=== PATIENT | female | born 1940 | race Caucasian/White ===

== ENCOUNTER 2022-11-12 11:08 | Outpatient (OUT) | payer MEDICARE, SELFPAY ==
[2022-11-12 12:06] LABS: Basophils Percent Auto 0.4 % (0.2-2.0); Eosinophils Absolute Auto 0.1 10^3/uL (0.0-0.7); Eosinophils Percent Auto 2.4 % (0.9-7.0); Hematocrit 40.2 % (36.0-48.0); Hemoglobin 13.3 g/dL (12.0-16.0); Immature Granulocytes Abs Auto 0.02 10^3/uL (0.00-0.03); Immature Granulocytes Pct Auto 0.4 % (0.0-0.5); Lymphocytes Absolute Auto 1.2 10^3/uL (1.2-3.8); Lymphocytes Percent Auto 21.8 % (20.5-60.0); Mean Corpuscular HGB Conc 33.1 g/dL (29.9-35.2); Mean Corpuscular Hemoglobin 31.7 pg (26.7-34.0); Mean Corpuscular Volume 95.7 fL (81.0-99.0); Mean Platelet Volume 10.6 fL (9.5-13.5); Monocytes Absolute Auto 0.4 10^3/uL (0.3-0.8); Monocytes Percent Auto 6.8 % (1.7-12.0); Neutrophils Absolute Auto 3.7 10^3/uL (1.4-6.5); Neutrophils Percent Auto 68.2 % (43.0-75.0); Platelet Count 126 10^3/uL (150-450); Red Cell Distribution Width 14.7 % (11.0-15.0); White Blood Count 5.4 10^3/uL (4.0-11.0)
[2022-11-12 12:27] LABS: INR 1.02; Prothrombin Time 10.8 sec (9.0-11.6)
[2022-11-12 12:29] LABS: Scan Results NEGATIVE
[2022-11-12 12:54] LABS: Alanine Aminotransferase 19 U/L (14-59); Albumin Globulin Ratio 1.2; Albumin Level 3.6 g/dL (3.4-5.0); Alkaline Phosphatase 78 U/L (46-116); Anion Gap 11.3; Aspartate Amino Transferase 15 U/L (15-37); BUN Creatinine Ratio 13.9; Calcium 9.8 mg/dL (8.5-10.1); Carbon Dioxide 29.5 mmol/L (21.0-32.0); Chloride 107 mmol/L (98-107); Estimated GFR (African America >60 (>=60); Estimated GFR (Non-African Ame 53 (>=60); Globulin 3.1 g/dL; Glucose 99 mg/dL (74-106); Potassium 3.8 mmol/L (3.5-5.1); Sodium 144 mmol/L (136-145); Total Protein 6.7 g/dL (6.4-8.2)
== END 2022-11-12 11:09 | disposition home or self-care (01) ==
LOC: LAB 11:16
PROVIDERS: PCP Family Medicine; Visit Provider Nurse Practitioner Family
DX: R41.82 Altered mental status, unspecified (principal); T14.8XXA Other injury of unspecified body region, initial encounter; N18.31 Chronic kidney disease, stage 3a
CPT/HCPCS: 36415; 80053; 85025; 85610

== ENCOUNTER 2022-12-13 12:20 | Outpatient (OUT) | payer MEDICARE, SELFPAY ==
[2022-12-13 12:28] LABS: Estimated GFR (African America 52 (>=60); Estimated GFR (Non-African Ame 43 (>=60)
--- NOTE | 2022-12-13 12:50 | MR_ITS ---
The [address] [address] Patient Name: DESTINY BLAS MRN: [facility]:[id number] date: 1940 Sex: F Assigned Patient Location: LAB Current Patient Location: LAB Accession/Order Number: [id number] Exam Date: 12/13/2022 12:50 Report Date: 12/14/2022 15:58 At the request of: DAX ALONSO Procedure: MR head/brain wo/w con EXAM: MR head/brain wo/w con HISTORY: Sensorineural hearing loss of R ear H90.41 COMPARISON: Brain MRI 10/08/2019. TECHNIQUE: Multiplanar, multisequence MR imaging of the head was performed prior to and following administration of 11 mL of Dotarem contrast intravenously. FINDINGS: No restricted diffusion. No acute hemorrhage, mass effect, midline shift or extra-axial fluid collection. There is a large area of encephalomalacia and gliosis within the right parietal lobe. There is moderate cerebral atrophy with concordant prominence of the ventricles. Moderate patchy FLAIR hyperintensities are seen within the periventricular and subcortical white matter Expected flow voids are noted within the intracranial internal carotid, vertebral and basilar arteries. The cerebellopontine angles and internal auditory canals are unremarkable. The pituitary gland and midline structures are unremarkable. Bone marrow signal is within normal limits. The orbits and globes are unremarkable. There has been prior right-sided cataract eye surgery. Expected signal voids are seen within the paranasal sinuses. There is increased T2 signal within the right mastoid air cells. 7th and 8th nerve complexes are unremarkable in course, caliber, contour and signal. Cochlea, vestibule and semicircular canals are unremarkable in signal. No abnormal enhancement. MR/MR head/brain wo/w con IMPRESSION: 1. Chronic right parietal lobe infarct. 2. Moderate atrophy and chronic small vessel ischemic changes of the supratentorial white matter. 3. Right mastoid effusion, similar to the prior MRI. Electronically authenticated by: CORNELL GERBER Date: 12/14/2022 15:58
== END 2022-12-13 12:21 | disposition home or self-care (01) ==
LOC: LAB 12:20
PROVIDERS: PCP Family Medicine; Visit Provider Otolaryngology
DX: H90.41 Sensorineural hearing loss, unilateral, right ear, with unrestricted hearing on the contralateral side (principal)
CPT/HCPCS: 36415; 70553; 82565; A9575

== ENCOUNTER 2023-03-12 09:47 | Outpatient (OUT) | payer MEDICARE, SELFPAY ==
[2023-03-12 10:18] LABS: Chol HDL Ratio 2.5; Cholesterol 163 mg/dL (<=200); HDL Cholesterol 66 mg/dL (40-60); Triglycerides 61 mg/dL (<=150); VLDL CHOLESTEROL 12.2 mg/dL
--- NOTE | 2023-03-12 10:19 | XR_ITS ---
[place] [id number] Patient Name: DESTINY BLAS MRN: [id number] date: 1940 Sex: F Assigned Patient Location: [facility] Current Patient Location: [facility] Accession/Order Number: [id number] Exam Date: 03/12/2023 10:10 Report Date: 03/12/2023 11:11 At the request of: ALICE QUIROZ Procedure: XR DEXA axial skeleton EXAMINATION: XR DEXA axial skeleton HISTORY: Estrogen Deficiency E28.39 COMPARISON: No relevant comparison available. TECHNIQUE: Dual-energy X-ray absorptiometry (DXA) was performed. FINDINGS: SPINE ANALYSIS: Average bone mineral density is 0.792 g/cm2. T-score (standard deviation relative to young adult mean): -3.2 . HIP ANALYSIS: Lowest bone mineral density is within the left femoral trochanter, 0.384 g/cm2. T-score (standard deviation relative to young adult mean): -4.1 . XR/XR DEXA axial skeleton IMPRESSION: World Chace Organization Classification: Osteoporosis - High Fracture Risk Electronically authenticated by: EZEQUIEL MART Date: 03/12/2023 11:11
== END 2023-03-12 09:48 | disposition home or self-care (01) ==
LOC: RAD 09:48
PROVIDERS: PCP Family Medicine; Visit Provider Family Medicine
DX: I10 Essential (primary) hypertension (principal); Z13.220 Encounter for screening for lipoid disorders; E28.39 Other primary ovarian failure; M81.0 Age-related osteoporosis without current pathological fracture
CPT/HCPCS: 36415; 77080; 80061

== ENCOUNTER 2024-12-09 21:11 | Inpatient (IN) | payer MEDICARE, SELFPAY ==
[2024-12-09] VITALS (12 sets, daily range): BP systolic 142–161; BP diastolic 70–101; PULSE 94–106; TEMP 37.4–38.5; O2SAT 83–98; BMI 18.9
--- OUTSIDE RECORDS SUMMARY | 2024-12-09 21:19 | XMS_ITS | Encounter Summary ---
Author Organization [facility] Address [address] [facility] [place] [address] Care Team Providers Care Tape Recorder Repairer Name Role Phone Alfredo Gaming MD Primary Care Provider [phone] Alfredo Gaming MD Unavailable Ramila Canada SECOND FACING BASTER Unavailable [phone] Encounter Details Date Type Department Care Team (Late st Contact Info) Description 06/16/2023 Abstract [facility] [address] [place] [address] [place] [address] Alfredo Gaming MD [address] [facility] 110 [place] [address] Social History Tobacco Use Types Packs/Day Years Used Date Smoking Tobacco: Never Smokeless Tobacco: Never Alcohol Use Standard Drinks/Week Comments Never 0 (1 standard drink = 0.6 oz pure alcohol) Caffeine intake: 1-2 cups per day PHQ-2 Answer Date Recorded Patient Health Questionnaire-2 Score 0 03/03/2023 Comments Unknown Sex and Gender Information Value Date Recorded Sex Assigned at Not on file Legal Sex Female 7:25 PM EDT Gender Identity Not on file Sexual Orientation Not on file documented as of this encounter Plan of Treatment Not on file documented as of this encounter Visit Diagnoses Not on filedocumented in this encounter Care Teams Tape Recorder Repairer Relationship Specialty Start Date End Date Alfredo Gaming MD [address] [place] [address] [place] [address] PCP - General Family Medicine 10/03/22 Alfredo Gaming MD 112 [facility] 110 [place] [address] PCP - ACO Reach 06/11/24 Ramila Canada, SECOND FACING BASTER [address] [place] [address] Instructor Warper Family Medicine 12/09/24 documented as of this encounter
--- OUTSIDE RECORDS SUMMARY | 2024-12-09 21:19 | XMS_ITS | Encounter Summary ---
Author Organization [facility] Address [address] [facility] [place] [address] Care Team Providers Care Loom Inspector Name Role Phone Alfredo Gaming MD Primary Care Provider [phone] Alfredo Gaming MD Unavailable Ramila Canada FLOOR MANAGER Unavailable [phone] Encounter Details Date Type Department Care Team (Late st Contact Info) Description 12/09/2024 Abstract [facility] [address] [place] [address] [place] [address] Alfredo Gaming MD [address] [facility] 110 [place] [address] Social History Tobacco Use Types Packs/Day Years Used Date Smoking Tobacco: Never Smokeless Tobacco: Never Alcohol Use Standard Drinks/Week Comments Never 0 (1 standard drink = 0.6 oz pure alcohol) Caffeine intake: 1-2 cups per day PHQ-2 Answer Date Recorded Patient Health Questionnaire-2 Score 0 09/14/2024 Comments Unknown Sex and Gender Information Value Date Recorded Sex Assigned at Not on file Legal Sex Female 7:25 PM EDT Gender Identity Not on file Sexual Orientation Not on file documented as of this encounter Plan of Treatment Not on file documented as of this encounter Visit Diagnoses Not on filedocumented in this encounter Care Teams Loom Inspector Relationship Specialty Start Date End Date Alfredo Gaming MD [address] [place] [address] [place] [address] PCP - General Family Medicine 10/03/22 Alfredo Gaming MD 112 [facility] 110 [place] [address] PCP - ACO Reach 06/11/24 Ramila Canada, FLOOR MANAGER [address] [place] [address] Dope House Operator Helper Family Medicine 12/09/24 documented as of this encounter
--- OUTSIDE RECORDS SUMMARY | 2024-12-09 21:19 | XMS_ITS | Encounter Summary ---
Author Organization [facility] Address [address] [place] [address] Phone Care Team Providers Care Medical Imaging Director Name Role Phone Alfredo Gaming MD Primary Care Provider [phone] Encounter Details Date Type Department Care Team (Late Contact Info) Description 10/07/2019 Orders Only [facility] [address] [place] [address] Conversion, Onbase Social History Tobacco Use Types Packs/Day Years Used Date Smoking Tobacco: Never Assessed Comments Unknown Sex and Gender Information Value Date Recorded Sex Assigned at Not on file Legal Sex Female 6:59 PM EST Gender Identity Not on file Sexual Orientation Not on file documented as of this encounter Plan of Treatment Upcoming Encounters Date Type Department Care Team (Late Contact Info) Description 06/06/2025 1:00 PM EST Office Visit [facility] [address] [facility] [address] [place] [address] Karlene Mayo, LICENSING REPRESENTATIVE-METAL MODEL BUILDER [address] [facility] [address] [place] [address] [place] [address] Scheduled Orders Name Type Priority Associated Diagnoses Orde r Schedule OUTSIDE LAB SCAN Lab Ordered: 10/07/2019 documented as of this encounter Visit Diagnoses Not on filedocumented in this encounter Care Teams Medical Imaging Director Relationship Specialty Start Date End Date Alfredo Gaming MD [address] [place] [address] [place] [address] PCP - General 03/08/20 documented as of this encounter
--- OUTSIDE RECORDS SUMMARY | 2024-12-09 21:19 | XMS_ITS ---
Author Organization [facility] Address [address] [facility] [place] [address] Care Team Providers Care Automobile Insurance Claim Examiner Name Role Phone Alfredo Gaming MD Primary Care Provider [phone] Alfredo Gaming MD Unavailable Ramila Canada Unavailable [phone] Chronic Care Management (CCM) Status:Identified (Enrolling) Start date:12/09/2024 Enrollment reason:Identified by Health Plan Overview Please assess for Care Management needs. Case Team Name Relationship Phone Ramila DOBSONW(Responsible Staff) Social Wor ker [phone] Continued Care and Services Coordination
--- OUTSIDE RECORDS SUMMARY | 2024-12-09 21:19 | XMS_ITS | Encounter Summary ---
Author Organization [facility] Address [address] [facility] [place] [address] Care Team Providers Care Retail Analytics Manager Name Role Phone Alfredo Gaming MD Primary Care Provider [phone] Alfredo Gaming MD Unavailable Ramila Canada SPEECH LANGUAGE PATHOLOGIST TRAVEL Unavailable [phone] Encounter Details Date Type Department Care Team (Late st Contact Info) Description 10/29/2024 Abstract [facility] [address] [place] [address] [place] [address] Alfredo Gaming MD [address] [facility] 110 [place] [address] Social History Tobacco Use Types Packs/Day Years [...] on filedocumented in this encounter Care Teams Retail Analytics Manager Relationship Specialty Start Date End Date Alfredo Gaming MD [address] [place] [address] [place] [address] PCP - General Family Medicine 10/03/22 Alfredo Gaming MD [address] [facility] 110 [place] [address] PCP - ACO Reach 06/11/24 Ramila Canada, SPEECH LANGUAGE PATHOLOGIST TRAVEL [address] [place] [address] Lead Java Developer Architect Family Medicine 12/09/24 documented as of this encounter
--- OUTSIDE RECORDS SUMMARY | 2024-12-09 21:19 | XMS_ITS | Encounter Summary ---
Author Organization [facility] Address [address] [place] [address] Care Team Providers Care Medical Data Analyst Name Role Phone Alfredo Gaming MD Primary Care Provider [phone] Alfredo Gaming MD Unavailable Ramila Canada BUSINESS OPERATIONS SPECIALIST Unavailable [phone] Encounter Details Date Type Department Care Team (Late st Contact Info) Description 2022 Orders Only [facility] [address] [place] [address] [place] [id number] A, Unknown Practice [address] [place], [place] [address] Social History Tobacco Use Types Packs/Day Years Used Date Smoking Tobacco: Never Smokeless Tobacco: Never Alcohol Use Standard Drinks/Week Comments Never 0 (1 standard drink = 0.6 oz pure alcohol) Caffeine intake: 1-2 cups per day Comments Unknown Sex and Gender Information Value Date Recorded Sex Assigned at Not on file Legal Sex Female 7:25 PM EDT Gender Identity Not on file Sexual Orientation Not on file documented as of this encounter Plan of Treatment Not on file documented as of this encounter Procedures Procedure Name Priority Date/Time Associated Diagnosis Comments SCANNED LABS Routine 11/12/2022 9:34 AM EDT documented in this encounter Results * SCANNED LABS (11/12/2022 9:34 AM EDT) us Unknown Practice A LAB CHG PERFORMABLES Final Re sult documented in this encounter Visit Diagnoses Not on filedocumented in this encounter Care Teams Medical Data Analyst Relationship Specialty Start Date End Date Alfredo Gaming MD [address] [facility] 110 [place] [address] PCP - General Family Medicine 10/03/22 Alfredo Gaming MD [address] [facility] 110 [place] [address] PCP - ACO Reach 06/11/24 Ramila Canada, BUSINESS OPERATIONS SPECIALIST [address] [place] [address] Janitor Caretaker Family Medicine 12/09/24 documented as of this encounter
--- OUTSIDE RECORDS SUMMARY | 2024-12-09 21:19 | XMS_ITS | Encounter Summary ---
Author Organization [facility] Address [address] [facility] [place] [address] Care Team Providers Care Resource Conservation Manager Name Role Phone Alfredo Gaming MD Primary Care Provider [phone] Alfredo Gaming MD Unavailable Ramila Canada BILINGUAL COUNTER SALES RETAIL Unavailable [phone] Encounter Details Date Type Department Care Team (Late st Contact Info) Description 12/09/2024 Telephone [facility] [address] [place] [address] [place] [address] Alfredo Gaming MD [address] [facility] 110 [place] [address] Social History Tobacco Use Types Packs/Day Years [...] on file documented as of this encounter Miscellaneous Notes * Telephone Encounter - ULI PADILLA - 12/09/2024 10:53 AM EDT Hi, my name is Car Luis, I am calling from [facility] regarding mutual patient Elza Grimes date of is [id number]. Just reaching out because we did receive that referral for her for some homecare. However, we are going to need an addendum to the visit note from september 14. We Just need a discussion added on what chronic condition is causing her to need the home care that can be fixed to [phone]. And if you have any questions, please give me a call back at [phone], extension [phone]. Thank you. documented in this encounter Plan of Treatment Not on file documented as of this encounter Visit Diagnoses Not on filedocumented in this encounter Care Teams Resource Conservation Manager Relationship Specialty Start Date End Date Alfredo Gaming MD [address] [facility] 110 [place] [address] PCP - General Family Medicine 10/03/22 Alfredo Gaming MD [address] [facility] 110 [place] [address] PCP - ACO Reach 06/11/24 Ramila Canada, SHAQ [address] [place] [address] Physician Ophthalmologist Family Medicine 12/09/24 documented as of this encounter
--- OUTSIDE RECORDS SUMMARY | 2024-12-09 21:19 | XMS_ITS | Encounter Summary ---
Author Organization [facility] Address [address] [facility] [place] [address] Care Team Providers Care Glass Presser Name Role Phone Alfredo Gaming MD Primary Care Provider [phone] Alfredo Gaming MD Unavailable Ramila Canada CONTRACT NEGOTIATION SPECIALIST Unavailable [phone] Encounter Details Date Type Department Care Team (Late st Contact Info) Description 03/12/2023 Abstract [facility] [place] [address] [place] [address] [place] [address] Alfredo Gaming MD [address] [facility] 110 [place] [address] Social History Tobacco Use Types Packs/Day Years [...] on filedocumented in this encounter Care Teams Glass Presser Relationship Specialty Start Date End Date Alfredo Gaming MD [address] [place] [address] [place] [address] PCP - General Family Medicine 10/03/22 Alfredo Gaming MD 112 [facility] 110 [place] [address] PCP - ACO Reach 06/11/24 Ramila Canada, CONTRACT NEGOTIATION SPECIALIST [address] [place] [address] Wrinkle Chaser Family Medicine 12/09/24 documented as of this encounter
--- OUTSIDE RECORDS SUMMARY | 2024-12-09 21:19 | XMS_ITS | Clinical Summary ---
Author Organization [facility] Address [address] [facility] [address] [place] [address] Care Team Providers Care Fire Operations Forester Name Role Phone Alfredo Gaming MD Primary Care Provider [phone] Allergies Active Allergy Reactions Criticality Noted Date Comments Food Diarrhea Low 07/10/2021 Green peppers Onion Diarrhea Low 07/10/2021 Green onions Medications losartan (COZAAR) 50 MG tablet Take 50 mg by mouth 2 times daily Active carvedilol (COREG) 25 MG tablet Take 12.5 mg by mouth 2 times daily (with meals) Active methotrexate (RHEUMATREX) 2.5 MG chemo tablet Take 10 mg by mouth once a week 4 tablets (10mg) weekly per Helga, patient advocate for Dr Alfredo Gaming 07/09/21 [facility] Active omeprazole (PRILOSEC) 20 MG delayed release capsule Take 20 mg by mouth daily Active spironolactone (ALDACTONE) 25 MG tablet Take 12.5 mg by mouth daily Active enoxaparin (LOVENOX) 40 MG/0.4ML injection Inject 0.4 mLs into the skin daily 30 each 07/12/2021 Active Active Problems Problem Noted Date Diagnosed Date Thrombocytopenia 07/10/2021 Femoral neck stress fracture, initial encounter - Right 07/09/2021 Hypertension 07/09/2021 Cerebral artery occlusion with cerebral infarcti on 07/09/2021 Arthritis 07/09/2021 Right hip pain 07/09/2021 Social History Tobacco Use Types Packs/Day Years Used Date Smoking Tobacco: Never Smokeless Tobacco: Never Alcohol Use Standard Drinks/Week Comments Never 0 (1 standard drink = 0.6 oz pur e alcohol) Comments No Sex and Gender Information Value Date Recorded Sex Assigned at Not on file Legal Sex Female 2:03 PM EST Gender Identity Not on file Sexual Orientation Not on file Last Filed Vital Signs Vital Sign Reading Time Taken Comments Blood Pressure 137/67 07/13/2021 7:12 AM EST Pulse 77 07/13/2021 7:12 AM EST Temperature 36.2 C (97.1 F) 07/13/2021 7:12 AM EST Respiratory Rate 18 07/13/2021 7:12 AM EST Oxygen Saturation 95% 07/13/2021 7:12 AM EST Inhaled Oxygen Concentration - - Weight 58.5 kg (129 lb) 07/13/2021 5:15 AM EST Height 162.6 cm (5' 4 ) 07/10/2021 8:33 AM EST Body Mass Index 22.14 07/10/2021 8:33 AM EST Plan of Treatment Not on file Medical Devices Implanted Type Area Biostatistics Manager Device Identifier Shelf Expiration Date Model / Serial / Lot Nail Im L170mm [id number] 130deg Sht Prox Fem Grn Ti Vijaya Rhea - [id number] Implanted:Qty: 1 on 07/11/2021 by Manny Amaya MD at [facility] Right: Hip DEPUY SYNTH[employer] [facility] 01/02/2031 [id number] / / [id number] Blade Im L95mm Dia10.35mm Prox Fem G Ti Vijaya Fen Kristina For - [id number] Implanted:Qty: 1 on 07/11/2021 by Manny Amaya MD at [facility] Right: Hip [employer] [facility] 07/02/2030 [id number] / / [id number] Screw Bne L34mm Dia5mm Tib Lt Grn Ti St Vijaya Andrew Full Thrd - [id number] Implanted:Qty: 1 on 07/11/2021 by Manny Amaya MD at [facility] Right: Hip [employer] [facility] 12/02/2030 [id number] / / [id number] Insurance MEDICARE A[employer] SENIOR MEDICARE SUPP Advance Directives * Full Code (Latest Code Status on File) Date Activated Date Inactivated Comments 07/11/2021 5:35 PM 07/13/2021 2:51 PM * Full Code Date Activated Date Inactivated Comments 07/09/2021 1:55 PM 07/11/2021 5:35 PM Healthcare Agents on File Name Relationship Healthcare Agent Relationshi p Communication Jorge Alberto Gutierrez Spouse Primary Decision Maker Care Teams Fire Operations Forester Relationship Specialty Start Date End Date Alfredo Gaming MD PCP - General Family Medicine 07/09/21
--- OUTSIDE RECORDS SUMMARY | 2024-12-09 21:19 | XMS_ITS | Encounter Summary ---
Author Organization [facility] Address [address] [facility] [place] [address] Care Team Providers Care Lead Recreation Assistant Name Role Phone Alfredo Gaming MD Primary Care Provider [phone] Alfredo Gaming MD Unavailable Ramila Canada FRUIT BUYING GRADER Unavailable [phone] Encounter Details Date Type Department Care Team (Late st Contact Info) Description 10/13/2023 Abstract [facility] [address] [place] [address] [place] [address] Alfredo Gaming MD [address] [facility] 110 [place] [address] Social History Tobacco Use Types Packs/Day Years [...] on filedocumented in this encounter Care Teams Lead Recreation Assistant Relationship Specialty Start Date End Date Alfredo Gaming MD [address] [place] [address] [place] [address] PCP - General Family Medicine 10/03/22 Alfredo Gaming MD 112 [facility] 110 [place] [address] PCP - ACO Reach 06/11/24 Ramila Canada, FRUIT BUYING GRADER [address] [place] [address] Culture Room Worker Family Medicine 12/09/24 documented as of this encounter
--- OUTSIDE RECORDS SUMMARY | 2024-12-09 21:19 | XMS_ITS | Encounter Summary ---
Author Organization [facility] Address [address] [place] [address] Phone Care Team Providers Care Digital Color Press Operator Name Role Phone Alfredo Gaming MD Primary Care Provider [phone] Encounter Details Date Type Department Care Team (Late Contact Info) Description 05/13/2020 Orders Only [facility] [address] [place] [address] Conversion, Onbase Social History Tobacco Use Types [...] 1:00 PM EST Office Visit [facility] [address] [facility] 250 [place] [address] Karlene Mayo, SPECIAL PROJECTS MANAGER-LATEX CASTER [address] [facility] [address], [place] [address] [place] [address] Scheduled Orders Name Type Priority Associated Diagnoses Orde r Schedule OUTSIDE LAB SCAN Lab Ordered: 05/13/2020 OUTSIDE LAB SCAN Lab Ordered: 05/13/2020 documented as of this encounter Visit Diagnoses Not on filedocumented in this encounter Care Teams Digital Color Press Operator Relationship Specialty Start Date End Date Alfredo Gaming MD [address] [facility] 110 [place] [address] PCP - General 11/4/20 documented as of this encounter
--- OUTSIDE RECORDS SUMMARY | 2024-12-09 21:19 | XMS_ITS | Encounter Summary ---
Author Organization [facility] Address [address] [facility] [place] [address] Care Team Providers Care Axminster Weaver Name Role Phone Alfredo Gaming MD Primary Care Provider [phone] Alfredo Gamign MD Unavailable Ramila Canada MANAGER CIVIL Unavailable [phone] Encounter Details Date Type Department Care Team (Late st Contact Info) Description 03/19/2023 Abstract [facility] [address] [place] [address] [place] [address] Alfredo Gaming MD [address] [facility] 110 [place] [address] Social History Tobacco Use Types Packs/Day Years [...] on filedocumented in this encounter Care Teams Axminster Weaver Relationship Specialty Start Date End Date Alfredo Gaming MD [address] [place] [address] [place] [address] PCP - General Family Medicine 10/03/22 Alfredo Gaming MD 112 [facility] 110 [place] [address] PCP - ACO Reach 06/11/24 Ramila Canada, MANAGER CIVIL [address] [place] [address] Production Finisher Family Medicine 12/09/24 documented as of this encounter
--- OUTSIDE RECORDS SUMMARY | 2024-12-09 21:19 | XMS_ITS | Encounter Summary ---
Author Organization [facility] Address [address] [place] [address] Care Team Providers Care Supermarket Manager Name Role Phone Alfredo Gaming MD Primary Care Provider [phone] Alfredo Gaming MD Unavailable Ramila Canada SPEECH LANGUAGE PATHOLOGY ASSISTANT Unavailable [phone] Encounter Details Date Type Department Care Team (Late st Contact Info) Description 03/12/2023 Abstract [facility] [address] [place] [id number] Alfredo Gaming MD [address] [facility] [address] [place] [address] Social History Tobacco Use Types Packs/Day Years [...] on filedocumented in this encounter Care Teams Supermarket Manager Relationship Specialty Start Date End Date Alfredo Gaming MD [address] [place] [place] [address] PCP - General Family Medicine 10/03/22 Alfredo Gaming MD [address] [facility] 110 [place] [address] PCP - ACO Reach 06/11/24 Ramila Canada, SPEECH LANGUAGE PATHOLOGY ASSISTANT [address] [place] [address] Funds Transfer Clerk Family Medicine 12/09/24 documented as of this encounter
--- OUTSIDE RECORDS SUMMARY | 2024-12-09 21:19 | XMS_ITS | Encounter Summary ---
Author Organization [facility] Address [address] [facility] [place] [address] Care Team Providers Care Android Ui Developer Name Role Phone Alfredo Gaming MD Primary Care Provider [phone] Alfredo Gaming MD Unavailable Ramila Canada PARENTING SKILLS INSTRUCTOR Unavailable [phone] Encounter Details Date Type Department Care Team (Late st Contact Info) Description 09/29/2024 Abstract [facility] [address] [place] [address] [place] [address] Alfredo Gaming MD [address] [facility] [address] [place] [address] Social History Tobacco Use Types Packs/Day Years [...] on filedocumented in this encounter Care Teams Android Ui Developer Relationship Specialty Start Date End Date Alfredo Gaming MD [address] [place] [place] [address] PCP - General Family Medicine 10/03/22 Alfredo Gaming MD 112 [facility] 110 [place] [address] PCP - ACO Reach 06/11/24 Ramila Canada, PARENTING SKILLS INSTRUCTOR [address] [place] [address] Financial Accountant Family Medicine 12/09/24 documented as of this encounter
--- OUTSIDE RECORDS SUMMARY | 2024-12-09 21:19 | XMS_ITS | Encounter Summary ---
Author Organization [facility] Address [address] [place] [address] Care Team Providers Care Grain Sacker Name Role Phone Alfredo Quiroz MD Primary Care Provider [phone] Alfredo Quiroz MD Unavailable Ramila Canada SAWMILLING OPERATOR Unavailable [phone] Encounter Details Date Type Department Care Team (Late st Contact Info) Description 03/12/2023 Clinisync Result Encounter [facility] External Department Unsolicited Alfredo Quiroz MD [address] [place] [place] [address] Social History Tobacco Use Types Packs/Day Years [...] Procedure Name Priority Date/Time Associated Diagnosis Comments XR DEXA AXIAL SKELETON 03/12/2023 11:11 AM EST documented in this encounter Results * XR DEXA AXIAL SKELETON (03/12/2023 11:11 AM EST) Anatomical Region Laterality Modality Other 03/12/2023 11:1 1 AM EST Narrative 03/12/2023 11:11 [place] [address] XRay Report Signed Patient: ELZA GUTIERREZ MR#: [id number] : 1940 Acct:[id number] Age/Sex: 82 / F ADM Date: 03/12/23 Loc: [facility] Attending Dr: ALFREDO QUIROZ Ordering Physician: ALFREDO QUIROZ Date of Service: 03/12/23 Procedure(s): XR DEXA axial skeleton Accession Number(s): [id number] cc: ALFREDO QUIROZ [place] [address] Patient Name: ELZA GUTIERREZ MRN: [id number] date: 1940 Sex: F Assigned Patient Location: [facility] Current Patient Location: [facility] Accession/Order Number: [id number] Exam Date: 03/12/2023 10:10 Report Date: 03/12/2023 11:11 At the request of: ALFREDO QUIROZ Procedure: XR DEXA axial skeleton EXAMINATION: XR DEXA axial skeleton HISTORY: Estrogen Deficiency E28.39 COMPARISON: No relevant comparison available. TECHNIQUE: Dual-energy X-ray absorptiometry (DXA) was performed. FINDINGS: SPINE ANALYSIS: Average bone mineral density is 0.792 g/cm2. T-score (standard deviation relative to young adult mean): -3.2 . HIP ANALYSIS: Lowest bone mineral density is within the left femoral trochanter, 0.384 g/cm2. T-score (standard deviation relative to young adult mean): -4.1 . XR/XR DEXA axial skeleton IMPRESSION: World [employer] Classification: Osteoporosis - High Fracture Risk Electronically authenticated by: CATRACHITO ELLIS Date: 03/12/2023 11:11 Dictated By: Catrachito Ellis M.D. Signed By: 03/12/23 1113 DD/ 1111 TD/TT: [employer]: Procedure Note Radiology, Radiologist, - 03/12/2023 [facility] [place] [id number] XRay Report Signed Patient: ELZA GUTIERREZ AMR#: [id number] : 1940cct:[id number] Age/Sex: 82 / FADM Date: 03/12/23 Loc: [facility] Attending Dr: ALFREDO QUIROZ Ordering Physician: ALFREDO QUIROZ Date of Service: 03/12/23 Procedure(s): XR DEXA axial skeleton Accession Number(s): [id number] cc: ALFREDO QUIROZ [place] [id number] Patient Name: ELZA GUTIERREZ MRN: [id number] date: 1940 Sex: F Assigned Patient Location: [facility] Current Patient Location: [facility] Accession/Order Number: [id number] Exam Date: 03/12/2023 10:10 Report Date: 03/12/2023 11:11 At the request of: ALFREDO QUIROZ Procedure: XR DEXA axial skeleton EXAMINATION: XR DEXA axial skeleton HISTORY: Estrogen Deficiency E28.39 COMPARISON: No relevant comparison available. TECHNIQUE: Dual-energy X-ray absorptiometry (DXA) was performed. FINDINGS: SPINE ANALYSIS: Average bone mineral density is 0.792 g/cm2. T-score (standard deviation relative to young adult mean): -3.2 . HIP ANALYSIS: Lowest bone mineral density is within the left femoral trochanter, 0.384 g/cm2. T-score (standard deviation relative to young adult mean): -4.1 . XR/XR DEXA axial skeleton IMPRESSION: World [employer] Organization Classification: Osteoporosis - High Fracture Risk Electronically authenticated by: CATRACHITO ELLIS Date: 03/12/2023 11:11 Dictated By: Catrachito Ellis M.D. Signed By:03/12/23 1113 DD/ 1111 TD/TT: [employer]: us Alfredo Quiroz MD [facility] Final Result documented in this encounter Visit Diagnoses Not on filedocumented in this encounter Care Teams Grain Sacker Relationship Specialty Start Date End Date Alfredo Quiroz MD [address] [place] [address] PCP - General Family Medicine 10/03/22 Alfredo Quiroz MD 112 [facility] 110 [place] [address] PCP - ACO Reach 06/11/24 Ramila Canada, SAWMILLING OPERATOR [address] [place] [address] Anode Machine Operator Family Medicine 12/09/24 documented as of this encounter
--- OUTSIDE RECORDS SUMMARY | 2024-12-09 21:19 | XMS_ITS | Clinical Summary ---
Author Organization [facility] Healthcare Address [address] [place] [address] Care Team Providers Care Lead Php Developer Name Role Phone Alfredo Gaming MD Primary Care Provider [phone] Alfredo Gaming MD Unavailable Ramila Canada ACCOUNT EXECUTIVE [employer] Unavailable [phone] Allergies Active Allergy Reactions Criticality Noted Date Comments Food Diarrhea Low 07/10/2021 Green peppers Onion Diarrhea Low 07/10/2021 Green onions Medications folic acid (Folvite) 1 MG tablet 1 mg in the morning. Active Cholecalciferol 125 MCG (5000 UT) chewable tablet Chew 1 tablet 1 (one) time each day. Active losartan (Cozaar) 50 MG tablet Take 50 mg by mouth in the morning and 50 mg before bedtime. 12/16/2022 Active methotrexate 2.5 MG tabletIndication s:Rheumatoid arthritis with positive rheumatoid factor, involving unspecified site (HCC) Pt is to take 4 tablets once a week 36 tablet 2 04/07/2024 Active omeprazole (PriLOSEC) [address] Freeman ns:Gastritis without bleeding, unspecified chronicity, unspecified gastritis type TAKE 1 CAPSULE BY MOUTH EVERY MORNING BEFORE Meals 310 capsule 07/20/2024 Active carvedilol (Coreg) 12.5 MG tablet Take 12.5 mg by mouth in the morning and 12.5 mg before bedtime. 08/09/2024 Active Active Problems Problem Noted Date Diagnosed Date Weight loss, abnormal 09/14/2024 Assessment & Plan (09/14/2024 3:38 PM EDT): Add Prednisone I discussed with patient that while on prednisone, do not take any NSAIDs like Ibuprofen, Naprosyn, Alleve or motrin. Watch for any side effects like abdominal pain and nausea. Take the prednisone with food or milk. Prednisone may increase appetite. While on prednisone, watch for any sugar elevations. Diarrhea 09/14/2024 Assessment & Plan (09/14/2024 3:36 PM EDT): Cannot rule out Inflammatory bowel disease or cancer. 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 04/21/2023 Myopathy 03/06/2023 Medicare annual wellness visit, subsequent 03/03 Assessment & Plan (03/03/2023 2:32 PM EDT): Colonoscopy every 10 years or Cologuard every 3 years ages 50-75 Flu Vaccine yearly Pneumovax and Prevnar Mammo yearly for women and PSA yearly for men Labs/Screening yearly to rule out Diabetes, Chronic Kidney disease and liver disease Hepatitis Screen forat risk populations Shingles vaccine after 65 if indicated Tetanus Vaccine every 10 years Lipids yearly under the age of 75 If Smoking history: one time CT scan of chest and Ultrasound of Aorta to screen for Anuerysm Myalgia 02/12/2023 Chronic mastoiditis of right side 01/08/2023 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 We made recommendations on how to control your blood pressure, and minimize your risk of these copmplications. We also discussed your current barriers to a healthy living and importance of healthy diet and exercise. Prior to your visit today we have reviewed your chart and formed a plan to assist with providing you the best possible care. We reviewed the possible complications of hypertension including, stroke, heart failure and kidney impairment. In addition, we discussed your medications, the importance of taking them as prescribed. DASH diet handouts Abnormal MRI of head 10/08/2022 Aphasia 10/08/2022 Cardiomyopathy 10/08/2022 Cerebrovascular accident (CV A) due to occlusion of right middle cerebral artery 10/08/2022 Disorder of parathyroid gland 10/08/2022 Elevated erythrocyte sedimentation rate 10/09/19 23 Essential hypertension 10/08/2022 Gastritis 10/08/2022 H/O hysterectomy for benign disease 10/08/2022 Macrocytosis 10/08/2022 Rheumatoid arthritis 10/08/2022 Assessment & Plan (03/03/2023 2:40 PM EDT): This is a chronic medical condition that is stable since last assessment. No changes in treatment are suggested at this time. Stage 3 chronic kidney disease 10/08/2022 Thrombocytopenia 10/08/2022 Vitamin D deficiency 10/08/2022 Cerebral artery occlusion with cerebral infarcti on 07/09/2021 Femoral neck stress fracture, initial encounter 07/09/2021 Right hip pain 07/09/2021 History of cataract extraction 02/17/2020 Encounters Date Type Department Care Team Description 12/09/2024 Telephone [facility] [address] [facility] [address] [place] [phone] Alfredo Gaming MD 12/09/2024 Abstract [facility] [address] [facility] [address] [place] [phone] Alfredo Gaming MD 12/08/2024 Telephone [facility] [address] [facility] [address] [place] [phone] Connie Collazo LPN 10/29/2024 Abstract [facility] [address] [facility] [address] [place] [phone] Alfredo Gaming MD 09/29/2024 [facility] [address] [facility] [address] [place] [address] Alfredo Gaming MD 09/28/2024 Telephone [facility] [place] [address] Alfredo Gaming MD 09/16/2024 11:15 AM EDT Ancillary Procedure [facility] [address] [place] [place] [id number] Weight loss, abnormal; Diarrhea, unspecified type; Epigastric pain 09/16/2024 Results Follow-Up [facility] [address] [place] [address] Alfredo Gaming MD Thrombocytopenia; Anemia, unspecified type 09/16/2024 Travel 09/14/2024 3:15 PM EDT Office Visit [facility] [place] [address] Alfredo Gaming MD Weight loss, abnormal (Primary Dx); Diarrhea, unspecified type; Epigastric pain 09/14/2024 Travel from Last 3 Months Immunizations Immunization Administration Dates Next Due Influenza, High Dose Seasona l, Preservative Free 02/13/2024 Influenza, High-dose Seasona l, Quadrivalent, Preservative Free 03/03/2023,02/18/2022,02/22/2021 Influenza, injectable, quadr ivalent, preservative free 01/24/2020 Influenza, seasonal, injectable 01/04/2020,03/05 Influenza, trivalent, adjuvanted 02/01/2019 Pneumococcal Conjugate PCV 13 08/11/2020, 019 Pneumococcal Polysaccharide PPSV23 02/07/2016 Zoster, Recombinant 11/07/2022,09/02/2022,2018 Family History Medical History Relation Name Comments Stomach cancer Father Relation Name Status Comments Father Mother Social History Tobacco Use Types Packs/Day Years Used Date Smoking Tobacco: Never Smokeless Tobacco: Never Tobacco Cessation:Counseling Given: Not Answered Alcohol Use Standard Drinks/Week Comments Never 0 [...] Sign Reading Time Taken Comments Blood Pressure 122/78 09/14/2024 3:25 PM EDT Pulse 87 09/14/2024 3:25 PM EDT Temperature - - Respiratory Rate 16 04/07/2024 10:17 AM EST Oxygen Saturation 96% 09/14/2024 3:25 PM EDT Inhaled Oxygen Concentration - - Weight 49.9 kg (110 lb) 09/14/2024 3:25 PM EDT Height 165.1 cm (5' 5 ) 09/14/2024 3:25 PM EDT Body Mass Index 18.3 09/14/2024 3:25 PM EDT Plan of Treatment Health Maintenance Due Date Last Done Comments Influenza Vaccine (#1) 2025 , 03/03/2023, 02/18/2022, Additional history exists Pneumococcal Vaccine: 65+ Years Completed 08/11/2020, 10/13/2018, 02/07/2016 Procedures Procedure Name Priority Date/Time Associated Diagnosis Comments CT ABDOMEN PELVIS W AND WO IV CONTRAST Routine 09/16/2024 11:45 AM EDT Weight loss, abnormal Diarrhea, unspecified type Epigastric pain COMPREHENSIVE METABOLIC PANEL Routine 09/14/2024 3:56 PM EDT Weight loss, abnormal Diarrhea, unspecified type Epigastric pain CBC Routine 09/14/2024 3:56 PM EDT Weight loss, abnormal Diarrhea, unspecified type Epigastric pain from Last 3 Months Results * CT abdomen pelvis w and wo IV contrast (09/16/2024 11:45 AM EDT) Anatomical Region Laterality Modality Body, Pelvis, Abdomen Computed T omography Abdominal wall procedure / Unknown 09/17/2024 5:58 PM EDT Narrative 09/17/2024 5:58 PM EDT EXAM: CT ABDOMEN PELVIS W AND WO IV CONTRAST Clinical History: Diarrhea, epigastric pain, weight loss Reference Exam: No comparison Imaging technique: Helically acquired axial source imaging of the abdomen, then the pelvis provided from above the hemidiaphragms, through the symphysis pubis. The scan is then repeated during the IV bolus of nonionic contrast material. Very little IV contrast could be delivered due to IV infiltration. IV contrast: Type/dose not provided Findings: Noncontrast CT abdomen: Negative for urolithiasis. Noncontrast CT pelvis: Negative for urolithiasis. Postcontrast CT abdomen: Lung bases: The lung bases are clear. No pleural effusion. No basilar pneumothorax. What is seen of the heart and pericardium unremarkable. Visceral analysis: Scattered hypodensities throughout the liver. The largest is in the left lobe of the liver measuring up to 7.9 cm, with some septation anteriorly. Hepatic parenchymal attenuation is normal, without evidence of space-occupying mass or intrahepatic biliary ductal dilatation. No enhancement of the main portal vein due to limited IV contrast delivery. The gallbladder is present. It contains no abnormal density. Negative for extrahepatic biliary ductal dilatation. The adrenal glands, pancreas, and spleen are unremarkable. Both kidneys are present. Bilateral renal cysts. The largest is on the left measuring 5.4 cm. Retroperitoneum: The abdominal aorta is nonaneurysmal. Aortoiliac atherosclerosis. Infrarenal abdominal aortic ectasia with the anterior/posterior dimension 2.8 cm. The IVC is unremarkable. No para-aortic or retrocrural lymphadenopathy. The central mesentery is unremarkable. Bowel: The caliber of loops of small bowel and colon unremarkable. A few diverticula are scattered throughout the sigmoid colon. No regional infiltration of abnormal density to suggest diverticulitis. No pericecal inflammatory phlegmon The appendix is visualized and is unremarkable. Abdominal and pelvic wall: No regional hernia of the anterior abdominal wall identified. Postcontrast CT pelvis: The uterus is not identified. No definite adnexal cyst or mass. The urinary bladder is unremarkable. The pelvic sidewalls are symmetrical. No pelvic or inguinal lymphadenopathy, mass, hernia, or ascites. Osseous analysis: Right hip surgery has been performed. Gentle dextrorotoscoliosis of the thoracolumbar junction. Wedging of the anterior column of L3. Multilevel degenerative disc changes. Anterolisthesis of L5 on the axis of S1 thought to be facet disease related. Background osteopenia. No suspicious osseous findings are identified. Impression: 1. Infiltration of the patient's IV precludes adequate contrast enhancement on postcontrast imaging. 2. Negative for urolithiasis. 3. Probable cyst accumulation throughout the liver. 4. Bilateral renal cysts larger on the left. 5. Vascular atherosclerotic disease. 6. Diverticulosis coli. No CT evidence of diverticulitis. 7. Negative for inflammatory phlegmon in the abdomen or pelvis. Dictated on: 09/17/2024 10:12 AM This report has been electronically signed and approved by the interpreting Radiologist. All CT scans at this institution are performed using dose optimization techniques as appropriate for the performed exam including the following: Automated exposure control Adjustment of the mA and/or kV according to patient size Use of iterative reconstruction technique Procedure Note eGorge Crews MD - 09/17/2024 EXAM: CT ABDOMEN PELVIS W AND WO IV CONTRAST Clinical History: Diarrhea, epigastric pain, weight loss Reference Exam: No comparison Imaging technique: Helically acquired axial source imaging of the abdomen,then the pelvis provided from above the hemidiaphragms, through thesymphysis pubis. The scan is then repeated during the IV bolus ofnonionic contrast material. Very little IV contrast could be delivered dueto IV infiltration. IV contrast: Type/dose not provided Findings: Noncontrast CT abdomen: Negative for urolithiasis. Noncontrast CT pelvis: Negative for urolithiasis. Postcontrast CT abdomen: Lung bases: The lung bases are clear. No pleural effusion. No basilarpneumothorax. What is seen of the heart and pericardium unremarkable. Visceral analysis: Scattered hypodensities throughout the liver. Thelargest is in the left lobe of the liver measuring up to 7.9 cm, with someseptation anteriorly. Hepatic parenchymal attenuation is normal, withoutevidence of space-occupying mass or intrahepatic biliary ductaldilatation. No enhancement of the main portal vein due to limited IVcontrast delivery. The gallbladder is present. It contains no abnormal density. Negative for extrahepatic biliary ductal dilatation. The adrenal glands, pancreas, and spleen are unremarkable. Both kidneys are present. Bilateral renal cysts. The largest is on theleft measuring 5.4 cm. Retroperitoneum: The abdominal aorta is nonaneurysmal. Aortoiliacatherosclerosis. Infrarenal abdominal aortic ectasia with theanterior/posterior dimension 2.8 cm. The IVC is unremarkable. Nopara-aortic or retrocrural lymphadenopathy. The central mesentery isunremarkable. Bowel: The caliber of loops of small bowel and colon unremarkable. A fewdiverticula are scattered throughout the sigmoid colon. No regionalinfiltration of abnormal density to suggest diverticulitis. No pericecal inflammatory phlegmon The appendix is visualized and is unremarkable. Abdominal and pelvic wall: No regional hernia of the anterior abdominalwall identified. Postcontrast CT pelvis: The uterus is not identified. No definite adnexalcyst or mass. The urinary bladder is unremarkable. The pelvic sidewalls are symmetrical.No pelvic or inguinal lymphadenopathy, mass, hernia, or ascites. Osseous analysis: Right hip surgery has been performed. Gentledextrorotoscoliosis of the thoracolumbar junction. Wedging of the anteriorcolumn of L3. Multilevel degenerative disc changes. Anterolisthesis of L5on the axis of S1 thought to be facet disease related. Backgroundosteopenia. No suspicious osseous findings are identified. Impression: 1. Infiltration of the patient's IV precludes adequate contrastenhancement on postcontrast imaging. 2. Negative for urolithiasis. 3. Probable cyst accumulation throughout the liver. 4. Bilateral renal cysts larger on the left. 5. Vascular atherosclerotic disease. 6. Diverticulosis coli. No CT evidence of diverticulitis. 7. Negative for inflammatory phlegmon in the abdomen or pelvis. Dictated on: 09/17/2024 10:12 AM This report has been electronically signed and approved by theinterpreting Radiologist. All CT scans at this institution are performed using dose optimizationtechniques as appropriate for the performed exam including thefollowing: Automated exposure control Adjustment of the mA and/or kV according to patient size Use of iterative reconstruction technique us Alfredo Gaming MD IM CT PROCEDURES Final Result * (ABNORMAL) CBC (09/14/2024 3:56 PM EDT) WHITE BLOOD CELL COUNT 5.9 3.8 - 10.8 Thousand/u L [facility] RED BLOOD CELL COUNT 3.23(L) 3.80 - 5.10 Million/uL [facility] HEMOGLOBIN 10.9(L) 11.7 - 15.5 g/dL [facility] HEMATOCRIT 33.4(L) 35.0 - 45.0 % [facility] MCV 103.4(H) 80.0 - 100.0 fL [facility] MCH 33.7(H) 27.0 - 33.0 pg [facility] MCHC 32.6 32.0 - 36.0 g/dL [facility] Comment: For adults, a slight decrease in the calculated MCHC value (in the range of 30 to 32 g/dL) is most likely not clinically significant; however, it should be interpreted with caution in correlation with other red cell parameters and the patient's clinical condition. RDW 15.7(H) 11.0 - 15.0 % [facility] PLATELET COUNT 61(L) 140 - 400 Thousand/u L [facility] MPV 10.9 7.5 - 12.5 fL [facility] Blood Venous blood specimen / Unknown 09/14/2024 3:56 PM EDT 09/14/2024 3:57 PM EDT Narrative Resulting Agency Comment Performing Organization Information Site ID: QPT Name: [facility] Address: [address] [place] [address], [address] [place] [id number] Director: Mateo López MD us Alfredo Gaming MD LAB BLOOD ORDERABLES Final Resul t [facility] * (ABNORMAL) Comprehensive metabolic panel (09/14/2024 3:56 PM EDT) [facility] Glucose 98 65 - 99 mg/dL [facility] Comment: Fasting reference interval BUN 22 7 - 25 mg/dL [facility] Creatinine 1.11(H) 0.60 - 0.95 mg/dL [facility] EGFR 50(L) > OR = 60 mL/min/1.7 3m2 [facility] BUN/CREATININE RATIO 20 6 - 22 (calc) [facility] Sodium 141 135 - 146 mmol/L [facility] Potassium, Bld 4.3 3.5 - 5.3 mmol/L [facility] Chloride 105 98 - 110 mmol/L [facility] Carbon Dioxide 27 20 - 32 mmol/L [facility] Calcium 9.6 8.6 - 10.4 mg/dL [facility] PROTEIN, TOTAL 6.0(L) 6.1 - 8.1 g/dL [facility] ALBUMIN 3.9 3.6 - 5.1 g/dL [facility] GLOBULIN 2.1 1.9 - 3.7 g/dL (calc) [facility] ALBUMIN/GLOBULIN RATIO 1.9 1.0 - 2.5 (calc) [facility] BILIRUBIN, TOTAL 1.7(H) 0.2 - 1.2 mg/dL [facility] ALKALINE PHOSPHATASE 70 37 - 153 U/L [facility] AST 17 10 - 35 U/L [facility] ALT 14 6 - 29 U/L [facility] Blood Venous blood specimen / Unknown 09/14/2024 3:56 PM EDT 09/14/2024 3:57 PM EDT Narrative Resulting Agency Comment Performing Organization Information Site ID: QPT Name: [facility] Address: [address] [place] [address], [address] [place] [phone] Director: Mateo López MD us Alfredo Gaming MD LAB BLOOD ORDERABLES Final Resul t Performing Organization Address City/State/[facility] Co de Phone Number [facility] from Last 3 Months Insurance MEDICARE [employer] Care Teams Lead Php Developer Relationship Specialty Start Date End Date Alfredo Gaming MD [address] [facility] [address] [place] [address] PCP - General Family Medicine 10/03/22 Alfredo Gaming MD [address] [facility] [address] [place] [address] PCP - ACO Reach 06/11/24 Ramila Canada, ACCOUNT EXECUTIVE [employer] [address] [place] [address] Clinical Research Coordinator Family Medicine 12/09/24
--- OUTSIDE RECORDS SUMMARY | 2024-12-09 21:19 | XMS_ITS | Encounter Summary ---
Author Organization [facility] Address [address] [place] [address] Phone Care Team Providers Care Stucco Mason Name Role Phone Alfredo Gaming MD Primary Care Provider [phone] Encounter Details Date Type Department Care Team (Late Contact Info) Description 12/24/2019 Orders Only [facility] [address] [place] [address] Conversion, Onbase Social History Tobacco Use Types [...] Description 06/06/2025 1:00 PM EST Office Visit [facility] [address] [facility] [address] [place] [address] Karlene Mayo, CASTING ROOM HELPER-CHEMICAL ENGINEERING TECHNICIAN [address] [facility] [address] [place] [address] [place], [place] [id number] Scheduled Orders Name Type Priority Associated Diagnoses Orde r Schedule OUTSIDE LAB SCAN Lab Ordered: 12/24/2019 OUTSIDE LAB SCAN Lab Ordered: 12/24/2019 OUTSIDE LAB SCAN Lab Ordered: 12/24/2019 documented as of this encounter Visit Diagnoses Not on filedocumented in this encounter Care Teams Stucco Mason Relationship Specialty Start Date End Date Alfredo Gaming MD [address] [facility] [address] [place] [address] PCP - General 03/08/20 documented as of this encounter
--- OUTSIDE RECORDS SUMMARY | 2024-12-09 21:19 | XMS_ITS | Encounter Summary ---
Author Organization [facility] Address [address] [facility] [place] [address] Care Team Providers Care Paper Maker Name Role Phone Alfredo Gaming MD Primary Care Provider [phone] Alfredo Gaming MD Unavailable Ramila Canada INDIGO VAT TENDER CLOTH Unavailable [phone] Encounter Details Date Type Department Care Team (Late st Contact Info) Description 04/07/2024 Abstract [facility] [address] [place] [address] [place] [phone] Alfredo Gaming MD [address] [facility] [address] [place] [address] Social History Tobacco Use Types Packs/Day Years Used Date Smoking Tobacco: Never Smokeless Tobacco: Never Alcohol Use Standard Drinks/Week Comments Never 0 (1 standard drink = 0.6 oz pure alcohol) Caffeine intake: 1-2 cups per day PHQ-2 Answer Date Recorded Patient Health Questionnaire-2 Score 0 04/07/2024 Comments Unknown Sex and Gender Information Value Date Recorded Sex Assigned at Not on file Legal Sex Female 7:25 PM EDT Gender Identity Not on file Sexual Orientation Not on file documented as of this encounter Functional Status * Over the past 2 weeks, how often have you been bothered by any of the following problems? Question Answer Date of Assessment Author Little interest or pleasure in doing things Not at all 04/07/2024 10:00 AM [facility] Feeling down, depressed, or hopeless Not at all 08/2023 10:00 AM [facility] Patient Health Questionnaire-2 Score 0 08/2023 10:00 AM [facility] documented as of this encounter Plan of Treatment Not on file documented as of this encounter Visit Diagnoses Not on filedocumented in this encounter Care Teams Paper Maker Relationship Specialty Start Date End Date Alfredo Gaming MD [address] [facility] [address] [place] [address] PCP - General Family Medicine 10/03/22 Alfredo Gaming MD [address] [facility] [address] [place] [address] PCP - ACO Reach 06/11/24 Ramila Canada, SHAQ [address] [place] [address] Fixed Wing Aircraft Crew Chief Family Medicine 12/09/24 documented as of this encounter
--- OUTSIDE RECORDS SUMMARY | 2024-12-09 21:19 | XMS_ITS | Encounter Summary ---
Author Organization [facility] Address [address] [facility] [place] [address] Care Team Providers Care Dental Hygiene Administrative Assistant Name Role Phone Alfredo Gaming MD Primary Care Provider [phone] Alfredo Gaming MD Unavailable Ramila Canada STRAP MAKER Unavailable [phone] Encounter Details Date Type Department Care Team (Late st Contact Info) Description 11/12/2022 Orders Only [facility] [address] [place] [address] [place] [id number] Provider, MD Courtney [address] [place], [place] [id number] Social History Tobacco Use Types Packs/Day Years [...] Associated Diagnosis Comments SCANNED LABS Routine 11/12/2022 1:43 PM EDT documented in this encounter Results * SCANNED LABS (11/12/2022 1:43 PM EDT) Historical Provider LAB CHG PERFORMABLES Zeinab l Result documented in this encounter Visit Diagnoses Not on filedocumented in this encounter Care Teams Dental Hygiene Administrative Assistant Relationship Specialty Start Date End Date Alfredo Gaming MD [address] [facility] [address] [place] [address] PCP - General Family Medicine 10/03/22 Alfredo Gaming MD [address] [facility] [address] [place] [address] PCP - ACO Reach 06/11/24 Ramila Canada, STRAP MAKER [address] [place] [address] Nutrition Internship Family Medicine 12/09/24 documented as of this encounter
--- OUTSIDE RECORDS SUMMARY | 2024-12-09 21:19 | XMS_ITS | Clinical Summary ---
Author Organization [facility] Address [address] [place] [address] Phone Care Team Providers Care Ornamental Machine Operator Name Role Phone Alfredo Gaming MD Primary Care Provider [phone] Allergies No known active allergies Medications methotrexate (Trexall) 2.5 mg tablet Take 4 tablets (10 mg total) by mouth 1 (one) time per week. 1 Active omeprazole (PriLOSEC) [address] capsule Take 1 capsule (20 mg) by mouth once daily in the morning. Take before meals. 1 Active cholecalciferol (Vitamin D3) 25 mcg (1000 units) tablet Take 1 tablet (1,000 Units) by mouth once daily. Active calcium carbonate (CALCIUM 600 ORAL) Take 1 tablet by mouth once daily. Active carvedilol (Coreg) 12.5 mg tabletIndications:N onischemic cardiomyopathy (Multi),Benign essential hypertension Take 1 tablet (12.5 mg) by mouth 2 times a day. 180 tablet 3 5 06/23/19 26 Active losartan (Cozaar) 50 mg tabletIndications:N onischemic cardiomyopathy (Multi),Benign essential hypertension Take 1 tablet (50 mg) by mouth 2 times a day. 180 tablet 3 5 Active Active Problems Problem Noted Date Diagnosed Date BMI 20.0-20.9, adult 06/23/2024 Former smoker 06/13/2023 Benign essential hypertension 04/21/2023 Assessment & Plan (06/24/2024 10:01 AM EST): optimal in office Nonischemic cardiomyopathy (Multi) 04/21/2023 Assessment & Plan (06/24/2024 10:04 AM EST): October 2019 TTE Dilated EF 30-35% Mar 2020 TTE EF 35-40% November 2020 TTE EF 35-40% Presumed to be NICM (had open AAA repair 2020 while in [place] with 2 month hospitalization - reported pre-op ischemic evaluation) GDMT: Wilder & cozaar added [address] 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 Resolved Problems Problem Noted Date Diagnosed Date Resolved Date Chronic systolic CHF (conges tive heart failure), NYHA class 2 06/13/2023 06/23/2024 Immunizations Immunization Administration Dates Next Due Flu vaccine, trivalent, pres ervative free, HIGH-DOSE, age 65y+ (Fluzone) 02/18/2022,02/22/2021 Pneumococcal conjugate vaccine, 13-valent (PREVN AR 13) 08/11/2020,10/13/2018 Family History Medical History Relation Name Comments No Known Problems Brother No Known Problems Father No Known Problems Mother No Known Problems Sister Relation Name Status Comments Brother Father Mother Sister Social History Tobacco Use Types Packs/Day Years Used Date Smoking Tobacco: Former Cigarettes Q uit: 2017 Smokeless Tobacco: Never Alcohol Use Standard Drinks/Week Comments Never 0 (1 standard drink = 0.6 oz pur e alcohol) Comments Unknown Sex and Gender Information Value Date Recorded Sex Assigned at Not on file Legal Sex Female 6:59 PM EST Gender Identity Not on file Sexual Orientation Not on file Last Filed Vital Signs Vital Sign Reading Time Taken Comments Blood Pressure 116/74 06/23/2024 12:50 PM EST Pulse 68 06/23/2024 12:50 PM EST Temperature - - Respiratory Rate - - Oxygen Saturation - - Inhaled Oxygen Concentration - - Weight 54.8 kg (120 lb 12.8 oz) 02/19/2 025 12:50 PM EST Height 165.1 cm (5' 5 ) 06/23/2024 12:5 0 PM EST Body Mass Index 20.1 06/23/2024 12:50 PM EST Plan of Treatment Upcoming Encounters Date Type Department Care Team (Late st Contact Info) Description 06/06/2025 1:00 PM EST Office Visit [facility] [address] [facility] [address] [place] [id number] Karlene Mayo, REROLLING MACHINE OPERATOR-CIRCULAR SAW OPERATOR [address] [facility] [address] [place] [address] Health Maintenance Due Date Last Done Comments COVID-19 Vaccine (#1) 1945 Diabetes Screening 11/15/1959 DTaP/Tdap/Td Vaccines (1 - Tdap) 11/15/1963 RSV High Risk: (Elderly (60+) or Population) (1 - 1-dose 75+ series) 2016 Influenza Vaccine (#1) 2025 , 03/03/2023, 02/18/2022, Additional history exists Bone Density Scan 03/12/2025 03/12/2023 Medicare Annual Wellness Visit (AWV) 04/08/2025 04/07/2024, 03/03/2023, 10/29/2021, Additional history exists Lipid Panel 04/07/2029 04/07/2024 Pneumococcal Vaccine Completed 08/11/2020, 10/13/2018, 02/07/2016 Zoster Vaccines Completed 11/07/2022, 050 05/2022, 10/13/2018 HIB Vaccines Aged Out No longer eligi ble based on patient's age to complete this topic HPV Vaccines Aged Out No longer eligi ble based on patient's age to complete this topic Hepatitis A Vaccines Aged Out No long er eligible based on patient's age to complete this topic Hepatitis B Vaccines Aged Out No long er eligible based on patient's age to complete this topic IPV Vaccines Aged Out No longer eligi ble based on patient's age to complete this topic Meningococcal Vaccine Aged Out No lazarus jane eligible based on patient's age to complete this topic Rotavirus Vaccines Aged Out No longer eligible based on patient's age to complete this topic [place] [address] MEDICARE PART A AND B [facility] MEDICARE PART A AND B [facility] Care Teams Ornamental Machine Operator Relationship Specialty Start Date End Date Alfredo Gaming MD [address] [address] PCP - General 03/08/20
--- OUTSIDE RECORDS SUMMARY | 2024-12-09 21:19 | XMS_ITS | Encounter Summary ---
Author Organization [facility] Address [facility] [place] [address] Care Team Providers Care Pack Worker Supervisor Name Role Phone Unavailable Primary Care Provider Unavailabl e Source Comments In the event this information is protected by the Federal Confidentiality of Alcohol and Drug AbusePatient Records regulations: The Federal rules restrict any use of the information to criminally investigate or prosecute any alcohol or drug abuse patient.[facility] Encounter Details Date Type Department Care Team (Latest Contact Info) Description 09/17/2024 H&P External-NonCCF Provider, External, LEYDA Do not enter address information under generic External Provider. Social History Tobacco Use Types Packs/Day Years Used Date Smoking Tobacco: Never Assessed Comments Unknown Sex and Gender Information Value Date Recorded Sex Assigned at Female 09/23/2024 3:46 PM EDT Legal Sex Female 8:11 AM EDT Gender Identity Female 09/23/2024 3:46 PM EDT Sexual Orientation Straight 09/23/2024 3: 46 PM EDT documented as of this encounter Plan of Treatment Upcoming Encounters Date Type Department Care Team ( Contact Info) Description 04/21/2025 1:15 PM EST Office Visit [facility] [address] [place] [address] [place] [address] 6 month follow up 04/21/2025 1:20 PM EST Visit (SP) Office Hematology/Oncology [address] [place] [address] [place] [address] Sid Lau MD [address] [place] [address] [place] [address] 6 month follow up documented as of this encounter Visit Diagnoses Not on filedocumented in this encounter
--- OUTSIDE RECORDS SUMMARY | 2024-12-09 21:19 | XMS_ITS | Clinical Summary ---
Author Organization [facility] Address [address] [place] [address] Care Team Providers Care Framing Machine Tender Name Role Phone Unavailable Primary Care Provider Unavailabl e Social History Tobacco Use Types Packs/Day Years Used Date Smoking Tobacco: Never Assessed Comments Unknown Sex and Gender Information Value Date Recorded Sex Assigned at Not on file Legal Sex Female 10:13 PM EDT Gender Identity Not on file Sexual Orientation Not on file Plan of Treatment Not on file
--- OUTSIDE RECORDS SUMMARY | 2024-12-09 21:19 | XMS_ITS | Encounter Summary ---
Author Organization [facility] Address [address] [facility] [place] [address] Care Team Providers Care Home Security Alarm Installer Name Role Phone Alfredo Gaming MD Primary Care Provider [phone] Alfredo Gaming MD Unavailable Encounter Details Date Type Department Care Team (Late st Contact Info) Description 12/08/2024 Telephone [facility] [address] [place] [address] Connie Collazo LPN [address] [place] [address] Social History Tobacco Use Types Packs/Day Years [...] encounter Miscellaneous Notes * Telephone Encounter - Connie Collazo LPN - 12/08/2024 4:30 PM EDT Daughter, Irasema Bear, called requesting home health PT for mother due to a pulled muscle in her back. I called pt and spoke to her and her to make sure they did want PT d/t daughter is not on pt's HIPAA and advised I would send referral but they may need an appt for the back issue before home health will see her. They did verbalize understanding. Homehealth PT referral faxed to [facility]. documented in this encounter Plan of Treatment Not on file documented as of this encounter Visit Diagnoses Not on filedocumented in this encounter Care Teams Home Security Alarm Installer Relationship Specialty Start Date End Date Alfredo Gaming MD [address] [facility] [address] [place] [address] PCP - General Family Medicine 10/03/22 Alfredo Gaming MD [address] [facility] [address] [place] [address] PCP - ACO Reach 06/11/24 documented as of this encounter
--- OUTSIDE RECORDS SUMMARY | 2024-12-09 21:19 | XMS_ITS | Encounter Summary ---
Author Organization [facility] Address [address] [facility] [place] [address] Care Team Providers Care Top Lift Cutter Name Role Phone Alfredo Gaming MD Primary Care Provider [phone] Alfredo Gaming MD Unavailable Ramila Canada GUIDE DOG MOBILITY INSTRUCTOR Unavailable [phone] Encounter Details Date Type Department Care Team (Late st Contact Info) Description 03/04/2023 Abstract [facility] [address] [place] [address] Alfredo Gaming MD [address] [facility] [address] [place] [address] Social History Tobacco Use Types Packs/Day Years [...] on filedocumented in this encounter Care Teams Top Lift Cutter Relationship Specialty Start Date End Date Alfredo Gaming MD [address] [place] [address] PCP - General Family Medicine 10/03/22 Alfredo Gaming MD [address] [facility] [address] [place] [address] PCP - ACO Reach 06/11/24 Ramila Canada, GUIDE DOG MOBILITY INSTRUCTOR [address] [place] [address] Solutions Architect Consultant Family Medicine 12/09/24 documented as of this encounter
--- OUTSIDE RECORDS SUMMARY | 2024-12-09 21:19 | XMS_ITS | Encounter Summary ---
Author Organization [facility] Address [address] [facility] [place] [address] Care Team Providers Care Rubber Goods Cutter Finisher Name Role Phone Alfredo Gaming MD Primary Care Provider [phone] Alfredo Gaming MD Unavailable Ramila Canada BROADCASTER Unavailable [phone] Encounter Details Date Type Department Care Team (Late st Contact Info) Description 06/24/2024 Abstract [facility] [address] [place] [address] Alfredo Gaming MD [address] [facility] [address] [place] [address] Social History Tobacco Use Types Packs/Day Years [...] on filedocumented in this encounter Care Teams Rubber Goods Cutter Finisher Relationship Specialty Start Date End Date Alfredo Gaming MD [address] [place] [address] PCP - General Family Medicine 10/03/22 Alfrdeo Gaming MD 112 [facility] 110 [place] [address] PCP - ACO Reach 06/11/24 Ramila Canada, BROADCASTER [address] [place] [address] Pharmacy Innovation Assistant Family Medicine 12/09/24 documented as of this encounter
--- OUTSIDE RECORDS SUMMARY | 2024-12-09 21:19 | XMS_ITS | Encounter Summary ---
Author Organization [facility] Address [address] [facility] [place] [address] Care Team Providers Care Auto Rental Supervisor Name Role Phone Alfredo Gaming MD Primary Care Provider [phone] Alfredo Gaming MD Unavailable Ramila Canada FRENCH WEAVER Unavailable [phone] Encounter Details Date Type Department Care Team (Late st Contact Info) Description 03/04/2023 Abstract [facility] [address] [place] [address] Alfredo Gaming MD [address] [facility] [address] [place] [address] Social History Tobacco Use Types Packs/Day Years [...] on filedocumented in this encounter Care Teams Auto Rental Supervisor Relationship Specialty Start Date End Date Alfredo Gaming MD [address] [place] [address] PCP - General Family Medicine 10/03/22 Alfredo Gaming MD 112 [facility] 110 [place] [address] PCP - ACO Reach 06/11/24 Ramila Canada, FRENCH WEAVER [address] [place] [address] Parachute Manufacturing Supervisor Family Medicine 12/09/24 documented as of this encounter
--- OUTSIDE RECORDS SUMMARY | 2024-12-09 21:19 | XMS_ITS | Clinical Summary ---
Author Organization [facility] Address [address] [place] [id number] Care Team Providers Care Christian Education Director Name Role Phone Unavailable Primary Care Provider Unavailabl e Allergies No known active allergies Medications carvedilol (COREG) 12.5 mg tablet Take 12.5 mg by mouth two times a day with meals. 08/09/2024 Active folic acid 1 mg tablet Take 1 mg by mouth once daily. Active losartan (COZAAR) 50 mg tablet Take 50 mg by mouth once daily. 05/05/2014 Active methotrexate 2.5 mg tablet Take 2.5 mg by mouth as directed. 04/07/2024 Active omeprazole (PRILOSEC) 20 mg capsule Take 20 mg by mouth once daily. 07/28/2024 Active cholecalciferol (VITAMIN D3) 5,000 unit tab Take 5,000 Units by mouth once daily. Active multivit-min/iro n/FA/vit K/lut (MULTIVITAMIN WOMEN 50 PLUS PO) Take by mouth. Active ZINC ORAL Take by mouth. Active Encounters Date Type Department Care Team Description 10/28/2024 1:00 PM EDT Visit (SP) Office Hematology/Oncolog y [facility] [address] [place] [address] Sid Lau MD Thrombocytopenia (Primary Dx) 10/28/2024 Travel 10/01/2024 Telephone Hematology/Oncolog y [facility] [place] [address] Sid Lau MD OTC Zinc supplement recommendation 09/29/2024 11:00 AM EDT Visit (SP) Office Hematology/Oncolog y [facility] [place] [address] Sid Lau MD Thrombocytopenia (Primary Dx) 09/29/2024 Travel 09/28/2024 Abstract Hematology/Oncolog y [address] [place] [address] Sid Lau MD 09/23/2024 Travel 09/17/2024 H&P External-NonCCF Provider, External, PA-Kian from Last 3 Months Family History Medical History Relation Comments Stomach Cancer Father No Known Problems Mother Heart disease Sister Relation Status Comments Father Mother Sister Social History Tobacco Use Types Packs/Day Years Used Date Smoking Tobacco: Never Smokeless Tobacco: Never Tobacco Cessation:Counseling Given: Not Answered Alcohol Use Standard Drinks/Week Comments Never 0 (1 standard drink = 0.6 oz pur e alcohol) Area Deprivation Index Answer Date Jairo rded National Score (1-100), lower number is lower ri sk 80 09/29/2024 State Score (1-10), lower number is lower risk 7 09/29/2024 Data from: https://www.neighborhoodatlas.medicine.[facility].edu/. Last address used for calculation [address] 09/29/2024 Comments No Sex and Gender Information Value Date Recorded Sex Assigned at Female 09/23/2024 3:46 PM EDT Legal Sex Female 8:11 AM EDT Gender Identity Female 09/23/2024 3:46 PM EDT Sexual Orientation Straight 09/23/2024 3: 46 PM EDT Last Filed Vital Signs Vital Sign Reading Time Taken Comments Blood Pressure 163/78 10/28/2024 12:46 PM EDT Pulse 69 10/28/2024 12:46 PM EDT Temperature 36.1 C (97 F) 10/28/2024 12:46 PM EDT Respiratory Rate 18 10/28/2024 12:46 PM EDT Oxygen Saturation 94% 10/28/2024 12:46 PM EDT Inhaled Oxygen Concentration - - Weight 52.8 kg (116 lb 6.5 oz) 10/28/2024 12:46 PM EDT Height - - Body Mass Index - - Plan of Treatment Upcoming Encounters Date Type Department Care Team (Late st Contact Info) Description 04/21/2025 1:15 PM EST Office Visit [facility] [address] [place] [address] 6 month follow up 04/21/2025 1:20 PM EST Visit (SP) Office Hematology/Oncology [address] [place] [address] Sid Lau MD [address] [place] [address] 6 month follow up Health Maintenance Due Date Last Done Comments Cervical Cancer Screening 1951 Anxiety Screening 11/15/1959 Depression Screening 11/15/1959 DTaP,Tdap,Td Vaccine (1 - Tdap) 1959 Medicare Annual Wellness Visit 11/02/2006 Bone Density Screening 2006 RSV Vaccine (1 - 1-dose 75+ series) 2016 Advance Directive Discussion 05/05/2024 Influenza Vaccine (#1) 2025 , 03/03/2023, 02/18/2022, Additional history exists Diabetes Screening 10/29/2027 10/28/2024, 0 09/29/2024, 09/23/2022 Pneumococcal Vaccine: 50+ Completed 2020, 10/13/2018, 02/07/2016 Shingrix Vaccine Completed 11/07/2022, 05/2022, 10/13/2018 Procedures Procedure Name Priority Date/Time Associated Diagnosis Comments COMPREHENSIVE METABOLIC PANEL Routine 10/28/2024 1:23 PM EDT Thrombocytopenia CBC + DIFF Routine 10/28/2024 1:23 PM EDT Thrombocytopenia PROTEIN TOTAL BLD Routine 09/29/2024 11: 29 AM EDT Thrombocytopenia PROTEIN ELECTROPHORESIS SERUM (P) Routine 09/29/2024 11:29 AM EDT Thrombocytopenia KAPPA/CUTLER,FREE,SER Routine 09/29/2024 1 1:29 AM EDT Thrombocytopenia PROTEIN ELECTROPHORESIS SERUM W/INTERP Routine 09/29/2024 11:29 AM EDT Thrombocytopenia ZINC BLD Routine 09/29/2024 11:29 AM EDT Thrombocytopenia COPPER BLOOD Routine 09/29/2024 11:29 AM EDT Thrombocytopenia FOLATE SERUM Routine 09/29/2024 11:29 AM EDT Thrombocytopenia VITAMIN B12 BLOOD Routine 09/29/2024 11: 29 AM EDT Thrombocytopenia IRON + TIBC Routine 09/29/2024 11:29 AM EDT Thrombocytopenia FERRITIN BLD Routine 09/29/2024 11:29 AM EDT Thrombocytopenia COMPREHENSIVE METABOLIC PANEL Routine 09/29/2024 11:29 AM EDT Thrombocytopenia CBC + DIFF Routine 09/29/2024 11:29 AM EDT Thrombocytopenia EXTERNAL LAB 09/17/2024 1:05 PM EDT EXTERNAL LAB 09/17/2024 1:05 PM EDT from Last 3 Months Results * (ABNORMAL) COMPREHENSIVE METABOLIC PANEL (10/28/2024 1:23 PM EDT) Only the most recent of2 resultswithin the time period is included. Pathologist [facility] [place] Protein, Total 6.3 6.3 - 8.0 g/dL 10/28/2024 2:06 PM EDT [facility] Albumin 3.7(L) 3.9 - 4.9 g/dL 10/28/2024 2:06 PM EDT [facility] Calcium, Total 10.3(H) 8.5 - 10.2 mg/dL 10/28/2024 2:06 PM EDT [facility] Bilirubin, Total 1.1 0.2 - 1.3 mg/dL 10/28/2024 2:06 PM EDT [facility] Alkaline Phosphatase 100 34 - 123 U/L 10/28/2024 2:06 PM EDT [facility] AST 22 13 - 35 U/L 10/28/2024 2:06 PM EDT [facility] ALT 16 7 - 38 U/L 10/28/2024 2:06 PM EDT [facility] Glucose 102(H) 74 - 99 mg/dL 10/28/2024 2:06 PM T [facility] Comment: The [place] Diabetes Association (ADA) provides guidance for cutoff values for fasting glucose and random glucose. The ADA defines fasting as no caloric intake for at least 8 hours. Fasting plasma glucose results between 100 to 125 mg/dL indicate increased risk for diabetes (prediabetes). Fasting plasma glucose results greater than or equal to 126 mg/dL meet the criteria for diagnosis of diabetes. In the absence of unequivocal hyperglycemia, results should be confirmed by repeat testing. In a patient with classic symptoms of hyperglycemia or hyperglycemic crisis, random plasma glucose results greater than or equal to 200 mg/dL meet the criteria for diagnosis of diabetes. Reference: Standards of Medical Care in Diabetes 2016, [place] Diabetes Association. Diabetes Care. 2016.39(Suppl 1). BUN 22(H) 7 - 21 mg/dL 10/28/2024 2:06 PM [facility] Creatinine 1.04(H) 0.58 - 0.96 mg/dL 10/28/2024 2:06 PM [facility] Sodium 141 136 - 144 mmol/L 10/28/2024 2:06 PM T [facility] Potassium 4.6 3.7 - 5.1 mmol/L 10/28/2024 2:06 PM T [facility] Chloride 107 98 - 107 mmol/L 10/28/2024 2:06 PM [facility] CO2 27 22 - 30 mmol/L 10/28/2024 2:06 PM T [facility] Anion Gap 7(L) 8 - 15 mmol/L 10/28/2024 2:06 PM T [facility] Estimated Glomerular Filtration Rate 54(L) >=60 mL/min/1. 73m 10/28/2024 2:06 PM EDT [facility] Comment:Estimated Glomerular Filtration Rate (eGFR) is calculated using the 2020 CKD-EPI creatinine equation. This equation utilizes serum creatinine, sex, and age as parameters. The creatinine assay has traceable calibration to isotope dilution- mass spectrometry. Refer to KDIGO guidelines for clinical interpretation. In patients with unstable renal function, e.g. those with acute kidney injury, the eGFR may not accurately reflect actual GFR. Blood BLOOD SPECIMEN / Unknown Venipuncture / Unknown 10/28/2024 1:23 PM EDT 10/28/2024 1:23 PM EDT us Sid Lau MD LABORATORY Final Res ult [facility] [address] [place] [address] * (ABNORMAL) COMPLETE BLOOD COUNT AND DIFFERENTIAL (10/28/2024 1:23 PM EDT) Only the most recent of2 resultswithin the time period is included. WBC 6.34 3.70 - 11.00 k/uL 10/28/2024 1:28 PM EDT [facility] RBC 3.44(L) 3.90 - 5.20 m/uL 10/28/2024 1:28 PM EDT [facility] Hemoglobin 11.7 11.5 - 15.5 g/dL 10/28/2024 1:28 PM EDT [facility] Hematocrit 35.4(L) 36.0 - 46.0 % 10/28/2024 1:28 PM EDT [facility] MCV 102.9(H) 80.0 - 100.0 fL 10/28/2024 1:28 PM EDT [facility] MCH 34.0 26.0 - 34.0 pg 10/28/2024 1:28 PM EDT [facility] MCHC 33.1 30.5 - 36.0 g/dL 10/28/2024 1:28 PM EDT [facility] RDW-CV 17.3(H) 11.5 - 15.0 % 10/28/2024 1:28 PM EDT [facility] Platelet Count 119(L) 150 - 400 k/uL 10/28/2024 1:28 PM EDT [facility] MPV 10.4 9.0 - 12.7 fL 10/28/2024 1:28 PM EDT [facility] Neutrophils % 70.1 % 10/28/2024 1:28 PM EDT [facility] Abs Neut 4.44 1.45 - 7.50 k/uL 10/28/2024 1:28 PM EDT [facility] Lymphocytes % 23.0 % 10/28/2024 1:28 PM EDT [facility] Abs Lymph 1.46 1.00 - 4.00 k/uL 10/28/2024 1:28 PM EDT [facility] Monocytes % 4.7 % 10/28/2024 1:28 PM EDT [facility] Abs Mcintosh 0.30 <0.87 k/uL 10/28/2024 1:28 PM EDT [facility] Eosinophils % 1.4 % 10/28/2024 1:28 PM EDT [facility] Abs Eosin 0.09 <0.46 k/uL 10/28/2024 1:28 PM EDT [facility] Basophils % 0.3 % 10/28/2024 1:28 PM EDT [facility] Abs Baso <0.03 <0.11 k/uL 10/28/2024 1:28 PM EDT [facility] Immature Granulocytes % 0.5 % 10/28/2024 1:28 PM EDT [facility] Abs Immature Gran 0.03 <0.10 k/uL 10/28/2024 1:28 PM EDT [facility] NRBC 0.0 /100 WBC 10/28/2024 1:28 PM EDT [facility] Absolute nRBC <0.01 <0.01 k/uL 10/28/2024 1:28 PM EDT [facility] Diff Type Auto 10/28/2024 1:28 PM EDT [facility] Blood BLOOD SPECIMEN / Unknown Venipuncture / Unknown 10/28/2024 1:23 PM EDT 10/28/2024 1:23 PM EDT us Sid Lau MD LABORATORY Final Res ult [facility] [address] [place] [id number] * (ABNORMAL) PROTEIN ELECTROPHORESIS SERUM (P) (09/29/2024 11:29 AM EDT) Albumin for SPE 3.43 3.43 - 5.41 g/dL 10/04/2024 9:41 AM EDT [facility] Alpha 1 Globulin 0.37 0.18 - 0.43 g/dL 10/04/2024 9:41 AM EDT [facility] Alpha 2 Globulin 0.62 0.42 - 0.98 g/dL 10/04/2024 9:41 AM EDT [facility] Beta Globulin 0.51(L) 0.61 - 1.17 g/dL 10/04/2024 9:41 AM EDT [facility] Gamma Globulin 0.56 0.53 - 1.51 g/dL 10/04/2024 9:41 AM EDT [facility] Interpretation (Prot Electro) No definitive M protein is identified on protein electrophores is. No definitive M protein is identified on protein electrophores is. 10/04/2024 9:41 AM EDT [facility] M-Protein Location 10/04/2024 9:41 AM EDT [facility] Comment:Not Applicable. M-Protein Concentration 0.00 <=0.00 g/dL 10/04/2024 9:41 AM EDT [facility] SPE Staff Review Reviewed by Maciej Piedra MD, Ph.D ([id number]) 10/04/2024 9:41 AM EDT [facility] Blood BLOOD SPECIMEN / Unknown Venipuncture / Unknown 09/29/2024 11:29 AM EDT 09/29/2024 11:29 AM EDT Narrative [facility] - 10/04/2024 9:41 AM EDT Serum electrophoresis test was performed using the VeliQ V8 NEXUS capillary electrophoresis method. Results obtained with different assay methods or kits cannot be used interchangeably. us Sid Lau MD LABORATORY Final Res ult [facility] [address] [facility] [address] [address], [place] * KAPPA/CUTLER,FREE,SER (09/29/2024 11:29 AM EDT) Weaver Free, Serum 19.4 3.3 - 19.4 mg/L 09/30/2024 1:49 PM EDT [facility] Comment: Rarely, increased serum free light chains levels may not be detected or accurately quantified due to prozone phenomenon or in high viscosity samples using this immunoturbidimetric assay. Correlation with other laboratory results and clinical findings is recommended. The Weaver Free Light Chain was performed using the Binding Site Optilite immunoturbidimetric method. Result obtained with different assay methods or kits cannot be used interchangeably. Lambda Free, Serum 15.5 5.7 - 26.3 mg/L 09/30/2024 1:49 PM EDT [facility] Comment: Rarely, increased serum free light chains levels may not be detected or accurately quantified due to prozone phenomenon or in high viscosity samples using this immunoturbidimetric assay. Correlation with other laboratory results and clinical findings is recommended. The Lambda Free Light Chain was performed using the Binding Site Optilite immunoturbidimetric method. Result obtained with different assay methods or kits cannot be used interchangeably. K/L Ratio, Serum 1.25 0.26 - 1.65 09/30/2024 1:49 PM EDT [facility] Blood BLOOD SPECIMEN / Unknown Venipuncture / Unknown 09/29/2024 11:29 AM EDT 09/29/2024 11:29 AM EDT us Sid Lau MD LABORATORY Final Res ult Performing Organization Address [facility] de Phone Number [facility] [address] [place] [id number], [place] * (ABNORMAL) ZINC BLD (09/29/2024 11:29 AM EDT) Zinc 54(L) 60 - 120 ug/dL 09/30/2024 1:12 PM EDT [facility] Comment:This test was develo ped, and its performance characteristics determined by the [facility] Department of Pathology and Laboratory Medicine. It has not been cleared or approved by the FDA. The [facility] Department of Pathology and Laboratory Medicine is regulated under CLIA as qualified to perform high- complexity testing. This test is used for clinical purposes. It should not be regarded as investigational or for research. Blood BLOOD SPECIMEN / Unknown Venipuncture / Unknown 09/29/2024 11:29 AM EDT 09/29/2024 11:29 AM EDT us Sid Lau MD LABORATORY Final Res ult Performing Organization Address [facility] Co de Phone Number [facility] [address] [address], [place] * VITAMIN B12 (09/29/2024 11:29 AM EDT) Vitamin B12 752 232 - 1,245 pg/mL 09/29/2024 3:27 PM EDT [facility] Blood BLOOD SPECIMEN / Unknown Venipuncture / Unknown 09/29/2024 11:29 AM EDT 09/29/2024 11:29 AM EDT us Sid Lau MD LABORATORY Final Res ult Performing Organization Address City/[facility]/ZIP Co de Phone Number [facility] [address] [facility] [address] [address], [place] * (ABNORMAL) PROTEIN, TOTAL (09/29/2024 11:29 AM EDT) [facility] Protein, Total 5.5(L) 6.3 - 8.0 g/dL 09/29/2024 3:09 PM EDT [facility] Blood BLOOD SPECIMEN / Unknown Venipuncture / Unknown 09/29/2024 11:29 AM EDT 09/29/2024 11:29 AM EDT us Sid Lau MD LABORATORY Final Res ult Performing Organization Address [facility] Co de Phone Number [facility] [address] [place] [id number], [place] * IRON AND TIBC (09/29/2024 11:29 AM EDT) [facility] Iron 118 41 - 186 ug/dL 09/29/2024 3:26 PM EDT [facility] TIBC 249 232 - 386 ug/dL 09/29/2024 3:26 PM EDT [facility] Transferrin Saturation 47.4 15.0 - 57.0 % 09/29/2024 3:26 PM EDT [facility] Blood BLOOD SPECIMEN / Unknown Venipuncture / Unknown 09/29/2024 11:29 AM EDT 09/29/2024 11:29 AM EDT us Sid Lau MD LABORATORY Final Res ult Performing Organization Address City/[facility]/ZIP Co de Phone Number [facility] [address] [place] [id number], [place] * FOLATE, SERUM (09/29/2024 11:29 AM EDT) [facility] Folate >20.0 >4.7 ng/mL 09/29/2024 3:27 PM EDT [facility] Comment: A result of > 20 ng/mL is not necessarily indicative of a pathologic or treatable condition: it reflects a limitation of the test methodology. Assay reference range: 4.8 to 24.2 ng/mL. Suitable for detection of folate deficiency. Reference: Folate III (Folate III) [package insert V 1.0 Turkish]. Cassie [employer], [place], [place]: March 2015. Blood BLOOD SPECIMEN / Unknown Venipuncture / Unknown 09/29/2024 11:29 AM EDT 09/29/2024 11:29 AM EDT us Sid Lau MD LABORATORY Final Res ult Performing Organization Address [facility]/ZIP Co de Phone Number [facility] [address] [place] [address], [place] * (ABNORMAL) FERRITIN (09/29/2024 11:29 AM EDT) Ferritin 627.0(H) 14.7 - 205.1 ng/mL 09/29/2024 3:30 PM EDT [facility] Blood BLOOD SPECIMEN / Unknown Venipuncture / Unknown 09/29/2024 11:29 AM EDT 09/29/2024 11:29 AM EDT us Sid Lau MD LABORATORY Final Res ult Performing Organization Address [facility] Co de Phone Number [facility] [address] [place] [address], [place] * COPPER BLOOD (09/29/2024 11:29 AM EDT) Copper 83 80 - 155 ug/dL 09/30/2024 1:12 PM EDT [facility] Comment:This test was develo ped, and its performance characteristics determined by the [facility] Department of Pathology and Laboratory Medicine. It has not been cleared or approved by the FDA. The [facility] Department of Pathology and Laboratory Medicine is regulated under CLIA as qualified to perform high- complexity testing. This test is used for clinical purposes. It should not be regarded as investigational or for research. Blood BLOOD SPECIMEN / Unknown Venipuncture / Unknown 09/29/2024 11:29 AM EDT 09/29/2024 11:29 AM EDT us Sid Lau MD LABORATORY Final Res ult [facility] [address] [facility] [address] [place] [address], [place] * EXTERNAL LAB (09/17/2024 1:05 PM EDT) Only the most recent of2 resultswithin the time period is included. us External Provider [facility] Final Res ult from Last 3 Months Insurance MEDICARE AET[employer] SUPPLEMENT
--- OUTSIDE RECORDS SUMMARY | 2024-12-09 21:19 | XMS_ITS | Clinical Summary ---
Author Organization [employer] Address [id number] [address] [place] [address] Care Team Providers Care Supervisor Phosphorus Processing Name Role Phone Alfredo Gaming MD Primary Care Provider [phone] Allergies No known active allergies Medications carvediloL (COREG) 12.5 mg tablet Take 6.25 mg by mouth 2 (two) times a day with meals. Active losartan (COZAAR) 50 mg tablet Take 1 tablet by mouth daily. 01/23/2020 Active Active Problems No known active problems Social History Tobacco Use Types Packs/Day Years Used Date Smoking Tobacco: Never Smokeless Tobacco: Never Alcohol Use Standard Drinks/Week Comments Not Currently 0 (1 standard drink = 0.6 oz pur e alcohol) Childcare Answer Date Recorded Childcare Unknown 02/05/2020 Employment Answer Date Recorded Employment Unknown 02/05/2020 Purpose - Life Answer Date Recorded Purpose and direction in life Unknown Comments Unknown Sex and Gender Information Value Date Recorded Sex Assigned at Not on file Legal Sex Female 11:34 AM EDT Gender Identity Not on file Sexual Orientation Not on file Last Filed Vital Signs Vital Sign Reading Time Taken Comments Blood Pressure 145/82 02/17/2020 1:50 PM EDT Pulse 56 02/17/2020 1:50 PM EDT Temperature 37 C (98.6 F) 02/17/2020 12:04 PM EDT Respiratory Rate 16 02/17/2020 1:50 PM EDT Oxygen Saturation 96% 02/17/2020 1:41 PM EDT Inhaled Oxygen Concentration - - Weight 56.2 kg (124 lb) 02/17/2020 12:04 PM EDT Height 165.1 cm (5' 5 ) 02/17/2020 12:04 PM EDT Body Mass Index 20.63 02/17/2020 12:04 PM EDT Plan of Treatment Health Maintenance Due Date Last Done Comments Depression Screening 1952 Tobacco Screening 1952 DTaP,Tdap and Td Vaccines (1 - Tdap) 1960 Zoster (Shingles) Vaccine (1 of 2) 11/15/1991 Fall Risk Screening 2006 Influenza Vaccine 01/03/2025 Medical Devices Implanted Type Area Assistant Executive Housekeeper Device Identifier Shelf Expiration Date Model / Serial / Lot Lens Iol Ultrasert 20.5d - [id number] - [id number] Implanted:Qty: 1 on 02/17/2020 by Tammi Mayo MD at [facility] Lens Right: [employer] 09/30/2022 [id number] 20.5 / [id number] / NA Insurance MEDICARE T Care Teams Supervisor Phosphorus Processing Relationship Specialty Start Date End Date Alfredo Gaming MD NPI: [id number] [place] [id number] PCP - General Family Medicine 02/17/20
--- OUTSIDE RECORDS SUMMARY | 2024-12-09 21:20 | XMS_ITS | CCD ---
Author Organization [facility]ini[facility] Care Team Providers Care Dispatcher Chief Oil Name Role Phone BERNARDINO RAMOS Consulting Unavailable GABRIELLA, RUGEN Primary Care Unavailable BERNARDINO RAMOS Admitting Unavailable BERNARDINO RAMOS Attending Unavailable GABRIELLA, ALICE Consulting Unavailable GABRIELLA, RUGEN Admitting Unavailable GABRIELLA, ALICE Attending Unavailable CORNELL CHIU V Consulting Unavailable GABRIELLA, RUGEN Consulting Unavailable GABRIELLA, RUGEN Primary Care Unavailable GABRIELLA, RUGEN Admitting Unavailable GABRIELLA, RUGEN Attending Unavailable Cornell Santana Unavailable GABRIELLA, RUGEN Consulting Unavailable GABRIELLA, RUGEN Attending Unavailable GABRIELLA, RUGEN Primary Care Unavailable GABRIELLA, RUGEN Admitting Unavailable EZEQUIEL MART Consulting Unavailable BERNARDINO RAMOS Consulting Unavailable BERNARDINO RAMOS Admitting Unavailable BERNARDINO RAMOS Attending Unavailable GABRIELLA, RUGEN Primary Care Unavailable GABRIELLA, RUGEN Admitting Unavailable GABRIELLA, ZAFAREN Attending Unavailable GABRIELLA, RUGEN Primary Care Unavailable GABRIELLA, RUGEN Admitting Unavailable GABRIELLA, RUGEN Attending Unavailable GABRIELLA, RUGEN Primary Care Unavailable GABREILLA, RUGEN Admitting Unavailable GABRIELLA, ZAFAREN Attending Unavailable [place], Rugen M Unavailable Unavailable Unavailable Alice Quiroz MD Primary Care Provider [phone] PATIENCE NEIL Attending Unavailable PATIENCE NEIL Admitting Unavailable GABRIELLA, RUGEN M Primary Care Unavailable ANDI BETHEA Consulting Unavailable ESPERANZA Cardona Attending Provider Idalmis Cardona Attending Unavailable Idalmis Cardona Admitting Unavailable Alice Quiroz MD Primary Care Provider DAYTON MAYO Attending Unavailable BERNARDINO RAMOS Referring Unavailable GABRIELLA, RUGEN LUIS ANGEL Primary Care Unavailable Gabriella Alice PATEL Primary Care Provider Alice Quiroz MD Unavailable ALICE QUIROZ Attending Unavailable ALICE QUIROZ Referring Unavailable MILLICENT MAYER Attending Unavailable Unavailable Primary Care Provider Unavailabl e RE [facility] Attending Unavailable ALICE QUIROZ Referring Unavailable SID LAU Attending Unavailable ALICE QUIROZ Referring Unavailable Allergies Allergy Classification Reported Allergen(s) Allergy Type Date of Onset Reaction(s) Facility (1 source) Onion extract Drug Allergy 2 Diarrhea [employer] Phone: (6 sources) Food Propensity to adverse reactions to drug 2 Diarrhea [employer] Phone: (5 sources) Onion extract Drug Allergy 2 Diarrhea [facility] Medications Current Medications Medication Drug Class(es) Dates Sig (Normalized) Sig (Original) acetaminophen 650 mg rectal suppository (3 sources) Start: 07-10-2021 acetaminophen (TYLENOL) suppository 650 mg Start: 07-10-2021 acetaminophen (TYLENOL) tablet 650 mg Start: 07-09-2021 acetaminophen (TYLENOL) tablet 650 mg acetaminophen 325 mg / HYDROcodone bitartrate 5 mg oral tablet (3 sources) Opioid Agonist Start: 07-12-2021 End: 07-19-2021 take 1 tablet by mouth every four hours as needed for pain HYDROcodone-acetaminophen (NORCO) 5-325 MG per tablet Indications: Postoperative pain Take 1 tablet by mouth every 4 hours as needed for Pain for up to 7 days. 40 tablet 0 07/12/2021 07/19/2021 Active Start: 07-11-2021 take 2 tablets by mo [facility] every six hours as needed for pain 2 tablet, Oral, EVERY 6 HOURS PRN, Pain Severe (7-10), Starting on Fri07/11/21 at 1735 Maximum dose of acetaminophen is 4000 mg from all sources in 24 hours. Start: 07-11-2021 take 1 tablet by gary every six hours as needed for pain 1 tablet, Oral, EVERY 6 HOURS PRN, Pain Moderate (4-6), Starting on Fri07/11/21 at 1735 Maximum dose of acetaminophen is 4000 mg from all sources in 24 hours. Calcium Carbonate (1 source) take 1 tablet by mouth once daily calcium carbonate (CALCIUM 600 ORAL) Take 1 tablet by mouth once daily. Active carvedilol 12.5 mg oral tablet (20 sources) alpha-Adrenergic Rima, beta-Adrenergic Rima Start: 04-22-2023 End: 06-23-2025 take 1 tablet by mouth twice daily at mealtime carvedilol (COREG) 12.5 mg tablet Take 12.5 mg by mouth two times a day with meals. 08/09/2024 Active Start: 05-28-2021 End: 07-10-2021 take 1 tablet by mouth twice daily Carvedilol 12.5 MG Oral Tablet Take 1 tablet twice daily Quantity: 180 Refills: 2 Ordered: 16-Apr-2022 Bernardino Ramos MD Start : 28-May-2021 Active End: 09-14-2024 take 0.5 tablet by mouth every twelve hours carvedilol (Coreg) 6.25 MG tablet Take 0.5 tablets by mouth every 12 (twelve) hours. 09/14/2024 Discontinued (Other) carvedilol (CORE G) 25 MG tablet Take 12.5 mg by mouth 2 times daily (with meals) 0 Active cephalexin 500 mg oral capsule (2 sources) Cephalosporin Antibacterial Start: 10-10-2023 take 500 mg by mouth twice daily Cephalexin Active 500 MG PO Twice daily 14 October 10, 2023 12:00am cholecalciferol 0.125 mg oral tablet (10 sources) Vitamin D take 1 tablet by mouth once daily cholecalciferol (VITAMIN D3) 5,000 unit tab Take 5,000 Units by mouth once daily. Active Cholecalciferol 125 MCG (5000 UT) chewable tablet Chew 1 tablet 1 (one) time each day. Active take 1 tablet by mouth once avi y cholecalciferol (Vitamin D3) 25 mcg (1000 units) tablet Take 1 tablet (1,000 Units) by mouth once daily. Active 0.4 ml enoxaparin sodium 100 mg/ml prefilled syringe (2 sources) Low Molecular Weight Heparin Start: 07-12-2021 enoxaparin (LOVENOX) 40 MG/0.4ML injection Inject 0.4 mLs into the skin daily 30 each 0 07/12/2021 Active folic acid 1 mg oral tablet (9 sources) take 1 tablet by mouth once daily folic acid 1 mg tablet Take 1 mg by mouth once daily. Active losartan potassium 50 mg oral tablet (19 sources) Angiotensin 2 Receptor Rima Start: 10-10-2023 take 25 mg by mouth once daily Losartan Active 25 MG PO Daily October 10, 2023 12:00am Start: 12-16-2022 End: 06-23-2024 take 1 tablet by mouth in the morning losartan (Cozaar) 50 MG tablet Take 50 mg by mouth in the morning and 50 mg before bedtime. 12/16/2022 Active Start: 01-23-2021 take 1 tablet by gary th twice daily Losartan Potassium 50 MG Oral Tablet TAKE 1 TABLET Twice daily Quantity: 180 Refills: 1 Ordered: 28-Feb-2022 Bernardino Ramos MD Start : 23-Jan-2021 Active Start: 05-05-2014 take 1 tablet by gary th once daily losartan (COZAAR) 50 mg tablet Take 50 mg by mouth once daily. 05/05/2014 Active methotrexate 2.5 mg oral tablet (20 sources) Folate Analog Metabolic Inhibitor Start: 04-07-2024 methotrexate 2.5 mg tablet Take 2.5 mg by mouth as directed. 04/07/2024 Active Start: 10-10-2023 take 2.5 mg by mouth every week Methotrexate Sodium Active 2.5 MG PO every week October 10, 2023 12:00am Start: 07-10-2021 take 10 mg by mouth every week 10 mg, Oral, WEEKLY, First dose on Fri07/10/21 at 0900 Hazardous Medication -- Refer to facility policy for handling and disposal. Start: 02-01-2021 End: 04-07-2024 methotrexate 2.5 MG tablet Indications: Rheumatoid arthritis with positive rheumatoid factor, involving unspecified site ([facility]) Pt is to take 4 tablets once a week 36 tablet 2 04/07/2024 Active multivit-min/iron/FA/vit K/lut (MULTIVITAMIN WOMEN 50 PLUS PO) (1 source) multivit-min/iro n/FA/vit K/lut (MULTIVITAMIN WOMEN 50 PLUS PO) Take by mouth. Active omeprazole 20 mg delayed release oral capsule (17 sources) Proton Pump Inhibitor Star t: 07-03 take 1 capsule by mouth once daily omeprazole (PRILOSEC) 20 mg capsule Take 20 mg by mouth once daily. 07/28/2024 Active Start: 10-10-2023 take 10 mg by mouth once daily Omeprazole Active 10 MG PO Daily October 10, 2023 12:00am Start: 02-22-2021 take 1 capsule by mo uth before mealtime omeprazole (PriLOSEC) [address] capsule Indications: Gastritis without bleeding, unspecified chronicity, unspecified gastritis type Take 1 capsule (20 mg) by mouth in the morning. Take before meals. 100 capsule 3 03/21/2023 Active ondansetron 4 mg disintegrating oral tablet (2 sources) Serotonin-3 Receptor Antagonist Start: 07-10-2021 ondansetron (ZOFRAN-ODT) disintegrating tablet 4 mg Start: 07-09-2021 End: 07-09-2021 ondansetron (ZOFRAN) injecti on 4 mg ondansetron (ZOFRAN-ODT) disintegrating tablet 4 mg (1 source) Start: 07-11-2021 ondansetron (ZOFRAN-ODT) disintegrating tablet 4 mg pantoprazole 40 mg delayed release oral tablet (1 source) Proton Pump Inhibitor Start: 07-11-2021 pantoprazole (PROTONIX) tablet 40 mg polyethylene glycol [id number] [id number] mg powder for oral solution (2 sources) Osmotic Laxative Start: 07-14-2021 End: 08-13-2021 take 17 g by mouth once daily polyethylene glycol (GLYCOLAX) 17 g packet Take 17 g by mouth daily 527 g 1 07/14/2021 08/13/2021 Active Start: 07-12-2021 polyethylene g lycol (GLYCOLAX) packet 17 g predniSONE 10 mg oral tablet (3 sources) Start: 09-14-2024 End: 09-30-2024 predniSONE (DELTASONE) 10 mg tablet Take by mouth. 09/14/2024 09/30/2024 Active Start: 09-14-2024 End: 09-30-2024 take 4 tablets by mouth once daily, then take 3 tablets by mouth once daily, then take 2 tablets by mouth once daily, then take 1 tablet by mouth once daily predniSONE (Deltasone) 10 MG tablet Indications: Weight loss, abnormal , Diarrhea, unspecified type , Epigastric pain Take 4 tablets (40 mg) by mouth Daily for 4 days, THEN 3 tablets (30 mg) Daily for 4 days, THEN 2 tablets (20 mg) Daily for 4 days, THEN 1 tablet (10 mg) Daily for 4 days. 40 tablet 09/14/2024 09/30/2024 Active 5 ml sodium chloride 9 mg/ml injection (6 sources) Start: 07-11-2021 take 1 dose intravenously twice daily 5-40 mL, IntraVENous, EVERY 12 HOURS SCHEDULED (2 times per day), First dose on Fri07/11/21 at 2100 For Line Patency: Peripheral IV = 5 mL; Midline or Central Line = 10 mL/lumen. If following IV push medication, administer flush at same rate as the IV push. Flush volume is determined by type of infusion therapy being given. For non-viscous solutions use: Peripheral IV = 5 mL Midline or Central Line = 10 mL/lumen For viscous solutions (i.e. blood components, parenteral nutrition, contrast media, or after obtaining blood sample) use: Peripheral IV = 10 mL Midline or Central Line = 20 mL/lumen Post-op Start: 07-10-2021 sodium chlorid e flush 0.9 % injection 5-40 mL Start: 07-09-2021 take 5-40 mL intravenously onc e 5-40 mL, IntraVENous, PRN, Line Care, Starting on Fri07/11/21 at 1735 After every IV line use Post-op Start: 07-09-2021 take 25 mL intraveno usly every hour as needed 25 mL, IntraVENous, at 100 mL/hr, PRN, If patient receiving piggyback infusions without ordered maintenance IV fluids or with frequent/long duration piggyback infusions, Starting on Fri07/11/21 at 1735 Administer at the same rate as the piggyback being infused. Post-op spironolactone 25 mg oral tablet (3 sources) Aldosterone Antagonist Start: 07-10-2021 spironolactone (ALDACTONE) tablet 25 mg spironolactone ( ALDACTONE) 25 MG tablet Take 12.5 mg by mouth daily 0 Active take 0.5 tablet by mouth once da fernando Spironolactone 25 MG Oral Tablet TAKE 0.5 TABLET Daily Quantity: 45 Refills: 3 Ordered: 07-Mar-2021 DO Active Zinc (1 source) ZINC ORAL Take b y mouth. Active Completed/Discontinued Medications Medication Drug Class(es) Dates Sig (Normalized) Sig (Original) B Complex Oral Capsule (3 sources) take 1 capsule by mouth once daily B Complex Oral Capsule TAKE 1 CAPSULE Daily Quantity: 0 Refills: 0 Ordered: 26-Nov-2021 DO Active b complex vitamins capsule (1 source) End: 06-23-2024 take 1 capsule by mouth once daily b complex vitamins capsule Take 1 capsule by mouth once daily. 06/23/2024 Discontinued (Therapy completed) bisacodyl 5 mg delayed release oral tablet (1 source) Stimulant Laxative Start: 07-12-2021 End: 07-12-2021 bisacodyl (DULCOLAX) EC tablet 10 mg calcium chloride 0.0014 meq/ml / potassium chloride 0.004 meq/ml / sodium chloride 0.103 meq/ml / sodium lactate 0.028 meq/ml injectable solution (2 sources) Start: 07-10-2021 End: 07-12-2021 lactated ringers infusion Start: 07-09-2021 End: 07-12-2021 IntraVENous, at 75 mL/hr, CO NTINUOUS, Starting on Fri07/09/21 at 1415 ceFAZolin (ANCEF) 2000 mg in dextrose 5 % 100 mL IVPB (1 source) Start: 07-11-2021 End: 07-12-2021 2,000 mg, IntraVENous, EVERY 8 HOURS, 2 doses, First dose on Fri07/11/21 at 2330, Last dose on Fri07/12/21 at 0730, Post-op 2 ml fentaNYL 0.05 mg/ml injection (2 sources) Opioid Agonist Start: 07-09-2021 End: 07-09-2021 fentaNYL (SUBLIMAZE) injection 25 mcg Start: 07-09-2021 End: 07-09-2021 fentaNYL (SUBLIMAZE) injecti on 25 mcg magnesium hydroxide 80 mg/ml oral suspension (1 source) Start: 07-12-2021 End: 07-12-2021 magnesium hydroxide (MILK OF MAGNESIA) 400 MG/5ML suspension 30 mL 1 ml morphine sulfate 2 mg/ml cartridge (1 source) Opioid Agonist Start: 07-09-2021 End: 07-09-2021 morphine (PF) injection 2 mg Start: 07-09-2021 End: 07-09-2021 morphine (PF) injection 2 mg 2 ml orphenadrine citrate 30 mg/ml injection (1 source) Muscle Relaxant Start: 07-10-2021 End: 07-10-2021 orphenadrine (NORFLEX) injection 60 mg Start: 07-10-2021 End: 07-10-2021 orphenadrine (NORFLEX) injec tion 60 mg Problems Active Problems Problem Classification Problem Date Documented Da te Episodic/Chronic Abdominal pain (6 sources) Epigastric pain; Translations: [Epigastric pain] Onset: 09-14-2024 09-14-2024 Episodic Acute cerebrovascular disease (19 sources) 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; Translations: [Occlusion of cerebral artery with stroke] Onset: 10-22-2019 07-09-2021 Chronic Chronic kidney disease (5 sources) Chronic kidney disease stage 3; Translations: [Stage 3 chronic kidney disease (HCC)] Onset: 10-08-2022 10-08-2022 Chronic Coagulation and hemorrhagic disorders (12 sources) Platelet count below reference range; Translations: [Thrombocytopenia, unspecified] Onset: 07-10-2021 Chronic Congestive heart failure; nonhypertensive (1 source) Chronic systolic heart failure; Translations: [Chronic systolic (congestive) heart failure] Onset: 06-13-2023 Resolved: 06-23-2024 06-23-2024 Chronic Coronary atherosclerosis and other heart disease (2 sources) Ischemic myocardial dysfunction; Translations: [Ischemic cardiomyopathy] 04-07-2024 Chronic Essential hypertension (20 sources) Essential (primary) hypertension; Translations: [Benign essential hypertension] Onset: 05-12-2020 Chronic Gastritis and duodenitis (2 sources) Chronic gastritis; Translations: [Unspecified chronic gastritis without bleeding] 04-07-2024 Chronic Genitourinary symptoms and ill-defined conditions (1 source) Dysuria; Translations: [Dysuria] Onset: 10-10-2023 Episodic Hypertension with complications and secondary hypertension (7 sources) Chronic kidney disease due to hypertension; Translations: [Hypertensive chronic kidney disease with stage 1 through stage 4 chronic kidney disease, or unspecified chronic kidney disease] Onset: 10-23-2022 10-23-2022 Chronic Nutritional deficiencies (7 sources) Vitamin D deficiency; Translations: [Vitamin D deficiency, unspecified] Onset: 10-08-2022 10-08-2022 Chronic Osteoarthritis (2 sources) Arthritis; Translations: [Unspecified osteoarthritis, unspecified site] Onset: 07-09-2021 Chronic Other circulatory disease (1 source) H/O: major vascular surgery; Translations: [Other postprocedural status] Chronic Other circulatory disease (6 sources) History of repair of aneurysm of abdominal aorta; Translations: [Other postprocedural status] Onset: 04-21-2023 06-23-2024 Chronic Other circulatory disease (2 sources) Presence of other vascular implants and grafts; Translations: [Presence of other vascular implants and grafts] Onset: 04-21-2023 Chronic Other circulatory disease (2 sources) Personal history of other diseases of the circulatory system; Translations: [Personal history of other diseases of the circulatory system] Onset: 04-21-2023 Episodic Other ear and sense organ disorders (5 sources) Sensorineural hearing loss, unilateral, right ear, with unrestricted hearing on the contralateral side; Translations: [Sensorineural hearing loss, unilateral] Onset: 12-11-2022 12-11-2022 Chronic Other endocrine disorders (7 sources) Disorder of parathyroid gland; Translations: [Disorder of parathyroid gland, unspecified] Onset: 10-08-2022 10-08-2022 Chronic Other gastrointestinal disorders (6 sources) Diarrhea; Translations: [Diarrhea, unspecified] Onset: 09-14-2024 09-14-2024 Episodic Other hematologic conditions (5 sources) Macrocytosis; Translations: [Other specified diseases of blood and blood-forming organs] Onset: 10-08-2022 10-08-2022 Chronic Other nervous system disorders (1 source) Aphasia; Translations: [APHASIA] Onset: 11-03-2019 Chronic Other nervous system disorders (7 sources) Aphasia; Translations: [Aphasia] Onset: 10-08-2022 10-08-2022 Chronic Other nervous system disorders (7 sources) Disorder of muscle; Translations: [Myopathy, unspecified] Onset: 03-06-2023 03-06-2023 Chronic Other nervous system disorders (1 source) Postoperative pain ; Translations: [Other acute postprocedural pain] Episodic Other non-traumatic joint disorders (2 sources) Pain in right hip joint; Translations: [Pain in right hip] Onset: 07-09-2021 Episodic Other nutritional; endocrine; and metabolic disorders (3 sources) Body mass index less than 20; Translations: [Body mass index (BMI) 19.9 or less, adult] Episodic Other nutritional; endocrine; and metabolic disorders (2 sources) Weight loss; Translations: [Abnormal weight loss] 04-07-2024 Episodic Other nutritional; endocrine; and metabolic disorders (6 sources) Abnormal weight loss; Translations: [Abnormal weight loss] Onset: 09-14-2024 09-14-2024 Episodic Otitis media and related conditions (5 sources) Chronic right mastoiditis; Translations: [Chronic mastoiditis, right ear] Onset: 01-08-2023 01-08-2023 Chronic Delmi-; endo-; and myocarditis; cardiomyopathy (except that caused by tuberculosis or sexually transmitted disease) (15 sources) Other cardiomyopathies; Translations: [Cardiomyopathy] Onset: 12-31-2019 10-08-2022 Chronic Residual codes; unclassified (3 sources) Body mass index 20-24 - normal; Translations: [Body Mass Index between 19-24, adult] Onset: 06-23-2024 06-23-2024 Episodic Residual codes; unclassified (1 source) History of repair of aneurysm of abdominal aorta; Translations: [Other postprocedural status] Episodic Residual codes; unclassified (2 sources) Body mass index (BMI) 20.0-20.9, adult; Translations: [Body mass index (BMI) 20.0-20.9, adult] Onset: 06-23-2024 Episodic Rheumatoid arthritis and related disease (7 sources) Rheumatoid arthritis; Translations: [Rheumatoid arthritis, unspecified] Onset: 10-08-2022 10-08-2022 Chronic Urinary tract infections (4 sources) Urinary tract infectious disease; Translations: [Urinary tract infection, site not specified] 10-10-2023 Episodic Past or Other Problems Problem Classification Problem Date Documented Date Episodic/Chronic Conditions associated with dizziness or vertigo (1 source) Dizziness and giddiness; Translations: [DIZZINESS AND GIDDINESS] Onset: 10-10-2019 Episodic Fracture of neck of femur (hip) (10 sources) Closed fracture of neck of right femur; Translations: [Fracture of unspecified part of neck of right femur, initial encounter for closed fracture] Onset: 07-09-2021 Episodic Gastritis and duodenitis (5 sources) Gastritis; Translations: [Gastritis, unspecified, without bleeding] Onset: 10-08-2022 10-08-2022 Episodic Headache; including migraine (1 source) Vascular headache, not elsewhere classified; Translations: [VASCULAR HEADACHE NOT ELSW CLASS] Onset: 10-10-2019 Episodic Other connective tissue disease (7 sources) Muscle pain; Translations: [Myalgia, unspecified site] Onset: 02-12-2023 02-12-2023 Episodic Other hematologic conditions (5 sources) ESR raised; Translations: [Elevated erythrocyte sedimentation rate] Onset: 10-08-2022 10-08-2022 Episodic Other nervous system disorders (1 source) Other lack of coordination; Translations: [OTHER LACK OF COORDINATION] Onset: 11-03-2019 Episodic Other non-traumatic joint disorders (5 sources) Hip pain; Translations: [Pain in right hip] Onset: 07-09-2021 03-02-2023 Episodic Other screening for suspected conditions (not mental disorders or infectious disease) (13 sources) Other abnormal findings on diagnostic imaging of central nervous system; Translations: [Abnormal findings on diagnostic imaging of skull and head, not elsewhere classified] Onset: 10-08-2019 10-08-2022 Episodic Residual codes; unclassified (7 sources) History of hysterectomy for benign disease; Translations: [Acquired absence of both cervix and uterus] Onset: 10-08-2022 10-08-2022 Episodic Screening and history of mental health and substance abuse codes (6 sources) Ex-smoker; Translations: [Personal history of tobacco use] Onset: 06-13-2023 06-13-2023 Episodic Comment on above: quit 2016; Unclassified (1 source) Onset: 06-23-2024 06-23-2024 Results Test Name Value Interpretation Reference Range Facility CBC W Auto Differential pane l (Bld)on 10-28-2024 Basophils (Bld) [#/Vol] NINF [facility] Basophils/100 WBC (Bld) 0.3 % [facility] Differential cell count method Nom (Bld) Auto [facility] Eosinophils (Bld) [#/Vol] 0.09 10*3/uL [facility] Eosinophils/100 WBC (Bld) 1.4 % [facility] Erythrocyte distribution width (RBC) [Ratio] 17.3 % High 11.5 - 15.0 % [facility] Hematocrit (Bld) [Volume fraction] 35.4 % Low 36.0 - 46.0 % [facility] Hemoglobin (Bld) [Mass/Vol] 11.7 g/dL 11.5 - 15.5 g/dL [facility] Immature granulocytes (Bld) [#/Vol] 0.03 10*3/uL [facility] Immature granulocytes/100 WBC (Bld) 0.5 % [facility] Interpretation and review of laboratory results Abnormal [facility] Lymphocytes (Bld) [#/Vol] 1.46 10*3/uL [facility] Lymphocytes/100 WBC (Bld) 23 % [facility] MCH (RBC) [Entitic mass] 34 pg 26.0 - 34.0 pg [facility] MCHC (RBC) [Mass/Vol] 33.1 g/dL 30.5 - 36.0 g/dL [facility] MCV (RBC) [Entitic vol] 102.9 fL High 80.0 - 100.0 fL [facility] Monocytes (Bld) [#/Vol] 0.3 10*3/uL [facility] Monocytes/100 WBC (Bld) 4.7 % [facility] Neutrophils (Bld) [#/Vol] 4.44 10*3/uL [facility] Neutrophils/100 WBC (Bld) 70.1 % [facility] Nucleated RBC (Bld) [#/Vol] [facility] Nucleated RBC/100 WBC (Bld) [Ratio] 0 % /100 WBC [facility] Platelet mean volume (Bld) [Entitic vol] 10.4 fL 9.0 - 12.7 fL [facility] Platelets (Bld) [#/Vol] 119 10*3/uL Low [facility] RBC (Bld) [#/Vol] 3.44 10*6/uL Low 3.90 - 5.2 0 m/uL [facility] WBC (Bld) [#/Vol] 6.34 10*3/uL [facility] Basophils (Bld) [#/Vol] 10*3/uL Normal <0.11 [facility] Comment on above: Order Comment: Speci men Type: BLOOD SPECIMEN Ordering Facility: [facility] Address: [address] [place] [address] Performed By: #### [id number] #### [facility] CLIA [id number] [address] [place] [address] [place] Basophils/100 WBC (Bld) 0.3 % Normal [facility] Comment on above: Order Comment: Speci men Type: BLOOD SPECIMEN Ordering Facility: [facility] Address: [address] [place] [address] Performed By: #### 5 [id number], [id number] #### [facility] CLIA [id number] [address] [place] [address] [place] Differential cell count method Nom (Bld) Auto Normal [facility] Comment on above: Order Comment: Speci men Type: BLOOD SPECIMEN Ordering Facility: [facility] Address: [address] [place] [address] Performed By: #### 5 [id number], [id number] #### [facility] [facility] CLIA [id number] [address] [place] [address] [place] Eosinophils (Bld) [#/Vol] 0.09 10*3/uL Normal <0.46 [facility] Comment on above: Order Comment: Speci men Type: BLOOD SPECIMEN Ordering Facility: [facility] Address: [address] [place] [address] Performed By: #### 5 0190-8, 2275- #### [facility] CLIA [id number] [address] [place] [address] [place] Eosinophils/100 WBC (Bld) 1.4 % Normal [facility] Comment on above: Order Comment: Speci men Type: BLOOD SPECIMEN Ordering Facility: [facility] Address: [address] [place] [address] Performed By: #### 5 0190-8, 2275-4 #### [facility] CLIA [id number] [address] [place] [address] [place] Erythrocyte distribution width (RBC) [Ratio] 17.3 % High 11.5-15.0 [facility] Comment on above: Order Comment: Speci men Type: BLOOD SPECIMEN Ordering Facility: [facility] Address: [address] [place] [address] Performed By: #### 5 0190-8, 2275-08 #### [facility] CLIA [id number] [address] [place] [address] [place] Hematocrit (Bld) [Volume fraction] 35.4 % Low 36.0-46.0 [facility] Comment on above: Order Comment: Speci men Type: BLOOD SPECIMEN Ordering Facility: [facility] Address: [address] [place] [address] Performed By: #### 5 0190-8, 2275-08 #### [facility] CLIA [id number] [address] [place] [address] [place] Hemoglobin (Bld) [Mass/Vol] 11.7 g/dL Normal 11.5-15.5 [facility] Comment on above: Order Comment: Speci men Type: BLOOD SPECIMEN Ordering Facility: [facility] Address: [address] [place] [address] Performed By: #### 5 0190-8, 2275-08 #### [facility] CLIA [id number] [address] [place] [address] [place] Immature granulocytes (Bld) [#/Vol] 0.03 10*3/uL Normal <0.10 [facility] Comment on above: Order Comment: Speci men Type: BLOOD SPECIMEN Ordering Facility: [facility] Address: [address] [place] [address] Performed By: #### 5 0190-8, 2275-08 #### [facility] CLIA [id number] [address] [place] [address] [place] Immature granulocytes/100 WBC (Bld) 0.5 % Normal [facility] Comment on above: Order Comment: Speci men Type: BLOOD SPECIMEN Ordering Facility: [facility] Address: [address] [place] [address] Performed By: #### 5 0190-8, 2275- #### [facility] CLIA [id number] [address] [place] [address] [place] Lymphocytes (Bld) [#/Vol] 1.46 10*3/uL Normal 1.00-4.00 [facility] Comment on above: Order Comment: Speci men Type: BLOOD SPECIMEN Ordering Facility: [facility] Address: [address] [place] [address] Performed By: #### 5 0190-8, 2275-08 #### [facility] CLIA [id number] [address] [place] [address] [place] Lymphocytes/100 WBC (Bld) 23.0 % Normal [facility] Comment on above: Order Comment: Speci men Type: BLOOD SPECIMEN Ordering Facility: [facility] Address: [address] [place] [address] Performed By: #### 5 0190-8, 2275-08 #### [facility] CLIA [id number] [address] [place] [address] [place] MCH (RBC) [Entitic mass] 34.0 pg Normal 26.0-34.0 [facility] Comment on above: Order Comment: Speci men Type: BLOOD SPECIMEN Ordering Facility: [facility] Address: [address] [place] [address] Performed By: #### 5 0190-8, 2275-08 #### [facility] CLIA [id number] [address] [place] [address] [place] MCHC (RBC) [Mass/Vol] 33.1 g/dL Normal 30.5-36.0 [facility] Comment on above: Order Comment: Speci men Type: BLOOD SPECIMEN Ordering Facility: [facility] Address: [address] [place] [address] Performed By: #### 5 0190-8, 4 #### [facility] CLIA [id number] [address] [place] [address] [place] MCV (RBC) [Entitic vol] 102.9 fL High 80.0-100.0 [facility] Comment on above: Order Comment: Speci men Type: BLOOD SPECIMEN Ordering Facility: [facility] Address: [address] [place] [address] Performed By: #### 5 0190-8, 4 #### [facility] CLIA [id number] [address] [place] [address] [place] Monocytes (Bld) [#/Vol] 0.30 10*3/uL Normal <0.87 [facility] Comment on above: Order Comment: Speci men Type: BLOOD SPECIMEN Ordering Facility: [facility] Address: [address] [place] [address] Performed By: #### 5 0190-8, 2275-08 #### [facility] CLIA [id number] [address] [place] [address] [place] Monocytes/100 WBC (Bld) 4.7 % Normal [facility] Comment on above: Order Comment: Speci men Type: BLOOD SPECIMEN Ordering Facility: [facility] Address: [address] [place] [address] Performed By: #### 5 0190-8, 2275-08 #### [facility] CLIA [id number] [address] [place] [address] [place] Neutrophils (Bld) [#/Vol] 4.44 10*3/uL Normal 1.45-7.50 [facility] Comment on above: Order Comment: Speci men Type: BLOOD SPECIMEN Ordering Facility: [facility] Address: [address] [place] [address] Performed By: #### 5 0190-8, 2275-4 #### [facility] CLIA [id number] [address] [place] [address] [place] Neutrophils/100 WBC (Bld) 70.1 % Normal [facility] Comment on above: Order Comment: Speci men Type: BLOOD SPECIMEN Ordering Facility: [facility] Address: [address] [place] [address] Performed By: #### 5 0190-8, 2275-4 #### [facility] CLIA [id number] [address] [place] [address] [place] Nucleated RBC (Bld) [#/Vol] 10*3/uL Normal <0.01 [facility] Comment on above: Order Comment: Speci men Type: BLOOD SPECIMEN Ordering Facility: [facility] Address: [address] [place] [address] Performed By: #### 5 0190-8, 2275-4 #### [facility] CLIA [id number] [address] [place] [address] [place] Nucleated RBC/100 WBC (Bld) [Ratio] 0.0 /100 WBC Normal [facility] Comment on above: Order Comment: Speci men Type: BLOOD SPECIMEN Ordering Facility: [facility] Address: [address] [place] [address] Performed By: #### 5 0190-8, 2275- #### [facility] CLIA [id number] [address] [place] [address] [place] Platelet mean volume (Bld) [Entitic vol] 10.4 fL Normal 9.0-12.7 [facility] Comment on above: Order Comment: Speci men Type: BLOOD SPECIMEN Ordering Facility: [facility] Address: [address] [place] [address] Performed By: #### 5 0190-8, 2276-4 #### [facility] CLIA [id number] [address] [place] [address] [place] Platelets (Bld) [#/Vol] 119 10*3/uL Low 150-400 [facility] Comment on above: Order Comment: Speci men Type: BLOOD SPECIMEN Ordering Facility: [facility] Address: [address] [place] [address] Performed By: #### 5 0190-8, 6-4 #### [facility] CLIA [id number] [address] [place] [address] [place] RBC (Bld) [#/Vol] 3.44 10*6/uL Low 3.90-5.20 [facility] Comment on above: Order Comment: Speci men Type: BLOOD SPECIMEN Ordering Facility: [facility] Address: [address] [place] [address] Performed By: #### 5 0190-8, 2275-4 #### [facility] CLIA [id number] [address] [place] [address] [place] WBC (Bld) [#/Vol] 6.34 10*3/uL Normal 3.70-11.00 [facility] Comment on above: Order Comment: Speci men Type: BLOOD SPECIMEN Ordering Facility: [facility] Address: [address] [place] [address] Performed By: #### 5 0190-8, 6-4 #### [facility] CLIA [id number] [address] [place] [address] [facility] CNOVSPon 10-28-2024 CNOVSP Visit (SP) Office ([facility]) ELZA BLAS ([id number]) 1940 F Date Time Provider Department 10/28/24 1:00 PM SID LAU During your visit today, we recorded the following information about you: Temperature Pulse Respiration Blood pressure 97 degrees 69/minute 18/minute 163/78 Weight 52.8 kg Sid Lau MD 10/28/2024 3:42 PM Addendum PATIENT NAME: Elza Blas CLINIC NO.: [id number] ATTENDING PHYSICIAN: Sid Lau MD DATE OF SERVICE: 10/28/[address] Alice Quiroz MD [address] [place] [address] thank you for referring Elza Blas for an opinion regarding Thrombocytopenia. Some of the elements of this note have been copied from my previous progress note dated 09/29/24 . All the information has been reviewed carefully. CHIEF COMPLAINT: Thrombocytopenia HPI: Elza Blas is a 83 year old year old female with PMH of HTN, GERD, RA referred to us for thrombocytopenia. CT A/P (09/26/24)- Infiltration of the patient's IV precludes adequate contrast enhancement on postcontrast imaging. 2. Negative for urolithiasis. 3. Probable cyst accumulation throughout the liver. 4. Bilateral renal cysts larger on the left. 5. Vascular atherosclerotic disease. 6. Diverticulosis coli. No CT evidence of diverticulitis. 7. Negative for inflammatory phlegmon in the abdomen or pelvis. C/o intermittent diarrhea, indigestion. No smoking No alcohol. Never had an endoscopy Never had a colonoscopy. Took 2 weeks of prednisone. On folic acid and B12 supplements 1 tab daily. Lives at home with . 10/28/24: - Doing well - No major complaints. Current Outpatient Medications Medication Sig multivit-min/iron/FA/v it K/lut (MULTIVITAMIN WOMEN 50 PLUS PO) Take by mouth. ZINC ORAL Take by mouth. carvedilol (COREG) 12.5 mg tablet Take 12.5 mg by mouth two times a day with meals. folic acid 1 mg tablet Take 1 mg by mouth once daily. losartan (COZAAR) 50 mg tablet Take 50 mg by mouth once daily. methotrexate 2.5 mg tablet Take 2.5 mg by mouth as directed. omeprazole (PRILOSEC) 20 mg capsule Take 20 mg by mouth once daily. cholecalciferol (VITAMIN D3) 5,000 unit tab Take 5,000 Units by mouth once daily. No current facility-administered medications for this visit. 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 No night sweats. HEENT: Negative for headaches, No changes in hearing or vision, no nose bleeds or other nasal problems. RESPIRATORY: Negative for cough, wheezing and shortness of breath CARDIOVASCULAR: Negative for chest pain, leg swelling and palpitations GI: Negative for abdominal discomfort, blood in stools or black stools and change in bowel habits : Negative for dysuria, frequency and incontinence MUSCULOSKELETAL: Negative for joint pain or swelling, back pain, and muscle pain. SKIN: Negative for lesions, rash, and itching. HEMATOLOGY/LYMPHOLOGY Negative for prolonged bleeding, bruising easily, and swollen nodes. NEURO: Negative for numbness or tingling of hands/feet. No weakness. PHYSICAL EXAMINATION: BP 163/78 Pulse 69 Temp 36.1 ?C (97 ?F) (Temporal) Resp 18 Wt 52.8 kg (116 lb 6.5 oz) LMP (LMP Unknown) SpO2 94% There were no vitals taken for this visit. No data found for this vital: Wt General appearance:ECOG PERFORMANCE STATUS: 1- Restricted in physically strenuous activity. Carries out light duty. Patient in NAD. Skin: Skin color, texture, turgor normal. No rashes or lesions. Eyes: Anicteric sclera. Pupils are equally round and reactive to light. Extraocular movements are intact. Breast: No palpable breast masses. No nipple change or discharge. Lymph Nodes: No cervical, supraclavicular, axillary or inguinal adenopathy. Oropharynx: Lips, mucosa, and tongue normal. Back: No pain to percussion. Negative SLR test Lungs clear to auscultation, No wheezing or rhonchi Heart: RRR without murmur, gallop, or rubs. Abdomen soft, non-tender. No masses, organomegaly Extremities: No deformities. No edema Neuro: Gait and speech normal. Reflexes normal and symmetric. Mu (more content not included)... Normal [facility] Comprehensive metabolic 2000 panelOrdered By: Hilario Salas on 10-28-2024 Albumin [Mass/Vol] 3.7 g/dL Low 3.9 - 4.9 g/dL [facility] ALP [Catalytic activity/Vol] 100 U/L 34 - 123 U/L [facility] ALT [Catalytic activity/Vol] 16 U/L 7 - 38 U/L [facility] Anion gap [Moles/Vol] 7 mmol/L Low 8 - 15 mmol/L [facility] AST [Catalytic activity/Vol] 22 U/L 13 - 35 U/L [facility] Bilirubin [Mass/Vol] 1.1 mg/dL 0.2 - 1.3 mg/dL [facility] Calcium [Mass/Vol] 10.3 mg/dL High 8.5 - 10. 2 mg/dL [facility] Chloride [Moles/Vol] 107 mmol/L 98 - 107 mmol/L [facility] CO2 [Moles/Vol] 27 mmol/L 22 - 30 mmol/L [facility] Creatinine [Mass/Vol] 1.04 mg/dL High 0.58 - 0.96 mg/dL [facility] GFR/1.73 sq M.predicted among non-blacks MDRD (S/P/Bld) [Vol rate/Area] 54 mL/min/{1.73_m2} Low - PINF [facility] Comment on above: Estimated Glomerular Filtration Rate (eGFR) is calculated using the 2020 CKD-EPI creatinine equation. This equation utilizes serum creatinine, sex, and age as parameters. The creatinine assay has traceable calibration to isotope dilution-mass spectrometry. Refer to KDIGO guidelines for clinical interpretation. In patients with unstable renal function, e.g. those with acute kidney injury, the eGFR may not accurately reflect actual GFR. Glucose [Mass/Vol] 102 mg/dL High 74 - 99 mg/dL [facility] Comment on above: The [place] Diabete s Association (ADA) provides guidance for cutoff values [...] Standards of Medical Care in Diabetes 2016, [place] [employer] Association. Diabetes Care. 2016.39(Suppl 1). Interpretation and review of laboratory results Abnormal [facility] Potassium [Moles/Vol] 4.6 mmol/L 3.7 - 5.1 mmol/L [facility] Protein [Mass/Vol] 6.3 g/dL 6.3 - 8.0 g/dL [facility] Sodium [Moles/Vol] 141 mmol/L 136 - 144 mmol/L [facility] Urea nitrogen [Mass/Vol] 22 mg/dL High 7 - 21 mg/dL [facility] Comprehensive metabolic 2000 panelon 10-28-2024 Albumin [Mass/Vol] 3.7 g/dL Low 3.9-4.9 [facility] Comment on above: Order Comment: Speci men Type: BLOOD SPECIMEN Ordering Facility: [facility] Address: [address] [place] [address] Performed By: #### 2 4323-8 #### [facility] CLIA [id number] [address] [place] [address] ALP [Catalytic activity/Vol] 100 U/L Normal 34-123 [facility] Comment on above: Order Comment: Speci men Type: BLOOD SPECIMEN Ordering Facility: [facility] Address: [facility] [place] [address] Performed By: #### 2 4323-8 #### [facility] CLIA [id number] [address] [place] [address] ALT [Catalytic activity/Vol] 16 U/L Normal 7-38 [facility] Comment on above: Order Comment: Speci men Type: BLOOD SPECIMEN Ordering Facility: [facility] Address: [address] [place] [address] Performed By: #### 2 4323-8 #### [facility] CLIA [id number] [address] [place] [address] Anion gap [Moles/Vol] 7 mmol/L Low 8-15 [facility] Comment on above: Order Comment: Speci men Type: BLOOD SPECIMEN Ordering Facility: [facility] Address: [address] [place] [id number] Performed By: #### 2 4323-8 #### [facility] CLIA [id number] [address] [place] [address] AST [Catalytic activity/Vol] 22 U/L Normal 13-35 [facility] Comment on above: Order Comment: Speci men Type: BLOOD SPECIMEN Ordering Facility: [facility] Address: [address] [place] [id number] Performed By: #### 2 4323-8 #### [facility] CLIA [id number] [address] [place] [address] Bilirubin [Mass/Vol] 1.1 mg/dL Normal 0.2-1.3 [facility] Comment on above: Order Comment: Speci men Type: BLOOD SPECIMEN Ordering Facility: [facility] Address: [address] [place] [address] Performed By: #### 2 4323-8 #### [facility] CLIA [id number] [address] [place] [address] Calcium [Mass/Vol] 10.3 mg/dL High 8.5-10.2 [facility] Comment on above: Order Comment: Speci men Type: BLOOD SPECIMEN Ordering Facility: [facility] Address: [address] [place] [id number] Performed By: #### 2 4323-8 #### [facility] CLIA [id number] [address] [place] [address] Chloride [Moles/Vol] 107 mmol/L Normal 98-107 [facility] Comment on above: Order Comment: Speci men Type: BLOOD SPECIMEN Ordering Facility: [facility] Address: [address] [place], [place] [address] Performed By: #### 2 4323-8 #### [facility] CLIA [id number] [address] [place] [address] CO2 [Moles/Vol] 27 mmol/L Normal 22-30 [facility] Comment on above: Order Comment: Speci men Type: BLOOD SPECIMEN Ordering Facility: [facility] Address: [address] [place] [address] Performed By: #### 2 4323-8 #### [facility] CLIA [id number] [address] [place] [address] Creatinine [Mass/Vol] 1.04 mg/dL High 0.58-0.96 [facility] Comment on above: Order Comment: Speci men Type: BLOOD SPECIMEN Ordering Facility: [facility] Address: [address] [place] [address] Performed By: #### 2 4323-8 #### [facility] CLIA [id number] [address] [place], [place] [address] Creatinine and Glomerular filtration rate.predicted panel (S/P/Bld) 54 mL/min/1.73m??? Low >=60 [facility] Comment on above: Order Comment: Speci men Type: BLOOD SPECIMEN Ordering Facility: [facility] Address: [address] [place] [address] Result Comment: Ivory mated Glomerular Filtration Rate (eGFR) is calculated using the 2020 CKD-EPI creatinine equation. This equation utilizes serum creatinine, sex, and age as parameters. The creatinine assay has traceable calibration to isotope dilution-mass spectrometry. Refer to KDIGO guidelines for clinical interpretation. In patients with unstable renal function, e.g. those with acute kidney injury, the eGFR may not accurately reflect actual GFR. Performed By: #### 2 4323-8 #### [facility] CLIA [id number] [address] [place] [address] Glucose [Mass/Vol] 102 mg/dL High 74-99 [facility] Comment on above: Order Comment: Brendan cummins Type: BLOOD SPECIMEN Ordering Facility: [facility] Address: [address] [place] [address] Result Comment: The [place] Diabetes Association (ADA) provides guidance for cutoff [...] Standards of Medical Care in Diabetes 2016, [place] Diabetes Association. Diabetes Care. 2016.39(Suppl 1). Performed By: #### 2 4323-8 #### [facility] CLIA [id number] [address] [place] [address] Potassium [Moles/Vol] 4.6 mmol/L Normal 3.7-5.1 [facility] Comment on above: Order Comment: Brendan cummins Type: BLOOD SPECIMEN Ordering Facility: [facility] Address: [address] [place], [place] [address] Performed By: #### 2 4323-8 #### [facility] CLIA [id number] [address] [place] [address] Protein [Mass/Vol] 6.3 g/dL Normal 6.3-8.0 [facility] Comment on above: Order Comment: Brendan cummins Type: BLOOD SPECIMEN Ordering Facility: [facility] Address: [address] [place] [address] Performed By: #### 2 4323-8 #### [facility] CLIA [id number] [address] [place] [address] Sodium [Moles/Vol] 141 mmol/L Normal 136-144 [facility] Comment on above: Order Comment: Speci men Type: BLOOD SPECIMEN Ordering Facility: [facility] Address: [address] [facility] [address] Performed By: #### 2 4323-8 #### [facility] CLIA [id number] [address] [place] [address] Urea nitrogen [Mass/Vol] 22 mg/dL High 7-21 [facility] Comment on above: Order Comment: Speci men Type: BLOOD SPECIMEN Ordering Facility: [facility] Address: [address] [place] [address] Performed By: #### 2 4323-8 #### [facility] CLIA [id number] [address] [place] [address] CNPNon 10-01-2024 CNPN Telephone (HEMASA) ELZA BLAS ([id number]) 1940 F Date Time Provider Department 10/01/24 SID LAU During your visit today, we recorded the following information about you: Sid Lau MD 10/01/2024 8:42 AM Signed Please tell her to take OTC zinc supplements for low zinc levels. Thank you Flash Wells RN 10/04/2024 8:33 AM Signed Pt aware and agreeable to obtain and begin OTC Zinc, as recommended. She denies any questions, needs or concerns at this time. Follow up verified. Flash Wells RN Allergies As of Date: 10/01/2024 (No Known Allergies) Date Reviewed: 09/29/2024 Reviewed by: Tracey Aragon MA - Fully Assessed Reason for Visit: OTC Zinc supplement recommendation [Other] Prescriptions as of 10/04/2024 - carvedilol (COREG) 12.5 mg tablet Take 12.5 mg by mouth two times a day with meals. - folic acid 1 mg tablet Take 1 mg by mouth once daily. - losartan (COZAAR) 50 mg tablet Take 50 mg by mouth once daily. - methotrexate 2.5 mg tablet Take 2.5 mg by mouth as directed. - omeprazole (PRILOSEC) 20 mg capsule Take 20 mg by mouth once daily. - cholecalciferol (VITAMIN D3) 5,000 unit tab Take 5,000 Units by mouth once daily. Problem List As Of Date: 10/01/2024 (None) Encounter Status:Closed by FLASH WELLS on 10/04/24 Normal [facility] CBC W Auto Differential pane l (Bld)on 09-29-2024 Basophils (Bld) [#/Vol] [facility] Basophils/100 WBC (Bld) 0.1 % [facility] Differential cell count method Nom (Bld) Auto [facility] Eosinophils (Bld) [#/Vol] [facility] Eosinophils/100 WBC (Bld) 0 % [facility] Erythrocyte distribution width (RBC) [Ratio] 20.1 % High 11.5 - 15.0 % [facility] Hematocrit (Bld) [Volume fraction] 36.2 % 36.0 - 46.0 % [facility] Hemoglobin (Bld) [Mass/Vol] 12 g/dL 11.5 - 15.5 g/dL [facility] Immature granulocytes (Bld) [#/Vol] 0.14 10*3/uL High [facility] Immature granulocytes/100 WBC (Bld) 1.7 % [facility] Interpretation and review of laboratory results Abnormal [facility] Lymphocytes (Bld) [#/Vol] 0.52 10*3/uL Low [facility] Lymphocytes/100 WBC (Bld) 6.4 % [facility] MCH (RBC) [Entitic mass] 35.3 pg High 26.0 - 34.0 pg [facility] MCHC (RBC) [Mass/Vol] 33.1 g/dL 30.5 - 36.0 g/dL [facility] MCV (RBC) [Entitic vol] 106.5 fL High 80.0 - 100.0 fL [facility] Monocytes (Bld) [#/Vol] 0.99 10*3/uL High NINF [facility] Monocytes/100 WBC (Bld) 12.3 % [facility] Neutrophils (Bld) [#/Vol] 6.41 10*3/uL [facility] Neutrophils/100 WBC (Bld) 79.5 % [facility] Nucleated RBC (Bld) [#/Vol] NINF [facility] Nucleated RBC/100 WBC (Bld) [Ratio] 0 % /100 WBC [facility] Platelet mean volume (Bld) [Entitic vol] 9.9 fL 9.0 - 12.7 fL [facility] Platelets (Bld) [#/Vol] 133 10*3/uL Low [facility] RBC (Bld) [#/Vol] 3.4 10*6/uL Low 3.90 - 5.2 0 m/uL [facility] WBC (Bld) [#/Vol] 8.07 10*3/uL [facility] Basophils (Bld) [#/Vol] 10*3/uL Normal <0.11 [facility] Comment on above: Order Comment: Speci men Type: BLOOD SPECIMEN Ordering Facility: [facility] Address: [address] [place] [address] Performed By: #### 5 0190-8, 2275- #### [facility] CLIA [id number] [address] [place] [address] [place] Basophils/100 WBC (Bld) 0.1 % Normal [facility] Comment on above: Order Comment: Speci men Type: BLOOD SPECIMEN Ordering Facility: [facility] Address: [address] [place] [address] Performed By: #### 5 0190-8, 2275- #### [facility] CLIA [id number] [address] [place] [address] [place] Differential cell count method Nom (Bld) Auto Normal [facility] Comment on above: Order Comment: Speci men Type: BLOOD SPECIMEN Ordering Facility: [facility] Address: [address] [place] [address] Performed By: #### 5 0190-8, 2275- #### [facility] CLIA [id number] [address] [place] [address] [place] Eosinophils (Bld) [#/Vol] 10*3/uL Normal <0.46 [facility] Comment on above: Order Comment: Speci men Type: BLOOD SPECIMEN Ordering Facility: [facility] Address: [address] [place] [address] Performed By: #### 5 0190-8, 2275- #### [facility] CLIA [id number] [address] [place] [address] [place] Eosinophils/100 WBC (Bld) 0.0 % Normal [facility] Comment on above: Order Comment: Speci men Type: BLOOD SPECIMEN Ordering Facility: [facility] Address: [address] [place] [address] Performed By: #### 5 0190-8, 2275-08 #### [facility] CLIA [id number] [address] [place] [address] [place] Erythrocyte distribution width (RBC) [Ratio] 20.1 % High 11.5-15.0 [facility] Comment on above: Order Comment: Speci men Type: BLOOD SPECIMEN Ordering Facility: [facility] Address: [address] [place] [address] Performed By: #### 5 0190-8, 2275-08 #### [facility] CLIA [id number] [address] [place] [address] [place] Hematocrit (Bld) [Volume fraction] 36.2 % Normal 36.0-46.0 [facility] Comment on above: Order Comment: Speci men Type: BLOOD SPECIMEN Ordering Facility: [facility] Address: [address] [place] [address] Performed By: #### 5 0190-8, 2275- #### [facility] CLIA [id number] [address] [place] [address] [place] Hemoglobin (Bld) [Mass/Vol] 12.0 g/dL Normal 11.5-15.5 [facility] Comment on above: Order Comment: Speci men Type: BLOOD SPECIMEN Ordering Facility: [facility] Address: [address] [place] [address] Performed By: #### 5 0190-8, 2275- #### [facility] CLIA [id number] [address] [place] [address] [place] Immature granulocytes (Bld) [#/Vol] 0.14 10*3/uL High <0.10 [facility] Comment on above: Order Comment: Speci men Type: BLOOD SPECIMEN Ordering Facility: [facility] Address: [address] [place] [address] Performed By: #### 5 0190-8, 2275-08 #### [facility] CLIA [id number] [address] [place] [address] [place] Immature granulocytes/100 WBC (Bld) 1.7 % Normal [facility] Comment on above: Order Comment: Speci men Type: BLOOD SPECIMEN Ordering Facility: [facility] Address: [address] [place] [address] Performed By: #### 5 0190-8, 2275-08 #### [facility] CLIA [id number] [address] [place] [address] [place] Lymphocytes (Bld) [#/Vol] 0.52 10*3/uL Low 1.00-4.00 [facility] Comment on above: Order Comment: Speci men Type: BLOOD SPECIMEN Ordering Facility: [facility] Address: [address] [place] [address] Performed By: #### 5 0190-8, 2275-08 #### [facility] CLIA [id number] [address] [place] [address] [place] Lymphocytes/100 WBC (Bld) 6.4 % Normal [facility] Comment on above: Order Comment: Speci men Type: BLOOD SPECIMEN Ordering Facility: [facility] Address: [address] [place] [address] Performed By: #### 5 0190-8, 2275-4 #### [facility] CLIA [id number] [address] [place] [address] [place] MCH (RBC) [Entitic mass] 35.3 pg High 26.0-34.0 [facility] Comment on above: Order Comment: Speci men Type: BLOOD SPECIMEN Ordering Facility: [facility] Address: [address] [place] [address] Performed By: #### 5 0190-8, 4 #### [facility] CLIA [id number] [address] [place] [address] [place] MCHC (RBC) [Mass/Vol] 33.1 g/dL Normal 30.5-36.0 [facility] Comment on above: Order Comment: Speci men Type: BLOOD SPECIMEN Ordering Facility: [facility] Address: [address] [place] [address] Performed By: #### 5 0190-8, 2275-08 #### [facility] CLIA [id number] [address] [place] [address] [place] MCV (RBC) [Entitic vol] 106.5 fL High 80.0-100.0 [facility] Comment on above: Order Comment: Speci men Type: BLOOD SPECIMEN Ordering Facility: [facility] Address: [address] [place] [address] Performed By: #### 5 0190-8, 2275- #### [facility] CLIA [id number] [address] [place] [address] [place] Monocytes (Bld) [#/Vol] 0.99 10*3/uL High <0.87 [facility] Comment on above: Order Comment: Speci men Type: BLOOD SPECIMEN Ordering Facility: [facility] Address: [address] [place] [address] Performed By: #### 5 0190-8, 2275-4 #### [facility] CLIA [id number] [address] [place] [address] [place] Monocytes/100 WBC (Bld) 12.3 % Normal [facility] Comment on above: Order Comment: Speci men Type: BLOOD SPECIMEN Ordering Facility: [facility] Address: [address] [place] [address] Performed By: #### 5 0190-8, 2275-08 #### [facility] CLIA [id number] [address] [place] [address] [place] Neutrophils (Bld) [#/Vol] 6.41 10*3/uL Normal 1.45-7.50 [facility] Comment on above: Order Comment: Speci men Type: BLOOD SPECIMEN Ordering Facility: [facility] Address: [address] [place] [address] Performed By: #### 5 0190-8, 2275-08 #### [facility] CLIA [id number] [address] [place] [address] [place] Neutrophils/100 WBC (Bld) 79.5 % Normal [facility] Comment on above: Order Comment: Speci men Type: BLOOD SPECIMEN Ordering Facility: [facility] Address: [address] [place] [address] Performed By: #### 5 0190-8, 2275-08 #### [facility] CLIA [id number] [address] [place] [address] [place] Nucleated RBC (Bld) [#/Vol] 10*3/uL Normal <0.01 [facility] Comment on above: Order Comment: Speci men Type: BLOOD SPECIMEN Ordering Facility: [facility] Address: [address] [place] [address] Performed By: #### 5 0190-8, 2275- #### [facility] CLIA [id number] [address] [place] [address] [place] Nucleated RBC/100 WBC (Bld) [Ratio] 0.0 /100 WBC Normal [facility] Comment on above: Order Comment: Speci men Type: BLOOD SPECIMEN Ordering Facility: [facility] Address: [address] [place] [address] Performed By: #### 5 0190-8, 6-4 #### [facility] CLIA [id number] [address] [place] [address] [place] Platelet mean volume (Bld) [Entitic vol] 9.9 fL Normal 9.0-12.7 [facility] Comment on above: Order Comment: Speci men Type: BLOOD SPECIMEN Ordering Facility: [facility] Address: [address] [place] [address] Performed By: #### 5 0190-8, 2275-4 #### [facility] CLIA [id number] [address] [place] [address] [place] Platelets (Bld) [#/Vol] 133 10*3/uL Low 150-400 [facility] Comment on above: Order Comment: Speci men Type: BLOOD SPECIMEN Ordering Facility: [facility] Address: [address] [place] [address] Performed By: #### 5 0190-8, 2275-4 #### [facility] CLIA [id number] [address] [place] [address] [place] RBC (Bld) [#/Vol] 3.40 10*6/uL Low 3.90-5.20 [facility] Comment on above: Order Comment: Speci men Type: BLOOD SPECIMEN Ordering Facility: [facility] Address: [address] [place] [address] Performed By: #### 5 0190-8, 2275-4 #### [facility] CLIA [id number] [address] [place] [address] [place] WBC (Bld) [#/Vol] 8.07 10*3/uL Normal 3.70-11.00 [facility] Comment on above: Order Comment: Speci men Type: BLOOD SPECIMEN Ordering Facility: [facility] Address: [address] [place] [address] Performed By: #### 5 0190-8, 2276-4 #### [facility] CLIA [id number] [address] [place] [address] [place] CNOVSPon 09-29-2024 CNOVSP Visit (SP) Office ([facility]) ELZA BLAS ([id number]) 1940 F Date Time Provider Department 09/29/24 11:00 AM SID LAU During your visit today, we recorded the following information about you: Temperature Pulse Respiration Blood pressure 97.3 degrees 67/minute 16/minute 156/81 Weight 51.4 kg Sid Lau MD 09/29/2024 12:05 PM Signed PATIENT NAME: Elza Blas CLINIC NO.: [id number] ATTENDING PHYSICIAN: Sid Lau MD DATE OF SERVICE: September 29, [address] Alice Quiroz MD [address] [place] [address] thank you for referring Elza Blas for an opinion regarding Thrombocytopenia. CHIEF COMPLAINT: Thrombocytopenia HPI: Elza Blas is a 83 year old year old female with PMH of HTN, GERD, RA referred to us for thrombocytopenia. CT A/P (09/26/24)- Infiltration of the patient's IV precludes adequate contrast enhancement on postcontrast imaging. 2. Negative for urolithiasis. 3. Probable cyst accumulation throughout the liver. 4. Bilateral renal cysts larger on the left. 5. Vascular atherosclerotic disease. 6. Diverticulosis coli. No CT evidence of diverticulitis. 7. Negative for inflammatory phlegmon in the abdomen or pelvis. C/o intermittent diarrhea, indigestion. No smoking No alcohol. Never had an endoscopy Never had a colonoscopy. Took 2 weeks of prednisone. On folic acid and B12 supplements 1 tab daily. Lives at home with . Current Outpatient Medications Medication Sig predniSONE (DELTASONE) 10 mg tablet Take by mouth. carvedilol (COREG) 12.5 mg tablet Take 12.5 mg by mouth two times a day with meals. folic acid 1 mg tablet Take 1 mg by mouth once daily. losartan (COZAAR) 50 mg tablet Take 50 mg by mouth once daily. methotrexate 2.5 mg tablet Take 2.5 mg by mouth as directed. omeprazole (PRILOSEC) 20 mg capsule Take 20 mg by mouth once daily. cholecalciferol (VITAMIN D3) 5,000 unit tab Take 5,000 Units by mouth once daily. No current facility-administered medications for this visit. 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 No night sweats. HEENT: Negative for headaches, No changes in hearing or vision, no nose bleeds or other nasal problems. RESPIRATORY: Negative for cough, wheezing and shortness of breath CARDIOVASCULAR: Negative for chest pain, leg swelling and palpitations GI: Negative for abdominal discomfort, blood in stools or black stools and change in bowel habits : Negative for dysuria, frequency and incontinence MUSCULOSKELETAL: Negative for joint pain or swelling, back pain, and muscle pain. SKIN: Negative for lesions, rash, and itching. HEMATOLOGY/LYMPHOLOGY Negative for prolonged bleeding, bruising easily, and swollen nodes. NEURO: Negative for numbness or tingling of hands/feet. No weakness. PHYSICAL EXAMINATION: BP 156/81 Pulse 67 Temp 36.3 ?C (97.3 ?F) (Temporal) Resp 16 Wt 51.4 kg (113 lb 5.1 oz) LMP (LMP Unknown) SpO2 99% There were no vitals taken for this visit. No data found for this vital: Wt General appearance:ECOG PERFORMANCE STATUS: 1- Restricted in physically strenuous activity. Carries out light duty. Patient in NAD. Skin: Skin color, texture, turgor normal. No rashes or lesions. Eyes: Anicteric sclera. Pupils are equally round and reactive to light. Extraocular movements are intact. Breast: No palpable breast masses. No nipple change or discharge. Lymph Nodes: No cervical, supraclavicular, axillary or inguinal adenopathy. Oropharynx: Lips, mucosa, and tongue normal. Back: No pain to percussion. Negative SLR test Lungs clear to auscultation, No wheezing or rhonchi Heart: RRR without murmur, gallop, or rubs. Abdomen soft, non-tender. No masses, organomegaly Extremities: No deformities. No edema Neuro: Gait and speech normal. Reflexes normal and symmetric. Muscular strength intact. Sensation grossly intact. Rectal: Deferred : Deferred LABS: No results found for: GLUC , K , NA , CHLOR , CO2 , CREAT , BUN , ANION , CA , TPROT , ALB , TBILI , ALKPHOS , AST , ALT WBC Date (more content not included)... Normal [facility] COPPER BLOODon 09-29-2024 Copper [Mass/Vol] 83 ug/dL Normal 80-155 [facility] Comment on above: Order Comment: Speci men Type: BLOOD SPECIMEN Ordering Facility: [facility] Address: [address] [place] [address] Result Comment: This test was developed, and its performance characteristics determined by the [facility] Department of Pathology and Laboratory Medicine. It has not been cleared or approved by the FDA. The [facility] Department of Pathology and Laboratory Medicine is regulated under CLIA as qualified to perform high-complexity testing. This test is used for clinical purposes. It should not be regarded as investigational or for research. Performed By: #### 5 763-8, COPPER #### [facility] CLIA [id number] [address] [place], [place] [address] [place] Comprehensive metabolic 2000 panelOrdered By: Tammi Alcantar on 09-29-2024 Albumin [Mass/Vol] 3.7 g/dL Low 3.9 - 4.9 g/dL [facility] ALP [Catalytic activity/Vol] 84 U/L 34 - 123 U/L [facility] ALT [Catalytic activity/Vol] 27 U/L 7 - 38 U/L [facility] Anion gap [Moles/Vol] 10 mmol/L 8 - 15 mmol/L [facility] AST [Catalytic activity/Vol] 16 U/L 13 - 35 U/L [facility] Bilirubin [Mass/Vol] 1.3 mg/dL 0.2 - 1.3 mg/dL [facility] Calcium [Mass/Vol] 10.1 mg/dL 8.5 - 10. 2 mg/dL [facility] Chloride [Moles/Vol] 108 mmol/L High 98 - 107 mmol/L [facility] CO2 [Moles/Vol] 27 mmol/L 22 - 30 mmol/L [facility] Creatinine [Mass/Vol] 0.91 mg/dL 0.58 - 0.96 mg/dL [facility] GFR/1.73 sq M.predicted among non-blacks MDRD (S/P/Bld) [Vol rate/Area] 63 mL/min/{1.73_m2} - PINF [facility] Comment on above: Estimated Glomerular Filtration Rate (eGFR) is calculated using the 2020 CKD-EPI creatinine equation. This equation utilizes serum creatinine, sex, and age as parameters. The creatinine assay has traceable calibration to isotope dilution-mass spectrometry. Refer to KDIGO guidelines for clinical interpretation. In patients with unstable renal function, e.g. those with acute kidney injury, the eGFR may not accurately reflect actual GFR. Glucose [Mass/Vol] 89 mg/dL 74 - 99 mg/dL [facility] Comment on above: The [place] Diabete s Association (ADA) provides guidance for cutoff values [...] Standards of Medical Care in Diabetes 2016, [place] [employer] Association. Diabetes Care. 2016.39(Suppl 1). Interpretation and review of laboratory results Abnormal [facility] Potassium [Moles/Vol] 4.5 mmol/L 3.7 - 5.1 mmol/L [facility] Protein [Mass/Vol] 5.4 g/dL Low 6.3 - 8.0 g/dL [facility] Sodium [Moles/Vol] 145 mmol/L High 136 - 144 mmol/L [facility] Urea nitrogen [Mass/Vol] 25 mg/dL High 7 - 21 mg/dL [facility] Comprehensive metabolic 2000 panelon 09-29-2024 Albumin [Mass/Vol] 3.7 g/dL Low 3.9-4.9 [facility] Comment on above: Order Comment: Uzieli placido Type: BLOOD SPECIMEN Ordering Facility: [facility] Address: [address] [place] [address] Performed By: #### 5 0190-8, 2275- #### [facility] CLIA [id number] [address] [place] [address] [place] ALP [Catalytic activity/Vol] 84 U/L Normal 34-123 [facility] Comment on above: Order Comment: Brendan cummins Type: BLOOD SPECIMEN Ordering Facility: [facility] Address: [address] [place] [address] Performed By: #### 5 0190-8, 2275- #### [facility] CLIA [id number] [address] [place] [address] [place] ALT [Catalytic activity/Vol] 27 U/L Normal 7-38 [facility] Comment on above: Order Comment: Uzieli men Type: BLOOD SPECIMEN Ordering Facility: [facility] Address: [address] [place] [address] Performed By: #### 5 0190-8, 6- #### [facility] CLIA [id number] [address] [place] [address] [place] Anion gap [Moles/Vol] 10 mmol/L Normal 8-15 [facility] Comment on above: Order Comment: Speci men Type: BLOOD SPECIMEN Ordering Facility: [facility] Address: [address] [place] [address] Performed By: #### 5 0190-8, 2275-4 #### [facility] CLIA [id number] [address] [place] [address] [place] AST [Catalytic activity/Vol] 16 U/L Normal 13-35 [facility] Comment on above: Order Comment: Speci men Type: BLOOD SPECIMEN Ordering Facility: [facility] Address: [address] [place] [address] Performed By: #### 5 0190-8, 2275-4 #### [facility] CLIA [id number] [address] [place] [address] [place] Bilirubin [Mass/Vol] 1.3 mg/dL Normal 0.2-1.3 [facility] Comment on above: Order Comment: Speci men Type: BLOOD SPECIMEN Ordering Facility: [facility] Address: [address] [place] [address] Performed By: #### 5 0190-8, 4 #### [facility] CLIA [id number] [address] [place] [address] [place] Calcium [Mass/Vol] 10.1 mg/dL Normal 8.5-10.2 [facility] Comment on above: Order Comment: Speci men Type: BLOOD SPECIMEN Ordering Facility: [facility] Address: [address] [place] [address] Performed By: #### 5 0190-8, 2275- #### [facility] CLIA [id number] [address] [place] [address] [place] Chloride [Moles/Vol] 108 mmol/L High 98-107 [facility] Comment on above: Order Comment: Speci men Type: BLOOD SPECIMEN Ordering Facility: [facility] Address: [address] [place] [address] Performed By: #### 5 0190-8, 6-4 #### [facility] CLIA [id number] [address] [place] [address] [place] CO2 [Moles/Vol] 27 mmol/L Normal 22-30 [facility] Comment on above: Order Comment: Speci men Type: BLOOD SPECIMEN Ordering Facility: [facility] Address: [address] [place] [address] Performed By: #### 5 0190-8, 2275-4 #### [facility] CLIA [id number] [address] [place] [address] [place] Creatinine [Mass/Vol] 0.91 mg/dL Normal 0.58-0.96 [facility] Comment on above: Order Comment: Speci men Type: BLOOD SPECIMEN Ordering Facility: [facility] Address: [address] [place] [address] Performed By: #### 5 0190-8, 2275-4 #### [facility] CLIA [id number] [address] [place] [address] Creatinine and Glomerular filtration rate.predicted panel (S/P/Bld) 63 mL/min/1.73m??? Normal >=60 [facility] Comment on above: Order Comment: Speci men Type: BLOOD SPECIMEN Ordering Facility: [facility] Address: [address] [place] [address] Result Comment: Ivory mated Glomerular Filtration Rate (eGFR) is calculated using the 2020 CKD-EPI creatinine equation. This equation utilizes serum creatinine, sex, and age as parameters. The creatinine assay has traceable calibration to isotope dilution-mass spectrometry. Refer to KDIGO guidelines for clinical interpretation. In patients with unstable renal function, e.g. those with acute kidney injury, the eGFR may not accurately reflect actual GFR. Performed By: #### 5 0190-8, 6-4 #### [facility] CLIA [id number] [address] [place] [address] [place] Glucose [Mass/Vol] 89 mg/dL Normal 74-99 [facility] Comment on above: Order Comment: Brendan men Type: BLOOD SPECIMEN Ordering Facility: [facility] Address: [address] [place] [address] Result Comment: The [place] Diabetes Association (ADA) provides guidance for cutoff [...] Standards of Medical Care in Diabetes 2016, [place] [employer]. Diabetes Care. 2016.39(Suppl 1). Performed By: #### 5 0190-8, 2275- #### [facility] CLIA [id number] [address] [place] [address] [place] Potassium [Moles/Vol] 4.5 mmol/L Normal 3.7-5.1 [facility] Comment on above: Order Comment: Brendan cummins Type: BLOOD SPECIMEN Ordering Facility: [facility] Address: [address] [place] [address] Performed By: #### 5 0190-8, 2275- #### [facility] CLIA [id number] [address] [place] [address] [place] Protein [Mass/Vol] 5.4 g/dL Low 6.3-8.0 [facility] Comment on above: Order Comment: Brendan cummins Type: BLOOD SPECIMEN Ordering Facility: [facility] Address: [address] [place] [address] Performed By: #### 5 0190-8, 2275-08 #### [facility] CLIA [id number] [address] [place] [address] [place] Sodium [Moles/Vol] 145 mmol/L High 136-144 [facility] Comment on above: Order Comment: Speci men Type: BLOOD SPECIMEN Ordering Facility: [facility] Address: [address] [place] [address] Performed By: #### 5 0190-8, 2276-4 #### [facility] CLIA [id number] [address] [place] [address] [place] Urea nitrogen [Mass/Vol] 25 mg/dL High 7-21 [facility] Comment on above: Order Comment: Speci men Type: BLOOD SPECIMEN Ordering Facility: [facility] Address: [address] [place] [address] Performed By: #### 5 0190-8, 6-4 #### [facility] CLIA [id number] [address] [place] [address] [place] FERRITINon 09-29-2024 Ferritin [Mass/Vol] 627 ng/mL High 14.7 - 2 05.1 ng/mL [facility] FOLATE, SERUMon 09-29-2024 Folate [Mass/Vol] ng/mL 4.7 - PINF ng/mL [facility] Comment on above: A result of > 20 ng/ mL is not necessarily indicative of a pathologic or treatable condition: it reflects a limitation of the test methodology. Assay reference range: 4.8 to 24.2 ng/mL. Suitable for detection of folate deficiency. Reference: Folate III (Folate III) [package insert V 1.0 Scottish]. [facility], [place], [place]: March 2015. Ferritin SerPl-mCncon 2024 Ferritin [Mass/Vol] 627.0 ng/mL High 14.7-205.1 [facility] Comment on above: Order Comment: Speci men Type: BLOOD SPECIMEN Ordering Facility: [facility] Address: [address] [place] [address] Performed By: #### 5 0190-8, 2275-08 #### [facility] CLIA [id number] [address] [place] [address] [place] Ferritin [Mass/Vol]on 2024 Interpretation and review of laboratory results Abnormal [facility] Folate SerPl-mCncon 09-30-19 25 Folate [Mass/Vol] ng/mL Normal >4.7 [facility] Comment on above: Order Comment: Speci men Type: BLOOD SPECIMEN Ordering Facility: [facility] Address: [address] [place] [address] Result Comment: A re sult of > 20 ng/mL is not necessarily indicative of a pathologic or treatable condition: it reflects a limitation of the test methodology. Assay reference range: 4.8 to 24.2 ng/mL. Suitable for detection of folate deficiency. Reference: Folate III (Folate III) [package insert V 1.0 Scottish]. [facility], [place], [place]: March 2015. Performed By: #### 2 284-8, 2885-2, 2132-9 #### [facility] CLIA [id number] [address] [place] [address] [place] Iron and Iron binding capaci ty panelon 09-29-2024 Interpretation and review of laboratory results Normal [facility] Iron [Mass/Vol] 118 ug/dL 41 - 186 ug/dL [facility] Iron binding capacity [Mass/Vol] 249 ug/dL 232 - 386 ug/dL [facility] Iron/TIBC [Molar ratio] 47.4 % 15.0 - 57.0 % [facility] Iron [Mass/Vol] 118 ug/dL Normal 41-186 [facility] Comment on above: Order Comment: Speci men Type: BLOOD SPECIMEN Ordering Facility: [facility] Address: [address] [place] [address] Performed By: #### 5 0190-8, 2275-08 #### [facility] CLIA [id number] [address] [place] [address] [place] Iron binding capacity [Mass/Vol] 249 ug/dL Normal 232-386 [facility] Comment on above: Order Comment: Speci men Type: BLOOD SPECIMEN Ordering Facility: [facility] Address: [address] [place] [address] Performed By: #### 5 0190-8, 2276-4 #### [facility] CLIA [id number] [address] [place] [address] [place] Iron/TIBC [Molar ratio] 47.4 % Normal 15.0-57.0 [facility] Comment on above: Order Comment: Speci men Type: BLOOD SPECIMEN Ordering Facility: [facility] Address: [address] [place] [address] Performed By: #### 5 0190-8, 6-4 #### [facility] CLIA [id number] [address] [place] [address] [place] KAPPA/CUTLER,FREE,SERon 2024 Immunoglobulin light chains.kappa.free (S) [Mass/Vol] 19.4 mg/L Normal 3.3-19.4 [facility] Comment on above: Order Comment: Speci [facility] Type: BLOOD SPECIMEN Ordering Facility: [facility] Address: [address] [place] [address] Result Comment: Rare ly, increased serum free light chains levels may not be detected or accurately quantified due to prozone phenomenon or in high viscosity samples using this immunoturbidimetric assay. Correlation with other laboratory results and clinical findings is recommended. The [place] Free Light Chain was performed using the Binding Site Optilite immunoturbidimetric method. Result obtained with different assay methods or kits cannot be used interchangeably. Performed By: #### K LFRS #### [facility] CLIA [id number] [address] [place] [address] [place] Immunoglobulin light chains.kappa/Immuno globulin light chains.lambda (S) [Mass ratio] 1.25 Normal 0.26-1.65 [facility] Comment on above: Order Comment: Speci men Type: BLOOD SPECIMEN Ordering Facility: [facility] Address: [address] [place] [address] Performed By: #### K LFRS #### [facility] CLIA [id number] [address] [place] [address] [place] Immunoglobulin light chains.lambda.free [Mass/Vol] 15.5 mg/L Normal 5.7-26.3 [facility] Comment on above: Order Comment: Speci men Type: BLOOD SPECIMEN Ordering Facility: [facility] Address: [address] [place] [address] Result Comment: Rare ly, increased serum free light chains levels may not be detected or accurately quantified due to prozone phenomenon or in high viscosity samples using this immunoturbidimetric assay. Correlation with other laboratory results and clinical findings is recommended. The [place] Free Light Chain was performed using the Binding Site Optilite immunoturbidimetric method. Result obtained with different assay methods or kits cannot be used interchangeably. Performed By: #### K LFRS #### [facility] CLIA [id number] [address] [place] [address] [place] No Panel Informationon 09-29 Interpretation and review of laboratory results Normal [facility] PROTEIN ELECTROPHORESIS SERU M (P)on 09-29-2024 Albumin [Mass/Vol] 3.43 g/dL Normal 3.43-5.41 [facility] Comment on above: Order Comment: Speci men Type: BLOOD SPECIMEN Ordering Facility: [facility] Address: [address] [place] [address] Performed By: #### L [id number] #### [facility] CLIA [id number] [address] [place] [address] [place] Alpha 1 globulin Elph [Mass/Vol] 0.37 g/dL Normal 0.18-0.43 [facility] Comment on above: Order Comment: Speci men Type: BLOOD SPECIMEN Ordering Facility: [facility] Address: [address] [place] [address] Performed By: #### L [id number] #### [facility] CLIA [id number] [address] [place] [address] [place] Alpha 2 globulin Elph [Mass/Vol] 0.62 g/dL Normal 0.42-0.98 [facility] Comment on above: Order Comment: Speci men Type: BLOOD SPECIMEN Ordering Facility: [facility] Address: [address] [place] [address] Performed By: #### L [id number] #### [facility] CLIA [id number] [address] [place] [address] [place] Beta globulin Elph [Mass/Vol] 0.51 g/dL Low 0.61-1.17 [facility] Comment on above: Order Comment: Speci men Type: BLOOD SPECIMEN Ordering Facility: [facility] Address: [address] [place] [address] Performed By: #### L [id number] #### [facility] CLIA [id number] [address] [place] [address] [place] Gamma globulin Elph [Mass/Vol] 0.56 g/dL Normal 0.53-1.51 [facility] Comment on above: Order Comment: Speci men Type: BLOOD SPECIMEN Ordering Facility: [facility] Address: [address] [place] [address] Performed By: #### L [id number] #### [facility] CLIA [id number] [address] [place] [address] [place] M-PROTEIN LOCATION Normal [facility] Comment on above: Order Comment: Speci men Type: BLOOD SPECIMEN Ordering Facility: [facility] Address: [address] [place] [address] Result Comment: Not Applicable. Performed By: #### L [id number] #### [facility] CLIA [id number] [address] [place] [address] [place] Protein Fractions [Interp] No definitive M protein is identified on protein electrophoresis. Normal No definitive M protein is identified on protein electrophores is. [facility] Comment on above: Order Comment: Speci men Type: BLOOD SPECIMEN Ordering Facility: [facility] Address: [address] [place] [address] Performed By: #### L [id number] #### [facility] CLIA [id number] [address] [place] [address] [place] Protein.monoclonal Elph [Mass/Vol] 0.00 g/dL Normal <=0.00 [facility] Comment on above: Order Comment: Speci men Type: BLOOD SPECIMEN Ordering Facility: [facility] Address: [address] [place] [address] Performed By: #### L [id number] #### [facility] CLIA [id number] [address] [place] [address] [place] SPE STAFF REVIEW Reviewed by Maciej Piedra MD, Ph.D ([id number]) Normal [facility] Comment on above: Order Comment: Speci men Type: BLOOD SPECIMEN Ordering Facility: [facility] Address: [address] [place] [address] Performed By: #### L [id number] #### [facility] CLIA [id number] [address] [place] [address] [place] Prot SerPl-mCncon 09-29-2024 Protein [Mass/Vol] 5.5 g/dL Low 6.3-8.0 [facility] Comment on above: Order Comment: Speci men Type: BLOOD SPECIMEN Ordering Facility: [facility] Address: [address] [place] [address] Performed By: #### 2 284-8, 2885-2, 2132-9 #### [facility] CLIA [id number] [address] [place] [address] [place] VITAMIN B12on 09-29-2024 Cobalamin (Vitamin B12) [Mass/Vol] 752 pg/mL 232 - 1245 pg/mL [facility] Vit B12 SerPl-mCncon 025 Cobalamin (Vitamin B12) [Mass/Vol] 752 pg/mL Normal 232-1245 [facility] Comment on above: Order Comment: Speci men Type: BLOOD SPECIMEN Ordering Facility: [facility] Address: [address] [place] [address] Performed By: #### 2 284-8, 2885-2, 2132-9 #### [facility] CLIA [id number] [address] [place] [address] [place] Zinc SerPl-mCncon 09-29-2024 Zinc [Mass/Vol] 54 ug/dL Low 60-120 [facility] Comment on above: Order Comment: Speci men Type: BLOOD SPECIMEN Ordering Facility: [facility] Address: [address] [place] [address] Result Comment: This test was developed, and its performance characteristics determined by the [facility] Department of Pathology and Laboratory Medicine. It has not been cleared or approved by the FDA. The [facility] Department of Pathology and Laboratory Medicine is regulated under CLIA as qualified to perform high-complexity testing. This test is used for clinical purposes. It should not be regarded as investigational or for research. Performed By: #### 5 763-8, COPPER #### [facility] CLIA [id number] [address] [place] [address] [place] [address] ABDOMEN PELVIS W AND WO I V CONTRASTon 09-16-2024 CT ABDOMEN PELVIS W AND WO IV CONTRAST EXAM: CT ABDOMEN PELVIS W AND WO [...] patient size Use of iterative reconstruction technique Normal Not Available CBC (H/H, RBC, INDICES, WBC, PLT)on 09-15-2024 Erythrocyte distribution width (RBC) [Ratio] 15.7 % High 11.0-15.0 [facility] Comment on above: Performed By: #### 1 230, 1759 #### [facility] [place] [address] Regeneration Operator: Mateo López MD Hematocrit (Bld) [Volume fraction] 33.4 % Low 35.0-45.0 [facility] Comment on above: Performed By: #### 1 230, 175 #### [facility] [place] [address] Regeneration Operator: Mateo López MD Hemoglobin (Bld) [Mass/Vol] 10.9 g/dL Low 11.7-15.5 [facility] Comment on above: Performed By: #### 1 230, 175 #### [facility] [place] [address] Regeneration Operator: Mateo López MD MCH (RBC) [Entitic mass] 33.7 pg High 27.0-33.0 [facility] Comment on above: Performed By: #### 1 230, 1759 #### [facility] [place] [address] Regeneration Operator: Mateo López MD MCHC (RBC) [Mass/Vol] 32.6 g/dL Normal 32.0-36.0 [facility] Comment on above: Result Comment: For adults, a slight decrease in the calculated MCHC value (in the range of 30 to 32 g/dL) is most likely not clinically significant; however, it should be interpreted with caution in correlation with other red cell parameters and the patient's clinical condition. Performed By: #### 1 230, 1759 #### [facility] [place] [address] Regeneration Operator: Mateo López MD MCV (RBC) [Entitic vol] 103.4 fL High 80.0-100.0 [facility] Comment on above: Performed By: #### 1 230, 1759 #### [facility] of [place] [address] Regeneration Operator: Mateo López MD Platelet mean volume (Bld) [Entitic vol] 10.9 fL Normal 7.5-12.5 [facility] Comment on above: Performed By: #### 1 023, 1759 #### [facility] [place] [address] Regeneration Operator: Mateo López MD Platelets (Bld) [#/Vol] 61 10*3/uL Low 140-400 [facility] Comment on above: Performed By: #### 1 0231, 1759 #### [facility] [place] [address] Regeneration Operator: Mateo López MD RBC (Bld) [#/Vol] 3.23 10*6/uL Low 3.80-5.10 [facility] Comment on above: Performed By: #### 1 230, 175 #### [facility] [place] [address] Regeneration Operator: Mateo López MD WBC (Bld) [#/Vol] 5.9 10*3/uL Normal 3.8-10.8 [facility] Comment on above: Performed By: #### 1 230, 175 #### [facility] [place] [address] Regeneration Operator: Mateo López MD [facility] 09-15-2024 Albumin [Mass/Vol] 3.9 g/dL Normal 3.6-5.1 [facility] Comment on above: Performed By: #### 1 023, 1759 #### [facility] [place] [address] Regeneration Operator: Mateo López MD Albumin/Globulin [Mass ratio] 1.9 {ratio} Normal 1.0-2.5 [facility] Comment on above: Performed By: #### 1 0231, 1759 #### [facility] [place] [address] Regeneration Operator: Mateo López MD ALP [Catalytic activity/Vol] 70 U/L Normal 37-153 [facility] Comment on above: Performed By: #### 1 0231, 1759 #### [facility] of [address], [address] [place] [address] Regeneration Operator: Mateo López MD ALT [Catalytic activity/Vol] 14 U/L Normal 6-29 [facility] Comment on above: Performed By: #### 1 0231, 1759 #### [facility] of [place] [address] Regeneration Operator: Mateo López MD AST [Catalytic activity/Vol] 17 U/L Normal 10-35 [facility] Comment on above: Performed By: #### 1 023, 175 #### [facility] [place] [address] Regeneration Operator: Mateo López MD Bilirubin [Mass/Vol] 1.7 mg/dL High 0.2-1.2 [facility] Comment on above: Performed By: #### 1 0231, 175 #### [facility] [place] [address] Regeneration Operator: Mateo López MD Calcium [Mass/Vol] 9.6 mg/dL Normal 8.6-10.4 [facility] Comment on above: Performed By: #### 1 0231, 1759 #### [facility] [place] [address] Regeneration Operator: Mateo López MD Chloride [Moles/Vol] 105 mmol/L Normal 98-110 [facility] Comment on above: Performed By: #### 1 0231, 1759 #### [facility] [place] [address] Regeneration Operator: Mateo López MD CO2 [Moles/Vol] 27 mmol/L Normal 20-32 [facility] Comment on above: Performed By: #### 1 230, 1759 #### [facility] [place] [address] Regeneration Operator: Mateo López MD Creatinine [Mass/Vol] 1.11 mg/dL High 0.60-0.95 [facility] Comment on above: Performed By: #### 1 230, 175 #### [facility] [place] [address] Regeneration Operator: Mateo López MD GFR/1.73 sq M.predicted among non-blacks MDRD (S/P/Bld) [Vol rate/Area] 50 mL/min/{1.73_m2} Low > OR = 60 [facility] Comment on above: Performed By: #### 1 230, 175 #### [facility] [place] [address] Regeneration Operator: Mateo López MD Globulin (S) [Mass/Vol] 2.1 g/dL Normal 1.9-3.7 [facility] Comment on above: Performed By: #### 1 230, 175 #### [facility] [place] [address] Regeneration Operator: Mateo López MD Glucose [Mass/Vol] 98 mg/dL Normal 65-99 [facility] Comment on above: Result Comment: Fasting reference interval Performed By: #### 1 230, 1759 #### [facility] [place] [address] Regeneration Operator: Mateo López MD Potassium [Moles/Vol] 4.3 mmol/L Normal 3.5-5.3 [facility] Comment on above: Performed By: #### 1 230, 175 #### [facility] [place] [address] Regeneration Operator: Mateo López MD Protein [Mass/Vol] 6.0 g/dL Low 6.1-8.1 [facility] Comment on above: Performed By: #### 1 0231, 1759 #### [facility] [place] [address] Regeneration Operator: Mateo López MD Sodium [Moles/Vol] 141 mmol/L Normal 135-146 [facility] Comment on above: Performed By: #### 1 0231, 1759 #### [facility] [place] [address] Regeneration Operator: Mateo López MD Urea nitrogen [Mass/Vol] 22 mg/dL Normal 7-25 [facility] Comment on above: Performed By: #### 1 0231, 1759 #### [facility] [place] [address] Regeneration Operator: Mateo López MD Urea nitrogen/Creatinine [Mass ratio] 20 mg/mg Normal 6-22 [facility] Comment on above: Performed By: #### 1 0231, 1759 #### [facility] [place] [address] Regeneration Operator: Mateo López MD CBC (H/H, RBC, INDICES, WBC, PLT)on 04-08-2024 Erythrocyte distribution width (RBC) [Ratio] 13.4 % Normal 11.0-15.0 [facility] Comment on above: Performed By: #### 1 80, 8000, 175, 97256, 899 #### [facility] of [place] [address] Regeneration Operator: Mateo López MD Hematocrit (Bld) [Volume fraction] 36.6 % Normal 35.0-45.0 [facility] Comment on above: Performed By: #### 1 73, 7600, 175, 65477, 899 #### [facility] [place] [address] Regeneration Operator: Mateo López MD Hemoglobin (Bld) [Mass/Vol] 12.8 g/dL Normal 11.7-15.5 [facility] Comment on above: Performed By: #### 1 7306, 7600, 175, 85798, 899 #### [facility] [place] [address] Regeneration Operator: Mateo López MD MCH (RBC) [Entitic mass] 33.8 pg High 27.0-33.0 [facility] Comment on above: Performed By: #### 1 7306, 7600, 175, , 899 #### [facility] [place] [address] Regeneration Operator: Mateo López MD MCHC (RBC) [Mass/Vol] 35.0 g/dL Normal 32.0-36.0 [facility] Comment on above: Result Comment: For adults, a slight decrease in the calculated MCHC value (in the range of 30 to 32 g/dL) is most likely not clinically significant; however, it should be interpreted with caution in correlation with other red cell parameters and the patient's clinical condition. Performed By: #### 1 7306, 7600, 175, 08703, 899 #### [facility] [place] [address] Regeneration Operator: Mateo López MD MCV (RBC) [Entitic vol] 96.6 fL Normal 80.0-100.0 [facility] Comment on above: Performed By: #### 1 73, 7600, 175, , 899 #### [facility] [place] [address] Regeneration Operator: Mateo López MD Platelet mean volume (Bld) [Entitic vol] 10.8 fL Normal 7.5-12.5 [facility] Comment on above: Performed By: #### 1 7306, 7600, 175, 81811, 899 #### [facility] [place] [address] Regeneration Operator: Mateo López MD Platelets (Bld) [#/Vol] 147 10*3/uL Normal 140-400 [facility] Comment on above: Performed By: #### 1 7306, 7600, 1759, 81772, 899 #### [facility] of [address], [address] [place] [address] Regeneration Operator: Mateo López MD RBC (Bld) [#/Vol] 3.79 10*6/uL Low 3.80-5.10 [facility] Comment on above: Performed By: #### 1 7306, 7600, 1759, 19400, 899 #### [facility] of [address], [address] [place] [address] Regeneration Operator: Mateo López MD WBC (Bld) [#/Vol] 6.2 10*3/uL Normal 3.8-10.8 [facility] Comment on above: Performed By: #### 1 7306, 7600, 1759, 90089, 899 #### [facility] of [place] [address] Regeneration Operator: Mateo López MD [facility] 04-08-2024 Albumin [Mass/Vol] 3.7 g/dL Normal 3.6-5.1 [facility] Comment on above: Performed By: #### 1 7306, 7600, 1759, 82491, 899 #### [facility] of [place] [address] Regeneration Operator: Mateo López MD Albumin/Globulin [Mass ratio] 1.9 {ratio} Normal 1.0-2.5 [facility] Comment on above: Performed By: #### 1 7306, 7600, 1759, 94687, 899 #### [facility] [place] [address] Regeneration Operator: Mateo López MD ALP [Catalytic activity/Vol] 60 U/L Normal 37-153 [facility] Comment on above: Performed By: #### 1 7306, 7600, 1759, 99450, 899 #### [facility] [place] [address] Regeneration Operator: Mateo López MD ALT [Catalytic activity/Vol] 12 U/L Normal 6-29 [facility] Comment on above: Performed By: #### 1 7306, 7600, 175, 20104, 899 #### [facility] [place] [address] Regeneration Operator: Mateo López MD AST [Catalytic activity/Vol] 14 U/L Normal 10-35 [facility] Comment on above: Performed By: #### 1 7306, 7600, 175, 93434, 899 #### [facility] [facility] [place] [address] Regeneration Operator: Mateo López MD Bilirubin [Mass/Vol] 1.0 mg/dL Normal 0.2-1.2 [facility] Comment on above: Performed By: #### 1 7306, 7600, 175, 70466, 899 #### [facility] [place] [address] Regeneration Operator: Mateo López MD Calcium [Mass/Vol] 9.8 mg/dL Normal 8.6-10.4 [facility] Comment on above: Performed By: #### 1 7306, 7600, 175, 18376, 899 #### [facility] [place] [address] Regeneration Operator: Mateo López MD Chloride [Moles/Vol] 109 mmol/L Normal 98-110 [facility] Comment on above: Performed By: #### 1 7306, 7600, 175, 11476, 899 #### [facility] [place] [address] Regeneration Operator: Mateo López MD CO2 [Moles/Vol] 30 mmol/L Normal 20-32 [facility] Comment on above: Performed By: #### 1 7306, 7600, 175, 76136, 899 #### [facility] [place] [address] Regeneration Operator: Mateo López MD Creatinine [Mass/Vol] 0.98 mg/dL High 0.60-0.95 [facility] Comment on above: Performed By: #### 1 7306, 7600, 1759, 83221, 899 #### [facility] [place] [address] Regeneration Operator: Mateo López MD GFR/1.73 sq M.predicted among non-blacks MDRD (S/P/Bld) [Vol rate/Area] 58 mL/min/{1.73_m2} Low > OR = 60 [facility] Comment on above: Performed By: #### 1 7306, 7600, 175, 98168, 899 #### [facility] [place] [address] Regeneration Operator: Mateo López MD Globulin (S) [Mass/Vol] 2.0 g/dL Normal 1.9-3.7 [facility] Comment on above: Performed By: #### 1 7306, 7600, 175, 91936, 899 #### [facility] [place] [address] Regeneration Operator: Mateo López MD Glucose [Mass/Vol] 92 mg/dL Normal 65-99 [facility] Comment on above: Result Comment: Fasting reference interval Performed By: #### 1 7306, 7600, 175, 10098, 899 #### [facility] [place] [address] Regeneration Operator: Mateo López MD Potassium [Moles/Vol] 4.2 mmol/L Normal 3.5-5.3 [facility] Comment on above: Performed By: #### 1 7306, 7600, 1759, 43435, 899 #### [facility] [place] [address] Regeneration Operator: Mateo López MD Protein [Mass/Vol] 5.7 g/dL Low 6.1-8.1 [facility] Comment on above: Performed By: #### 1 7306, 7600, 1759, 55530, 899 #### [facility] [place] [address] Regeneration Operator: Mateo López MD Sodium [Moles/Vol] 144 mmol/L Normal 135-146 [facility] Comment on above: Performed By: #### 1 7306, 7600, 1759, 08080, 899 #### [facility] [place] [address] Regeneration Operator: Mateo López MD Urea nitrogen [Mass/Vol] 19 mg/dL Normal 7-25 [facility] Comment on above: Performed By: #### 1 7306, 7600, 1759, 45912, 899 #### [facility] [place] [address] Regeneration Operator: Mateo López MD Urea nitrogen/Creatinine [Mass ratio] 19 mg/mg Normal 6-22 [facility] Comment on above: Performed By: #### 1 7306, 7600, 1759, 50844, 899 #### [facility] [place] [address] Regeneration Operator: Mateo López MD LIPID PANEL, [facility] 120 Cholesterol [Mass/Vol] 154 mg/dL Normal <200 [facility] Comment on above: Order Comment: FASTI NG:YES FASTING: YES Performed By: #### 1 7306, 7600, 1759, 08052, 899 #### [facility] [place] [address] Regeneration Operator: Mateo López MD Cholesterol in HDL [Mass/Vol] 45 mg/dL Low > OR = 50 [facility] Comment on above: Order Comment: FASTI NG:YES FASTING: YES Performed By: #### 1 7306, 7600, 1759, 46459, 899 #### [facility] of [address], [address] [place] [address] Regeneration Operator: Mateo López MD Cholesterol in LDL [Mass/Vol] 92 mg/dL Normal [facility] Comment on above: Order Comment: FASTI NG:YES FASTING: YES Result Comment: Refe rence range: <100 Desirable range <100 mg/dL for primary prevention; <70 mg/dL for patients with CHD or diabetic patients with > or = 2 CHD risk factors. LDL-C is now calculated using the Jose Alejandro calculation, which is a validated novel method providing better accuracy than the Friedewald equation in the estimation of LDL-C. Wilber SS et al. HUSSAIN. 2013;310(19): 2220-6230 (http://education.Loop88.Stirplate.io/faq/DGG545) Performed By: #### 1 7306, 7600, 1759, 33231, 899 #### [facility] [address], [address] [place] [address] Regeneration Operator: Mateo López MD Cholesterol.total/C holesterol in HDL [Mass ratio] 3.4 {ratio} Normal <5.0 [facility] Comment on above: Order Comment: FASTI NG:YES FASTING: YES Performed By: #### 1 7306, 7600, 1759, 52318, 899 #### [facility] [address], [address] [place] [address] Regeneration Operator: Mateo López MD NON HDL CHOLESTEROL 109 mg/dL (calc) Normal <130 [facility] Comment on above: Order Comment: FASTI NG:YES FASTING: YES Result Comment: For patients with diabetes plus 1 major ASCVD risk factor, treating to a non-HDL-C goal of <100 mg/dL (LDL-C of <70 mg/dL) is considered a therapeutic option. Performed By: #### 1 7306, 7600, 1759, 80934, 899 #### [facility] [address], [address] [place] [address] Regeneration Operator: Mateo López MD Triglyceride [Mass/Vol] 80 mg/dL Normal <150 [facility] Comment on above: Order Comment: FASTI NG:YES FASTING: YES Performed By: #### 1 7306, 7600, 1759, 45170, 899 #### [facility] [address], [address] [place] [address] Regeneration Operator: Mateo López MD TSHon 04-08-2024 TSH Qn 1.87 m[IU]/L Normal 0.40-4.50 [facility] Comment on above: Performed By: #### 1 7306, 7600, 1759, 58655, 899 #### [facility] [address], [address] [place] [address] Regeneration Operator: Mateo López MD VITAMIN D,25-OH,TOTAL,IAon 1 06-09-2023 VITAMIN D,25-OH,TOTAL,IA 35 ng/mL Normal 30-100 [facility] Comment on above: Result Comment: Iva min D Status 25-OH Vitamin D: Deficiency: <20 ng/mL Insufficiency: 20 - 29 ng/mL Optimal: > or = 30 ng/mL For 25-OH Vitamin D testing on patients on D2-supplementation and patients for whom quantitation of D2 and D3 fractions is required, the QuestAssureD(TM) 25-OH VIT D, (D2,D3), LC/MS/MS is recommended: order code 54296 (patients >2yrs). See Note 1 Note 1 For additional information, please refer to http://education.[employer]FO [employer]/faq/UJA912 (This link is being provided for informational/ educational purposes only.) Performed By: #### 1 7306, 7600, 1759, 55091, 899 #### [facility] [address], [address] [place] [address] Regeneration Operator: Mateo López MD Urine Cultureon 10-10-2023 Bacteria identified Cx Nom (U) ORGANISM: Escherichia coli (O:ESCCOL) [place] Count >100,000 Aerobic DOROTHY Charge (NMIC56) --- SUSCEPTIBILITY -- ORGANISM: O:ESCCOL ANTIBIOTIC INTERPRETATION DOROTHY Amikacin S <16 Amoxacillin/K Clavulanate S <8 Ampicillin S <8 Ampicillin/Sulbactam S <4 Aztreonam S <4 Cefazolin S <2 Cefepime S <2 Ceftazidime S <1 Ceftazidime/Avibactam S <4 Ceftolozane/Tazobactam S <2 Ceftriaxone S <1 Cefuroxime S <4 Ciprofloxacin S <0.25 Ertapenem S <0.5 Gentamicin S <2 Levofloxacin S <0.5 Meropenem S <1 Meropenem/Vaborbactam S <2 Nitrofurantoin S <32 Piperacillin/Tazobacta m S <8 Tetracycline S <4 Tigecycline S <2 Tobramycin S <2 Trimethoprim/Sulfameth oxazole S <0.5 S = SUSCEPTIBLE I = INTERMEDIATE R = RESISTANT BLANK = DATA NOT AVAILABLE, OR DRUG NOT ADVISABLE OR TESTED R* = RESISTANCE DUE TO EXTENDED SPECTRUM BETA-LACTAMASES ESBL = EXTENDED SPECTRUM BETA-LACTAMASE TFG = THYMIDINE-DEPENDENT STRAIN HENNA = BETA-LACTAMASE POSITIVE IB = INDUCIBLE BETA-LACTAMASE. APPEARS IN PLACE OF 'S' WITH SPECIES KNOWN TO POSSESS INDUCIBLE BETA-LACTAMASES. POTENTIALLY THEY MAY BECOME RESISTANT TO ALL B-LACTAM DRUGS. PERFORMED BY: [place] [address] PATHOLOGIST HORSE TRAINER UBALDO GROSSMAN M.D. Normal [facility] Comment on above: Performed By: #### C UU #### [address] Office Visit (Cardiology)on 11-26-2021 Follow-up visit Diagnoses/Problems Assessed Nonischemic cardiomyopathy (425.4) (I42.8) Benign essential hypertension (401.1) (I10) Status post repair of abdominal aortic aneurysm using bifurcation graft (V45.89) (Z95.828,Z86.79) Body mass index (BMI) of 19.9 or less in adult (Z68.1) Former smoker (V15.82) (Z87.891) quit 2017 Orders SocHx: Former smoker Tobacco Use Screening; Status:Complete; Done: [id number] Patient Instructions Please bring all medicines, vitamins, and herbal supplements with you when you come to the office. Prescriptions will not be filled unless you are compliant with your follow up appointments or have a follow up appointment scheduled as per instruction of your physician. Refills should be requested at the time of your visit. FALL PREVENTION EDUCATION GIVEN Follow up in 6-9 months Chief Complaint ELZA BLAS is being seen for a 6-9 month follow-up of. History of Present Illness Patient returns in follow-up of problems as noted. In the interim she is done well she has had no manifestations of heart failure. She developed relative hypotension on her guideline directed therapy and because of this her primary care provider suggested she stop all medicines. She did, but blood pressure went up because of this her thereafter resume carvedilol and losartan but not the spironolactone. I believe this was a reasonable strategy. She has no orthopnea PND or dyspnea exertion no syncope near syncope or palpitation. Because of this we believe her cardiomyopathy to be stable and is her blood pressure. We discussed briefly her abdominal aortic aneurysm repair which apparently was a rather horrific event but from which she has eventually recovered. Recommend no changes in therapy and follow-up as noted Surgical History Problems History of Abdominal aortic aneurysm repair History of Cataract surgery History of Hip surgery History of Hysterectomy Current Meds Medication NameInstruction B Complex Oral CapsuleTAKE 1 CAPSULE Daily Carvedilol 12.5 MG Oral TabletTAKE 1 TABLET BY MOUTH TWICE DAILY Losartan Potassium 50 MG Oral TabletTAKE 1 TABLET BY MOUTH TWICE DAILY Methotrexate Sodium 2.5 MG Oral TabletTAKE 4 TABLETS BY MOUTH EVERY week Omeprazole 20 MG Oral Capsule Delayed ReleaseTAKE 1 CAPSULE BY MOUTH 30 MINUTES BEFORE morning meal Allergies Medication No Known Drug Allergies Recorded By: Maricruz Alonzo; 03/05/2021 8:14:47 AM Social History Problems Daily caffeine consumption 1 can of pop, 1/2 cup of coffee daily Former smoker (V15.82) (Z87.891) quit 2017 No alcohol use No illicit drug use Review of Systems Constitutional: not feeling tired. Eyes: no eyesight problems. ENT: no hearing loss and no nosebleeds. Cardiovascular: no intermittent leg claudication and as noted in HPI. Respiratory: no chronic cough and no shortness of breath. Gastrointestinal: no change in bowel habits and no blood in stools. Genitourinary: no urinary frequency. Skin: no skin rashes. Neurological: no seizures and no frequent falls. Psychiatric: no depression and not suicidal. All other systems have been reviewed and are negative for complaint. Vitals Vital Signs Recorded: [id number] 01:56PM Heart Rate65, L Radial Kkuoihuq630, LUE, Sitting Kfcuhdemd29, LUE, Sitting Height5 ft 5 in Lxgnev618 lb BMI Bjbeyxxrdw26.8 kg/m2 BSA Calculated1.59 Tobacco Useb) No PHQ-2 #1. Over the last 2 weeks have you felt down, depressed or hopeless? (If yes, answer PHQ-9 below)No PHQ-2 #2. Over the last 2 weeks have you felt little interest or pleasure in doing things? (If yes, answer PHQ-9 below)No Falls Screening (Age 18+)a) No falls within the last year Physical Exam Constitutional: alert and in no acute distress. Eyes: no erythema, swelling or discharge from the eye . Neck: neck is supple, symmetric, trachea midline, no masses and no thyromegaly . Pulmonary: no increased work of breathing or signs of respiratory distress and lungs clear to auscultation. Cardiovascular: carotid pulses 2+ bilaterally with no bruit , JVP was normal, no thrills , regular rhythm, normal S1 and S2, no murmurs , pedal pulses 2+ bilaterally and no edema . Abdomen: abdomen non-tender, no masses and no hepatomegaly . Skin: skin warm and dry, normal skin turgor . Psychiatric judgment and insight is normal and oriented to person, place and time . Signatures Electronically signed by : Bernardino Ramos MD; Nov 26 2021 5:36PM EST (Author) Normal [facility] Tobacco Screening.on 022 Adult depression screening assessment No [facility] [employer] [address] DO Work Phone: Fall risk assessment a) No falls within the last year [facility] [employer] [address] DO Work Phone: Tobacco use status CPHS b) No [facility] [employer] 250 DO Work Phone: Basic Metab w/rfx MGon 07-13 (cont.) Normal [facility] Comment on above: Result Comment: Aver age GFR for 70 or more years old: 75 mL/min/1.73sq m Chronic Kidney Disease: <60 mL/min/1.73sq m Kidney failure: <15 mL/min/1.73sq m eGFR calculated using average adult body mass. Additional eGFR calculator available at: http://www.TopLog.Stirplate.io/multiple_crcl_2012.htm Performed By: #### B JAIMEE HUERTAS, IPF #### [facility] [address] [place] [address] Cancer Researcher: Cornell Brink MD Anion gap [Moles/Vol] 7 mmol/L Low 9-17 [facility] Comment on above: Performed By: #### B MPX, CDP, IPF #### [facility] [address] [place] [address] Cancer Researcher: Cornell Brink MD BUN/CRE Ratio 25 High 9-20 [facility] Comment on above: Performed By: #### B JAIMEE HUERTAS, IPF #### [facility] [address] [place] [address] Cancer Researcher: Cornell Brink MD Calcium [Mass/Vol] 9.4 mg/dL Normal 8.6-10.4 [facility] Comment on above: Performed By: #### B JAIMEE HUERTAS, IPF #### [facility] [address] [place], [place] [id number] Cancer Researcher: Cornell Brink MD Chloride [Moles/Vol] 104 mmol/L Normal 98-107 [facility] Comment on above: Performed By: #### B ALEKSANDAR CDP, IPF #### [facility] [address] [place], [place] [id number] Cancer Researcher: Cornell Brink MD CO2 [Moles/Vol] 28 mmol/L Normal 20-31 [facility] Comment on above: Performed By: #### B MPAnival, CDP, IPF #### [facility] [address] [place] [address] Cancer Researcher: Cornell Brink MD Creatinine [Mass/Vol] 1.09 mg/dL High 0.50-0.90 [facility] Comment on above: Performed By: #### B MPX, CDP, IPF #### [facility] [address] [place] [address] Cancer Researcher: Cornell Brink MD GFR, Amer 59 mL/min Low >60 [facility] Comment on above: Performed By: #### B MPX, CDP, IPF #### [facility] [address] [place], [place] [id number] Cancer Researcher: Cornell Brink MD GFR,non Amer 48 mL/min Low >60 [facility] Comment on above: Performed By: #### B MPX, CDP, IPF #### [facility] [address] [place], [place] [id number] Cancer Researcher: Cornell Brink MD Glucose [Mass/Vol] 90 mg/dL Normal 70-99 [facility] Comment on above: Performed By: #### B MPX, CDP, IPF #### [facility] [address] [place], [place] [address] Cancer Researcher: Cornell Brink MD Potassium [Moles/Vol] 4.2 mmol/L Normal 3.7-5.3 [facility] Comment on above: Performed By: #### B MPX, CDP, IPF #### [facility] [address] [place], [place] [id number] Cancer Researcher: Cornell Brink MD Sodium [Moles/Vol] 139 mmol/L Normal 135-144 [facility] Comment on above: Performed By: #### B MPX, CDP, IPF #### [facility] [address] [place], [place] [id number] Cancer Researcher: Cornell Brink MD Staging: Normal [facility] Comment on above: Result Comment: Stag e 1: Some kidney damage normal GFR Stage 2: Mild kidney damage GFR 60-89 Stage 3: Moderate kidney damage GFR 30-59 Stage 4: Severe kidney damage GFR 15-29 Stage 5: Severe kidney damage GFR <15 ESRD - chronic treatment by dialysis or transplant Performed By: #### B MPX, CDP, IPF #### [facility] [address] [place] [address] Cancer Researcher: Cornell Brink MD Urea nitrogen [Mass/Vol] 27 mg/dL High 8-23 [facility] Comment on above: Performed By: #### B MPX, CDP, IPF #### [facility] [address] [place] [address] Cancer Researcher: Cornell Brink MD Basic Metabolic Panel w/ Ref lila to MGon 07-13-2021 Anion gap [Moles/Vol] 7 mmol/L Low 9 - 17 mmol/L [facility] Calcium [Mass/Vol] 9.4 mg/dL 8.6 - 10. 4 mg/dL [facility] Chloride [Moles/Vol] 104 mmol/L 98 - 107 mmol/L [facility] CO2 [Moles/Vol] 28 mmol/L 20 - 31 mmol/L [facility] Creatinine [Mass/Vol] 1.09 mg/dL High 0.50 - 0.90 mg/dL [facility] GFR 59 mL/min Low >60 [facility] GFR Non- 48 mL/min Low >60 [facility] Glucose [Mass/Vol] 90 mg/dL 70 - 99 mg/dL [facility] Interpretation and review of laboratory results Abnormal [facility] Potassium [Moles/Vol] 4.2 mmol/L 3.7 - 5.3 mmol/L [facility] Sodium [Moles/Vol] 139 mmol/L 135 - 144 mmol/L [facility] Urea nitrogen (BldV) [Mass/Vol] 27 mg/dL High 8 - 23 mg/dL [facility] Urea nitrogen/Creatinine (Bld) [Mass ratio] 25 High [facility] CBC auto differentialon 07-03 Absolute Eos # 0.05 [facility] th Absolute Immature Granulocyte 0.04 [facility] Absolute Lymph # 1.31 [facility]th Absolute Jewell [facility].81 [facility] Basophils (Bld) [#/Vol] 10*3/uL [facility] Basophils/100 WBC (Bld) 0 % 0 - 2 % [facility] Eosinophils/100 WBC (Bld) 1 % 1 - 4 % [facility] Hematocrit (Bld) [Volume fraction] 34.1 % Low 36.3 - 47.1 % [facility] Hemoglobin.gastroin testinal spec 1 Ql (Stl) 11.2 g/dL Low 11.9 - 15.1 g/dL [facility] Immature granulocytes/100 WBC (Bld) 1 % High 0 [facility] Interpretation and review of laboratory results Abnormal [facility] Lymphocytes/100 WBC (Bld) 16 % Low 24 - 43 % [facility] MCH (RBC) [Entitic mass] 33.1 pg 25.2 - 33.5 pg [facility] MCHC (RBC) [Mass/Vol] 32.8 g/dL 28.4 - 34.8 g/dL [facility] MCV (RBC) [Entitic vol] 100.9 fL 82.6 - 102.9 fL [facility] Monocytes/100 WBC (Bld) 10 % 3 - 12 % [facility] NRBC Automated 0.0 0.0 per 100 WBC [facility] Platelet distribution width (Bld) [Ratio] 14.1 % 11.8 - 14.4 % [facility] Platelets (Bld) [#/Vol] See Reflexed IPF Result [facility] RBC (Bld) [#/Vol] 3.38 10*6/uL Low 3.95 - 5.1 1 m/uL [facility] Segmented neutrophils/100 WBC (Bld) 74 % High 36 - 65 % [facility] Segs [facility] [#/Vol] 8.4 10*3/uL [facility] CBC with Diffon 07-13-2021 Abs. Basophil <0.03 Normal 0.00-0.20 [facility] Comment on above: Performed By: #### B MPX, CDP, IPF #### [facility] [address] [place] [address] Cancer Researcher: Cornell Brink MD Abs.Imm.Granulocyte 0.04 k/uL Normal 0.00-0.30 [facility] Comment on above: Performed By: #### B MPX, CDP, IPF #### [facility] [address] [place], [place] [address] Cancer Researcher: Cornell Brink MD Abs.Neutrophil (Seg) 6.17 k/uL Normal 1.50-8.10 [facility] Comment on above: Performed By: #### B MPX, CDP, IPF #### [address] [place] [address] Cancer Researcher: Cornell Brink MD Basophils/100 WBC (Bld) 0 % Normal 0-2 [facility] Comment on above: Performed By: #### B MPX, CDP, IPF #### [address] [place] [address] Cancer Researcher: Cornell Brink MD Eosinophils (Bld) [#/Vol] 0.05 10*3/uL Normal 0.00-0.44 [facility] Comment on above: Performed By: #### B MPX, CDP, IPF #### [address] [place] [address] Cancer Researcher: Cornell Brink MD Eosinophils/100 WBC (Bld) 1 % Normal 1-4 [facility] Comment on above: Performed By: #### B MPX, CDP, IPF #### [address] [place] [address] Cancer Researcher: Cornell Brink MD Erythrocyte distribution width (RBC) [Ratio] 14.1 % Normal 11.8-14.4 [facility] Comment on above: Performed By: #### B MPX, CDP, IPF #### [address] [place] [address] Cancer Researcher: Cornell Brink MD Hematocrit (Bld) [Volume fraction] 34.1 % Low 36.3-47.1 [facility] Comment on above: Performed By: #### B MPX, CDP, IPF #### [address] [place], [facility] Cancer Researcher: Cornell Brink MD Hemoglobin (Bld) [Mass/Vol] 11.2 g/dL Low 11.9-15.1 [facility] Comment on above: Performed By: #### B MPX, CDP, IPF #### [facility] [address] [place], [place] [id number] Cancer Researcher: Cornell Brink MD Immature granulocytes/100 WBC (Bld) 1 % High 0 [facility] Comment on above: Performed By: #### B MPX, CDP, IPF #### [facility] [address] [place], [place] [id number] Cancer Researcher: Cornell Brink MD Lymphocytes (Bld) [#/Vol] 1.31 10*3/uL Normal 1.10-3.70 [facility] Comment on above: Performed By: #### B MPX, CDP, IPF #### [facility] [address] [place] [address] Dr. [place], [facility]83 Cancer Researcher: Cornell Brink MD Lymphocytes/100 WBC (Bld) 16 % Low 24-43 [facility] Comment on above: Performed By: #### B MPX, CDP, IPF #### [address] [place], [place] [id number] Cancer Researcher: Cornell Brink MD MCH (RBC) [Entitic mass] 33.1 pg Normal 25.2-33.5 [facility] Comment on above: Performed By: #### B MPX, CDP, IPF #### [facility] [address] [place], [place] [id number] Cancer Researcher: Cornell Brink MD MCHC (RBC) [Mass/Vol] 32.8 g/dL Normal 28.4-34.8 [facility] Comment on above: Performed By: #### B MPX, CDP, IPF #### [facility] [address] [place] [id number] Cancer Researcher: Cornell Brink MD MCV (RBC) [Entitic vol] 100.9 fL Normal 82.6-102.9 [facility] Comment on above: Performed By: #### B MPX, CDP, IPF #### [facility] [address] [place], [place] [id number] Cancer Researcher: Cornell Brink MD Monocytes (Bld) [#/Vol] 0.81 10*3/uL Normal 0.10-1.20 [facility] Comment on above: Performed By: #### B MPX, CDP, IPF #### [facility] [address] [place], [place] [id number] Cancer Researcher: Cornell Brink MD Monocytes/100 WBC (Bld) 10 % Normal 3-12 [facility] Comment on above: Performed By: #### B MPX, CDP, IPF #### [facility] [address] [place], [place] [id number] Cancer Researcher: Cornell Brink MD Neutrophil (Seg) 74 % High 36-65 [facility] Comment on above: Performed By: #### B MPX, CDP, IPF #### [facility] [address] [place], [place] [address] Cancer Researcher: Cornell Brink MD NRBC Automated 0.0 per 100 WBC Normal 0.0 [facility] Comment on above: Performed By: #### B MPX, CDP, IPF #### [facility] [address] [place], [place] [id number] Cancer Researcher: Cornell Brink MD Platelet Count See Reflexed IPF Result Normal 138-453 [facility] Comment on above: Performed By: #### B MPX, CDP, IPF #### [facility] [address] [place], [place] [id number] Cancer Researcher: Cornell Brink MD RBC (Bld) [#/Vol] 3.38 10*6/uL Low 3.95-5.11 [facility] Comment on above: Performed By: #### B MPXJAIMEE, IPF #### [facility] [address] [place] [address] Cancer Researcher: Cornell Brink MD WBC (Bld) [#/Vol] 8.4 10*3/uL Normal 3.5-11.3 [facility] Comment on above: Performed By: #### B MPX CDP, IPF #### [facility] [address] [place] [address] Cancer Researcher: Cornell Brink MD Immature Platelet Fractionon 07-13-2021 Interpretation and review of laboratory results Abnormal [facility] Platelet, Fluorescence 124 Low [facility] Platelet, Immature Fraction 3.5 % 1.1 - 10.3 % [facility] - Chemistry and C hemistry - challengeon 07-13-2021 GFR/1.73 sq M.predicted MDRD (S/P/Bld) [Vol rate/Area] [facility] Comment on above: Average GFR for 70 o r more years old: 75 mL/min/1.73sq m Chronic Kidney Disease: <60 mL/min/1.73sq m Kidney failure: <15 mL/min/1.73sq m eGFR calculated using average adult body mass. Additional eGFR calculator available at: http://www.TopLog.Stirplate.io/multiple_crcl_2012.htm Stage 1: Some kidney damage normal GFR Stage 2: Mild kidney damage GFR 60-89 Stage 3: Moderate kidney damage GFR 30-59 Stage 4: Severe kidney damage GFR 15-29 Stage 5: Severe kidney damage GFR <15 ESRD - chronic treatment by dialysis or transplant PLT, Immature Fract.on 07-13 Platelet, Fluoresc. 124 k/uL Low 138-453 [facility] Comment on above: Performed By: #### B MPX CDP, IPF #### [facility] [address] [place] [address] Cancer Researcher: Cornell Brink MD PLT, Immature Fract. 3.5 % Normal 1.1-10.3 [facility] Comment on above: Performed By: #### B MPX, CDP, IPF #### [facility] [address] [place] [address] Cancer Researcher: Cornell Brink MD Basic Metab w/rfx MGon 07-12 (cont.) Normal [facility] Comment on above: Result Comment: Aver age GFR for 70 or more years old: 75 mL/min/1.73sq m Chronic Kidney Disease: <60 mL/min/1.73sq m Kidney failure: <15 mL/min/1.73sq m eGFR calculated using average adult body mass. Additional eGFR calculator available at: http://www.TagArray/multiple_crcl_2011.htm Performed By: #### B MPX, CDP, IPF #### [facility] [address] [place] [address] Cancer Researcher: Cornell Brink MD Anion gap [Moles/Vol] 7 mmol/L Low 9-17 [facility] Comment on above: Performed By: #### B MPX, CDP, IPF #### [facility] [address] [place] [address] Cancer Researcher: Cornell Brink MD BUN/CRE Ratio 25 High 9-20 [facility] Comment on above: Performed By: #### B MPX, CDP, IPF #### [facility] [address] [place] [address] Cancer Researcher: Cornell Brink MD Calcium [Mass/Vol] 9.3 mg/dL Normal 8.6-10.4 [facility] Comment on above: Performed By: #### B MPX, CDP, IPF #### [facility] [address] [place] [address] Cancer Researcher: Cornell Brink MD Chloride [Moles/Vol] 102 mmol/L Normal 98-107 [facility] Comment on above: Performed By: #### B MPX, CDP, IPF #### [facility] [address] [place], [place] [id number] Cancer Researcher: Cornell Brink MD CO2 [Moles/Vol] 28 mmol/L Normal 20-31 [facility] Comment on above: Performed By: #### B MPX, CDP, IPF #### [facility] [address] [place], [place] [id number] Cancer Researcher: Cornell Brink MD Creatinine [Mass/Vol] 1.12 mg/dL High 0.50-0.90 [facility] Comment on above: Performed By: #### B MPX, CDP, IPF #### [facility] [address] [place], [place] [id number] Cancer Researcher: Cornell Brink MD GFR, Amer 57 mL/min Low >60 [facility] Comment on above: Performed By: #### B MPX, CDP, IPF #### [facility] [address] [place], [place] [id number] Cancer Researcher: Cornell Birnk MD GFR,non Amer 47 mL/min Low >60 [facility] Comment on above: Performed By: #### B MPX, CDP, IPF #### [facility] [address] [place], [place] [id number] Cancer Researcher: Cornell Brink MD Glucose [Mass/Vol] 131 mg/dL High 70-99 [facility] Comment on above: Performed By: #### B MPX, CDP, IPF #### [facility] [address] [place], [place] [id number] Cancer Researcher: Cornell Brink MD Potassium [Moles/Vol] 4.8 mmol/L Normal 3.7-5.3 [facility] Comment on above: Performed By: #### B MPX, CDP, IPF #### [facility] [address] [place] [address] Cancer Researcher: Cornell Brink MD Sodium [Moles/Vol] 137 mmol/L Normal 135-144 [facility] Comment on above: Performed By: #### B MPX, CDP, IPF #### [facility] [address] [place] [address] Cancer Researcher: Cornell Brink MD Staging: Normal [facility] Comment on above: Result Comment: Stag e 1: Some kidney damage normal GFR Stage 2: Mild kidney damage GFR 60-89 Stage 3: Moderate kidney damage GFR 30-59 Stage 4: Severe kidney damage GFR 15-29 Stage 5: Severe kidney damage GFR <15 ESRD - chronic treatment by dialysis or transplant Performed By: #### B MPX, CDP, IPF #### [facility] [address] [place] [address] Cancer Researcher: Cornell Brink MD Urea nitrogen [Mass/Vol] 28 mg/dL High 8-23 [facility] Comment on above: Performed By: #### B MPX, CDP, IPF #### [facility] [address] [place] [address] Cancer Researcher: Cornell Brink MD Basic Metabolic Panel w/ Ref lila to MGon 07-12-2021 Anion gap [Moles/Vol] 7 mmol/L Low 9 - 17 mmol/L [facility] Calcium [Mass/Vol] 9.3 mg/dL 8.6 - 10. 4 mg/dL [facility] Chloride [Moles/Vol] 102 mmol/L 98 - 107 mmol/L [facility] CO2 [Moles/Vol] 28 mmol/L 20 - 31 mmol/L [facility] Creatinine [Mass/Vol] 1.12 mg/dL High 0.50 - 0.90 mg/dL [facility] GFR 57 mL/min Low >60 [facility] GFR Non- 47 mL/min Low >60 [facility] Glucose [Mass/Vol] 131 mg/dL High 70 - 99 mg/dL [facility] Interpretation and review of laboratory results Abnormal [facility] Potassium [Moles/Vol] 4.8 mmol/L 3.7 - 5.3 mmol/L [facility] Sodium [Moles/Vol] 137 mmol/L 135 - 144 mmol/L [facility] Urea nitrogen (BldV) [Mass/Vol] 28 mg/dL High 8 - 23 mg/dL [facility] Urea nitrogen/Creatinine (Bld) [Mass ratio] 25 High [facility] CBC auto differentialon 07-03 Absolute Eos # <0.03 [facility] th Absolute Immature Granulocyte 0.09 [facility] Absolute Lymph # 0.48 Low [facility] Jewell [facility].58 [facility] Basophils (Bld) [#/Vol] 10*3/uL [facility] Basophils/100 WBC (Bld) 0 % 0 - 2 % [facility] Eosinophils/100 WBC (Bld) 0 % Low 1 - 4 % [facility] Hematocrit (Bld) [Volume fraction] 33.6 % Low 36.3 - 47.1 % [facility] Hemoglobin.gastroin testinal spec 1 Ql (Stl) 11.1 g/dL Low 11.9 - 15.1 g/dL [facility] Immature granulocytes/100 WBC (Bld) 1 % High 0 [facility] Interpretation and review of laboratory results Abnormal [facility] Lymphocytes/100 WBC (Bld) 4 % Low 24 - 43 % [facility] MCH (RBC) [Entitic mass] 32.8 pg 25.2 - 33.5 pg [facility] MCHC (RBC) [Mass/Vol] 33.0 g/dL 28.4 - 34.8 g/dL [facility] MCV (RBC) [Entitic vol] 99.4 fL 82.6 - 102.9 fL [facility] Monocytes/100 WBC (Bld) 5 % 3 - 12 % [facility] NRBC Automated 0.0 0.0 per 100 WBC [facility] Platelet distribution width (Bld) [Ratio] 14.1 % 11.8 - 14.4 % [facility] Platelets (Bld) [#/Vol] See Reflexed IPF Result [facility] RBC (Bld) [#/Vol] 3.38 10*6/uL Low 3.95 - 5.1 1 m/uL [facility] Segmented neutrophils/100 WBC (Bld) 89 % High 36 - 65 % [facility] Segs Absolute 9.69 High [facility] h WBC (Bld) [#/Vol] 10.9 10*3/uL [facility] CBC with Diffon 07-12-2021 Abs. Basophil <0.03 Normal 0.00-0.20 [facility] Comment on above: Performed By: #### B MPX, CDP, IPF #### [facility] [address] [place] [address] [place] [address] Cancer Researcher: Cornell Brink MD Abs. Eosinophil <0.03 Normal 0.00-0.44 [facility] Comment on above: Performed By: #### B MPX, CDP, IPF #### [address] [place] [address] Cancer Researcher: Cornell Brink MD Abs.Imm.Granulocyte 0.09 k/uL Normal 0.00-0.30 [facility] Comment on above: Performed By: #### B MPX, CDP, IPF #### [facility] [address] [place] [address] [place] [address] Cancer Researcher: Cornell Brink MD Abs.Neutrophil (Seg) 9.69 k/uL High 1.50-8.10 [facility] Comment on above: Performed By: #### B MPX, CDP, IPF #### [address] [place], [place] [address]83 Cancer Researcher: Cornell Brink MD Basophils/100 WBC (Bld) 0 % Normal 0-2 [facility] Comment on above: Performed By: #### B MPX, CDP, IPF #### [facility] [address] [place] [address] Dr. [place], [place] [id number] Cancer Researcher: Cornell Brink MD Eosinophils/100 WBC (Bld) 0 % Low 1-4 [facility] Comment on above: Performed By: #### B MPX, CDP, IPF #### [facility] [address] [place], [place] [phone] Cancer Researcher: Cornell Brink MD Erythrocyte distribution width (RBC) [Ratio] 14.1 % Normal 11.8-14.4 [facility] Comment on above: Performed By: #### B JAIMEE HUERTAS, IPF #### [facility] [address] [place] [address] Dr. [place], [place] [phone] Cancer Researcher: Cornell Brink MD Hematocrit (Bld) [Volume fraction] 33.6 % Low 36.3-47.1 [facility] Comment on above: Performed By: #### B MPX, CDP, IPF #### [facility] [address] [place] [address] Dr. [place], [place] [id number] Cancer Researcher: Cornell Brink MD Hemoglobin (Bld) [Mass/Vol] 11.1 g/dL Low 11.9-15.1 [facility] Comment on above: Performed By: #### B ALEKSANDAR CDP, IPF #### [address] [place], [place] [id number] Cancer Researcher: Cornell Brink MD Immature granulocytes/100 WBC (Bld) 1 % High 0 [facility] Comment on above: Performed By: #### B JAIMEE HUERTAS, IPF #### [address] [place], [place] 0504283 Cancer Researcher: Cornlel Brink MD Lymphocytes (Bld) [#/Vol] 0.48 10*3/uL Low 1.10-3.70 [facility] Comment on above: Performed By: #### B MPX CDP, IPF #### [facility] [address] [place] [address] Dr. [place], [place] [id number] Cancer Researcher: Cornell Brink MD Lymphocytes/100 WBC (Bld) 4 % Low 24-43 [facility] Comment on above: Performed By: #### B MPX, CDP, IPF #### [facility] [address] [place], [place] [id number] Cancer Researcher: Cornell Brink MD MCH (RBC) [Entitic mass] 32.8 pg Normal 25.2-33.5 [facility] Comment on above: Performed By: #### B MPX, CDP, IPF #### [facility] [address] [place] [address] Cancer Researcher: Cornell Brink MD MCHC (RBC) [Mass/Vol] 33.0 g/dL Normal 28.4-34.8 [facility] Comment on above: Performed By: #### B MPX, CDP, IPF #### [facility] [address] [place] [address] Cancer Researcher: Cornell Brink MD MCV (RBC) [Entitic vol] 99.4 fL Normal 82.6-102.9 [facility] Comment on above: Performed By: #### B MPX, CDP, IPF #### [facility] [address] [place] [address] Cancer Researcher: Cornell Brink MD Monocytes (Bld) [#/Vol] 0.58 10*3/uL Normal 0.10-1.20 [facility] Comment on above: Performed By: #### B MPX, CDP, IPF #### [address] [place], [place] [address]6483 Cancer Researcher: Cornell Brink MD Monocytes/100 WBC (Bld) 5 % Normal 3-12 [facility] Comment on above: Performed By: #### B MPX, CDP, IPF #### [facility] [address] [place] [address] Cancer Researcher: Cornell Brink MD Neutrophil (Seg) 89 % High 36-65 [facility] Comment on above: Performed By: #### B MPX, CDP, IPF #### [facility] [address] [place] [address] Cancer Researcher: Cornell Brink MD NRBC Automated 0.0 per 100 WBC Normal 0.0 [facility] Comment on above: Performed By: #### B MPX, CDP, IPF #### [facility] [address] [place], [place] [id number] Cancer Researcher: Cornell Brink MD Platelet Count See Reflexed IPF Result Normal 138-453 [facility] Comment on above: Performed By: #### B MPX, CDP, IPF #### [facility] [address] [place], [place] [id number] Cancer Researcher: Cornell Brink MD RBC (Bld) [#/Vol] 3.38 10*6/uL Low 3.95-5.11 [facility] Comment on above: Performed By: #### B MPX, CDP, IPF #### [facility] [address] [place] [address] Cancer Researcher: Cornell Brink MD WBC (Bld) [#/Vol] 10.9 10*3/uL Normal 3.5-11.3 [facility] Comment on above: Performed By: #### B MPX, CDP, IPF #### [facility] [address] [place], [place] [phone] Cancer Researcher: Cornell Brink MD Immature Platelet Fractionon 07-12-2021 Interpretation and review of laboratory results Abnormal [facility] Platelet, Fluorescence 121 Low [facility] Platelet, Immature Fraction 3.4 % 1.1 - 10.3 % [facility] - Chemistry and C hemistry - challengeon 07-12-2021 GFR/1.73 sq M.predicted MDRD (S/P/Bld) [Vol rate/Area] [facility] Comment on above: Average GFR for 70 o r more years old: 75 mL/min/1.73sq m Chronic Kidney Disease: <60 mL/min/1.73sq m Kidney failure: <15 mL/min/1.73sq m eGFR calculated using average adult body mass. Additional eGFR calculator available at: http://www.TopLog.Stirplate.io/multiple_crcl_2012.htm Stage 1: Some kidney damage normal GFR Stage 2: Mild kidney damage GFR 60-89 Stage 3: Moderate kidney damage GFR 30-59 Stage 4: Severe kidney damage GFR 15-29 Stage 5: Severe kidney damage GFR <15 ESRD - chronic treatment by dialysis or transplant PLT, Immature Fract.on 07-12 Platelet, Fluoresc. 121 k/uL Low 138-453 [facility] Comment on above: Performed By: #### B MPX, CDP, IPF #### [facility] [address] [place] [address] Cancer Researcher: Cornell Brink MD PLT, Immature Fract. 3.4 % Normal 1.1-10.3 [facility] Comment on above: Performed By: #### B MPX, CDP, IPF #### [facility] [address] [place] [address] Cancer Researcher: Cornell Brink MD Basic Metab w/rfx MGon 07-11 (cont.) Normal [facility] Comment on above: Result Comment: Aver age GFR for 70 or more years old: 75 mL/min/1.73sq m Chronic Kidney Disease: <60 mL/min/1.73sq m Kidney failure: <15 mL/min/1.73sq m eGFR calculated using average adult body mass. Additional eGFR calculator available at: http://www.TopLog.Stirplate.io/multiple_crcl_2012.htm Performed By: #### B MPX, CDP ####[address] [place] [address] [facility] Director: Cornell Brink MD Anion gap [Moles/Vol] 11 mmol/L Normal 9-17 [facility] Comment on above: Performed By: #### B MPX, CDP ####[facility] [place] [address] lab Director: Cornell Brink MD BUN/CRE Ratio 25 High 9-20 [facility] Comment on above: Performed By: #### B MPX, CDP ####[facility] , [place] [id number] Lab Director: Cornell Brink MD Calcium [Mass/Vol] 9.9 mg/dL Normal 8.6-10.4 [facility] Comment on above: Performed By: #### B MPX, CDP ####[address] , [place] 8000[address] Lab Director: Cornell Brink MD Chloride [Moles/Vol] 104 mmol/L Normal 98-107 [facility] Comment on above: Performed By: #### B MPX, CDP ####[address] , [place] [id number] Lab Director: Cornell Brink MD CO2 [Moles/Vol] 25 mmol/L Normal 20-31 [facility] Comment on above: Performed By: #### B MPX, CDP ####[address] , [place] [id number] Lab Director: Cornell Brink MD Creatinine [Mass/Vol] 1.10 mg/dL High 0.50-0.90 [facility] Comment on above: Performed By: #### B MPX, CDP ####[address] , [place] [id number] Lab Director: Cornell Brink MD GFR, Amer 58 mL/min Low >60 [facility] Comment on above: Performed By: #### B MPX, CDP ####[address] , [place] [id number] Lab Director: Cornell Brink MD GFR,non Amer 48 mL/min Low >60 [facility] Comment on above: Performed By: #### B MPX, CDP ####[address] , [place] [id number] Lab Director: Cornell Brink MD Glucose [Mass/Vol] 121 mg/dL High 70-99 [facility] Comment on above: Performed By: #### B MPX, CDP ####[address] [place] [address] lab Director: Cornell Brink MD Potassium [Moles/Vol] 4.9 mmol/L Normal 3.7-5.3 [facility] Comment on above: Performed By: #### B MPX, CDP ####[address] [place] [address] lab Director: Cornell Brink MD Sodium [Moles/Vol] 140 mmol/L Normal 135-144 [facility] Comment on above: Performed By: #### B MPX, CDP ####[address] [place] [address] lab Director: Cornell Brink MD Staging: Normal [facility] Comment on above: Result Comment: Stag e 1: Some kidney damage normal GFR Stage 2: Mild kidney damage GFR 60-89 Stage 3: Moderate kidney damage GFR 30-59 Stage 4: Severe kidney damage GFR 15-29 Stage 5: Severe kidney damage GFR <15 ESRD - chronic treatment by dialysis or transplant Performed By: #### B MPX, CDP ####[address] [place] [address] lab Director: Cornell Brink MD Urea nitrogen [Mass/Vol] 27 mg/dL High 8-23 [facility] Comment on above: Performed By: #### B MPX, CDP ####[address] [place] [address] lab Director: Cornell Brink MD Basic Metabolic Panel w/ Ref lila to MGon 07-11-2021 Anion gap [Moles/Vol] 11 mmol/L 9 - 17 mmol/L [facility] Calcium [Mass/Vol] 9.9 mg/dL 8.6 - 10. 4 mg/dL [facility] Chloride [Moles/Vol] 104 mmol/L 98 - 107 mmol/L [facility] CO2 [Moles/Vol] 25 mmol/L 20 - 31 mmol/L [facility] Creatinine [Mass/Vol] 1.1 mg/dL High 0.50 - 0.90 mg/dL [facility] GFR 58 mL/min Low >60 [facility] GFR Non- 48 mL/min Low >60 [facility] Glucose [Mass/Vol] 121 mg/dL High 70 - 99 mg/dL [facility] Interpretation and review of laboratory results Abnormal [facility] Potassium [Moles/Vol] 4.9 mmol/L 3.7 - 5.3 mmol/L [facility] Sodium [Moles/Vol] 140 mmol/L 135 - 144 mmol/L [facility] Urea nitrogen (BldV) [Mass/Vol] 27 mg/dL High 8 - 23 mg/dL [facility] Urea nitrogen/Creatinine (Bld) [Mass ratio] 25 High [facility] CBC auto differentialon 03-0 Absolute Eos # <0.03 [facility] th Absolute Immature Granulocyte 0.17 [facility] Absolute Lymph # 0.62 Low [facility] alth Absolute Jewell # 0.71 [facility] lt Basophils (Bld) [#/Vol] 10*3/uL [facility] Basophils/100 WBC (Bld) 0 % 0 - 2 % [facility] Eosinophils/100 WBC (Bld) 0 % Low 1 - 4 % [facility] Hematocrit (Bld) [Volume fraction] 38.0 % 36.3 - 47.1 % [facility] Hemoglobin.gastroin testinal spec 1 Ql (Stl) 12.7 g/dL 11.9 - 15.1 g/dL [facility] Immature granulocytes/100 WBC (Bld) 1 % High 0 [facility] Interpretation and review of laboratory results Abnormal [facility] Lymphocytes/100 WBC (Bld) 4 % Low 24 - 43 % [facility] MCH (RBC) [Entitic mass] 33.5 pg 25.2 - 33.5 pg [facility] MCHC (RBC) [Mass/Vol] 33.4 g/dL 28.4 - 34.8 g/dL [facility] MCV (RBC) [Entitic vol] 100.3 fL 82.6 - 102.9 fL [facility] Monocytes/100 WBC (Bld) 5 % 3 - 12 % [facility] NRBC Automated 0.0 0.0 per 100 WBC [facility] Platelet distribution width (Bld) [Ratio] 14.2 % 11.8 - 14.4 % [facility] Platelet mean volume (Bld) [Entitic vol] 10.5 fL 8.1 - 13.5 fL [facility] Platelets (Bld) [#/Vol] 129 10*3/uL Low [facility] RBC (Bld) [#/Vol] 3.79 10*6/uL Low 3.95 - 5.1 1 m/uL [facility] Segmented neutrophils/100 WBC (Bld) 90 % High 36 - 65 % [facility] Segs Absolute 13.35 [facility] [#/Vol] 14.9 10*3/uL [facility] CBC with Diffon 07-11-2021 Abs. Basophil <0.03 Normal 0.00-0.20 [facility] Comment on above: Performed By: #### B MPX, CDP ####[address] [place], [place] [address])[id number] Director: Cornell Brink MD Abs. Eosinophil <0.03 Normal 0.00-0.44 [facility] Comment on above: Performed By: #### B MPX, CDP ####[address] [place] [address] Lab Director: Cornell Brink MD Abs.Imm.Granulocyte 0.17 k/uL Normal 0.00-0.30 [facility] Comment on above: Performed By: #### B MPX, CDP ####[address] , [id number] Lab Director: Cornell Brink MD Abs.Neutrophil (Seg) 13.35 k/uL High 1.50-8.10 [facility] Comment on above: Performed By: #### B MPX, CDP ####[address] [place] [id number] Lab Director: Cornell Brink MD Basophils/100 WBC (Bld) 0 % Normal 0-2 [facility] Comment on above: Performed By: #### B MPX, CDP ####[address] , [place] [id number] Lab Director: Cornell Brink MD Eosinophils/100 WBC (Bld) 0 % Low 1-4 [facility] Comment on above: Performed By: #### B MPX, CDP ####[address] , [place] 1989283 Lab Director: Cornell Brink MD Erythrocyte distribution width (RBC) [Ratio] 14.2 % Normal 11.8-14.4 [facility] Comment on above: Performed By: #### B MPX, CDP ####[address] , [place] [id number] Lab Director: Cornell Brink MD Hematocrit (Bld) [Volume fraction] 38.0 % Normal 36.3-47.1 [facility] Comment on above: Performed By: #### B MPX, CDP ####[address] , [place] 1122783 Lab Director: Cornell Brink MD Hemoglobin (Bld) [Mass/Vol] 12.7 g/dL Normal 11.9-15.1 [facility] Comment on above: Performed By: #### B MPX, CDP ####[address] [place] [address] Lab Director: Cornell Brink MD Immature granulocytes/100 WBC (Bld) 1 % High 0 [facility] Comment on above: Performed By: #### B MPX, CDP ####[address] , [place] [id number] Lab Director: Cornell Brink MD Lymphocytes (Bld) [#/Vol] 0.62 10*3/uL Low 1.10-3.70 [facility] Comment on above: Performed By: #### B MPX, CDP ####[address] , [place] [id number] Lab Director: Cornell Brink MD Lymphocytes/100 WBC (Bld) 4 % Low 24-43 [facility] Comment on above: Performed By: #### B MPX, CDP ####[address] [address] , [place] [id number] Lab Director: Cornell Brink MD MCH (RBC) [Entitic mass] 33.5 pg Normal 25.2-33.5 [facility] Comment on above: Performed By: #### B MPX, CDP ####[address] [place] [address] Lab Director: Cornell Brink MD MCHC (RBC) [Mass/Vol] 33.4 g/dL Normal 28.4-34.8 [facility] Comment on above: Performed By: #### B MPX, CDP ####[address] [place] [address] Lab Director: Cornell Brink MD MCV (RBC) [Entitic vol] 100.3 fL Normal 82.6-102.9 [facility] Comment on above: Performed By: #### B MPX, CDP ####[address] , [place] [id number] Lab Director: Cornell Brink MD Monocytes (Bld) [#/Vol] 0.71 10*3/uL Normal 0.10-1.20 [facility] Comment on above: Performed By: #### B MPX, CDP ####[address] [place] [address] Lab Director: Cornell Brink MD Monocytes/100 WBC (Bld) 5 % Normal 3-12 [facility] Comment on above: Performed By: #### B MPX, CDP ####[address] , [place] 6[address] Lab Director: Cornell Brink MD Neutrophil (Seg) 90 % High 36-65 [facility] Comment on above: Performed By: #### B MPX, CDP ####[address] , [place] [id number] Lab Director: Cornell Brink MD NRBC Automated 0.0 per 100 WBC Normal 0.0 [facility] Comment on above: Performed By: #### B MPX, CDP ####[address] , [place] 3080083 Lab Director: Cornell Brink MD Platelet mean volume (Bld) [Entitic vol] 10.5 fL Normal 8.1-13.5 [facility] Comment on above: Performed By: #### B MPX, CDP ####[address] , [facility]83 Lab Director: Cornell Brink MD Platelets (Bld) [#/Vol] 129 10*3/uL Low 138-453 [facility] Comment on above: Performed By: #### B MPX, CDP ####[address] , [place] 1755983 Lab Director: Cornell Brink MD RBC (Bld) [#/Vol] 3.79 10*6/uL Low 3.95-5.11 [facility] Comment on above: Performed By: #### B MPX, CDP ####[address] , [place] [id number] Lab Director: Cornell Brink MD WBC (Bld) [#/Vol] 14.9 10*3/uL High 3.5-11.3 [facility] Comment on above: Performed By: #### B MPX, CDP ####[address] , [place] 047[address]83 Lab Director: Cornell Brink MD FLUORO FOR SURGICAL PROCEDUR ESon 07-11-2021 FLUORO FOR SURGICAL PROCEDURES Radiology exam is complete. No Radiologist dictation. Please follow up with ordering provider. Final result Normal [facility] Radiology exam is complete. No Radiologist dictation. Please follow up with ordering provider. [facility] Laboratory - Chemistry and C hemistry - challengeon 07-11-2021 GFR/1.73 sq M.predicted MDRD (S/P/Bld) [Vol rate/Area] [facility] Comment on above: Average GFR for 70 o r more years old: 75 mL/min/1.73sq m Chronic Kidney Disease: <60 mL/min/1.73sq m Kidney failure: <15 mL/min/1.73sq m eGFR calculated using average adult body mass. Additional eGFR calculator available at: http://www.TagArray/multiple_crcl_2012.htm Stage 1: Some kidney damage normal GFR Stage 2: Mild kidney damage GFR 60-89 Stage 3: Moderate kidney damage GFR 30-59 Stage 4: Severe kidney damage GFR 15-29 Stage 5: Severe kidney damage GFR <15 ESRD - chronic treatment by dialysis or transplant APTTon 07-10-2021 aPTT Coag (Bld) [Time] 32.8 s Normal 26.8-34.8 [facility] Comment on above: Result Comment: IV Heparin Therapy Range: 62.0-94.0 NOTE: NEW REFERENCE RANGE Performed By: #### B MPX, CDP, PTT, PT, IPF ####[facility] [place] [address] [facility] Director: Cornell Brink MD aPTT Coag (Bld) [Time] 32.8 s [facility] Comment on above: IV Heparin Therapy Range: 62.0-94.0 NOTE: NEW REFERENCE RANGE [facility] Basic Metab w/rfx MGon 07-10 (cont.) Normal [facility] Comment on above: Result Comment: Aver age GFR for 70 or more years old: 75 mL/min/1.73sq m Chronic Kidney Disease: <60 mL/min/1.73sq m Kidney failure: <15 mL/min/1.73sq m eGFR calculated using average adult body mass. Additional eGFR calculator available at: http://www.TopLog.Stirplate.io/multiple_crcl_2012.htm Performed By: #### B MPX, CDP, PTT, PT, IPF ####[address] , [place] [id number] lab Director: Cornell Brink MD Anion gap [Moles/Vol] 11 mmol/L Normal 9-17 [facility] Comment on above: Performed By: #### B MPX, CDP, PTT, PT, IPF ####[address] , [place] 226[address]83 lab Director: Cornell Brink MD BUN/CRE Ratio 23 High 9-20 [facility] Comment on above: Performed By: #### B MPX, CDP, PTT, PT, IPF ####[address] , [place] 9663483 lab Director: Cornell Brink MD Calcium [Mass/Vol] 9.9 mg/dL Normal 8.6-10.4 [facility] Comment on above: Performed By: #### B MPX, CDP, PTT, PT, IPF ####[address] , [place] 1008383 lab Director: Cornell Brink MD Chloride [Moles/Vol] 104 mmol/L Normal 98-107 [facility] Comment on above: Performed By: #### B MPX, CDP, PTT, PT, IPF ####[address] , [place] 520[address]83 lab Director: Cornell Brink MD CO2 [Moles/Vol] 24 mmol/L Normal 20-31 [facility] Comment on above: Performed By: #### B MPX, CDP, PTT, PT, IPF ####[address] , [place] 540[address]83 Lab Director: Cornell Brink MD Creatinine [Mass/Vol] 1.01 mg/dL High 0.50-0.90 [facility] Comment on above: Performed By: #### B MPX, CDP, PTT, PT, IPF ####[facility] [place] , [place] [address] Lab Director: Cornell Brink MD GFR, Amer >60 Normal >60 [facility] Comment on above: Performed By: #### B MPX, CDP, PTT, PT, IPF ####[address] , [place] 059[address]83 Lab Director: Cornell Brink MD GFR,non Amer 53 mL/min Low >60 [facility] Comment on above: Performed By: #### B MPX, CDP, PTT, PT, IPF ####[address] , [place] 759[address]83 Lab Director: Cornell Brink MD Glucose [Mass/Vol] 158 mg/dL High 70-99 [facility] Comment on above: Performed By: #### B MPX, CDP, PTT, PT, IPF ####[address] , [place] 7139483 Lab Director: Cornell Brink MD Potassium [Moles/Vol] 4.2 mmol/L Normal 3.7-5.3 [facility] Comment on above: Performed By: #### B MPX, CDP, PTT, PT, IPF ####[address] [place] [address] Lab Director: Cornell Brink MD Sodium [Moles/Vol] 139 mmol/L Normal 135-144 [facility] Comment on above: Performed By: #### B MPX, CDP, PTT, PT, IPF ####[address] , [place] 110[address]3 Lab Director: Cornell Brink MD Staging: Normal [facility] Comment on above: Result Comment: Stag e 1: Some kidney damage normal GFR Stage 2: Mild kidney damage GFR 60-89 Stage 3: Moderate kidney damage GFR 30-59 Stage 4: Severe kidney damage GFR 15-29 Stage 5: Severe kidney damage GFR <15 ESRD - chronic treatment by dialysis or transplant Performed By: #### B MPX, CDP, PTT, PT, IPF ####[facility] [place] [address] Lab Director: Cornell Brink MD Urea nitrogen [Mass/Vol] 23 mg/dL Normal 8- [facility] Comment on above: Performed By: #### B MPX, CDP, PTT, PT, IPF ####[facility] [place] [address] lab Director: Cornell Brink MD Basic Metabolic Panel w/ Ref lila to MGon 07-10-2021 Anion gap [Moles/Vol] 11 mmol/L 9 - 17 mmol/L [facility] Calcium [Mass/Vol] 9.9 mg/dL 8.6 - 10. 4 mg/dL [facility] Chloride [Moles/Vol] 104 mmol/L 98 - 107 mmol/L [facility] CO2 [Moles/Vol] 24 mmol/L 20 - 31 mmol/L [facility] Creatinine [Mass/Vol] 1.01 mg/dL High 0.50 - 0.90 mg/dL [facility] GFR >60 >60 mL/min [facility] GFR Non- 53 mL/min Low >60 [facility] Glucose [Mass/Vol] 158 mg/dL High 70 - 99 mg/dL [facility] Interpretation and review of laboratory results Abnormal [facility] Potassium [Moles/Vol] 4.2 mmol/L 3.7 - 5.3 mmol/L [facility] Sodium [Moles/Vol] 139 mmol/L 135 - 144 mmol/L [facility] Urea nitrogen (BldV) [Mass/Vol] 23 mg/dL 8 - 23 mg/dL [facility] Urea nitrogen/Creatinine (Bld) [Mass ratio] 23 High [facility] CBC auto differentialon 03-0 Absolute Eos # 0.00 [facility] th Absolute Immature Granulocyte 0.10 [facility] Absolute Lymph # 0.68 Low [facility] alth Absolute Jewell # 0.10 [facility] lth Basophils (Bld) [#/Vol] 0.00 10*3/uL [facility] Basophils/100 WBC (Bld) 0 % 0 - 2 % [facility] Eosinophils/100 WBC (Bld) 0 % Low 1 - 4 % [facility] Hematocrit (Bld) [Volume fraction] 37.6 % 36.3 - 47.1 % [facility] Hemoglobin.gastroin testinal spec 1 Ql (Stl) 12.8 g/dL 11.9 - 15.1 g/dL [facility] Immature granulocytes/100 WBC (Bld) 1 % High 0 [facility] Interpretation and review of laboratory results Abnormal [facility] Lymphocytes/100 WBC (Bld) 7 % Low 24 - 43 % [facility] MCH (RBC) [Entitic mass] 33.2 pg 25.2 - 33.5 pg [facility] MCHC (RBC) [Mass/Vol] 34.0 g/dL 28.4 - 34.8 g/dL [facility] MCV (RBC) [Entitic vol] 97.4 fL 82.6 - 102.9 fL [facility] Monocytes/100 WBC (Bld) 1 % Low 3 - 12 % [facility] Morphology Anival (Bld) [Interp] Normal [facility] NRBC Automated 0.0 0.0 per 100 WBC [facility] Platelet distribution width (Bld) [Ratio] 14.2 % 11.8 - 14.4 % [facility] Platelets (Bld) [#/Vol] See Reflexed IPF Result [facility] RBC (Bld) [#/Vol] 3.86 10*6/uL Low 3.95 - 5.1 1 m/uL [facility] Segmented neutrophils/100 WBC (Bld) 91 % High 36 - 65 % [facility] Segs [facility].82 [facility] [#/Vol] 9.7 10*3/uL [facility] CBC with Diffon 07-10-2021 Abs. Basophil 0.00 k/uL Normal 0.00-0.20 [facility] Comment on above: Performed By: #### B MPX, CDP, PTT, PT, IPF ####[facility] [address] , [facility]83 Lab Director: Cornell Brink MD Abs.Imm.Granulocyte 0.10 k/uL Normal 0.00-0.30 [facility] Comment on above: Performed By: #### B MPX, CDP, PTT, PT, IPF ####[address] [place] [id number] lab Director: Cornell Brink MD Abs.Neutrophil (Seg) 8.82 k/uL High 1.50-8.10 [facility] Comment on above: Performed By: #### B MPX, CDP, PTT, PT, IPF ####[address] [place] [id number] lab Director: Cornell Brink MD Basophils/100 WBC (Bld) 0 % Normal 0-2 [facility] Comment on above: Performed By: #### B MPX, CDP, PTT, PT, IPF ####[address] , [facility]83 Lab Director: Cornell Brink MD Eosinophils (Bld) [#/Vol] 0.00 10*3/uL Normal 0.00-0.44 [facility] Comment on above: Performed By: #### B MPX, CDP, PTT, PT, IPF ####[address] , [place] [address] Lab Director: Cornell Brink MD Eosinophils/100 WBC (Bld) 0 % Low 1-4 [facility] Comment on above: Performed By: #### B MPX, CDP, PTT, PT, IPF ####[address] [place] [id number] Lab Director: Cornell Brink MD Immature granulocytes/100 WBC (Bld) 1 % High 0 [facility] Comment on above: Performed By: #### B MPX, CDP, PTT, PT, IPF ####[address] , [place] 2924283 Lab Director: Cornell Brink MD Lymphocytes (Bld) [#/Vol] 0.68 10*3/uL Low 1.10-3.70 [facility] Comment on above: Performed By: #### B MPX, CDP, PTT, PT, IPF ####[address] , [place] 1492683 Lab Director: Cornell Brink MD Lymphocytes/100 WBC (Bld) 7 % Low 24-43 [facility] Comment on above: Performed By: #### B MPX, CDP, PTT, PT, IPF ####[address] , [facility]83 Lab Director: Cornell Brink MD Monocytes (Bld) [#/Vol] 0.10 10*3/uL Normal 0.10-1.20 [facility] Comment on above: Performed By: #### B MPX, CDP, PTT, PT, IPF ####[address] , [facility]83[facility])[phone] Director: Cornell Brink MD Monocytes/100 WBC (Bld) 1 % Low 3-12 [facility] Comment on above: Performed By: #### B MPX, CDP, PTT, PT, IPF ####[address] , [place] [address])[phone] Director: Cornell Brink MD Morphology Anival (Bld) [Interp] Normal Normal [facility] Comment on above: Performed By: #### B MPX, CDP, PTT, PT, IPF ####[address] , [facility]67([facility])[phone] Director: Cornell Brink MD Neutrophil (Seg) 91 % High 36-65 [facility] Comment on above: Performed By: #### B MPX, CDP, PTT, PT, IPF ####[address] , [place] 6[address] [facility] Director: Cornell Brink MD Erythrocyte distribution width (RBC) [Ratio] 14.2 % Normal 11.8-14.4 [facility] Comment on above: Performed By: #### B MPX, CDP, PTT, PT, IPF ####[address] [place] [address] Lab Director: Cornell Brink MD Hematocrit (Bld) [Volume fraction] 37.6 % Normal 36.3-47.1 [facility] Comment on above: Performed By: #### B MPX, CDP, PTT, PT, IPF ####[address] [place] [address] lab Director: Cornell Brink MD Hemoglobin (Bld) [Mass/Vol] 12.8 g/dL Normal 11.9-15.1 [facility] Comment on above: Performed By: #### B MPX, CDP, PTT, PT, IPF ####[address] , [place] 8594783 Lab Director: Cornell Brink MD MCH (RBC) [Entitic mass] 33.2 pg Normal 25.2-33.5 [facility] Comment on above: Performed By: #### B MPX, CDP, PTT, PT, IPF ####[address] , [place] [id number] Lab Director: Cornell Brink MD MCHC (RBC) [Mass/Vol] 34.0 g/dL Normal 28.4-34.8 [facility] Comment on above: Performed By: #### B MPX, CDP, PTT, PT, IPF ####[address] [place] [address] Lab Director: Cornell Brink MD MCV (RBC) [Entitic vol] 97.4 fL Normal 82.6-102.9 [facility] Comment on above: Performed By: #### B MPX, CDP, PTT, PT, IPF ####[address] , [place] [id number] Lab Director: Cornell Brink MD NRBC Automated 0.0 per 100 WBC Normal 0.0 [facility] Comment on above: Performed By: #### B MPX, CDP, PTT, PT, IPF ####[address] , [place] 937[address]83 lab Director: Cornell Brink MD Platelet Count See Reflexed IPF Result Normal 138-453 [facility] Comment on above: Performed By: #### B MPX, CDP, PTT, PT, IPF ####[address] [place] [address] lab Director: Cornell Brink MD RBC (Bld) [#/Vol] 3.86 10*6/uL Low 3.95-5.11 [facility] Comment on above: Performed By: #### B MPX, CDP, PTT, PT, IPF ####[address] [place] [address] lab Director: Cornell Brink MD WBC (Bld) [#/Vol] 9.7 10*3/uL Normal 3.5-11.3 [facility] Comment on above: Performed By: #### B MPX, CDP, PTT, PT, IPF ####[address] , [place] 3938483 lab Director: Cornell Brink MD EKG 12 LeadOrdered By: Jareth wood on 07-10-2021 Atrial Rate 73 BPM [employer] Phone: P [place] 66 degrees [facility] Phone: P-R Interval 158 ms [employer] Phone: Q-T Interval 386 ms [facility] Phone: QRS Duration 82 ms [facility] Work Phone: QTc Calculation (Bazett) 425 ms [facility] [employer] Work Phone: R [place] 75 degrees [facility] Work Phone: T [place] 70 degrees [facility] [employer] Work Phone: Ventricular Rate 73 BPM [employer] Work Phone: [facility] [employer] Work Phone: EKG 12 Leadon 07-10-2021 Poor data qualit y, interpretation may be adversely affected Normal sinus rhythm Septal infarct , age undetermined Abnormal ECG No previous ECGs available Confirmed by Jareth Garcia MD ([id number]) on 07/10/2021 2:34:51 AM [facility] RADIOLOGY Jareth Garcia MD - 07/10/2021 Poor data quality, interpretation may be adversely affected Normal sinus rhythm Septal infarct , age undetermined Abnormal ECG No previous ECGs available Confirmed by Jareth Garcia MD ([id number]) on 07/10/2021 2:34:51 AM [facility] Work Phone: Immature Platelet Fractionon 07-10-2021 Interpretation and review of laboratory results Abnormal [facility] Platelet, Fluorescence 128 Low [facility] Platelet, Immature Fraction 3.2 % 1.1 - 10.3 % [facility] Laboratory - Chemistry and C hemistry - challengeon 07-10-2021 GFR/1.73 sq M.predicted MDRD (S/P/Bld) [Vol rate/Area] [facility] Comment on above: Average GFR for 70 o r more years old: 75 mL/min/1.73sq m Chronic Kidney Disease: <60 mL/min/1.73sq m Kidney failure: <15 mL/min/1.73sq m eGFR calculated using average adult body mass. Additional eGFR calculator available at: http://www.TopLog.Stirplate.io/multiple_crcl_2012.htm Stage 1: Some kidney damage normal GFR Stage 2: Mild kidney damage GFR 60-89 Stage 3: Moderate kidney damage GFR 30-59 Stage 4: Severe kidney damage GFR 15-29 Stage 5: Severe kidney damage GFR <15 ESRD - chronic treatment by dialysis or transplant PLT, Immature Fract.on 07-10 Platelet, Fluoresc. 128 k/uL Low 138-453 [facility] Comment on above: Performed By: #### B MPX, CDP, PTT, PT, IPF ####[facility] [place] , [place] [id number] Lab Director: Cornell Brink MD PLT, Immature Fract. 3.2 % Normal 1.1-10.3 [facility] Comment on above: Performed By: #### B MPX, CDP, PTT, PT, IPF ####[address] , [place] [id number] lab Director: Cornell Brink MD PTon 07-10-2021 INR Coag (PPP) [Relative time] 1.2 {INR} Normal [facility] Comment on above: Result Comment: Non-therapeutic Range: INR = 0.9-1.2 Therapeutic Range: Moderate Anticoagulant Intensity: INR = 2.0-3.0 High Anticoagulant Intensity: INR = 2.5-3.5 Performed By: #### B MPX, CDP, PTT, PT, IPF ####[address] , [place] 101[address]683 lab Director: Cornell Brink MD PT Coag (PPP) [Time] 15.0 s High 11.5-14.2 [facility] Comment on above: Performed By: #### B MPX, CDP, PTT, PT, IPF ####[address] , [place] 3686383 lab Director: Cornell Brink MD Protime-INRon 07-10-2021 INR Coag (Bld) [Relative time] 1.2 {INR} [facility] Comment on above: Non-therapeutic Range: INR = 0.9-1.2 Therapeutic Range: Moderate Anticoagulant Intensity: INR = 2.0-3.0 High Anticoagulant Intensity: INR = 2.5-3.5 Interpretation and review of laboratory results Abnormal [facility] PT Coag (PPP) [Time] 15 s High [facility] Vitamin D 25 OHon 07-10-2021 Vitamin D 25 [place] 43.0 ng/mL Normal >29.9 [facility] Comment on above: Result Comment: Reference Range: Vitamin D status Range Deficiency <20 ng/mL Mild Deficiency 20-30 ng/mL Sufficiency 30-100 ng/mL Toxicity >100 ng/mL Performed By: #### V D25 #### [facility] [address] [place], [place] 54[address] Cancer Researcher: Lalito Roman MD APTTon 07-09-2021 aPTT Coag (Bld) [Time] 29.3 s Normal 26.8-34.8 [facility] Comment on above: Result Comment: IV Heparin Therapy Range: 62.0-94.0 NOTE: NEW REFERENCE RANGE Performed By: #### C DP, PTT, PT, BMPX ####[address] [place] [address] [facility] Director: Cornell Brink MD aPTT Coag (Bld) [Time] 29.3 s [facility] Comment on above: IV Heparin Therapy Range: 62.0-94.0 NOTE: NEW REFERENCE RANGE Basic Metab w/rfx MGon 07-09 (cont.) Normal [facility] Comment on above: Result Comment: Aver age GFR for 70 or more years old: 75 mL/min/1.73sq m Chronic Kidney Disease: <60 mL/min/1.73sq m Kidney failure: <15 mL/min/1.73sq m eGFR calculated using average adult body mass. Additional eGFR calculator available at: http://www.TopLog.Stirplate.io/multiple_crcl_2012.htm Performed By: #### C DP, PTT, PT, BMPX ####[facility] [place] [address] lab Director: Cornell Brink MD Anion gap [Moles/Vol] 8 mmol/L Low 9-17 [facility] Comment on above: Performed By: #### C DP, PTT, PT, BMPX ####[address] , [place] [id number] Lab Director: Cornell Brink MD BUN/CRE Ratio 20 Normal 9-20 [facility] Comment on above: Performed By: #### C DP, PTT, PT, BMPX ####[address] , [place] [id number] lab Director: Cornell Brink MD Calcium [Mass/Vol] 10.1 mg/dL Normal 8.6-10.4 [facility] Comment on above: Performed By: #### C DP, PTT, PT, BMPX ####[address] , [place] 7006783 lab Director: Cornell Brink MD Chloride [Moles/Vol] 105 mmol/L Normal 98-107 [facility] Comment on above: Performed By: #### C DP, PTT, PT, BMPX ####[address] , [place] 616[address]83 Lab Director: Cornell Brink MD CO2 [Moles/Vol] 25 mmol/L Normal 20-31 [facility] Comment on above: Performed By: #### C DP, PTT, PT, BMPX ####[address] , [place] [phone] lab Director: Cornell Brink MD Creatinine [Mass/Vol] 1.05 mg/dL High 0.50-0.90 [facility] Comment on above: Performed By: #### C DP, PTT, PT, BMPX ####[address] , [place] 7942983 lab Director: Cornell Brink MD GFR, Amer >60 Normal >60 [facility] Comment on above: Performed By: #### C DP, PTT, PT, BMPX ####[address] , [place] 045[address] lab Director: Cornell Brink MD GFR,non Amer 51 mL/min Low >60 [facility] Comment on above: Performed By: #### C DP, PTT, PT, BMPX ####[address] [place] [address] lab Director: Cornell Brink MD Glucose [Mass/Vol] 87 mg/dL Normal 70-99 [facility] Comment on above: Performed By: #### C DP, PTT, PT, BMPX ####[address] [place] [address] lab Director: Cornell Brink MD Potassium [Moles/Vol] 4.2 mmol/L Normal 3.7-5.3 [facility] Comment on above: Performed By: #### C DP, PTT, PT, BMPX ####[address] , [place] [phone] lab Director: Cornell Brink MD Sodium [Moles/Vol] 138 mmol/L Normal 135-144 [facility] Comment on above: Performed By: #### C DP, PTT, PT, BMPX ####[address] , [place] 076[address] Lab Director: Cornell Brink MD Staging: Normal [facility] Comment on above: Result Comment: Stag e 1: Some kidney damage normal GFR Stage 2: Mild kidney damage GFR 60-89 Stage 3: Moderate kidney damage GFR 30-59 Stage 4: Severe kidney damage GFR 15-29 Stage 5: Severe kidney damage GFR <15 ESRD - chronic treatment by dialysis or transplant Performed By: #### C DP, PTT, PT, BMPX ####[address] , [place] [id number] Lab Director: Cornell Brink MD Urea nitrogen [Mass/Vol] 21 mg/dL Normal 8-23 [facility] Comment on above: Performed By: #### C DP, PTT, PT, BMPX ####[place] [address] [place] [address] lab Director: Cornell Brink MD Basic Metabolic Panel w/ Ref lila to MGon 07-09-2021 Anion gap [Moles/Vol] 8 mmol/L Low 9 - 17 mmol/L [facility] Calcium [Mass/Vol] 10.1 mg/dL 8.6 - 10. 4 mg/dL [facility] Chloride [Moles/Vol] 105 mmol/L 98 - 107 mmol/L [facility] CO2 [Moles/Vol] 25 mmol/L 20 - 31 mmol/L [facility] Creatinine [Mass/Vol] 1.05 mg/dL High 0.50 - 0.90 mg/dL [facility] GFR >60 >60 mL/min [facility] GFR Non- 51 mL/min Low >60 [facility] Glucose [Mass/Vol] 87 mg/dL 70 - 99 mg/dL [facility] Interpretation and review of laboratory results Abnormal [facility] Potassium [Moles/Vol] 4.2 mmol/L 3.7 - 5.3 mmol/L [facility] Sodium [Moles/Vol] 138 mmol/L 135 - 144 mmol/L [facility] Urea nitrogen (BldV) [Mass/Vol] 21 mg/dL 8 - 23 mg/dL [facility] Urea nitrogen/Creatinine (Bld) [Mass ratio] 20 [facility] CBC with Auto Differentialon 07-09-2021 Absolute Eos # 0.14 [facility] th Absolute Immature Granulocyte 0.04 [facility] Absolute Lymph # 0.99 Low [facility] alth Absolute [place] # 0.48 [facility] lt Basophils (Bld) [#/Vol] 10*3/uL [facility] Basophils/100 WBC (Bld) 0 % 0 - 2 % [facility] Eosinophils/100 WBC (Bld) 2 % 1 - 4 % [facility] Hematocrit (Bld) [Volume fraction] 39.9 % 36.3 - 47.1 % [facility] Hemoglobin.gastroin testinal spec 1 Ql (Stl) 12.9 g/dL 11.9 - 15.1 g/dL [facility] Immature granulocytes/100 WBC (Bld) 1 % High 0 [facility] Interpretation and review of laboratory results Abnormal [facility] Lymphocytes/100 WBC (Bld) 16 % Low 24 - 43 % [facility] MCH (RBC) [Entitic mass] 33.4 pg 25.2 - 33.5 pg [facility] MCHC (RBC) [Mass/Vol] 32.3 g/dL 28.4 - 34.8 g/dL [facility] MCV (RBC) [Entitic vol] 103.4 fL High 82.6 - 102.9 fL [facility] Monocytes/100 WBC (Bld) 8 % 3 - 12 % [facility] NRBC Automated 0.0 0.0 per 100 WBC [facility] Platelet distribution width (Bld) [Ratio] 14.6 % High 11.8 - 14.4 % [facility] Platelet mean volume (Bld) [Entitic vol] 11.3 fL 8.1 - 13.5 fL [facility] Platelets (Bld) [#/Vol] 126 10*3/uL Low [facility] RBC (Bld) [#/Vol] 3.86 10*6/uL Low 3.95 - 5.1 1 m/uL [facility] Segmented neutrophils/100 WBC (Bld) 73 % High 36 - 65 % [facility]/Vol] 6.1 10*3/uL [facility] CBC with Diffon 07-09-2021 Abs. Basophil <0.03 Normal 0.00-0.20 [facility] Comment on above: Performed By: #### C DP, PTT, PT, BMPX ####[address] , [facility]83 Lab Director: Cornell Brink MD Abs.Imm.Granulocyte 0.04 k/uL Normal 0.00-0.30 [facility] Comment on above: Performed By: #### C DP, PTT, PT, BMPX ####[address] [place] [address] lab Director: Cornell Brink MD Abs.Neutrophil (Seg) 4.46 k/uL Normal 1.50-8.10 [facility] Comment on above: Performed By: #### C DP, PTT, PT, BMPX ####[address] [place] [address] Lab Director: Cornell Brink MD Basophils/100 WBC (Bld) 0 % Normal 0-2 [facility] Comment on above: Performed By: #### C DP, PTT, PT, BMPX ####[address] , [facility]83 Lab Director: Cornell Brink MD Eosinophils (Bld) [#/Vol] 0.14 10*3/uL Normal 0.00-0.44 [facility] Comment on above: Performed By: #### C DP, PTT, PT, BMPX ####[address] , [facility]83 Lab Director: Cornell Brink MD Eosinophils/100 WBC (Bld) 2 % Normal 1-4 [facility] Comment on above: Performed By: #### C DP, PTT, PT, BMPX ####[address] , [facility]83 Lab Director: Cornell Brink MD Immature granulocytes/100 WBC (Bld) 1 % High 0 [facility] Comment on above: Performed By: #### C DP, PTT, PT, BMPX ####[address] , [facility]83 Lab Director: Cornell Brink MD Lymphocytes (Bld) [#/Vol] 0.99 10*3/uL Low 1.10-3.70 [facility] Comment on above: Performed By: #### C DP, PTT, PT, BMPX ####[address] , [place] [id number] Lab Director: Cornell Brink MD Lymphocytes/100 WBC (Bld) 16 % Low 24-43 [facility] Comment on above: Performed By: #### C DP, PTT, PT, BMPX ####[address] , [place] [id number] [facility] Director: Cornell Brink MD Monocytes (Bld) [#/Vol] 0.48 10*3/uL Normal 0.10-1.20 [facility] Comment on above: Performed By: #### C DP, PTT, PT, BMPX ####[address] , [place] [id number] Lab Director: Cornell Brink MD Monocytes/100 WBC (Bld) 8 % Normal 3-12 [facility] Comment on above: Performed By: #### C DP, PTT, PT, BMPX ####[address] , [facility]83 Lab Director: Cornell Brink MD Neutrophil (Seg) 73 % High 36-65 [facility] Comment on above: Performed By: #### C DP, PTT, PT, BMPX ####[address] , [facility]83 Lab Director: Cornell Brink MD Erythrocyte distribution width (RBC) [Ratio] 14.6 % High 11.8-14.4 [facility] Comment on above: Performed By: #### C DP, PTT, PT, BMPX ####[address] , [facility]83 Lab Director: Cornell Brink MD Hematocrit (Bld) [Volume fraction] 39.9 % Normal 36.3-47.1 [facility] Comment on above: Performed By: #### C DP, PTT, PT, BMPX ####[address] , [place] [id number] Lab Director: Cornell Brink MD Hemoglobin (Bld) [Mass/Vol] 12.9 g/dL Normal 11.9-15.1 [facility] Comment on above: Performed By: #### C DP, PTT, PT, BMPX ####[address] , [place] [id number] Lab Director: Cornell Brink MD MCH (RBC) [Entitic mass] 33.4 pg Normal 25.2-33.5 [facility] Comment on above: Performed By: #### C DP, PTT, PT, BMPX ####[address] , [facility]83 Lab Director: Cornell Brink MD MCHC (RBC) [Mass/Vol] 32.3 g/dL Normal 28.4-34.8 [facility] Comment on above: Performed By: #### C DP, PTT, PT, BMPX ####[address] , [facility]83 Lab Director: Cornell Brink MD MCV (RBC) [Entitic vol] 103.4 fL High 82.6-102.9 [facility] Comment on above: Performed By: #### C DP, PTT, PT, BMPX ####[address] , [facility]97([facility])[phone] Director: Cornell Brink MD NRBC Automated 0.0 per 100 WBC Normal 0.0 [facility] Comment on above: Performed By: #### C DP, PTT, PT, BMPX ####[address] , [place] [address])[phone] Director: Cornell Brink MD Platelet mean volume (Bld) [Entitic vol] 11.3 fL Normal 8.1-13.5 [facility] Comment on above: Performed By: #### C DP, PTT, PT, BMPX ####[address] , [facility]83 Lab Director: Cornell Brink MD Platelets (Bld) [#/Vol] 126 10*3/uL Low 138-453 [facility] Comment on above: Performed By: #### C DP, PTT, PT, BMPX ####[facility] [place] , [place] [id number] lab Director: Cornell Brink MD RBC (Bld) [#/Vol] 3.86 10*6/uL Low 3.95-5.11 [facility] Comment on above: Performed By: #### C DP, PTT, PT, BMPX ####[address] , [place] [id number] lab Director: Cornell Brink MD WBC (Bld) [#/Vol] 6.1 10*3/uL Normal 3.5-11.3 [facility] Comment on above: Performed By: #### C DP, PTT, PT, BMPX ####[address] , [place] [id number] lab Director: Cornell Brink MD CT HIP RIGHT WO CONTRASTon 0 07-09-2021 CT HIP RIGHT WO CONTRAST EXAMINATION: CT OF THE RIGHT HIP WITHOUT CONTRAST 07/09/2021 7:23 pm TECHNIQUE: CT of the right hip was performed without the administration of intravenous contrast. Multiplanar reformatted images are provided for review. Dose modulation, iterative reconstruction, and/or weight based adjustment of the mA/kV was utilized to reduce the radiation dose to as low as reasonably achievable. COMPARISON: Right hip and femur radiographs 07/09/2021. HISTORY ORDERING SYSTEM PROVIDED HISTORY: surgery TECHNOLOGIST PROVIDED HISTORY: surgery FINDINGS: Bones: There is an acute mildly comminuted and displaced right intertrochanteric femoral fracture. No other fracture identified. No dislocation. No suspicious lytic or blastic osseous lesion. Soft Tissue: A Correia catheter balloon is inflated in the urinary bladder lumen. Colonic diverticulosis. No free fluid. No pelvic or inguinal lymphadenopathy. Joint: Chronic bilateral L5 pars defects with grade 2 anterolisthesis of L5 on S1. Multilevel degenerative changes of the visualized lower lumbar spine. Mild degenerative changes of the bilateral sacroiliac joints, bilateral hips, and pubic symphysis. IMPRESSION: Acute mildly comminuted and displaced right intertrochanteric femoral fracture. Interpreted by: Anthony Mayo MD Signed by: Anthony Mayo MD 07/09/21 Final result Normal [facility] Acute mildly comminuted and displaced right intertrochanteric femoral fracture. [facility] CONSOL[facility]ATED EXAMINATION: CT OF THE RIGHT HIP WITHOUT CONTRAST 07/09/2021 7:23 pm TECHNIQUE: CT of the right hip was performed without the administration of intravenous contrast. Multiplanar reformatted images are provided for review. Dose modulation, iterative reconstruction, and/or weight based adjustment of the mA/kV was utilized to reduce the radiation dose to as low as reasonably achievable. COMPARISON: Right hip and femur radiographs 07/09/2021. HISTORY ORDERING SYSTEM PROVIDED HISTORY: surgery TECHNOLOGIST PROVIDED HISTORY: surgery FINDINGS: Bones: There is an acute mildly comminuted and displaced right intertrochanteric femoral fracture. No other fracture identified. No dislocation. No suspicious lytic or blastic osseous lesion. Soft Tissue: A Correia catheter balloon is inflated in the urinary bladder lumen. Colonic diverticulosis. No free fluid. No pelvic or inguinal lymphadenopathy. Joint: Chronic bilateral L5 pars defects with grade 2 anterolisthesis of L5 on S1. Multilevel degenerative changes of the visualized lower lumbar spine. Mild degenerative changes of the bilateral sacroiliac joints, bilateral hips, and pubic symphysis. [facility] Anthony Mayo MD - 07/09/2021 EXAMINATION: CT OF THE RIGHT HIP WITHOUT CONTRAST 07/09/2021 7:23 pm TECHNIQUE: CT of the right hip was performed without the administration of intravenous contrast. Multiplanar reformatted images are provided for review. Dose modulation, iterative reconstruction, and/or weight based adjustment of the mA/kV was utilized to reduce the radiation dose to as low as reasonably achievable. COMPARISON: Right hip and femur radiographs 07/09/2021. HISTORY ORDERING SYSTEM PROVIDED HISTORY: surgery TECHNOLOGIST PROVIDED HISTORY: surgery FINDINGS: Bones: There is an acute mildly comminuted and displaced right intertrochanteric femoral fracture. No other fracture identified. No dislocation. No suspicious lytic or blastic osseous lesion. Soft Tissue: A Correia catheter balloon is inflated in the urinary bladder lumen. Colonic diverticulosis. No free fluid. No pelvic or inguinal lymphadenopathy. Joint: Chronic bilateral L5 pars defects with grade 2 anterolisthesis of L5 on S1. Multilevel degenerative changes of the visualized lower lumbar spine. Mild degenerative changes of the bilateral sacroiliac joints, bilateral hips, and pubic symphysis. IMPRESSION: Acute mildly comminuted and displaced right intertrochanteric femoral fracture. [employer] Phone: Radiology Study observation (narrative) [employer] Phone: CT HIP RIGHT WO CONTRASTOrde red By: Anthony Mayo on 07-09-2021 [employer] Work Phone: Laboratory - Chemistry and C hemistry - challengeon 07-09-2021 GFR/1.73 sq M.predicted MDRD (S/P/Bld) [Vol rate/Area] [facility] Comment on above: Average GFR for 70 o r more years old: 75 mL/min/1.73sq m Chronic Kidney Disease: <60 mL/min/1.73sq m Kidney failure: <15 mL/min/1.73sq m eGFR calculated using average adult body mass. Additional eGFR calculator available at: http://www.[employer]/multiple_crcl_2012.htm Stage 1: Some kidney damage normal GFR Stage 2: Mild kidney damage GFR 60-89 Stage 3: Moderate kidney damage GFR 30-59 Stage 4: Severe kidney damage GFR 15-29 Stage 5: Severe kidney damage GFR <15 ESRD - chronic treatment by dialysis or transplant No Panel Informationon 07-09 [facility] PTon 07-09-2021 INR Coag (PPP) [Relative time] 1.1 {INR} Normal [facility] Comment on above: Result Comment: Non-therapeutic Range: INR = 0.9-1.2 Therapeutic Range: Moderate Anticoagulant Intensity: INR = 2.0-3.0 High Anticoagulant Intensity: INR = 2.5-3.5 Performed By: #### C DP, PTT, PT, BMPX ####[facility] [place] [address] lab Director: Cornell Brink MD PT Coag (PPP) [Time] 14.0 s Normal 11.5-14.2 [facility] Comment on above: Performed By: #### C DP, PTT, PT, BMPX ####[facility] [place] [address] lab Director: Cornell Brink MD Protime-INRon 07-09-2021 INR Coag (Bld) [Relative time] 1.1 {INR} [facility] Comment on above: Non-therapeutic Range: INR = 0.9-1.2 Therapeutic Range: Moderate Anticoagulant Intensity: INR = 2.0-3.0 High Anticoagulant Intensity: INR = 2.5-3.5 PT Coag (PPP) [Time] 14 s [facility] Vitamin D 25 Hydroxyon 07-09 Vit D, 25-Hydroxy 43 ng/mL >29.9 [facility] Comment on above: Reference Range: Vitamin D status Range Deficiency <20 ng/mL Mild Deficiency 20-30 ng/mL Sufficiency 30-100 ng/mL Toxicity >100 ng/mL [facility] XR CHEST PORTABLEon 07-10-19 XR CHEST PORTABLE EXAMINATION: ONE XRAY VIEW OF THE CHEST 07/09/2021 12:42 pm COMPARISON: None. HISTORY: ORDERING SYSTEM PROVIDED HISTORY: Preop TECHNOLOGIST PROVIDED HISTORY: Preop History of femoral neck stress fracture FINDINGS: Overlying ECG monitor leads. Mildly enlarged cardiac silhouette for the degree of lung hyperinflation; mediastinal structures midline with elongation and calcification thoracic aorta. As above, hyperinflated lungs with likely interstitial abnormalities, perhaps chronic. No definite airspace abnormality, consolidation or large pleural effusion. No acute bony fracture. Mild DJD spine. IMPRESSION: No prior study available comparison. Probable chronic changes/COPD and mild cardiomegaly. RECOMMENDATION: If prior chest x-ray studies are available, they should be reviewed. Interpreted by: Andrea Oliveros MD Signed by: Andrea Oliveros MD 07/09/21 Final result Normal [facility] No prior study available comparison. Probable chronic changes/COPD and mild cardiomegaly. RECOMMENDATION: If prior chest x-ray studies are available, they should be reviewed. [facility] CONSOLIDATED EXAMINATION: ONE XRAY VIEW OF THE CHEST 07/09/2021 12:42 pm COMPARISON: None. HISTORY: ORDERING SYSTEM PROVIDED HISTORY: Preop TECHNOLOGIST PROVIDED HISTORY: Preop History of femoral neck stress fracture FINDINGS: Overlying ECG monitor leads. Mildly enlarged cardiac silhouette for the degree of lung hyperinflation; mediastinal structures midline with elongation and calcification thoracic aorta. As above, hyperinflated lungs with likely interstitial abnormalities, perhaps chronic. No definite airspace abnormality, consolidation or large pleural effusion. No acute bony fracture. Mild DJD spine. [facility] [[email or web address]] Andrea Nayak MD - 07/09/2021 EXAMINATION: ONE XRAY VIEW OF THE CHEST 07/09/2021 12:42 pm COMPARISON: None. HISTORY: ORDERING SYSTEM PROVIDED HISTORY: Preop TECHNOLOGIST PROVIDED HISTORY: Preop History of femoral neck stress fracture FINDINGS: Overlying ECG monitor leads. Mildly enlarged cardiac silhouette for the degree of lung hyperinflation; mediastinal structures midline with elongation and calcification thoracic aorta. As above, hyperinflated lungs with likely interstitial abnormalities, perhaps chronic. No definite airspace abnormality, consolidation or large pleural effusion. No acute bony fracture. Mild DJD spine. IMPRESSION: No prior study available comparison. Probable chronic changes/COPD and mild cardiomegaly. RECOMMENDATION: If prior chest x-ray studies are available, they should be reviewed. [employer] Phone: Radiology Study observation (narrative) [employer] Phone: XR CHEST PORTABLEOrdered By: Andera Oliveros on 07-09-2021 [employer] Phone: XR FEMUR RIGHT (MIN 2 VIEWS) on 07-09-2021 XR FEMUR RIGHT (MIN 2 VIEWS) EXAMINATION: 2 XRAY VIEWS OF THE RIGHT FEMUR 07/09/2021 12:45 pm COMPARISON: None. HISTORY: ORDERING SYSTEM PROVIDED HISTORY: Trauma TECHNOLOGIST PROVIDED HISTORY: X-ray injured hip and pelvis - add femur if pain and/or swelling is distal to the hip Trauma FINDINGS: Proximal femur not included. No fracture identified. No dislocation. No large joint effusion. Meniscal calcification. Mild degenerative changes, best seen posterosuperior patella. Mild narrowing patellofemoral joint space. Knee joint spaces maintained. No destructive or blastic lesion. No periosteal new bone. No marked soft tissue swelling. Some vascular calcifications. IMPRESSION: No acute abnormality visualized right femur. Additional findings, as above. Interpreted by: Andrea Oliveros MD Signed by: Andrea Oliveros MD 07/09/21 Final result Normal [facility] No acute abnormality visualized right femur. Additional findings, as above. [facility] EXAMINATION: 2 XRAY VIEWS OF THE RIGHT FEMUR 07/09/2021 12:45 pm COMPARISON: None. HISTORY: ORDERING SYSTEM PROVIDED HISTORY: Trauma TECHNOLOGIST PROVIDED HISTORY: X-ray injured hip and pelvis - add femur if pain and/or swelling is distal to the hip Trauma FINDINGS: Proximal femur not included. No fracture identified. No dislocation. No large joint effusion. Meniscal calcification. Mild degenerative changes, best seen posterosuperior patella. Mild narrowing patellofemoral joint space. Knee joint spaces maintained. No destructive or blastic lesion. No periosteal new bone. No marked soft tissue swelling. Some vascular calcifications. [facility] Andrea Oliveros MD - 07/09/2021 EXAMINATION: 2 XRAY VIEWS OF THE RIGHT FEMUR 07/09/2021 12:45 pm COMPARISON: None. HISTORY: ORDERING SYSTEM PROVIDED HISTORY: Trauma TECHNOLOGIST PROVIDED HISTORY: X-ray injured hip and pelvis - add femur if pain and/or swelling is distal to the hip Trauma FINDINGS: Proximal femur not included. No fracture identified. No dislocation. No large joint effusion. Meniscal calcification. Mild degenerative changes, best seen posterosuperior patella. Mild narrowing patellofemoral joint space. Knee joint spaces maintained. No destructive or blastic lesion. No periosteal new bone. No marked soft tissue swelling. Some vascular calcifications. IMPRESSION: No acute abnormality visualized right femur. Additional findings, as above. [employer] Phone: [employer] Phone: Radiology Study observation (narrative) [employer] Phone: XR HIP 2-3 VW W PELVIS RIGHT on 07-09-2021 XR HIP 2-3 VW W PELVIS RIGHT EXAMINATION: ONE XRAY VIEW OF THE PELVIS AND TWO XRAY VIEWS RIGHT HIP 07/09/2021 11:25 am COMPARISON: None. HISTORY: ORDERING SYSTEM PROVIDED HISTORY: Trauma TECHNOLOGIST PROVIDED HISTORY: Trauma FINDINGS: There is a nondisplaced fracture of the base of the right femoral neck. No significant degenerative changes. Soft tissues are unremarkable. IMPRESSION: Femoral neck fracture. Interpreted by: Jus Garner MD Signed by: Jus Garner MD 07/09/21 Final result Normal [facility] Femoral neck fractur e. [facility] [[email or web address]] RIS CONSOLIDATED EXAMINATION: ONE XRAY VIEW OF THE PELVIS AND TWO XRAY VIEWS RIGHT HIP 07/09/2021 11:25 am COMPARISON: None. HISTORY: ORDERING SYSTEM PROVIDED HISTORY: Trauma TECHNOLOGIST PROVIDED HISTORY: Trauma FINDINGS: There is a nondisplaced fracture of the base of the right femoral neck. No significant degenerative changes. Soft tissues are unremarkable. [facility] Jus Garner MD - 07/09/2021 EXAMINATION: ONE XRAY VIEW OF THE PELVIS AND TWO XRAY VIEWS RIGHT HIP 07/09/2021 11:25 am COMPARISON: None. HISTORY: ORDERING SYSTEM PROVIDED HISTORY: Trauma TECHNOLOGIST PROVIDED HISTORY: Trauma FINDINGS: There is a nondisplaced fracture of the base of the right femoral neck. No significant degenerative changes. Soft tissues are unremarkable. IMPRESSION: Femoral neck fracture. [employer] Phone: Radiology Study observation (narrative) [employer] Phone: XR HIP 2-3 VW W PELVIS RIGHT Ordered By: Jus Garner on 07-09-2021 [employer] Phone: Complete Blood Counton 04-24 Erythrocyte distribution width (RBC) [Ratio] 14.3 % Normal 11.0-15.0 [facility] [employer] Comment on above: Performed By: #### C BC, CMP #### [facility] [address], [place] [id number] Hematocrit (Bld) [Volume fraction] 41.5 % Normal 35.0-47.0 [facility] [employer] Comment on above: Performed By: #### C BC, CMP #### [facility] [address], [place] [id number] Hemoglobin (Bld) [Mass/Vol] 13.4 g/dL Normal 11.6-15.5 [facility] [employer] Comment on above: Performed By: #### C BC, CMP #### [facility] [address], [place] [id number] MCH (RBC) [Entitic mass] 33.4 pg High 27.0-33.0 [facility] [employer] Comment on above: Performed By: #### C BC, CMP #### [facility] [address], [place] [id number] MCHC (RBC) [Mass/Vol] 32.3 g/dL Normal 32.0-36.[address] [facility] Specialist Comment on above: Performed By: #### C BC, CMP #### [facility] [address], [place] [id number] MCV (RBC) [Entitic vol] 104 fL High 80-[address] [facility] Specialist Comment on above: Performed By: #### C BC, CMP #### [facility] [address], [place] [id number] Platelet mean volume (Bld) [Entitic vol] 10.90 fL Normal 7.50-12.50 [facility] [employer] Comment on above: Performed By: #### C BC, CMP #### [facility] [address], [place] [id number] Platelets (Bld) [#/Vol] 125 10*3/uL Low 140-400 [facility] [employer] Comment on above: Performed By: #### C BC, CMP #### [facility] [address], [place] [id number] RBC (Bld) [#/Vol] 4.01 10*6/uL Normal 3.90-5.20 [facility] [employer] Comment on above: Performed By: #### C BC, CMP #### [facility] [address], [place] [id number] RDW-SD 54.0 fL High 37.0-50.0 [facility] [employer] Comment on above: Performed By: #### C BC, CMP #### [facility] [address], [place] [id number] WBC (Bld) [#/Vol] 6.9 10*3/uL Normal 3.8-11.0 [facility] [employer] Comment on above: Performed By: #### C BC, CMP #### [facility] [address], [place] [id number] Comprehensive Metabolic Pane lazarus 04-24-2021 Albumin [Mass/Vol] 4.4 g/dL Normal 3.6-5.1 [facility] [employer] Comment on above: Performed By: #### C BC, CMP #### [facility] [address] [place], [place] [id number] Albumin/Globulin [Mass ratio] 2.3 {ratio} Normal 1.0-2.5 [facility] [employer] Comment on above: Performed By: #### C BC, CMP #### [facility] [address] [place], [place] [id number] ALP [Catalytic activity/Vol] 87 U/L Normal 35-119 [facility] [employer] Comment on above: Performed By: #### C BC, CMP #### [facility] [address] [place], [place] [id number] ALT [Catalytic activity/Vol] 10 U/L Normal 6-33 [facility] [employer] Comment on above: Result Comment: 04/04 Female reference range changed. Performed By: #### C BC, CMP #### [facility] [address] [place], [place] [id number] Anion gap [Moles/Vol] 16 mmol/L Normal 12-20 [facility] [employer] Comment on above: Result Comment: Effe ctive 05/10/2019 reference range changed. Performed By: #### C BC, CMP #### [facility] [address] [facility] [place] [id number] AST [Catalytic activity/Vol] 12 U/L Normal 9-34 [facility] [employer] Comment on above: Performed By: #### C BC, CMP #### [facility] [address] [place], [place] [id number] Bilirubin [Mass/Vol] 0.86 mg/dL Normal 0.30-1.20 [facility] [employer] Comment on above: Performed By: #### C BC, CMP #### [facility] [address] [place], [place] [id number] BUN/CREA 16 Ratio Normal 6-22 [facility] [employer] Comment on above: Performed By: #### C BC, CMP #### [facility] [address] [place], [place] [id number] Calcium [Mass/Vol] 10.5 mg/dL High 8.6-10.2 [facility] [employer] Comment on above: Performed By: #### C BC, CMP #### [facility] [address], [place] [id number] Chloride [Moles/Vol] 107 mmol/L Normal 98-[address] [facility] Specialist Comment on above: Performed By: #### C BC, CMP #### [facility] [address], [place] [id number] CO2 [Moles/Vol] 26 mmol/L Normal 20-31 [facility] Specialist Comment on above: Performed By: #### C BC, CMP #### [facility] [address], [place] [id number] Creatinine [Mass/Vol] 1.2 mg/dL Normal 0.6-1.[address] [facility] Specialist Comment on above: Performed By: #### C BC, CMP #### [facility] [address], [place] [id number] eGFRAA 51 mL/min/1.73m2 Low >[address] [facility] Specialist Comment on above: Performed By: #### C BC, CMP #### [facility] [address], [place] [id number] eGFRNAA 42 mL/min/1.73m2 Low >[address] [facility] Specialist Comment on above: Performed By: #### C BC, CMP #### [facility] [address], [place] [id number] Globulin (S) [Mass/Vol] 1.9 g/dL Normal 1.9-3.[address] [facility] Specialist Comment on above: Performed By: #### C BC, CMP #### [facility] [address], [place] [id number] Glucose [Mass/Vol] 99 mg/dL Normal 65-99 [facility] Comment on above: Result Comment: For FASTING Glucose --- ADA reference ranges: Normal 65-99 mg/dl Prediabetes 100-125 Diabetes >/= 126 Performed By: #### C BC, CMP #### [facility] [address], [place] [id number] Potassium [Moles/Vol] 4.6 mmol/L Normal 3.5-5.[address] [facility] Specialist Comment on above: Performed By: #### C BC, CMP #### [facility] [address], [place] [id number] Protein [Mass/Vol] 6.3 g/dL Normal 6.1-8.1 Alondra mitchell [employer] Comment on above: Performed By: #### C BC, CMP #### [facility] [address], [place] [id number] Sodium [Moles/Vol] 144 mmol/L Normal 135-146 Alondra mitchell [employer] Comment on above: Performed By: #### C BC, CMP #### [facility] [address], [place] [id number] Urea nitrogen [Mass/Vol] 20 mg/dL Normal 7-[address] [facility] Specialist Comment on above: Performed By: #### C BC, CMP #### [facility] [address], [place] [id number] Parathyroid Hormone, Intacto n 04-24-2021 PTH 24.33 pg/mL Normal 16.00-65.00 [facility] Specialist Comment on above: Performed By: #### P TH* #### [facility] [address], [place] [id number] Office Visit (Cardiology)on 03-07-2021 Follow-up visit Diagnoses/Problems Assessed Body mass index (BMI) of 20.0 to 20.9 in adult (V85.1) (Z68.20) Nonischemic cardiomyopathy (425.4) (I42.8) Benign essential hypertension (401.1) (I10) H/O abdominal aortic aneurysm repair (V45.89) (Z98.890) Patient Instructions Please bring all medicines, vitamins, and herbal supplements with you when you come to the office. Prescriptions will not be filled unless you are compliant with your follow up appointments or have a follow up appointment scheduled as per instruction of your physician. Refills should be requested at the time of your visit. Follow up in 6-9 months Chief Complaint ELZA BLAS is being seen for a 6 month follow-up of. History of Present Illness Patient returns in follow-up of problems as noted. In interim she is done well. She and her states that she has had no syncope near syncope palpitation orthopnea PND or dyspnea with exertion. There is no anginal symptomatology. An echocardiogram was performed earlier this year. Although the ejection fraction was about the same I note that the overall measurements demonstrate that her end-diastolic and end-systolic dimensions are smaller and this is a favorable development. Because of all the above we suggest continued therapy as is without change. She and her were educated regarding signs and symptoms of heart failure as well as arrhythmia to watch for and encouraged to call if they arise or occur. Surgical History Problems History of Abdominal aortic aneurysm repair History of Cataract surgery History of Hysterectomy Current Meds Medication NameInstruction Carvedilol 12.5 MG Oral TabletTAKE 1 TABLET TWICE DAILY WITH MEALS. Losartan Potassium 50 MG Oral TabletTAKE 1 TABLET BY MOUTH TWICE DAILY Methotrexate Sodium 2.5 MG Oral TabletTAKE 4 TABLETS BY MOUTH EVERY week Omeprazole 20 MG Oral Capsule Delayed ReleaseTAKE 1 CAPSULE BY MOUTH 30 MINUTES BEFORE morning meal Spironolactone 25 MG Oral TabletTAKE 0.5 TABLET Daily Allergies Medication No Known Drug Allergies Recorded By: Maricruz Alonzo; 03/05/2021 8:14:47 AM Social History Problems Daily caffeine consumption 1 can of pop, 1/2 cup of coffee daily Former smoker (V15.82) (Z87.891) quit 2016 No alcohol use No illicit drug use Review of Systems Constitutional: not feeling tired. Eyes: no eyesight problems. ENT: no hearing loss and no nosebleeds. Cardiovascular: no intermittent leg claudication and as noted in HPI. Respiratory: no chronic cough and no shortness of breath. Gastrointestinal: no change in bowel habits and no blood in stools. Genitourinary: no urinary frequency. Skin: no skin rashes. Neurological: no seizures and no frequent falls. Psychiatric: no depression and not suicidal. All other systems have been reviewed and are negative for complaint. Vitals Vital Signs Recorded: 07Mar2021 01:55PM Heart Rate72, R Radial Uvmbpeth857, RUE, Sitting Mhydmxsil19, RUE, Sitting Height5 ft 5 in Otsqyo569 lb BMI Kzgmqrbtdl01.3 kg/m2 BSA Calculated1.6 Tobacco Useb) No Fall Screeninga) No falls within the last year Physical Exam Constitutional: alert and in no acute distress. Eyes: no erythema, swelling or discharge from the eye . Neck: neck is supple, symmetric, trachea midline, no masses and no thyromegaly . Pulmonary: no increased work of breathing or signs of respiratory distress and lungs clear to auscultation. Cardiovascular: carotid pulses 2+ bilaterally with no bruit , JVP was normal, no thrills , regular rhythm, normal S1 and S2, no murmurs , pedal pulses 2+ bilaterally and no edema . Abdomen: abdomen non-tender, no masses and no hepatomegaly . Skin: skin warm and dry, normal skin turgor . Psychiatric judgment and insight is normal and oriented to person, place and time . Signatures Electronically signed by : Bernardino Ramos MD; Mar 07 2021 2:38PM EST (Author) Normal [facility] Echocardiogramon 11-22-[address], [address], [place] [address] TRANSTHORACIC ECHOCARDIOGRAM REPORT Patient Name: ELZA BLAS Reading Physician: [id number] Guille Castrejon MD Study Date: 11/22/2020 Referring Physician: Herman RAMOS MRN/PID: [id number] PCP: Alice Quiroz Accession/Order#: [id number] Department Location: [facility] Date of : 1940 Fellow: Gender: F Nurse: Admit Date: Custom Seamstress: Amie Arevalo [facility], T Height: 152.40 cm CC Report to: Weight: 55.34 kg Study Type: Echocardiogram BSA: 1.51 m2 Blood Pressure: 124 /78 mmHg Diagnosis/ICD: I42.8-Other cardiomyopathies; K73-Yzdnprhhm (primary) hypertension Indication: AAA-s/p Repair, Former Smoker Procedure/CPT: Echo Complete w Full Doppler-[id number] Study Detail: The following Echo studies were performed: 2D, M-Mode, Doppler and color flow. PHYSICIAN INTERPRETATION: Left Ventricle: The left ventricular systolic function is moderately decreased, with an estimated ejection fraction of 35-40%. The left ventricular cavity size is normal. Spectral Doppler shows a normal pattern of left ventricular diastolic filling. Left Atrium: The left atrium is normal in size. Right Ventricle: The right ventricle is normal in size. There is normal right ventricular global systolic function. Right Atrium: The right atrium is normal in size. Aortic Valve: The aortic valve appears structurally normal. There is no evidence of aortic valve regurgitation. The peak instantaneous gradient of the aortic valve is 4.1 mmHg. The mean gradient of the aortic valve is 2.0 mmHg. Mitral Valve: The mitral valve is normal in structure. There is trace to mild mitral valve regurgitation. Tricuspid Valve: The tricuspid valve is structurally normal. There is trace to mild tricuspid regurgitation. The Doppler estimated RVSP is within normal limits at 21.8 mmHg. Pulmonic Valve: The pulmonic valve is structurally normal. There is no indication of pulmonic valve regurgitation. Pericardium: There is no pericardial effusion noted. Aorta: The aortic root is normal. Systemic Veins: The inferior vena cava appears to be of normal size. Additional Comments: Normal Echocardiogram. CONCLUSIONS: 1. The left ventricular systolic function is moderately decreased with a 35-40% estimated ejection fraction. 2. RVSP within normal limits. 3. No change when compared to prior study. QUANTITATIVE DATA SUMMARY: 2D MEASUREMENTS: Normal Ranges: Ao Root d: 3.10 cm (2.0-3.7cm) LAs: 3.20 cm (2.7-4.0cm) RVIDd: 2.90 cm (0.9-3.6cm) IVSd: 0.90 cm (0.6-1.1cm) LVPWd: 0.90 cm (0.6-1.1cm) LVIDd: 4.80 cm (3.9-5.9cm) LVIDs: 3.90 cm LV Mass Index: 97.7 g/m2 LV % FS 18.8 % LV SYSTOLIC FUNCTION BY 2D PLANIMETRY (MOD): Normal Ranges: EF-A4C View: 37.1 % (>55%) LV DIASTOLIC FUNCTION: Normal Ranges: MV Peak E: 0.48 m/s (0.7-1.2 m/s) MV Peak A: 0.85 m/s (0.42-0.7 m/s) E/A Ratio: 0.57 (1.0-2.2) MV lateral e' 0.05 m/s MV medial e' 0.05 m/s E/e' Ratio: 8.90 (<8.0) MITRAL VALVE: Normal Ranges: MV Vmax: 0.73 m/s (<1.3m/s) MV peak P.1 mmHg (<5mmHg) MV mean P.0 mmHg (<48mmHg) AORTIC VALVE: Normal Ranges: AoV Vmax: 1.01 m/s (<1.7m/s) AoV Peak P.1 mmHg (<20mmHg) AoV Mean P.0 mmHg (1.7-11.5mmHg) LVOT Max Chet: 0.65 m/s (<1.1m/s) AoV VTI: 22.50 cm (18-25cm) LVOT VTI: 13.90 cm LVOT Diameter: 2.40 cm (1.8-2.4cm) AoV Area, VTI: 2.79 cm2 (2.5-5.5cm2) AoV Area,Vmax: 2.93 cm2 (2.5-4.5cm2) AoV Dimensionless Index: 0.62 AORTIC INSUFFICIENCY: AI Vmax: 2.51 m/s AI Half-time: 400 msec AI Decel Rate: 184.00 cm/s2 TRICUSPID VALVE/RVSP: Normal Ranges: Peak TR Velocity: 2.17 m/s RV Syst Pressure: 21.8 mmHg (< 30mmHg) PULMONIC VALVE: Normal Ranges: PV Max Chet: 0.5 m/s (0.6-0.9m/s) PV Max P.1 mmHg PIEDV: 1.38 m/s PADP: 10.6 mmHg [id number] Guille Castrejon MD Electronically signed on 11/23/2020 at 5:21:09 PM Final (Updated) Normal [facility] BUNon 05-12-2020 Urea nitrogen [Mass/Vol] 18.0 mg/dL Critically high 7.0-17.0 [facility] Comment on above: Performed By: #### E DEYSI ELLISON BUN #### [facility] [address] [place] [address] Volodymyr Del Castillo CREATININEon 05-12-2020 Creatinine [Mass/Vol] 52 mL/min/1.73m2 Critically low >=60 [facility] Comment on above: Performed By: #### E SCOT CREToyin, BUN #### [facility] [address] [place] Creatinine [Mass/Vol] 1.22 mg/dL Critically high 0.52-1.04 [facility] Comment on above: Performed By: #### E SCOT CREToyin, BUN #### [facility] [address] [place] [address] Volodymyr Magdalene Creatinine [Mass/Vol] 43 mL/min/1.73m2 Critically low >=60 [facility] Comment on above: Performed By: #### E LEC, CREA, BUN #### [facility] [address] [place] [address] Volodymyr Magdalene ELECTROLYTESon 05-12-2020 Anion gap [Moles/Vol] 11.2 mmol/L Normal [facility] Comment on above: Performed By: #### E LEC, CREA, BUN #### [facility] [address] [place] [address] Volodymyr Magdalene Chloride [Moles/Vol] 106 mmol/L Normal 98-107 [facility] Comment on above: Performed By: #### E LEC, CREA, BUN #### [facility] [address] [place] [address] Volodymyr Magdalene CO2 [Moles/Vol] 30.4 mmol/L Critically high 22.0-30.0 [facility] Comment on above: Performed By: #### E LEC, CREA, BUN #### [facility] [address] [place] [address] Volodymyr Magdalene Potassium [Moles/Vol] 4.6 mmol/L Normal 3.4-5.0 [facility] Comment on above: Performed By: #### E LEC, CREA, BUN #### [facility] [address] [place] [address] Volodymyr Magdalene Sodium [Moles/Vol] 143 mmol/L Normal 137-145 [facility] Comment on above: Performed By: #### E LEC, CREA, BUN #### [facility] [address] [place], [place] [id number] Volodymyr Magdalene Echocardiogramon 03-08-[address], [address], [place] [address] TRANSTHORACIC ECHOCARDIOGRAM REPORT Patient Name: ELZA Lacy Physician: [id number] Bernardino BLAS MD Study Date: 03/08/2020 Referring Physician: [id number] Bernardino Ramos MD MRN/PID: [id number] PCP: Alice Quiroz Accession/Order#: [id number] Department Location: [facility] Date of : 1940 Fellow: Gender: F Nurse: Admit Date: Custom Seamstress: Amie Arevalo RDCS, RVT Height: 165.10 cm CC Report to: Weight: 55.34 kg Study Type: Echocardiogram BSA: 1.60 m2 Blood Pressure: 138 /90 mmHg Diagnosis/ICD: I42.8-Other cardiomyopathies Indication: HTN, Former Smoker, AAA-s/p Repair Procedure/CPT: Echo Complete w Full Doppler-[id number] Study Detail: The following Echo studies were performed: 2D, M-Mode, Doppler and color flow. PHYSICIAN INTERPRETATION: Left Ventricle: The left ventricular systolic function is moderately decreased, with an estimated ejection fraction of 35-40%. There is global hypokinesis of the left ventricle with minor regional variations. The left ventricular cavity size is normal. Spectral Doppler shows a normal pattern of left ventricular diastolic filling. Left Atrium: The left atrium is mildly dilated. Right Ventricle: The right ventricle is normal in size. There is normal right ventricular global systolic function. Right Atrium: The right atrium is normal in size. Aortic Valve: The aortic valve is trileaflet. There is no evidence of aortic valve regurgitation. The peak instantaneous gradient of the aortic valve is 4.5 mmHg. The mean gradient of the aortic valve is 2.0 mmHg. Mitral Valve: The mitral valve is normal in structure. There is trace mitral valve regurgitation. Tricuspid Valve: The tricuspid valve is structurally normal. There is trace tricuspid regurgitation. Pulmonic Valve: The pulmonic valve is not well visualized. There is no indication of pulmonic valve regurgitation. Pericardium: There is no pericardial effusion noted. Aorta: The aortic root is normal. CONCLUSIONS: 1. The left ventricular systolic function is moderately decreased with a 35-40% estimated ejection fraction. 2. There is global hypokinesis of the left ventricle with minor regional variations. QUANTITATIVE DATA SUMMARY: 2D MEASUREMENTS: Normal Ranges: Ao Root d: 2.90 cm (2.0-3.7cm) LAs: 3.30 cm (2.7-4.0cm) RVIDd: 2.80 cm (0.9-3.6cm) IVSd: 0.90 cm (0.6-1.1cm) LVPWd: 1.00 cm (0.6-1.1cm) LVIDd: 5.50 cm (3.9-5.9cm) LVIDs: 4.10 cm LV Mass Index: 124.3 g/m2 LV % FS 25.5 % LV SYSTOLIC FUNCTION BY 2D PLANIMETRY (MOD): Normal Ranges: EF-A4C View: 37.0 % (>55%) LV DIASTOLIC FUNCTION: Normal Ranges: MV Peak E: 0.45 m/s (0.7-1.2 m/s) MV Peak A: 0.95 m/s (0.42-0.7 m/s) E/A Ratio: 0.47 (1.0-2.2) MV lateral e' 0.05 m/s MV medial e' 0.03 m/s E/e' Ratio: 9.50 (<8.0) MITRAL VALVE: Normal Ranges: MV Vmax: 0.98 m/s (<1.3m/s) MV peak P.8 mmHg (<5mmHg) MV mean P.0 mmHg (<48mmHg) MITRAL INSUFFICIENCY: Normal Ranges: MR Vmax: 262.00 cm/s AORTIC VALVE: Normal Ranges: AoV Vmax: 1.06 m/s (<1.7m/s) AoV Peak P.5 mmHg (<20mmHg) AoV Mean P.0 mmHg (1.7-11.5mmHg) LVOT Max Chet: 0.76 m/s (<1.1m/s) AoV VTI: 22.30 cm (18-25cm) LVOT VTI: 16.00 cm LVOT Diameter: 2.30 cm (1.8-2.4cm) AoV Area, VTI: 2.98 cm2 (2.5-5.5cm2) AoV Area,Vmax: 2.97 cm2 (2.5-4.5cm2) AoV Dimensionless Index: 0.72 TRICUSPID VALVE/RVSP: Normal Ranges: Peak TR Velocity: 2.18 m/s RV Syst Pressure: 22.0 mmHg (< 30mmHg) PULMONIC VALVE: Normal Ranges: PV Max Chet: 0.5 m/s (0.6-0.9m/s) PV Max P.0 mmHg PIEDV: 0.95 m/s PADP: 6.6 mmHg [id number] Bernardino Ramos MD Electronically signed on 03/12/2020 at 1:14:[address] [facility] BUNon 12-24-2019 Urea nitrogen [Mass/Vol] 18.0 mg/dL Critically high 7.0-17.0 [facility] Comment on above: Performed By: #### B UN, ELEC, CREA #### [facility] [address] [place] [address] Volodymyr Magdalene CREATININEon 12-24-2019 Creatinine [Mass/Vol] 51 mL/min/1.73m2 Critically low >=60 [facility] Comment on above: Performed By: #### B UN, ELEC, CREA ####[facility] [id number] [place] [address]Ger[address] [place] Creatinine [Mass/Vol] 1.24 mg/dL Critically high 0.52-1.04 [facility] Comment on above: Performed By: #### B UN, ELEC, CREA ####[facility] [id number] [place] [address]Ger[place] Creatinine [Mass/Vol] 42 mL/min/1.73m2 Critically low >=60 [facility] Comment on above: Performed By: #### B UN, ELEC, CREA ####[facility] [id number] [place] [address]Gerken [place] ELECTROLYTESon 12-24-2019 Anion gap [Moles/Vol] 10.4 mmol/L Normal [facility] Comment on above: Performed By: #### B UN, ELEC, CREA #### [facility] [address] [place] [address] Volodymyr Magdalene Chloride [Moles/Vol] 104 mmol/L Normal 98-107 [facility] Comment on above: Performed By: #### B UN, ELEC, CREA #### [facility] [address] [place] [address] Volodymyr Magdalene CO2 [Moles/Vol] 32.1 mmol/L Critically high 22.0-30.0 [facility] Comment on above: Performed By: #### B UN, ELEC CREA #### [facility] [address] [place] [address] Volodymyr Magdalnee Potassium [Moles/Vol] 3.5 mmol/L Normal 3.4-5.0 [facility] Comment on above: Performed By: #### B UN, ELEC, CREA #### [facility] [address] [place] [address] Volodymyr Magdalene Sodium [Moles/Vol] 143 mmol/L Normal 137-145 [facility] Comment on above: Performed By: #### B UN, ELEC CREA #### [facility] [address] [place] [address] Volodymyr Magdalene US CAROTID ART BILon 020 Bilirubin [Mass/Vol] EXAMINATION: US CAROTID ART CHAPO HISTORY: 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 TECHNIQUE: Duplex Doppler ultrasound analysis of carotid and vertebral arteries. . Bilateral carotid arterial duplex examination was performed using B-mode, color flow and spectral analysis. Carotid stenosis is reported according to validated velocity parameters, similar to NASCET criteria. FINDINGS: RIGHT CAROTID ARTERY: No visible stenosis or significant plaque. RIGHT VERTEBRAL: Antegrade flow. Subclavian: PSV: 101.6 cm/s EDV: 0.0 cm/s CCA: Prox: PSV: 56.6 cm/s EDV: 9.5 cm/s Mid: PSV: 41.9 cm/s EDV: 5.6 cm/s Distal: PSV: 36.1 cm/s EDV: 7.6 cm/s BULB: PSV: 22.4 cm/s EDV: 6.0 cm/s ICA: Prox: PSV: 55.7 cm/s EDV: 18.2 cm/s Mid: PSV: 74.1 cm/s EDV: 24.3 cm/s Distal: PSV: 47.8 cm/s EDV: 14.8 cm/s ECA: PSV: 48.3 cm/s EDV: 12.0 cm/s VERTEBRAL: PSV: 44.1 cm/s EDV: 8.5 cm/s ICA/CCA ratio: PSV: 2.1 EDV: 3.2 LEFT CAROTID ARTERY: No visible stenosis or significant plaque. LEFT VERTEBRAL: Antegrade flow. Subclavian: PSV: 95.1 cm/s EDV: 0.0 cm/s CCA: Prox: PSV: 72.4 cm/s EDV: 12.0 cm/s Mid: PSV: 43.8 cm/s EDV: 9.3 cm/s Distal: PSV: 39.4 cm/s EDV: 10.9 cm/s BULB: PSV: 43.2 cm/s EDV: 10.4 cm/s ICA: Prox: PSV: 53.1 cm/s EDV: 19.1 cm/s Mid: PSV: 68.8 cm/s EDV: 19.1 cm/s Distal: PSV: 67.1 cm/s EDV: 20.0 cm/s ECA: PSV: 29.3 cm/s EDV: 3.9 cm/s VERTEBRAL: PSV: 61.9 cm/s EDV: 16.3 cm/s ICA/CCA ratio: PSV: 1.7 EDV: 1.8 IMPRESSION: 1. 0-49% flow stenosis within the right and left carotid arteries. 2. Low flow velocities without significant atherosclerotic disease or narrowing. Spectral Doppler US Thresholds Stenosis (%) PSV (cm/sec) VICA/VCCA 0-49 <150 <2.5 50-69 150-225 2.5-4.0 >70 >225 >4.0 Electronically authenticated by: EZEQUIEL MART Date: 2019-11-01 08:07 Normal [facility] ECHOCARDIO M/2D COMPLETEon 0 10-29-2019 ECHOCARDIO M/2D COMPLETE Patient: ELZA BLAS Exam Date: 10/29/2019 : 1940 Gender:F Ordering : DR ALICE QUIROZ M.D. Admission #: [id number] Family : Order #: [id number] CLICK HERE TO VIEW EXAM ECHOCARDIOGRAM REPORT PROCEDURE: CARDIO PULMONARY ECHOCARDIO M/2D COMP INDICATIONS: CVA COMPARISON: None. DESCRIPTION: COMPLETE ECHOCARDIOGRAM Real-time transthoracic echocardiography with 2D, M-mode, spectral and color flow Doppler performed. QUALITY: Technical quality was good. LEFT VENTRICLE: Mild dilatation. Normal left ventricular wall thickness. LV EF: Global left ventricular systolic function is moderately reduced; ejection fraction is estimated to be 30-35%. Global hypokinesis is seen. DIASTOLIC: Mild (Grade I) diastolic dysfunction. ATRIAL SEPTUM: Intact atrial septum. LEFT ATRIUM: Normal chamber size. RIGHT ATRIUM: Normal chamber size. RIGHT VENTRICLE: Normal chamber size. Normal right ventricle function. TRICUSPID VALVE: Normal mobility and thickness. Normal with trace regurgitation. MITRAL VALVE: Normal mobility and thickness. There is no mitral annular calcification. Trace mitral regurgitation. AORTIC VALVE: Normal trileaflet appearance. No visible sclerosis. Trace aortic regurgitation. AORTIC ROOT: Normal diameter and appearance. PULMONIC VALVE: Normal thickness and mobility. Normal with Trace regurgitation. PERICARDIUM: Anterior free space is seen; fat pad versus trivial effusion. IVC: Collapes with inspirations. CONCLUSION: Global left ventricular systolic function is moderately reduced. Ejection fraction is estimated to be 30 to 35%. The left ventricle is mildly dilated. Mild diastolic dysfunction. Right ventricle is normal in size and systolic function. No significant valvular abnormalities. Anterior free space is seen; fat pad versus trivial effusion. Adult Echocardiography Procedure Report Left Ventricle LVEDD (3.7 - 5.6 cm): 5.55 cm LVESD (2.2 - 4.0 cm): 4.12 cm LVIVS thickness (0.6 - 1.2 cm): 8.77 mm LVPW thickness (0.5 - 1.0 cm): 8.42 mm e': 3.29 cm/s E - e': 10.60 LVOT Area (cm2): 3.80 cm2 LVOT Diameter 2.20 cm Left Ventricular Ejection Fraction: 30-35 % Left Atrium LA Volume Index (2D A2C): 27.70 ml/m2 Left Atrium Systolic Dimension: 3.30 cm Left Atrium Systolic Area(A2C): 15.50 cm2 Left Atrium Systolic Area(A4C): 11.70 cm2 Left Atrium Systolic Volume(A2C): 13386 mm3 Left Atrium Systolic Volume(A4C): 98946 mm3 Mitral Valve MV E to A Ratio: 0.40 Mitral Valve A-Wave Peak Velocity: 78.50 cm/s Mitral Valve E-Wave Peak Velocity: 35.00 cm/s Deceleration Time: 290 ms Right Ventricle Aorta AO Root Diam: 3.40 cm Aortic Valve AoV Area (Peak Chet): 2.89 cm2 Peak Velocity(Antegrade Flow): 90.20 cm/s Peak Gradient(Antegrade Flow): 3 mm[Hg] Tricuspid Valve Pulmonic Valve Peak Velocity: 55.90 cm/s Peak Gradient: 1 mm[Hg] Right Atrium Dictated by: Tejas Pandya M.D. on 11/02/2019 at 10:17 Approved by: Tejas Pandya M.D. on 11/02/2019 at 10:22 Normal [facility] MRI BRAIN WO W CONon 06-05-2 020 MRI BRAIN WO W CON EXAM: MRI BRAIN WO W CON. HISTORY: Computed tomography of head abnormal. COMPARISON: Head CT 10/07/2019. TECHNIQUE: Multiplanar, multisequence MR imaging of the head was performed prior to and following the administration of 20 mL of Dotarem contrast intravenously. FINDINGS: There is a large segmental area of the gyriform cortical enhancement within the right parietal lobe measuring 2.9 x 7.4 x 2.6 cm with corresponding increased T2 FLAIR signal seen within the white matter of this region. There is mild gyriform susceptibility artifact within the anterior inferior right parietal region. There is mild gyriform increased T1 signal seen within the posterior right parietal cortex. There is mild cortical restricted diffusion and T2 shine through seen within the right parietal white matter. No intraparenchymal hematoma, mass effect, midline shift or ventriculomegaly. There is mild to moderate atrophy with concordant prominence of the ventricles. Mild to moderate FLAIR signal abnormalities are seen bilaterally throughout the periventricular and subcortical white matter. Expected flow voids are seen within the intracranial internal carotid, vertebral and basilar arteries. The cerebellopontine angles and internal auditory canals are unremarkable. The pituitary gland and midline structures are unremarkable. Bone marrow signal is within normal limits. The orbits and globes are unremarkable. Small amount of fluid is seen within the mastoid air cells. IMPRESSION: 1. Large segmental area of the gyriform cortical enhancement and signal abnormality within the right parietal lobe, compatible with a subacute infarct. Mild susceptibility artifact is also seen within the anterior inferior right parietal region, compatible with hemosiderin staining from a remote hemorrhage. No mass effect or midline shift. Short-term follow-up brain MRI within 3-6 months is recommended to document resolution and exclude an underlying lesion. 2. Mild to moderate atrophy and small vessel ischemic changes of the supratentorial white matter. Electronically authenticated by: CORNELL SANTANA Date: 2019-10-08 16:24 Normal [facility] CREATININEon 10-07-2019 Creatinine [Mass/Vol] 54 mL/min/1.73m2 Critically low >=60 [facility] Comment on above: Performed By: #### C CLARENCE #### [facility] [address] [place] [address] Volodymyr Del Castillo Creatinine [Mass/Vol] 1.18 mg/dL Critically high 0.52-1.04 [facility] Comment on above: Performed By: #### C CLARENCE #### [facility] [address] [place] [address] Volodymyr Del Castillo Creatinine [Mass/Vol] 44 mL/min/1.73m2 Critically low >=60 [facility] Comment on above: Performed By: #### C CLARENCE #### [facility] [address] [place] [address] HEAD WO W CONon 0 CT HEAD WO W CON \EXAMINATION: CT HEA D WO W CON HISTORY: Essential hypertension COMPARISON: No relevant comparison available. TECHNIQUE: Axial images were obtained without and with IV contrast. Dose reduction techniques were achieved by using automated exposure control and/or adjustment of mA and/or kV according to patient size and/or use of iterative reconstruction technique. FINDINGS: BRAIN: Moderate generalized cerebral atrophy. Moderate white matter hypoattenuation, age indeterminate. Subtle hypodensity is observed in the right frontal parietal and occipital lobes with intense postcontrast gyral enhancement CSF SPACES: No hydrocephalus, subarachnoid hemorrhage, or mass. Appropriate for age. SKULL: No fracture, mass, or other significant visible lesion. SINUSES: No significant mucosal thickening or fluid on the limited views. ORBITS: No appreciable abnormality on the limited views. OTHER: Call report initiated IMPRESSION: 4.5 x 2.6 cm area of gyral enhancement posterior frontal parietal occipital lobe. The differential diagnosis would include a vascular etiology from recent cerebral infarction versus inflammatory and infectious etiologies including encephalitis as well as neoplastic etiologies. MRI is recommended for further evaluation Electronically authenticated by: CORNELL CHIU Date: 2019-10-07 15:52 Normal [facility] Vital Signs Date Time Vital Sign Value Performing Clinician Ford leopoldo 10-28-2024 12:46-0400 Body temperature 97 [degF] Sid Lau MD Work Phone: [facility] 10-28-2024 12:46-0400 Body weight 52.8 kg Sid Lau MD Work Phone: [facility] 10-28-2024 12:46-0400 Diastolic blood pressure 78 mm[Hg] Sid Lau MD Work Phone: [facility] 10-28-2024 12:46-0400 Heart rate 69 /min Sid Lau MD Work Phone: [facility] 10-28-2024 12:46-0400 Respiratory rate 18 /min Sid Lau MD Work Phone: [facility] 10-28-2024 12:46-0400 SaO2% (BldA) [Mass fraction] 94 % Sid Lau MD Work Phone: [facility] 10-28-2024 12:46-0400 Systolic blood pressure 163 mm[Hg] Sid Lau MD Work Phone: [facility] 09-29-2024 10:58-0400 Body temperature 97.3 [degF] Sid Lau MD Work Phone: [facility] 09-29-2024 10:58-0400 Body weight 51.4 kg Sid Lau MD Work Phone: [facility] 09-29-2024 10:58-0400 Diastolic blood pressure 81 mm[Hg] Sid Lau MD Work Phone: [facility] 09-29-2024 10:58-0400 Heart rate 67 /min Sid Lau MD Work Phone: [facility] 09-29-2024 10:58-0400 Respiratory rate 16 /min Sid Lau MD Work Phone: [facility] 09-29-2024 10:58-0400 SaO2% (BldA) [Mass fraction] 99 % Sid Lau MD Work Phone: [facility] 09-29-2024 10:58-0400 Systolic blood pressure 156 mm[Hg] Sid Lau MD Work Phone: [facility] 09-14-2024 15:25-0400 Body height 165.1 cm Alice Quiroz MD Work Phone: [facility] 09-14-2024 15:25-0400 Body mass index (BMI) [Ratio] 18.3 kg/m2 Alice Quiroz MD Work Phone: [facility] 09-14-2024 15:25-0400 Body weight 49.9 kg Alice Quiroz MD Work Phone: [facility] 09-14-2024 15:25-0400 Diastolic blood pressure 78 mm[Hg] Alice Quiroz MD Work Phone: [facility] 09-14-2024 15:25-0400 Heart rate 87 /min Alice Quiroz MD Work Phone: [facility] 09-14-2024 15:25-0400 SaO2% (BldA) [Mass fraction] 96 % Alice Quiroz MD Work Phone: [facility] 09-14-2024 15:25-0400 Systolic blood pressure 122 mm[Hg] Alice Quiroz MD Work Phone: [facility] 06-23-2024 12:50-0500 Body height 165.1 cm Dayton Mayo APRN-[employer] Work Phone: [facility] 06-23-2024 12:50-0500 Body mass index (BMI) [Ratio] 20.1 kg/m2 Dayton Mayo APRN-[employer] Work Phone: [facility] 06-23-2024 12:50-0500 Body weight 54.8 kg Dayton Mayo DIRECTOR CRITICAL CARE-[employer] Work Phone: [facility] 06-23-2024 12:50-0500 Diastolic blood pressure 74 mm[Hg] Dayton Mayo DIRECTOR CRITICAL CARE-[employer] Work Phone: [facility] 06-23-2024 12:50-0500 Heart rate 68 /min Dayton Mayo DIRECTOR CRITICAL CARE[employer] Work Phone: [facility] 06-23-2024 12:50-0500 Systolic blood pressure 116 mm[Hg] Dayton Mayo DIRECTOR CRITICAL CARE[employer] Work Phone: [facility] 04-07-2024 10:170500 Body height 165.1 cm Millicent Mayer TV TECHNICIAN Work Phone: [facility] 04-07-2024 10:17-0500 Body mass index (BMI) [Ratio] 19.8 kg/m2 Millicent Mayer TV TECHNICIAN Work Phone: [facility] 04-07-2024 10:17-0500 Body weight 53.98 kg Millicent Mayer TV TECHNICIAN Work Phone: [facility] 04-07-2024 10:17-0500 Diastolic blood pressure 78 mm[Hg] Millicent Mayer TV TECHNICIAN Work Phone: [facility] 04-07-2024 10:17-0500 Heart rate 69 /min Millicent Mayer TV TECHNICIAN Work Phone: [facility] 04-07-2024 10:17-0500 Respiratory rate 16 /min Millicent Mayer TV TECHNICIAN Work Phone: [facility] 04-07-2024 10:17-0500 SaO2% (BldA) [Mass fraction] 98 % Millicent Mayer TV TECHNICIAN Work Phone: [facility] 04-07-2024 10:17-0500 Systolic blood pressure 124 mm[Hg] Millicent Mayer TV TECHNICIAN Work Phone: [facility] 10-10-2023 14:26-0400 Body height 165.1 cm [facility] 10-10-2023 14:26-0400 Body mass index (BMI) [Ratio] 20.7 kg/m2 [facility] 10-10-2023 14:26-0400 Body temperature 98.2 [degF] DIRECTOR CRITICAL CARE Idalmis Brendan Work Phone: [facility] 10-10-2023 [id number]:[id number] Body weight 56.69 kg [facility] 10-10-2023 14:26-0400 Diastolic blood pressure 82 mm[Hg] DIRECTOR CRITICAL CARE Idalmis Brendan Work Phone: [facility] 10-10-2023 [id number] Heart rate 86 /min DIRECTOR CRITICAL CARE Idalmis Brendan Work Phone: [facility] 10-10-2023 14:040 Respiratory rate 16 /min DIRECTOR CRITICAL CARE Idalmis Brendan Work Phone: [facility] 10-10-2023 14:26040 SaO2% (BldA) [Mass fraction] 96 % DIRECTOR CRITICAL CARE Idalmis Brendan Work Phone: [facility] 10-10-2023 14:26-0400 Systolic blood pressure 136 mm[Hg] DIRECTOR CRITICAL CARE Idalmis Brendan Work Phone: [facility] 11-26-2021 13:56-0400 Body height 165.1 cm [employer] Gabriella Work Phone: [facility] DO Work Phone: 11-26-2021 13:56-0400 Body mass index (BMI) [Ratio] 19.8 kg/m2 [employer]en [employer] [place] Work Phone: [facility] DO Work Phone: 11-26-2021 13:56-0400 Body surface area Derived from formula 1.59 m2 Rugen M Gabriella Work Phone: [facility] DO Work Phone: 11-26-2021 13:56-0400 Body weight 53.98 kg Rugsantino Granados Gabriella Work Phone: [facility] DO Work Phone: 11-26-2021 13:56-0400 Diastolic blood pressure 72 mm[Hg] Alice Granados [place] Work Phone: [facility] DO Work Phone: 11-26-2021 13:56-0400 Heart rate 65 /min Rugsantino Granados [place] Work Phone: [facility] [facility] DO Work Phone: 11-26-2021 13:56-0400 Systolic blood pressure 112 mm[Hg] Alice Granadso Gabriella Work Phone: [facility] DO Work Phone: 07-13-2021 07:12-0500 Body temperature 97.11 [degF] Justin Shaq DO Work Phone: [employer] 07-13-2021 07:12-0500 Diastolic blood pressure 67 mm[Hg] Justin Linettettan DO Work Phone: [employer] 07-13-2021 07:12-0500 Heart rate 77 /min Justin Humbertoan DO Work Phone: [employer] 07-13-2021 07:12-0500 Respiratory rate 18 /min Justin Linettedavontean DO Work Phone: [employer] 07-13-2021 07:12-0500 SaO2% (BldA) [Mass fraction] 95 % Justin Linettettan DO Work Phone: [employer] 07-13-2021 07:12-0500 Systolic blood pressure 137 mm[Hg] Justin Linettedavontean DO Work Phone: [employer] 07-13-2021 05:15-0500 Body mass index (BMI) [Ratio] 22.14 kg/m2 Justin Linettedarrel DO Work Phone: [employer] 07-13-2021 05:15-0500 Body weight 58.51 kg Justin New DO Work Phone: [facility] 07-10-2021 08:33-0500 Body height 162.6 cm Justin New DO Work Phone: [facility] Encounters Encounter Date Encounter Type Care Provider Facility Start: 10-28-2024 End: 10-28-2024 Office outpatient visit 15 minutes Sid Lau MD Work Phone: Hematology/Oncology Comment on above: Thrombocytopenia (Pr imary Dx) Start: 10-28-2024 End: 10-28-2024 ambulatory SID LAU Facility:[facility] Start: 10-01-2024 End: 10-04-2024 Telephone encounter Sid Lau MD Work Phone: Hematology/Oncology Comment on above: OTC Zinc supplement recommendation Start: 09-29-2024 End: 09-29-2024 Office outpatient new 45 minutes Sid Lau MD Work Phone: Hematology/Oncology Comment on above: Thrombocytopenia (Pr imary Dx) Start: 09-29-2024 End: 09-29-2024 ambulatory ALICE CLOUDA Facility:[facility] Start: 09-28-2024 End: 09-28-2024 Chart abstracting Sid Lau MD Work Phone: Hematology/Oncology Start: 09-16-2024 End: 09-16-2024 ambulatory RUGEN M GABRIELLA Not Available Start: 09-14-2024 End: 09-14-2024 ambulatory RUGEN M GABRIELLA Not Available Start: 09-14-2024 End: 09-14-2024 Office outpatient visit 25 minutes Alice Quiroz MD Work Phone: [facility] Comment on above: Weight loss, abnorma l (Primary Dx); Diarrhea, unspecified type; Epigastric pain Start: 06-23-2024 End: 06-23-2024 Office outpatient visit 15 minutes Dayton Mayo DIRECTOR CRITICAL CARE-[employer] Work Phone: [facility] Comment on above: Benign essential hyp ertension (Primary Dx); Nonischemic cardiomyopathy (Multi); BMI 20.0-20.9, adult; Status post repair of abdominal aortic aneurysm using bifurcation graft Start: 06-23-2024 End: 06-23-2024 ambulatory [facility] Start: 04-07-2024 End: 04-07-2024 Bamboo flowsheet Millicent Mayer TV TECHNICIAN Work Phone: [facility] Start: 04-07-2024 End: 04-07-2024 Bamboo flowsheet Millicent Mayer TV TECHNICIAN Work Phone: [facility] Start: 04-07-2024 End: 04-07-2024 Assay of hemosiderin, quant Millicent Mayer TV TECHNICIAN Work Phone: [facility] Start: 04-07-2024 End: 04-07-2024 Patient encounter procedure Millicent Mayer TV TECHNICIAN Work Phone: [facility] Comment on above: Medicare annual [facility] visit, subsequent (Primary Dx); Rheumatoid arthritis with positive rheumatoid factor, involving unspecified site (CMS/HCC); Aphasia; Cerebral artery occlusion with cerebral infarction (CMS/HCC); Cerebrovascular accident (CVA) due to occlusion of right middle cerebral artery (CMS/HCC); Ischemic cardiomyopathy (CMS/HCC); Essential hypertension (CMS/HCC); Chronic gastritis without bleeding, unspecified gastritis type; Hypertensive chronic kidney disease with stage 1 through stage 4 chronic kidney disease, or unspecified chronic kidney disease (CMS/HCC); Femoral neck stress fracture, initial encounter; Myalgia; Myopathy; Disorder of parathyroid gland (CMS/HCC); Vitamin D deficiency; Thrombocytopenia (CMS/HCC); H/O hysterectomy for benign disease; History of cataract extraction, unspecified laterality; Screening for lipid disorders; Routine general medical examination at health care facility; Weight loss Start: 04-07-2024 End: 04-07-2024 ambulatory MILLICENT MAYER Not Available Start: 10-10-2023 End: 10-10-2023 Departed Referred ESPERANZA Cardona Work Phone: [facility] [place] Work Phone: Start: 10-10-2023 End: 10-10-2023 ambulatory Idalmis Cardona [facility] Work Phone: Start: 10-10-2023 End: 10-10-2023 Patient encounter procedure [facility] Work Phone: Start: 03-03-2023 Patient encounter procedure Millicent Mayer NP Work Phone: [facility] Start: 04-12-2022 Rx Renewal Rugen M Gabriella Work Phone: -[facility] DO Work Phone: Start: 02-28-2022 Rx Renewal Rugen M [place] Work Phone: [facility] [facility] DO Work Phone: Start: 11-26-2021 Office outpatient vi sit 15 minutes Rugen M [place] Work Phone: [facility] DO Work Phone: Start: 07-09-2021 End: 07-13-2021 Evaluation and management of inpatient [facility] Start: 07-09-2021 End: 07-13-2021 [facility] Work Phone: [facility] Comment on above: Closed fracture of n mundo of right femur, initial encounter ([facility]) (Primary Dx); Postoperative pain Start: 05-29-2021 AUDIT Rugen M [place] Work Phone: [facility] DO Work Phone: Start: 05-12-2020 End: 05-13-2020 Patient encounter procedure BERNARDINO RAMOS Facility:[facility] Start: 12-24-2019 End: 12-25-2019 Patient encounter procedure BERNARDINO RAMOS Facility:[facility] Start: 10-29-2019 End: 10-30-2019 Patient encounter procedure ALICE QUIROZ Facility:[facility] Start: 10-22-2019 End: 02-15-2020 Patient encounter procedure RUGSANTINO GABRIELLA Facility:[facility] Start: 10-21-2019 End: 02-15-2020 Patient encounter procedure RUGEN GABRIELLA Facility:[facility] Start: 10-08-2019 End: 10-09-2019 Patient encounter procedure RUGEN GABRIELLA Facility:[facility] Start: 10-07-2019 End: 10-08-2019 Patient encounter procedure RUGEN GABRIELLA Facility:[facility] Procedures Date Procedure Procedure Detail Performing Clinician Start: 04-07-2024 Lipid 1996 panel - Serum or Plasma Dayton Mayo DIRECTOR CRITICAL CARE-[employer] Work Phone: Start: 07-13-2021 BASIC METABOLIC PANEL W/ REFLEX TO MG FOR LOW K Manny Amaya MD Work Phone: Start: 07-13-2021 Blood count complete auto&auto difrntl wbc Manny Amaya MD Work Phone: Start: 07-13-2021 IMMATURE PLATELET FRACTION Manny Amaya MD Work Phone: Start: 07-12-2021 BASIC METABOLIC PANEL W/ REFLEX TO MG FOR LOW K Manny Amaya MD Work Phone: Start: 07-12-2021 Blood count complete auto&auto difrntl wbc Manny Amaya MD Work Phone: Start: 07-12-2021 IMMATURE PLATELET FRACTION Manny Amaya MD Work Phone: Start: 07-11-2021 Fluoroscopy during operation Manny Amaya MD Work Phone: Start: 07-11-2021 End: 07-11-2021 HIP OPEN REDUCTION INTERNAL FIXATION Manny Amaya MD Work Phone: Start: 07-11-2021 BASIC METABOLIC PANEL W/ REFLEX TO MG FOR LOW K Manny Amaya MD Work Phone: Start: 07-11-2021 Blood count complete auto&auto difrntl wbc Manny Amaya MD Work Phone: Start: 07-10-2021 BASIC METABOLIC PANEL W/ REFLEX TO MG FOR LOW K Manny Amaya MD Work Phone: Start: 07-10-2021 IMMATURE PLATELET FRACTION Patience Neil MD Work Phone: Start: 07-10-2021 Prothrombin time Patience Neil MD Work Phone: Start: 07-09-2021 Ct lower extremity w/o contrast material Andi Bethea MD Work Phone: Start: 07-09-2021 Ecg routine ecg w/least 12 lds i&r only Fuentes Leslie MD Work Phone: Start: 07-09-2021 Radiologic examination femur minimum 2 views Fuentes Leslie MD Work Phone: Start: 07-09-2021 Radiologic exam chest single view Fuentes Leslie MD Work Phone: Start: 07-09-2021 Radex hip unilateral with pelvis 2-3 views Fuentes Leslie MD Work Phone: Start: 07-09-2021 BASIC METABOLIC PANEL W/ REFLEX TO MG FOR LOW K Fuentes Leslie MD Work Phone: Start: 07-09-2021 Prothrombin time Fuentes Leslie MD Work Phone: Start: 02-17-2020 History of cataract extraction History of cataract extraction Millicent Mayer TV TECHNICIAN Work Phone: Cataract surgery Zafaren M [place] a Work Phone: History of cataract extraction History of cataract extraction, unspecified laterality Millicent Mayer TV TECHNICIAN Work Phone: Hysterectomy Zafaren M [place] Work Phone: Operative procedure on hip Rugen M [place] Work Phone: Repair of aneurysm o f abdominal aorta Rugen M Gabriella Work Phone: Plan of Treatment Date Care Activity Detail Author Start: 04-07-2029 Lipid panel Lipid Panel [facility] Start: 10-29-2027 Diabetes Screening Diabetes Screening [facility] Start: 09-30-2027 Diabetes Screening Diabetes Screening [facility] Start: 09-23-2025 Diabetes Screening Diabetes Screening [facility] Start: 06-06-2025 End: 06-06-2025 Patient encounter procedure 06/06/2025 1:00 PM EST Office Visit [address] [id number] Dayton Mayo, DIRECTOR CRITICAL CARE-[employer] [address] [place] [address] James Start: 04-29-2025 End: 07-29-2025 CBC W Auto Differential panel - Blood COMPLETE BLOOD COUNT AND DIFFERENTIAL Lab Routine Thrombocytopenia Expected: 04/29/2025 (Approximate), Expires: 07/29/2025 [facility] Work Phone: Comment on above: Expected: 04/29/2025 (Approximate), Expi res: 07/29/2025 Start: 04-29-2025 End: 07-29-2025 Comprehensive metabolic 2000 panel - Serum or Plasma COMPREHENSIVE METABOLIC PANEL Lab Routine Thrombocytopenia Expected: 04/29/2025 (Approximate), Expires: 07/29/2025 [facility] Comment on above: Expected: 04/29/2025 (Approximate), Expi res: 07/29/2025 Start: 04-21-2025 End: 04-21-2025 Follow-up encounter 04/21/2025 1:30 PM EST Visit (SP) Office Hematology/Oncology [address] [place] [address] Sid Lau MD [address] [place] [address] 6 month follow up Hematology/Oncology Comment on above: 6 month follow up Start: 04-21-2025 End: 04-21-2025 Patient encounter procedure 04/21/2025 1:15 PM EST Office Visit [facility] [address] [place] [address] 6 month follow up [facility] Comment on above: 6 month follow up Start: 03-12-2025 Screening for osteoporosis Bone Density Scan [facility] Start: 10-28-2024 End: 10-28-2024 Follow-up encounter 10/28/2024 1:00 PM EDT Visit (SP) Office Hematology/Oncology [address] [place] [address] Sid Lau MD [address] [place] [address] 4 WEEK FOLLOW UP Hematology/Oncology Comment on above: 4 WEEK FOLLOW UP Start: 10-28-2024 End: 10-28-2024 Patient encounter procedure 10/28/2024 12:45 PM EDT Office Visit [facility] [address] [place] [address] [place] [address] 4 WEEK FOLLOW UP [facility] Comment on above: 4 WEEK FOLLOW UP Start: 09-29-2024 End: 12-29-2024 COPPER BLOOD [facility] Work Phone: Comment on above: Expected: 09/29/2024, Expires: Start: 09-29-2024 End: 12-29-2024 PRIMO/ANDREW CUTLER,SER [facility] Comment on above: Expected: 09/29/2024, Expires: Start: 09-29-2024 End: 12-29-2024 PROTEIN ELECTROPHORESIS SERUM W/INTERP [facility] Comment on above: Expected: 09/29/2024, Expires: Start: 09-29-2024 End: 12-29-2024 Zinc [Mass/volume] in Serum or Plasma [facility] Comment on above: Expected: 09/29/2024, Expires: Start: 09-29-2024 End: 09-29-2024 ambulatory 09/29/2024 11:00 AM EDT Visit (SP) Office Hematology/Oncology [address] [place] [address] Sid Lau MD [address] [place] [address] D69.6 Thrombocytopenia Hematology/Oncology Comment on above: D69.6 Thrombocytopenia Start: 09-14-2024 End: 09-14-2025 Creatinine [Mass/volume] in Serum or Plasma Creatinine, Serum Lab Routine Weight loss, abnormal Diarrhea, unspecified type Epigastric pain Expected: 09/14/2024 (Approximate), Expires: 09/14/2025 [facility] Comment on above: Expected: 09/14/2024 (Approximate), Expi res: 09/14/2025 Start: 09-14-2024 End: 09-14-2025 CT Abdomen and Pelvis WO and W contrast IV CT abdomen pelvis w and wo IV contrast Imaging Routine Weight loss, abnormal Diarrhea, unspecified type Epigastric pain Expected: 09/14/2024, Expires: 09/14/2025 [facility] Work Phone: Comment on above: Expected: 09/14/2024, Expires: Start: 05-05-2024 Advance Directive Discussion Advance Directive Discussion [facility] Start: 04-07-2024 End: 04-07-2025 25-hydroxyvitamin D3 [Mass/volume] in Serum or Plasma Vitamin D 25 hydroxy Lab Routine Medicare annual wellness visit, subsequent Vitamin D deficiency Expected: 04/07/2024 (Approximate), Expires: 04/07/2025 [facility] Comment on above: Expected: 04/07/2024 (Approximate), Expi res: 04/07/2025 Start: 04-07-2024 End: 04-07-2025 CBC panel - Blood by Automated count CBC Lab Routine Medicare annual wellness visit, subsequent Cerebral artery occlusion with cerebral infarction (CMS/HCC) Essential hypertension (CMS/HCC) Chronic gastritis without bleeding, unspecified gastritis type Hypertensive chronic kidney disease with stage 1 through stage 4 chronic kidney disease, or unspecified chronic kidney disease (CMS/HCC) Expected: 04/07/2024 (Approximate), Expires: 04/07/2025 [facility] Work Phone: Comment on above: Expected: 04/07/2024 (Approximate), Expi res: 04/07/2025 Start: 04-07-2024 End: 04-07-2025 Comprehensive metabolic 2000 panel - Serum or Plasma Comprehensive metabolic panel Lab Routine Medicare annual wellness visit, subsequent Essential hypertension (CMS/HCC) Chronic gastritis without bleeding, unspecified gastritis type Expected: 04/07/2024 (Approximate), Expires: 04/07/2025 [facility] Comment on above: Expected: 04/07/2024 (Approximate), Expi res: 04/07/2025 Start: 04-07-2024 End: 04-07-2025 Lipid 1996 panel - Serum or Plasma Lipid panel Lab Routine Screening for lipid disorders Expected: 04/07/2024 (Approximate), Expires: 04/07/2025 [facility] Comment on above: Expected: 04/07/2024 (Approximate), Expi res: 04/07/2025 Start: 04-07-2024 End: 04-07-2025 Thyrotropin [Units/volume] in Serum or Plasma TSH Lab Routine Medicare annual wellness visit, subsequent Weight loss Expected: 04/07/2024 (Approximate), Expires: 04/07/2025 [facility] Comment on above: Expected: 04/07/2024 (Approximate), Expi res: 04/07/2025 Start: 04-07-2024 End: 04-07-2024 Patient encounter procedure 04/07/2024 10:30 AM EST Office Visit [facility] [address] [facility] [address] [place] [address] Millicent Mayer NP [address] [facility] [address] [place] [address] Arrived [facility] Comment on above: Arrived Start: 03-04-2024 Medicare Annual Wellness Visit Medicare Annual Wellness Visit (AWV) [facility] Start: 03-03-2024 Medicare Annual Wellness (AWV) Medicare Annual Wellness (AWV) [facility] Start: 01-04-2024 COVID-19 Vaccine ( season) COVID-19 Vaccine ( season) [facility] Start: 10-10-2023 Bacteria identified in Urine by Culture [facility] Start: 07-13-2022 Creatinine measurement Creatinine monitoring [facility] Start: 07-13-2022 Potassium monitoring Potassium monitoring [facility] Start: 06-14-2022 FUV, Provider: Bernardino Ramos, Status: Pen, Time: 1:10 PM FUV, Provider: Bernardino Ramos, Status: Pen, Time: 1:10 PM [place] [address] DO Work Phone: Start: 10-26-2021 FUV, Provider: Bernardino Ramos, Status: Pen, Time: 1:30 PM FUV, Provider: Bernardino Ramos, Status: Pen, Time: 1:30 PM -[facility] DO Work Phone: Start: 12-08-2018 Shingles Vaccine (2 of 2) Shingles Vaccine (2 of 2) [facility] nasrin Start: 2016 RSV High Risk: (Elderly (60+) or Population) (1 - 1-dose 75+ series) RSV High Risk: (Elderly (60+) or Population) (1 - 1-dose 75+ series) [facility] Start: 2016 RSV Vaccine (1 - 1-dose 75+ series) RSV Vaccine (1 - 1-dose 75+ series) [facility] Start: 2006 Screening for osteoporosis Bone Density Screening [facility] Start: 11-02-2006 Medicare Annual Wellness Visit Medicare Annual Wellness Visit [facility] Start: 1996 Screening for osteoporosis DEXA (modify frequency per FRAX score) [facility] Start: 11-15-1963 DTaP/Tdap/Td Vaccines (1 - Tdap) DTaP/Tdap/Td Vaccines (1 - Tdap) [facility] Start: 1960 DTaP/Tdap/Td vaccine (1 - Tdap) DTaP/Tdap/Td vaccine (1 - Tdap) [facility] Start: 1960 Urine microalbumin profile DTaP,Tdap,Td Vaccine (1 - Tdap) [facility] Start: 11-15-1959 Anxiety Screening Anxiety Screening [facility] Start: 11-15-1959 Depression Screening Depression Screening [facility] Start: 11-15-1959 Diabetes mellitus screening Diabetes Screening [facility] Start: 1953 Depression Screen Depression Screen [facility] Start: 1952 Screening for malignant neoplasm of cervix Cervical Cancer Screening [facility] Start: 1946 Covid-19 Vaccine (#1) Covid-19 Vaccine (#1) [facility] Start: 1946 COVID-19 Vaccine (1) COVID-19 Vaccine (1) [facility] Start: 1941 Hepatitis C screening Hepatitis C screen [employer] Basic Metabolic Pane l w/ Reflex to MG Basic Metabolic Panel w/ Reflex to MG Lab Routine Daily until discontinued starting 07/10/2021, 4 completed [employer] Work Phone: Comment on above: Daily until discontinued starting 2021, 4 completed CBC W Auto Different ial panel - Blood CBC auto differential Lab Routine Daily until discontinued starting 07/10/2021, 4 completed [employer] Work Phone: Comment on above: Daily until discontinued starting 2021, 4 completed Oxygen therapy [Mini mum Data Set] Initiate Oxygen Therapy Protocol Respiratory Care Routine Daily until discontinued starting 07/09/2021 [employer] Phone: Comment on above: Daily until discontinued starting 2021 Oxygen therapy [Mini mum Data Set] Initiate Oxygen Therapy Protocol Respiratory Care Routine As Needed until discontinued starting 07/11/2021 [employer] Phone: Comment on above: As Needed until discontinued starting Spirometry panel Incentive elie metry Respiratory Care Routine Every 2hr while awake until discontinued starting 07/11/2021 [employer] Phone: Comment on above: Every 2hr while awake until discontinued starting 07/11/2021 Immunizations Immunization Date Immunization Notes Care Provider [facility] 02-13-2024 influenza, high dose seasonal, preservative-free Alice Quiroz MD Work Phone: [facility] 03-03-2023 Influenza, High-dose Seasonal, Quadrivalent, Preservative Free Millicent Mayer TV TECHNICIAN Work Phone: [facility] 11-07-2022 zoster vaccine recombinant Millicent Mayer TV TECHNICIAN Work Phone: [facility] 09-02-2022 zoster vaccine recombinant Millicent Mayer TV TECHNICIAN Work Phone: [facility] 02-18-2022 influenza, high dose seasonal, preservative-free [place] Mayo DIRECTOR [employer] Work Phone: [facility] Work Phone: 02-18-2022 Influenza, High-dose Seasonal, Quadrivalent, Preservative Free Millicent Mayer TV TECHNICIAN Work Phone: [facility] 02-22-2021 Fluzone High-Dose Quadrivalent 0.7 ML Intramuscular Suspension Prefilled Syringe Rugen M Gabriella [facility] DO Work Phone: 02-22-2021 influenza, high dose seasonal, preservative-free Dayton Mayo DIRECTOR [employer] Work Phone: [facility] Work Phone: 08-11-2020 pneumococcal conjuga te vaccine, 13 valent Rugen M [place] Work Phone: [place] [address] DO Work Phone: 01-24-2020 influenza, injectabl e, quadrivalent, preservative free Rugen M [place] Work Phone: [facility] 01-04-2020 influenza, seasonal, injectable Rugen M Gabriella [facility] Phone[facility] Work Phone: 03-05-2019 influenza, seasonal, injectable Rugen M [place] Work Phone: [facility] DO Work Phone: 02-01-2019 Seasonal trivalent influenza vaccine, adjuvanted, preservative free Rugen M [place] Work Phone: [facility] 250 DO Work Phone: 10-13-2018 pneumococcal conjuga te vaccine, 13 valent Rugen M Gabriella Work Phone: [facility] Work Phone: 10-13-2018 zoster vaccine recombinant Rugen M [place] Work Phone: [facility] [employer] DO Work Phone: 02-07-2016 pneumococcal polysaccharide vaccine, 23 valent Alice Clouda Work Phone: [facility] Payers Date Payer Category Payer Self-pay 2017 Medicare supplementa l policy (as second payer) [employer] S[employer]MENT [id number] 5 2017 Private Health Insurance [id number] 5 2006 Medicare [id number] 5 1959 Medicare [id number] 1959 Private Health Insurance [facility] [id number] 1941 Unknown [id number] .2.593 1941 Unknown [id number] [id number] .2.59 1941 Unknown [id number] [id number] .2.59 1941 Unknown [id number] [id number] .2.59 1941 Unknown [id number] 2.16.840.1.232972.3.579 .2.59 1941 Unknown [id number] 2.16.840.1.217263.3.579 .2.59 1941 Unknown [id number] [id number] .2.593 1941 Unknown [id number] [id number] .2.593 1941 Unknown [id number] 2.16.840.1.395393.3.579 .2.173 1941 Unknown [id number] 2.16.840.1.277107.3.579 .2.1244 1941 Unknown [id number] [id number] .2.1259 1941 Unknown [id number] [id number] .2.1259 1941 Unknown [id number] [id number] .2.1259 Unknown Unknown [id number] .2.531 Social History Date Type Detail Facility Start: 03-03-2023 End: 09-29-2024 Daily caffeine consumption Daily caffeine consumption -[facility] Work Phone: Comment on above: 1 can of pop, 1/2 cu p of coffee daily; quit 2016; Start: 07-09-2021 End: 09-28-2024 Tobacco smoking status NHIS Never smoked tobacco [employer] Start: 07-09-2021 End: 09-28-2024 Tobacco use and exposure Smokeless tobacco non-user [employer] Phone: Start: 07-12-2021 End: 10-28-2024 Alcohol intake Lifetime non-drinker (finding) [employer] Phone: Start: 07-10-2021 History SDOH Alcohol Frequency 1 [employer] Phone: Start: 1940 Sex Assigned At Not on file [employer] Phone: Start: 06-13-2024 End: 06-23-2024 Exposure to SARS-CoV-2 (event) Not sure [facility] Start: 1940 Sex Assigned At Female F [facility] Start: 03-03-2023 End: 09-29-2024 Tobacco use panel [facility] Start: 11-01-2022 Alcohol Comment Caffeine intak e: 1-2 cups per day [facility] Start: 06-23-2024 Tobacco smoking stat us NHIS Ex-smoker [facility] End: 05-05-2016 History of tobacco use Current smoker [facility] Work Phone: End: 05-05-2016 History of tobacco use Cigarette Smoker [facility] Work Phone: Start: 09-23-2024 Gender identity Identifies as female gender (finding) [facility] Start: 09-23-2024 Sexual orientation Heterosexual (ash best) [facility] National Score (1-10 0), lower number is lower risk 80 [facility] Medical Equipment Procedure Code Equipment Code Equipment Origin al Text Equipment Identifier Dates Nail Im L170mm Pko15rr 130deg Sht Prox Fem Grn Ti Vijaya Rhea - [id number] Start: 07-11-2021 Blade Im L95mm Dia10.35mm Prox Fem G Ti Vijaya Fen Kristina For - [id number] Start: 07-11-2021 Screw Bne L34mm Dia5mm Tib Lt Grn Ti St Vijaya Andrew Full Thrd - [id number] Start: 07-11-2021 Functional Status Date Assessment Result Facility 09-14-2024 Patient Health Quest ionnaire 2 item (PHQ-2) [Reported] [facility] Clinical Notes 07-13-2021 to 10-28-2024 Patient InstructionsSid Lau MD - 10/28/2024 1:00 PM EDTTelephone Encounter - Flash Wells RN - 10/04/2024 8:32 AM EDTPatient Kar Quiroz MD - 09/14/2024 3:38 PM EDT Note Date & Type Note Facility 10-28-2024 Instructions Sid Lau MD - 10/28/2024 1:09 PM EDT Blood work today F/u in 6 months documented in this encounter [facility] 10-28-2024 History of Present illness Narrative PATIENT NAME: Elza Blas [facility] NO.: [id number] ATTENDING PHYSICIAN: Sid Lau MD DATE OF SERVICE: 10/28/[address] Alice Quiroz MD [address] [facility] [address] [place] [address] thank you for referring Elza Blas for an opinion regarding Thrombocytopenia. Some of the elements of this note have been copied from my previous progress note dated 09/29/24 . All the information has been reviewed carefully. CHIEF COMPLAINT: Thrombocytopenia HPI: Elza Blas is a 83 year old year old female with PMH of HTN, GERD, RA referred to us for thrombocytopenia. CT A/P (09/26/24)- Infiltration of the patient's IV precludes adequate contrast enhancement on postcontrast imaging. 2. Negative for urolithiasis. 3. Probable cyst accumulation throughout the liver. 4. Bilateral renal cysts larger on the left. 5. Vascular atherosclerotic disease. 6. Diverticulosis coli. No CT evidence of diverticulitis. 7. Negative for inflammatory phlegmon in the abdomen or pelvis. C/o intermittent diarrhea, indigestion. No smoking No alcohol. Never had an endoscopy Never had a colonoscopy. Took 2 weeks of prednisone. On folic acid and B12 supplements 1 tab daily. Lives at home with . 10/28/24: - Doing well - No major complaints. Current Outpatient Medications Medication Sig multivit-min/iron/FA/vit K/lut (MULTIVITAMIN WOMEN 50 PLUS PO) Take by mouth. ZINC ORAL Take by mouth. carvedilol (COREG) 12.5 mg tablet Take 12.5 mg by mouth two times a day with meals. folic acid 1 mg tablet Take 1 mg by mouth once daily. losartan (COZAAR) 50 mg tablet Take 50 mg by mouth once daily. methotrexate 2.5 mg tablet Take 2.5 mg by mouth as directed. omeprazole (PRILOSEC) 20 mg capsule Take 20 mg by mouth once daily. cholecalciferol (VITAMIN D3) 5,000 unit tab Take 5,000 Units by mouth once daily. No current facility-administered medications for this visit. 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 No night sweats. HEENT: Negative for headaches, No changes in hearing or vision, no nose bleeds or other nasal problems. RESPIRATORY: Negative for cough, wheezing and shortness of breath CARDIOVASCULAR: Negative for chest pain, leg swelling and palpitations GI: Negative for abdominal discomfort, blood in stools or black stools and change in bowel habits : Negative for dysuria, frequency and incontinence MUSCULOSKELETAL: Negative for joint pain or swelling, back pain, and muscle pain. SKIN: Negative for lesions, rash, and itching. HEMATOLOGY/LYMPHOLOGY Negative for prolonged bleeding, bruising easily, and swollen nodes. NEURO: Negative for numbness or tingling of hands/feet. No weakness. PHYSICAL EXAMINATION: BP 163/78 Pulse 69 Temp 36.1 C (97 F) (Temporal) Resp 18 Wt 52.8 kg (116 lb 6.5 oz) LMP (LMP Unknown) SpO2 94% There were no vitals taken for this visit. No data found for this vital: Wt General appearance:ECOG PERFORMANCE STATUS: 1- Restricted in physically strenuous activity. Carries out light duty. Patient in NAD. Skin: Skin color, texture, turgor normal. No rashes or lesions. Eyes: Anicteric sclera. Pupils are equally round and reactive to light. Extraocular movements are intact. Breast: No palpable breast masses. No nipple change or discharge. Lymph Nodes: No cervical, supraclavicular, axillary or inguinal adenopathy. Oropharynx: Lips, mucosa, and tongue normal. Back: No pain to percussion. Negative SLR test Lungs clear to auscultation, No wheezing or rhonchi Heart: RRR without murmur, gallop, or rubs. Abdomen soft, non-tender. No masses, organomegaly Extremities: No deformities. No edema Neuro: Gait and speech normal. Reflexes normal and symmetric. Muscular strength intact. Sensation grossly intact. Rectal: Deferred : Deferred LABS: Glucose (mg/dL) Date Value 09/29/2024 89 Potassium (mmol/L) Date Value 09/29/2024 4.5 Sodium (mmol/L) Date Value 09/29/2024 145 Chloride (mmol/L) Date Value 09/29/2024 108 CO2 (mmol/L) Date Value 09/29/2024 27 Creatinine (mg/dL) Date Value 09/29/2024 0.91 BUN (mg/dL) Date Value 09/29/2024 25 Anion Gap (mmol/L) Date Value 09/29/2024 10 Calcium, Total (mg/dL) Date Value 09/29/2024 10.1 Protein, Total (g/dL) Date Value 09/29/2024 5.4 09/29/2024 5.5 Albumin (g/dL) Date Value 09/29/2024 3.7 Bilirubin, Total (mg/dL) Date Value 09/29/2024 1.3 Alkaline Phosphatase (U/L) Date Value 09/29/2024 84 AST (U/L) Date Value 09/29/2024 16 ALT (U/L) Date Value 09/29/2024 27 WBC Date Value Ref Range Status 09/29/2024 8.07 3.70 - 11.00 k/uL Final RBC Date Value Ref Range Status 09/29/2024 3.40 (L) 3.90 - 5.20 m/uL Final Hemoglobin Date Value Ref Range Status 09/29/2024 12.0 11.5 - 15.5 g/dL Final Hematocrit Date Value Ref Range Status 09/29/2024 36.2 36.0 - 46.0 % Final MCV Date Value Ref Range Status 09/29/2024 106.5 (H) 80.0 - 100.0 fL Final MCH Date Value Ref Range Status 09/29/2024 35.3 (H) 26.0 - 34.0 pg Final MCHC Date Value Ref Range Status 09/29/2024 33.1 30.5 - 36.0 g/dL Final RDW-CV Date Value Ref Range Status 09/29/2024 20.1 (H) 11.5 - 15.0 % Final Platelet Count Date Value Ref Range Status 09/29/2024 133 (L) 150 - 400 k/uL Final MPV Date Value Ref Range Status 09/29/2024 9.9 9.0 - 12.7 fL Final Abs Neut Date Value Ref Range Status 09/29/2024 6.41 1.45 - 7.50 k/uL Final Lymphocytes % Date Value Ref Range Status 09/29/2024 6.4 % Final Abs Lymph Date Value Ref Range Status 09/29/2024 0.52 (L) 1.00 - 4.00 k/uL Final Monocytes % Date Value Ref Range Status 09/29/2024 12.3 % Final Abs Jewell Date Value Ref Range Status 09/29/2024 0.99 (H) <0.87 k/uL Final Abs Eosin Date Value Ref Range Status 09/29/2024 <0.03 <0.46 k/uL Final Basophils % Date Value Ref Range Status 09/29/2024 0.1 % Final Abs Baso Date Value Ref Range Status 09/29/2024 <0.03 <0.11 k/uL Final PATH: IMAGING: ASSESSMENT AND PLAN: Elza Blas is a 83 year old year old female referred to us for thrombocytopenia. H/o HTN, GERD, RA. - CBC on 09/14/2024 showed platelets of 61. - CBC on 09/29/24 showed platelets of 133. - Normal WBC and hemoglobin. Macrocytosis could be secondary to methotrexate PLAN: 1. Thrombocytopenia - ICD9: 287.5, ICD10: D69.6 - Doing well - CBC today showed stable platelets of 119. - Normal WBC and hemoglobin. Macrocytosis could be secondary to methotrexate - Continue multivitamin supplement daily. - All her questions answered in detail - Follow-up in [address] Alice Quiroz MD [address] [facility] [address] [place] [address] thank you for allowing me to participate in Elza Blas care, if there are any questions or concerns please do not hesitate to contact me at the number below. I spent a total of 20 minutes on the date of the service which included preparing to see the patient, [id number] patient care, completing clinical documentation, obtaining and/or reviewing separately obtained history, performing a medically appropriate examination, counseling and educating the patient/family/caregiver, ordering medications, tests, or procedures, communicating with other HCPs (not separately reported), independently interpreting results (not separately reported), communicating results to the patient/family/caregiver, and care coordination (not separately reported). Sid Lau MD. Hematology/Medical Oncology F [place] [phone] CC: documented in this encounter [facility] 10-28-2024 Note HNO ID: [id number] Author: SID LAU MD Service: ? Author Type: Physician Type: Progress Notes Filed: 10/28/2024 15:42 Note Text: PATIENT NAME: Elza Blas [facility] NO.: [id number] ATTENDING PHYSICIAN: Sid Lau MD DATE OF SERVICE: 10/28/[address] Alice Quiroz MD [address] [place] [address] thank you for referring Elza Blas for an opinion regarding Thrombocytopenia. Some of the elements of this note have been copied from my previous progress note dated 09/29/24 . All the information has been reviewed carefully. CHIEF COMPLAINT: Thrombocytopenia HPI: Elza Blas is a 83 year old year old female with PMH of HTN, GERD, RA referred to us for thrombocytopenia. CT A/P (09/26/24)- Infiltration of the patient's IV precludes adequate contrast enhancement on postcontrast imaging. 2. Negative for urolithiasis. 3. Probable cyst accumulation throughout the liver. 4. Bilateral renal cysts larger on the left. 5. Vascular atherosclerotic disease. 6. Diverticulosis coli. No CT evidence of diverticulitis. 7. Negative for inflammatory phlegmon in the abdomen or pelvis. C/o intermittent diarrhea, indigestion. No smoking No alcohol. Never had an endoscopy Never had a colonoscopy. Took 2 weeks of prednisone. On folic acid and B12 supplements 1 tab daily. Lives at home with . 10/28/24: - Doing well - No major complaints. Current Outpatient Medications Medication Sig multivit-min/iron/FA/vit K/lut (MULTIVITAMIN WOMEN 50 PLUS PO) Take by mouth. ZINC ORAL Take by mouth. carvedilol (COREG) 12.5 mg tablet Take 12.5 mg by mouth two times a day with meals. folic acid 1 mg tablet Take 1 mg by mouth once daily. losartan (COZAAR) 50 mg tablet Take 50 mg by mouth once daily. methotrexate 2.5 mg tablet Take 2.5 mg by mouth as directed. omeprazole (PRILOSEC) 20 mg capsule Take 20 mg by mouth once daily. cholecalciferol (VITAMIN D3) 5,000 unit tab Take 5,000 Units by mouth once daily. No current facility-administered medications for this visit. 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 No night sweats. HEENT: Negative for headaches, No changes in hearing or vision, no nose bleeds or other nasal problems. RESPIRATORY: Negative for cough, wheezing and shortness of breath CARDIOVASCULAR: Negative for chest pain, leg swelling and palpitations GI: Negative for abdominal discomfort, blood in stools or black stools and change in bowel habits : Negative for dysuria, frequency and incontinence MUSCULOSKELETAL: Negative for joint pain or swelling, back pain, and muscle pain. SKIN: Negative for lesions, rash, and itching. HEMATOLOGY/LYMPHOLOGY Negative for prolonged bleeding, bruising easily, and swollen nodes. NEURO: Negative for numbness or tingling of hands/feet. No weakness. PHYSICAL EXAMINATION: BP 163/78 Pulse 69 Temp 36.1 ?C (97 ?F) (Temporal) Resp 18 Wt 52.8 kg (116 lb 6.5 oz) LMP (LMP Unknown) SpO2 94% There were no vitals taken for this visit. No data found for this vital: Wt General appearance:ECOG PERFORMANCE STATUS: 1- Restricted in physically strenuous activity. Carries out light duty. Patient in NAD. Skin: Skin color, texture, turgor normal. No rashes or lesions. Eyes: Anicteric sclera. Pupils are equally round and reactive to light. Extraocular movements are intact. Breast: No palpable breast masses. No nipple change or discharge. Lymph Nodes: No cervical, supraclavicular, axillary or inguinal adenopathy. Oropharynx: Lips, mucosa, and tongue normal. Back: No pain to percussion. Negative SLR test Lungs clear to auscultation, No wheezing or rhonchi Heart: RRR without murmur, gallop, or rubs. Abdomen soft, non-tender. No masses, organomegaly Extremities: No deformities. No edema Neuro: Gait and speech normal. Reflexes normal and symmetric. Muscular strength intact. Sensation grossly intact. Rectal: Deferred : Deferred LABS: Glucose (mg/dL) Date Value 09/29/2024 89 Potassium (mmol/L) Date Value 09/29/2024 4.5 Sodium (mmol/L) Date Value 09/29/2024 145 Chloride (mmol/L) Date Value 09/29/2024 108 CO2 (mmol/L) (more content not included)... [facility] 10-04-2024 Telephone encounter Note Pt aware and agreeable to obtain and begin OTC Zinc, as recommended. She denies any questions, needs or concerns at this time. Follow up verified. Flash Wells RN [facility] 10-04-2024 Miscellaneous Notes Pt aware and agreeable to obtain and begin OTC Zinc, as recommended. She denies any questions, needs or concerns at this time. Follow up verified. Flash Wells RN Please tell her to take OTC zinc supplements for low zinc levels. Thank you documented in this encounter [facility] 10-01-2024 Telephone encounter Note Please tell her to take OTC zinc supplements for low zinc levels. Thank you [facility] Work Phone: 09-29-2024 Instructions Sid Lau MD - 09/29/2024 11:15 AM EDT Blood work today F/u in 4 weeks documented in this encounter [facility] 09-29-2024 History of Present illness Narrative PATIENT NAME: Elza Blas [facility] NO.: [id number] ATTENDING PHYSICIAN: Sid Lau MD DATE OF SERVICE: September 29, [address] Alice Quiroz MD [address] [place] [address] thank you for referring Elza Blas for an opinion regarding Thrombocytopenia. CHIEF COMPLAINT: Thrombocytopenia HPI: Elza Blas is a 83 year old year old female with PMH of HTN, GERD, RA referred to us for thrombocytopenia. CT A/P (09/26/24)- Infiltration of the patient's IV precludes adequate contrast enhancement on postcontrast imaging. 2. Negative for urolithiasis. 3. Probable cyst accumulation throughout the liver. 4. Bilateral renal cysts larger on the left. 5. Vascular atherosclerotic disease. 6. Diverticulosis coli. No CT evidence of diverticulitis. 7. Negative for inflammatory phlegmon in the abdomen or pelvis. C/o intermittent diarrhea, indigestion. No smoking No alcohol. Never had an endoscopy Never had a colonoscopy. Took 2 weeks of prednisone. On folic acid and B12 supplements 1 tab daily. Lives at home with . Current Outpatient Medications Medication Sig predniSONE (DELTASONE) 10 mg tablet Take by mouth. carvedilol (COREG) 12.5 mg tablet Take 12.5 mg by mouth two times a day with meals. folic acid 1 mg tablet Take 1 mg by mouth once daily. losartan (COZAAR) 50 mg tablet Take 50 mg by mouth once daily. methotrexate 2.5 mg tablet Take 2.5 mg by mouth as directed. omeprazole (PRILOSEC) 20 mg capsule Take 20 mg by mouth once daily. cholecalciferol (VITAMIN D3) 5,000 unit tab Take 5,000 Units by mouth once daily. No current facility-administered medications for this visit. 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 No night sweats. HEENT: Negative for headaches, No changes in hearing or vision, no nose bleeds or other nasal problems. RESPIRATORY: Negative for cough, wheezing and shortness of breath CARDIOVASCULAR: Negative for chest pain, leg swelling and palpitations GI: Negative for abdominal discomfort, blood in stools or black stools and change in bowel habits : Negative for dysuria, frequency and incontinence MUSCULOSKELETAL: Negative for joint pain or swelling, back pain, and muscle pain. SKIN: Negative for lesions, rash, and itching. HEMATOLOGY/LYMPHOLOGY Negative for prolonged bleeding, bruising easily, and swollen nodes. NEURO: Negative for numbness or tingling of hands/feet. No weakness. PHYSICAL EXAMINATION: BP 156/81 Pulse 67 Temp 36.3 C (97.3 F) (Temporal) Resp 16 Wt 51.4 kg (113 lb 5.1 oz) LMP (LMP Unknown) SpO2 99% There were no vitals taken for this visit. No data found for this vital: Wt General appearance:ECOG PERFORMANCE STATUS: 1- Restricted in physically strenuous activity. Carries out light duty. Patient in NAD. Skin: Skin color, texture, turgor normal. No rashes or lesions. Eyes: Anicteric sclera. Pupils are equally round and reactive to light. Extraocular movements are intact. Breast: No palpable breast masses. No nipple change or discharge. Lymph Nodes: No cervical, supraclavicular, axillary or inguinal adenopathy. Oropharynx: Lips, mucosa, and tongue normal. Back: No pain to percussion. Negative SLR test Lungs clear to auscultation, No wheezing or rhonchi Heart: RRR without murmur, gallop, or rubs. Abdomen soft, non-tender. No masses, organomegaly Extremities: No deformities. No edema Neuro: Gait and speech normal. Reflexes normal and symmetric. Muscular strength intact. Sensation grossly intact. Rectal: Deferred : Deferred LABS: No results found for: GLUC , K , NA , CHLOR , CO2 , CREAT , BUN , ANION , CA , TPROT , ALB , TBILI , ALKPHOS , AST , ALT WBC Date Value Ref Range Status 09/29/2024 8.07 3.70 - 11.00 k/uL Final RBC Date Value Ref Range Status 09/29/2024 3.40 (L) 3.90 - 5.20 m/uL Final Hemoglobin Date Value Ref Range Status 09/29/2024 12.0 11.5 - 15.5 g/dL Final Hematocrit Date Value Ref Range Status 09/29/2024 36.2 36.0 - 46.0 % Final MCV Date Value Ref Range Status 09/29/2024 106.5 (H) 80.0 - 100.0 fL Final MCH Date Value Ref Range Status 09/29/2024 35.3 (H) 26.0 - 34.0 pg Final MCHC Date Value Ref Range Status 09/29/2024 33.1 30.5 - 36.0 g/dL Final RDW-CV Date Value Ref Range Status 09/29/2024 20.1 (H) 11.5 - 15.0 % Final Platelet Count Date Value Ref Range Status 09/29/2024 133 (L) 150 - 400 k/uL Final MPV Date Value Ref Range Status 09/29/2024 9.9 9.0 - 12.7 fL Final Abs Neut Date Value Ref Range Status 09/29/2024 6.41 1.45 - 7.50 k/uL Final Lymphocytes % Date Value Ref Range Status 09/29/2024 6.4 % Final Abs Lymph Date Value Ref Range Status 09/29/2024 0.52 (L) 1.00 - 4.00 k/uL Final Monocytes % Date Value Ref Range Status 09/29/2024 12.3 % Final Abs Jewell Date Value Ref Range Status 09/29/2024 0.99 (H) <0.87 k/uL Final Abs Eosin Date Value Ref Range Status 09/29/2024 <0.03 <0.46 k/uL Final Basophils % Date Value Ref Range Status 09/29/2024 0.1 % Final Abs Baso Date Value Ref Range Status 09/29/2024 <0.03 <0.11 k/uL Final PATH: IMAGING: ASSESSMENT AND PLAN: Elza Blas is a 83 year old year old female referred to us for thrombocytopenia. H/o HTN, GERD, RA PLAN: - Explained to her in detail the various etiologies for thrombocytopenia including vitamin deficiencies, autoimmune disorders and bone marrow disorders including ITP - CBC on 09/14/2024 showed platelets of 61. - CBC today showed platelets of 133. - Normal WBC and hemoglobin. Macrocytosis could be secondary to methotrexate - Continue B12 folate supplements - Advised her to take a multivitamin supplement daily. - Check CBC CMP ferritin iron studies B12 folate copper zinc and myeloma panel - All her questions answered in detail - Follow-up in [address] Alice Quiroz MD [address] [place] [address] [address] [facility] [id number] thank you for allowing me to participate in lEza Blas care, if there are any questions or concerns please do not hesitate to contact me at the number below. I spent a total of 45 minutes on the date of the service which included preparing to see the patient, [id number] patient care, completing clinical documentation, obtaining and/or reviewing separately obtained history, performing a medically appropriate examination, counseling and educating the patient/family/caregiver, ordering medications, tests, or procedures, communicating with other HCPs (not separately reported), independently interpreting results (not separately reported), communicating results to the patient/family/caregiver, and care coordination (not separately reported). Sid Lau MD. Hematology/Medical Oncology [place] [phone] CC: documented in this encounter [facility] 09-29-2024 Note HNO ID: [id number] Author: SID LAU MD Service: ? Author Type: Physician Type: Progress Notes Filed: 09/29/2024 12:05 Note Text: PATIENT NAME: Elza Blas [facility] NO.: [id number] ATTENDING PHYSICIAN: Sid Lau MD DATE OF SERVICE: September 29, [address] Alice Quiroz MD [address] [place] [address] [address] [place] [id number] thank you for referring Elza Blas for an opinion regarding Thrombocytopenia. CHIEF COMPLAINT: Thrombocytopenia HPI: Elza Blas is a 83 year old year old female with PMH of HTN, GERD, RA referred to us for thrombocytopenia. CT A/P (09/26/24)- Infiltration of the patient's IV precludes adequate contrast enhancement on postcontrast imaging. 2. Negative for urolithiasis. 3. Probable cyst accumulation throughout the liver. 4. Bilateral renal cysts larger on the left. 5. Vascular atherosclerotic disease. 6. Diverticulosis coli. No CT evidence of diverticulitis. 7. Negative for inflammatory phlegmon in the abdomen or pelvis. C/o intermittent diarrhea, indigestion. No smoking No alcohol. Never had an endoscopy Never had a colonoscopy. Took 2 weeks of prednisone. On folic acid and B12 supplements 1 tab daily. Lives at home with . Current Outpatient Medications Medication Sig predniSONE (DELTASONE) 10 mg tablet Take by mouth. carvedilol (COREG) 12.5 mg tablet Take 12.5 mg by mouth two times a day with meals. folic acid 1 mg tablet Take 1 mg by mouth once daily. losartan (COZAAR) 50 mg tablet Take 50 mg by mouth once daily. methotrexate 2.5 mg tablet Take 2.5 mg by mouth as directed. omeprazole (PRILOSEC) 20 mg capsule Take 20 mg by mouth once daily. cholecalciferol (VITAMIN D3) 5,000 unit tab Take 5,000 Units by mouth once daily. No current facility-administered medications for this visit. 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 No night sweats. HEENT: Negative for headaches, No changes in hearing or vision, no nose bleeds or other nasal problems. RESPIRATORY: Negative for cough, wheezing and shortness of breath CARDIOVASCULAR: Negative for chest pain, leg swelling and palpitations GI: Negative for abdominal discomfort, blood in stools or black stools and change in bowel habits : Negative for dysuria, frequency and incontinence MUSCULOSKELETAL: Negative for joint pain or swelling, back pain, and muscle pain. SKIN: Negative for lesions, rash, and itching. HEMATOLOGY/LYMPHOLOGY Negative for prolonged bleeding, bruising easily, and swollen nodes. NEURO: Negative for numbness or tingling of hands/feet. No weakness. PHYSICAL EXAMINATION: BP 156/81 Pulse 67 Temp 36.3 ?C (97.3 ?F) (Temporal) Resp 16 Wt 51.4 kg (113 lb 5.1 oz) LMP (LMP Unknown) SpO2 99% There were no vitals taken for this visit. No data found for this vital: Wt General appearance:ECOG PERFORMANCE STATUS: 1- Restricted in physically strenuous activity. Carries out light duty. Patient in NAD. Skin: Skin color, texture, turgor normal. No rashes or lesions. Eyes: Anicteric sclera. Pupils are equally round and reactive to light. Extraocular movements are intact. Breast: No palpable breast masses. No nipple change or discharge. Lymph Nodes: No cervical, supraclavicular, axillary or inguinal adenopathy. Oropharynx: Lips, mucosa, and tongue normal. Back: No pain to percussion. Negative SLR test Lungs clear to auscultation, No wheezing or rhonchi Heart: RRR without murmur, gallop, or rubs. Abdomen soft, non-tender. No masses, organomegaly Extremities: No deformities. No edema Neuro: Gait and speech normal. Reflexes normal and symmetric. Muscular strength intact. Sensation grossly intact. Rectal: Deferred : Deferred LABS: No results found for: GLUC , K , NA , CHLOR , CO2 , CREAT , BUN , ANION , CA , TPROT , ALB , TBILI , ALKPHOS , AST , ALT WBC Date Value Ref Range Status 09/29/2024 8.07 3.70 - 11.00 k/uL Final RBC Date Value Ref Range Status 09/29/2024 3.40 (L) 3.90 - 5.20 m/uL Final Hemoglobin Date Value Ref Range Status 09/29/2024 12.0 11.5 - 15.5 g/dL Final Hematocrit Date Value Ref Range Status 09/29/2024 36.2 36.0 - 46.0 % Fi (more content not included)... [facility] 09-14-2024 History of Present illness Narrative Associated Problem(s): Weight loss, abnormal Add Prednisone I discussed with patient that while on prednisone, do not take any NSAIDs like Ibuprofen, Naprosyn, Alleve or motrin. Watch for any side effects like abdominal pain and nausea. Take the prednisone with food or milk. Prednisone may increase appetite. While on prednisone, watch for any sugar elevations. Associated Problem(s): Epigastric pain On OTC omeprazole Associated Problem(s): Diarrhea Cannot rule out Inflammatory bowel disease or cancer. She REFUSES Colonoscopy at this time will do a CT scan Images from the original note were not included. Subjective Patient ID: Elza Blas is a 83 y.o. female who presents for stomach issues. Pt is losing weight, indigestion , diarrhea ,pt does get very gassy after she eats, pt has tried adjusting her diet and taking her medication , she does take medication for gas that does help her This started 3 to 4 months ago , this has been getting worse She has never had a colonoscopy Current Outpatient Medications on File Prior to Visit Medication Sig Dispense Refill carvedilol (Coreg) 12.5 MG tablet Take 12.5 mg by mouth in the morning and 12.5 mg before bedtime. Cholecalciferol 125 MCG (5000 UT) chewable tablet Chew 1 tablet 1 (one) time each day. folic acid (Folvite) 1 MG tablet 1 mg in the morning. losartan (Cozaar) 50 MG tablet Take 50 mg by mouth in the morning and 50 mg before bedtime. methotrexate 2.5 MG tablet Pt is to take 4 tablets once a week 36 tablet 2 omeprazole (PriLOSEC) [address] capsule TAKE 1 CAPSULE BY MOUTH EVERY MORNING BEFORE Meals 310 capsule 0 [DISCONTINUED] carvedilol (Coreg) 6.25 MG tablet Take 0.5 tablets by mouth every 12 (twelve) hours. No current facility-administered medications on file prior to visit. I have reviewed and reconciled the history and medication list with the patient today. Allergies Allergen Reactions Food Diarrhea Green peppers Onion Diarrhea Green onions Social History Tobacco Use Smoking status: Never Smokeless tobacco: Never Vaping Use Vaping status: Every Day Substance Use Topics Alcohol use: Never Comment: Caffeine intake: 1-2 cups per day Drug use: Never Family History Problem Relation Name Age of Onset Stomach cancer Father Past Medical History: Diagnosis Date Abnormal Doppler ultrasound of carotid artery 11/01/2019 within the right and left carotid arteries 0-49% H/O CT scan 10/07/2019 CT scan of head: 4.5 x 2.6 cm area of gyral enhancement posterior frontal parietal occipital lobe. The differential diagnosis would include a vascular etiology from recent cerebral infarction versus inflammatory and infectious etiologies. H/O magnetic resonance imaging 10/08/2019 MRI Brain Right Parietal Lobe subacute infarct. Mild to moderate atrophy Hx of being hospitalized 05/13/2019 Respirator 2 months after aneurysm surgery, also had Renal failure Personal history of medical treatment 11/02/2019 EF 30-35%, LV is mildly dilated, mild diastolic dysfunction, RV is normal Personal history of medical treatment 03/08/2020 LVEF 35-40%, Global hypokinesis of the left ventricle Personal history of medical treatment 11/23/2020 The Left Ventricular Systolic function is normal with a 35-40% EF, RVSP normal, no change Personal history of medical treatment 05/13/2019 Respirator 2 months after aneurysm surgery, also had Renal Failure Squamous cell skin cancer Past Surgical History: Procedure Laterality Date ARTERIAL ANEURYSM REPAIR 05/13/2019 EYE SURGERY 02/17/2020 Cataract Right eye - Dr Tammi Mayo HYSTERECTOMY 2004 Partial IR ANGIOGRAM ENDOVASCULAR AORTIC REPAIR ORIF HIP FRACTURE 07/11/2021 SQUAMOUS CELL CARCINOMA EXCISION left clavicle Visit Vitals BP 122/78 Pulse 87 Ht 5' 5 Wt 110 lb SpO2 96% BMI 18.30 kg/m Smoking Status Never BSA 1.51 m Review of Systems Objective Physical Exam Constitutional: General: She is not in acute distress. Appearance: Normal appearance. HENT: Head: Normocephalic. Cardiovascular: Rate and Rhythm: Normal rate and regular rhythm. Pulmonary: Effort: Pulmonary effort is normal. No respiratory distress. Breath sounds: Normal breath sounds. Abdominal: General: Abdomen is flat. There is no distension. Palpations: Abdomen is soft. There is no mass. Tenderness: There is no abdominal tenderness. There is no guarding or rebound. Hernia: No hernia is present. Neurological: General: No focal deficit present. Mental Status: She is alert and oriented to person, place, and time. Psychiatric: Mood and Affect: Mood normal. Assessment/Plan Problem List Items Addressed This Visit Weight loss, abnormal - Primary Add Prednisone I discussed with patient that while on prednisone, do not take any NSAIDs like Ibuprofen, Naprosyn, Alleve or motrin. Watch for any side effects like abdominal pain and nausea. Take the prednisone with food or milk. Prednisone may increase appetite. While on prednisone, watch for any sugar elevations. Relevant Medications predniSONE (Deltasone) 10 MG tablet Other Relevant Orders CT abdomen pelvis w and wo IV contrast Creatinine, Serum Diarrhea Cannot rule out Inflammatory bowel disease or cancer. She REFUSES Colonoscopy at this time will do a CT scan Relevant Medications predniSONE (Deltasone) 10 MG tablet Other Relevant Orders CT abdomen pelvis w and wo IV contrast Creatinine, Serum Epigastric pain On OTC omeprazole Relevant Medications predniSONE (Deltasone) 10 MG tablet Other Relevant Orders CT abdomen pelvis w and wo IV contrast Creatinine, Serum Follow up in about 4 weeks (around 10/12/2024). 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 [facility] Work Phone: 06-24-2024 Miscellaneous Notes Associated Problem(s): Status post repair of abdominal aortic aneurysm using bifurcation graft Report 2020 AAA repair in [place] with 2 month hospitalization. Associated Problem(s): Nonischemic cardiomyopathy (Multi) October 2019 TTE Dilated EF 30-35% Mar 2020 TTE EF 35-40% November 2020 TTE EF 35-40% Presumed to be NICM (had open AAA repair 2019 while in [place] with 2 month hospitalization - reported pre-op ischemic evaluation) GDMT: Wilder & cozamicah added [address] Ramos Prefers to avoid any additional treatment (I believe entresto cost prohibitive) CRCL 38 FC II Stage C Associated Problem(s): Benign essential hypertension optimal in office documented in this encounter [facility] Work Phone: 06-24-2024 Evaluation + Plan note Associated Problem(s): Nonischemic cardiomyopathy (Multi) October 2019 TTE Dilated EF 30-35% Mar 2020 TTE EF 35-40% November 2020 TTE EF 35-40% Presumed to be NICM (had open AAA repair 2019 while in [place] with 2 month hospitalization - reported pre-op ischemic evaluation) GDMT: Wilder & cozaar added [address] Ramos Prefers to avoid any additional treatment (I believe entresto cost prohibitive) CRCL 38 FC II Stage C [facility] Work Phone: 06-24-2024 Evaluation + Plan note Associated Problem(s): Benign essential hypertension optimal in office [facility] Work Phone: 06-23-2024 History of Present illness Narrative Chief Complaint Doing fine Reason for Visit Annual follow-up Patient presents to the office today for outpatient follow-up for nonischemic cardiomyopathy. Last evaluated in clinic by Dr. Russo June 2023. Presents today ambulatory with steady gait. Accompanied by spouse Patient denies any hospitalizations or significant changes to interval medical history since last office follow-up. She follows routinely with PCP. Labs April 2024 reviewed. History of Present Illness Patient is an extremely pleasant 83-year-old female who appears younger than stated age. She reports to the office today reportedly feeling great . She remains active completing ADLs, doing housework including sweeping and mopping the floor. Over the summer she mows her lawn with a tractor and works in her flower garden. She ambulated in from the parking lot without complaints. She denies any type of orthopnea or PND. No dyspnea on exertion. Patient reports that overall has no complaint(s) of chest pain, chest pressure/discomfort, claudication, dyspnea, exertional chest pressure/discomfort, and fatigue Daily activity: > 4 METS Denies any change in exercise capacity or functional tolerance since last office visit. Discussed cardiomyopathy and guideline directed treatment. She is very reluctant to make any changes and is very happy where I am . Review of Systems Cardiovascular: Negative for chest pain, dyspnea on exertion, irregular heartbeat, leg swelling, near-syncope, orthopnea, palpitations, paroxysmal nocturnal dyspnea and syncope. Visit Vitals BP 116/74 (BP Location: Right arm, Patient Position: Sitting) Pulse 68 Ht 1.651 m (5' 5 ) Wt 54.8 kg (120 lb 12.8 oz) BMI 20.10 kg/m Smoking Status Former BSA 1.59 m Physical Exam Vitals and nursing note reviewed. HENT: Head: Normocephalic. Cardiovascular: Rate and Rhythm: Normal rate and regular rhythm. Heart sounds: Normal heart sounds. Pulmonary: Effort: Pulmonary effort is normal. Breath sounds: Normal breath sounds. Abdominal: Palpations: Abdomen is soft. Musculoskeletal: Right lower leg: No edema. Left lower leg: No edema. Skin: General: Skin is warm and dry. Neurological: General: No focal deficit present. Mental Status: She is alert. Psychiatric: Mood and Affect: Mood normal. Behavior: Behavior normal. No Known Allergies Current Outpatient Medications Medication Instructions calcium carbonate (CALCIUM 600 ORAL) 1 tablet, Daily carvedilol (COREG) 12.5 mg, oral, 2 times daily cholecalciferol (VITAMIN D3) 1,000 Units, Daily losartan (COZAAR) 50 mg, oral, 2 times daily methotrexate (Trexall) 2.5 mg tablet 4 tablets, Once Weekly omeprazole (PRILOSEC) 20 mg, Daily before breakfast Assessment: Benign essential hypertension optimal in office Nonischemic cardiomyopathy (Multi) October 2019 TTE Dilated EF 30-35% Mar 2020 TTE EF 35-40% November 2020 TTE EF 35-40% Presumed to be NICM (had open AAA repair 2019 while in [place] with 2 month hospitalization - reported pre-op ischemic evaluation) GDMT: Coreg & cozaar added [address] Ramos Prefers to avoid any additional treatment (I believe entresto cost prohibitive) CRCL 38 FC II Stage C Status post repair of abdominal aortic aneurysm using bifurcation graft Report 2019 AAA repair in [place] with 2 month hospitalization. Plan: Through informed decision making process incorporating patients unique circumstances, the following treatment plan will be initiated: 1. Prescription drug management of cardiovascular medication for efficacy, adherence to treatment, side effect assessment and polypharmacy. Current treatment clinically warranted and to continue without modifications. 2. Return for follow-up; in the interim, contact the office if new symptoms arise. TV TECHNICIAN annual [place] Mayo MSN, DIRECTOR CRITICAL CARE-[employer], PMHNP-BC [facility] [place], [place] Please excuse any errors in grammar or translation related to this dictation. Voice recognition software was utilized to prepare this document. documented in this encounter [facility] Work Phone: 06-23-2024 Instructions IVY Whiting - 06/23/2024 1:00 PM EST Please bring all medicines, vitamins, and herbal supplements with you when you come to the office. Prescriptions will not be filled unless you are compliant with your follow up appointments or have a follow up appointment scheduled as per instruction of your physician. Refills should be requested at the time of your visit. PLAN: Through informed decision making process incorporating patients unique circumstances, the following treatment plan will be initiated: 1. Prescription drug management of cardiovascular medication for efficacy, adherence to treatment, side effect assessment and polypharmacy. Current treatment clinically warranted and to continue without modifications. 2. Return for follow-up; in the interim, contact the office if new symptoms arise. TV TECHNICIAN annual documented in this encounter [facility] Work Phone: 04-07-2024 History of Present illness Narrative Images from the original note were not included. Subjective Patient ID: Elza Blas is a 83 y.o. female who presents for a Medicare Wellness. Elza is here today for her Medicare Wellness. Patient says she is not feeling well, very tired, not eatingand had diarrhea. Current Outpatient Medications on File Prior to Visit Medication Sig Dispense Refill carvedilol (Coreg) 6.25 MG tablet Take 0.5 tablets by mouth every 12 (twelve) hours. Cholecalciferol 125 MCG (5000 UT) chewable tablet Chew 1 tablet 1 (one) time each day. folic acid (Folvite) 1 MG tablet 1 mg in the morning. losartan (Cozaar) 50 MG tablet Take 50 mg by mouth in the morning and 50 mg before bedtime. methotrexate 2.5 MG tablet Pt is to take 4 tablets once a week 36 tablet 2 omeprazole (PriLOSEC) [address] capsule Take 1 capsule (20 mg) by mouth in the morning. Take before meals. 100 capsule 3 No current facility-administered medications on file prior to visit. I have reviewed and reconciled the history and medication list with the patient today. Allergies Allergen Reactions Food Diarrhea Green peppers Onion Diarrhea Green onions Social History Tobacco Use Smoking status: Never Smokeless tobacco: Never Substance Use Topics Alcohol use: Never Comment: Caffeine intake: 1-2 cups per day Drug use: Never Family History Problem Relation Name Age of Onset Stomach cancer Father Past Medical History: Diagnosis Date Abnormal Doppler ultrasound of carotid artery 11/01/2019 within the right and left carotid arteries 0-49% H/O CT scan 10/07/2019 CT scan of head: 4.5 x 2.6 cm area of gyral enhancement posterior frontal parietal occipital lobe. The differential diagnosis would include a vascular etiology from recent cerebral infarction versus inflammatory and infectious etiologies. H/O magnetic resonance imaging 10/08/2019 MRI Brain Right Parietal Lobe subacute infarct. Mild to moderate atrophy Hx of being hospitalized 05/13/2019 Respirator 2 months after aneurysm surgery, also had Renal failure Personal history of medical treatment 11/02/2019 EF 30-35%, LV is mildly dilated, mild diastolic dysfunction, RV is normal Personal history of medical treatment 03/08/2020 LVEF 35-40%, Global hypokinesis of the left ventricle Personal history of medical treatment 11/23/2020 The Left Ventricular Systolic function is normal with a 35-40% EF, RVSP normal, no change Personal history of medical treatment 05/13/2019 Respirator 2 months after aneurysm surgery, also had Renal Failure Squamous cell skin cancer Past Surgical History: Procedure Laterality Date ARTERIAL ANEURYSM REPAIR 05/13/2019 EYE SURGERY 02/17/2020 Cataract Right eye - Dr Tammi Mayo HYSTERECTOMY 2004 Partial IR ANGIOGRAM ENDOVASCULAR AORTIC REPAIR ORIF HIP FRACTURE 07/11/2021 SQUAMOUS CELL CARCINOMA EXCISION left clavicle Visit Vitals Smoking Status Never Review of Systems Constitutional: Positive for unexpected weight change. HENT: Negative. Eyes: Negative. Respiratory: Negative. Cardiovascular: Negative. Gastrointestinal: Negative. Genitourinary: Negative. Musculoskeletal: Negative. Skin: Negative. Neurological: Negative. Psychiatric/Behavioral: Negative. Objective Physical Exam Vitals reviewed. Constitutional: Appearance: Normal appearance. She is normal weight. HENT: Head: Normocephalic. Right Ear: Tympanic membrane normal. Left Ear: Tympanic membrane normal. Nose: Nose normal. Mouth/Throat: Mouth: Mucous membranes are moist. Pharynx: Oropharynx is clear. Eyes: Conjunctiva/sclera: Conjunctivae normal. Cardiovascular: Rate and Rhythm: Normal rate and regular rhythm. Pulmonary: Effort: Pulmonary effort is normal. Breath sounds: Normal breath sounds. Abdominal: General: Bowel sounds are normal. Palpations: Abdomen is soft. Musculoskeletal: General: Normal range of motion. Cervical back: Normal range of motion and neck supple. Skin: General: Skin is warm and dry. Neurological: General: No focal deficit present. Mental Status: She is alert and oriented to person, place, and time. Psychiatric: Mood and Affect: Mood normal. Behavior: Behavior normal. Assessment/Plan Diagnoses and all orders for this visit: Medicare annual wellness visit, subsequent - CBC; Future - Comprehensive metabolic panel; Future - Vitamin D 25 hydroxy; Future Reviewed all relevant preventative screenings with the patient in detail. Medicare Wellness form completed and will be scanned into patient's chart. All needed testing was ordered. Will continue with yearly Medicare Wellness exams. - TSH; Future Rheumatoid arthritis with positive rheumatoid factor, involving unspecified site (CMS/HCC) - methotrexate 2.5 MG tablet; Pt is to take 4 tablets once a week This is a chronic medical condition that is stable since last assessment. No changes in treatment are suggested at this time. Aphasia This is a chronic medical condition that is stable since last assessment. No changes in treatment are suggested at this time. Cerebral artery occlusion with cerebral infarction (CMS/HCC) - CBC; Future This is a chronic medical condition that is stable since last assessment. No changes in treatment are suggested at this time. Cerebrovascular accident (CVA) due to occlusion of right middle cerebral artery (CMS/HCC) This is a chronic medical condition that is stable since last assessment. No changes in treatment are suggested at this time. Ischemic cardiomyopathy (CMS/HCC) This is a chronic medical condition that is stable since last assessment. No changes in treatment are suggested at this time. Essential hypertension (CMS/HCC) - CBC; Future - Comprehensive metabolic panel; Future Patient's blood pressure is currently well controlled. Continue with current medications and I will continue to monitor. Goal BP remains less than 130/80. Chronic gastritis without bleeding, unspecified gastritis type - CBC; Future - Comprehensive metabolic panel; Future This is a chronic medical condition that is stable since last assessment. No changes in treatment are suggested at this time. Hypertensive chronic kidney disease with stage 1 through stage 4 chronic kidney disease, or unspecified chronic kidney disease ([facility]/HCC) - CBC; Future Patient's blood pressure is currently well controlled. Continue with current medications and I will continue to monitor. Goal BP remains less than 130/80. Femoral neck stress fracture, initial encounter This has resolved. Myalgia This is a chronic medical condition that is stable since last assessment. No changes in treatment are suggested at this time. Myopathy This is a chronic medical condition that is stable since last assessment. No changes in treatment are suggested at this time. 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 No changes in treatment are suggested at this time. Vitamin D deficiency - Vitamin D 25 hydroxy; Future Await lab Thrombocytopenia ([facility]/HCC) Await lab H/O hysterectomy for benign disease This is a chronic medical condition that is stable since last assessment. No changes in treatment are suggested at this time. History of cataract extraction, unspecified laterality This is a chronic medical condition that is stable since last assessment. No changes in treatment are suggested at this time. Screening for lipid disorders - Lipid panel; Future Await lab Routine general medical examination at health care facility Wellness form reviewed in detail with the patient. Encouraged patient to stay up to date on immunizations and preventative testing. Encouraged healthy diet, stay active. Will continue with yearly wellness exams. Weight loss - TSH; Future Await lab No follow-ups on file. documented in this encounter [facility] 07-13-2021 History of Present illness Narrative Patient leaving floor at this time via wheelchair, belongings in hand. Youth Corrections Officer spoke with Dr. Amaya via telephone at this time, per Dr. Amaya, put an aquacell dressing on the incisions. Aquacell dressing applied. Discharge instructions reviewed with patient and family at this time. Patient and family verbalize understanding, deny questions at this time. Will escort patient to private car shortly. [facility] is accepted with [facility]. Discharge information and order faxed to [facility] and they will reach out to pt to schedule visit. Pt is discharged to home today with [facility], pt has a walker at home per pr and dtr, and no further needs identified. [facility] referral cancelled. Idalmis [employer] DESIGN[employer] 07/13/2021 SW met with pt this morning to discuss discharge planning again. Pt states that she is going home with services and the social work girl was arranging it. SW explained that HH would be arranged but needed choice of agency. [place] of choice list provided and pt chooses [facility] out of [place]. Referral made to [facility] for RN PT and OT services and await response if they can accept pt. Following. Idalmis [employer] DES[employer] 07/13/2021 Shift assessment and vitals obtained at this time as charted. Vitals WNL, patient denies pain and is alert and oriented x4. Dressings to right hip dry and intact with small amount of old drainage present. Capillary refill to right foot less than 3 seconds and pulse palpable. Patient is resting quietly in the bed, denies any needs at this time. Will continue to monitor. Vitals and assessment complete at this time. Youth Corrections Officer discussed patient's progress with transferring and ambulation. Patient continues to deny pain. Youth Corrections Officer informed patient that she would be starting to walk to the bathroom as she is steady and her choice is to be discharged home with therapy. Patient states she will be compliant but was not happy with having to walk to the bathroom. Patient states I just feel like I should be allowed to lay in bed and rest for a few days being that I just had a surgery. Youth Corrections Officer did educate patient on the benefits of early mobilization including reducing the risk of pneumonia, increasing blood flow and reducing the risk of blood clots, reducing muscle and joint stiffness, and regaining independence. Patient accepted teaching. Youth Corrections Officer walked patient through the medications that would be administered tonight and encouraged patient to ask questions about the medications and therapies. Patient denies needs at this time. Will continue to monitor and assess. The discharge plan is now home with [facility] for therapy and Lovenox teaching. SWK to follow up tomorrow about which [facility] for her follow up care. [facility] Facility/Department: [facility] Daily Treatment Note NAME: Elza Blas : 1940 Date of Service: 07/12/2021 Discharge Recommendations: Continue to assess pending progress (hoping for home with services) Assessment Treatment Diagnosis: right hip pain, difficulty walking Prognosis: Good Decision Making: Low Complexity PT Education: Goals;General Safety;Gait Training;PT Role;Plan of Care Patient Education: Educated pt. and family the benifits of rehab facility post d/c. Pt. was upset and feels she does not need it and family can help her into home with 2 steps. WAREHOUSE PICKER expressed conerns to pt. and family at this time. REQUIRES PT FOLLOW UP: Yes Activity Tolerance Activity Tolerance: Patient Tolerated treatment well Patient Diagnosis(es): The primary encounter diagnosis was Closed fracture of neck of right femur, initial encounter (HCC). A diagnosis of Postoperative pain was also pertinent to this visit. has a past medical history of Arthritis, Cerebral artery occlusion with cerebral infarction (HCC), Hypertension, Pneumonia, and Thrombocytopenia (HCC). has a past surgical history that includes Abdominal aortic aneurysm repair; Hysterectomy; hip surgery (Right, 07/11/2021); and Hip fracture surgery (Right, 07/11/2021). Restrictions Restrictions/Precautions Restrictions/Precautions: General Precautions,Fall Risk,Weight Bearing Lower Extremity Weight Bearing Restrictions Right Lower Extremity Weight Bearing: Weight Bearing As Tolerated Subjective General Chart Reviewed: Yes Response To Previous Treatment: Patient with no complaints from previous session. Family / Caregiver Present: Yes Subjective Subjective: Pt. on BSc upon arrival, agreeable to therapy and back to bed for dressing change of hip. Orientation Orientation Overall Orientation Status: Within Normal Limits Cognition Objective Bed mobility Rolling to Right: Stand by assistance Sit to Supine: Minimal assistance;Moderate assistance Scooting: Stand by assistance;Contact guard assistance Transfers Sit to Stand: Contact guard assistance;Minimal Assistance Stand to sit: Contact guard assistance Ambulation Ambulation?: Yes Ambulation 1 Surface: level tile Device: Rolling Walker Assistance: Contact guard assistance;Minimal assistance Gait Deviations: Slow Rakel;Decreased step length;Decreased step height;Shuffles Distance: 10ft Comments: limits WB on right LE, pt. slides feet and will not pick feet up to step with gait. V/C for proper step length and directional use of walker Exercises Comments: Seated exercises R Le x10 with tactile and v/cs to complete ROM with increased encouragement to complete task. Pt. staes I can't do it. with assistance and encouragement pt. is able to complete exercises with increased time. Comment: BSC use and transfer Goals Short term goals Time Frame for Short term goals: 3 weeks Short term goal 1: Pt to ambulate 35ft with RW and no LOB. Short term goal 2: Pt to demo good standing balance for decrease fall risk. Short term goal 3: Pt to tolerate 20-30 mins ther ex/act for improved strength and endurance. Short term goal 4: Pt to perform all bed mob, transfers, and gait with supervision. Patient Goals Patient goals : home following discharge Plan Plan Times per week: 7x week Times per day: Twice a day Safety Devices Type of devices: All fall risk precautions in place,Bed alarm in place,Call light within reach,Left in bed,Gait belt,Nurse notified Therapy Time Individual Concurrent Group Co-treatment Time In 1415 Time Out 1441 Minutes 26 Mary Dick PTA Optifoam dressing changed on top surgical site due to sanguinous saturation. Patient tolerated well. Patient and wants home health. No longer wants skilled facility. Informed Tiffany Gilbert and she is aware of this Images from the original note were not included. [address] , [place], [place], [address] Attestation Patient: Elza Blas Date of Admission: 07/09/2021 10:32 AM Hospital Day # 3 Date of Evaluation: 07/12/2021 I personally evaluated and examined the patient [id number] in conjunction with the PA/TV TECHNICIAN and agree with the management and dispostition of the patient. Please see the PA/TV TECHNICIAN's note for full details. My harrison findings are: SUBJECTIVE: Patient seen for follow up of Right hip pain. She is doing well this morning. She states that she had some good sleep last night. She has minimal discomfort at the site of the surgery. States that the dressing has been clean dry and intact although that there was some bloody drainage originally that has stopped. Her pain is under good control. She is looking forward to working with therapy today. No n/v/d, tolerating her diet well without any fevers/chills. VSS. H/H stable, Cr stable. Patient states she will think about rehab vs. Home health depending on how she does today with therapy and let us know her choice. OBJECTIVE: Vitals: Temp: 97.5 F (36.4 C) BP: 118/81 Resp: 15 Pulse: 76 SpO2: 96 % Weight Wt Readings from Last 3 Encounters: 07/12/21 128 lb (58.1 kg) Body mass index is 21.97 kg/m . 24HR INTAKE/OUTPUT: Intake/Output Summary (Last 24 hours) at 07/12/2021 1853 Last data filed at 07/12/2021 1400 Gross per 24 hour Intake 2664 ml Output 625 ml Net 2039 ml - Exam: GEN: Awake, alert and oriented x3. EYES: EOMI, pupils equal NECK: Supple. No lymphadenopathy. No carotid bruit CVS: regular rate and rhythm, no audible murmur PULM: CTA, no wheezes, rales or rhonchi, no acute respiratory distress ABD: Bowels sounds normal. Abdomen is soft. No distention. no tenderness to palpation. EXT: no edema bilaterally . No calf tenderness. 2 dressings right hip are d/i, with dried sanguineous drainage present. NEURO: Moves all extremities. Motor and sensory are grossly intact SKIN: No rashes. No skin lesions. DATA: Complete Blood Count: Recent Labs 07/10/21 0540 07/11/21 0550 07/12/21 0535 WBC 9.7 14.9* 10.9 RBC 3.86* 3.79* 3.38* HGB 12.8 12.7 11.1* HCT 37.6 38.0 33.6* MCV 97.4 100.3 99.4 RDW 14.2 14.2 14.1 PLT See Reflexed IPF Result 129* See Reflexed IPF Result Recent Labs 07/10/21 0540 07/11/21 0550 07/12/21 0535 SEGS 91* 90* 89* NEUTROABS 8.82* 13.35* 9.69* LYMPHOPCT 7* 4* 4* LYMPHSABS 0.68* 0.62* 0.48* MONOPCT 1* 5 5 EOSRELPCT 0* 0* 0* BASOPCT 0 0 0 IMMGRAN 1* 1* 1* CMP: Lab Results Component Value Date GLUCOSE 131 (H) 07/12/2021 BUN 28 (H) 07/12/2021 CREATININE 1.12 (H) 07/12/2021 NA 137 07/12/2021 K 4.8 07/12/2021 CALCIUM 9.3 07/12/2021 CL 102 07/12/2021 CO2 28 07/12/2021 UA: No results found for: COLORU, CLARITYU, SPECGRAV, WBCUA, RBCUA, EPITHUA, LEUKOCYTESUR, GLUCOSEU, BLOODU, KETUA, PROTEINU, HGBUR, CASTUA, CRYSTUA, BACTERIA, YEAST Lactic Acid: No results found for: LACTA High Sensitivity Troponin: No results for input(s): TROPHS in the last 72 hours. Radiology/Imaging: FLUORO FOR SURGICAL PROCEDURES Final Result CT HIP RIGHT WO CONTRAST Final Result Acute mildly comminuted and displaced right intertrochanteric femoral fracture. XR FEMUR RIGHT (MIN 2 VIEWS) Final Result No acute abnormality visualized right femur. Additional findings, as above. XR CHEST PORTABLE Final Result No prior study available comparison. Probable chronic changes/COPD and mild cardiomegaly. RECOMMENDATION: If prior chest x-ray studies are available, they should be reviewed. XR HIP 2-3 VW W PELVIS RIGHT Final Result Femoral neck fracture. ASSESSMENT: Principal Problem: Right hip pain Active Problems: Femoral neck stress fracture, initial encounter - Right Hypertension Arthritis Thrombocytopenia (HCC) Resolved Problems: * No resolved hospital problems. * PLAN: I agree with the plan as outlined in the TV TECHNICIAN's note Disposition: Discharge plan is pending Please note that this chart was generated using voice recognition [employer] dictation software. Although every effort was made to ensure the accuracy of this automated federal mediator, some errors in federal mediator may have occurred. Patience Neil MD 07/12/2021 6:53 PM Progress Note SUBJECTIVE: Patient seen for f/u of Right hip pain. She in bed alert oriented no acute distress. No complaints except when she moves. No further spasms. ROS: Constitutional: negative for fevers, and negative for chills. Respiratory: negative for shortness of breath, negative for cough, and negative for wheezing Cardiovascular: negative for chest pain, and negative for palpitations Gastrointestinal: negative for abdominal pain, negative for nausea,negative for vomiting, negative for diarrhea, and negative for constipation All other systems were reviewed with the patient and are negative unless otherwise stated in HPI OBJECTIVE: Vitals: Vitals: 07/12/21 0800 BP: (!) 141/74 Pulse: 70 Resp: 16 Temp: 97 F (36.1 C) SpO2: 95% Weight: 128 lb (58.1 kg) Height: 5' 4 (162.6 cm) Weight Wt Readings from Last 3 Encounters: 07/12/21 128 lb (58.1 kg) Body mass index is 21.97 kg/m . 24HR INTAKE/OUTPUT: Intake/Output Summary (Last 24 hours) at 07/12/2021 0924 Last data filed at 07/12/2021 0539 Gross per 24 hour Intake 1250 ml Output 1550 ml Net -300 ml - Exam: GEN: Awake, alert and oriented x3. EYES: EOMI, pupils equal NECK: Supple. No lymphadenopathy. No carotid bruit CVS: regular rate and rhythm, no audible murmur PULM: CTA, no wheezes, rales or rhonchi, no acute respiratory distress ABD: Bowels sounds normal. Abdomen is soft. No distention. no tenderness to palpation. EXT: no edema bilaterally . No calf tenderness. Dressing to right hip CDI NEURO: Moves all extremities. Motor and sensory are grossly intact SKIN: No rashes. No skin lesions. - Diagnostic Data: Complete Blood Count: Recent Labs 07/09/21 1100 07/09/21 1100 07/10/21 0540 07/11/21 0550 07/12/21 0535 WBC 6.1 < > 9.7 14.9* 10.9 RBC 3.86* < > 3.86* 3.79* 3.38* HGB 12.9 < > 12.8 12.7 11.1* HCT 39.9 < > 37.6 38.0 33.6* MCV 103.4* < > 97.4 100.3 99.4 MCH 33.4 < > 33.2 33.5 32.8 MCHC 32.3 < > 34.0 33.4 33.0 RDW 14.6* < > 14.2 14.2 14.1 PLT 126* < > See Reflexed IPF Result 129* See Reflexed IPF Result MPV 11.3 -- -- 10.5 -- < > = values in this interval not displayed. Last 3 Blood Glucose: Recent Labs 07/09/21 1100 07/10/21 0540 07/11/21 0550 07/12/21 0535 GLUCOSE 87 158* 121* 131* Comprehensive Metabolic Profile: Recent Labs 07/10/21 0540 07/11/21 0550 07/12/21 0535 NA 139 140 137 K 4.2 4.9 4.8 CL 104 104 102 CO2 24 25 28 BUN 23 27* 28* CREATININE 1.01* 1.10* 1.12* GLUCOSE 158* 121* 131* CALCIUM 9.9 9.9 9.3 Urinalysis: No results found for: NITRU, COLORU, PHUR, LABCAST, WBCUA, RBCUA, MUCUS, TRICHOMONAS, YEAST, BACTERIA, CLARITYU, SPECGRAV, LEUKOCYTESUR, UROBILINOGEN, BILIRUBINUR, BLOODU, GLUCOSEU, KETUA, AMORPHOUS HgBA1c: No results found for: LABA1C Lactic Acid: No results found for: LACTA Troponin: No results for input(s): TROPONINI in the last 72 hours. CRP: No results for input(s): CRP in the last 72 hours. Radiology/Imaging: FLUORO FOR SURGICAL PROCEDURES Final Result CT HIP RIGHT WO CONTRAST Final Result Acute mildly comminuted and displaced right intertrochanteric femoral fracture. XR FEMUR RIGHT (MIN 2 VIEWS) Final Result No acute abnormality visualized right femur. Additional findings, as above. XR CHEST PORTABLE Final Result No prior study available comparison. Probable chronic changes/COPD and mild cardiomegaly. RECOMMENDATION: If prior chest x-ray studies are available, they should be reviewed. XR HIP 2-3 VW W PELVIS RIGHT Final Result Femoral neck fracture. ASSESSMENT / PLAN: Right hip pain Continue current therapy POD #[address] Bethea Received block for pain control PT and OT Appreciate director of social work for discharge planning Hypertension ? Continue losartan ? Continue Coreg 12.5 mg twice daily ? Continue Aldactone Rheumatoid arthritis ? Continue Rheumatrex Thrombocytopenia Trend platelet count-stable Likely due to RA Reviewed with Dr. Bethea no concerns for surgery Will monitor bleeding postop Nutrition status: Well developed, well nourished with no malnutrition Hearing Therapy Director consult initiated Hospital Prophylaxis: DVT: Lovenox Stress Ulcer: H2 Rima High risk medications: none Disposition: Discharge plan is Home versus SNF tomorrow Continue Lovenox on DC F/u with Dr. Ananda Amaya in 2 weeks Leanne King, DIRECTOR CRITICAL CARE - [employer] , DIRECTOR CRITICAL CARE, TV TECHNICIAN-C Hospitalist Medicine 07/12/2021, 9:24 AM Patient alert and oriented x 4. Vital signs and head to toe assessment performed. Left hip surgery performed yesterday by Dr. Amaya. Two surgical dressings in place (moderate sanguinous drainage on top dressing and spotted serosanguinous on bottom dressing. Yuri from surgery will bring up more dressings (optifoam) and I will change dressing if saturation gets any worse. Was able to get patient up to chair with PT/OT. Correia cath removed and patient tolerated this well. Bed in lowest position with bed alarm on and bed wheels locked. Call light and patient belongings in reach. Instructed to use call light for assistance. Department of Orthopedic Surgery Progress Note Subjective: No complaints. Doing well postoperatively. Patient denies pain at rest. She has yet to be out of bed. Vitals VITALS: BP 137/64 Pulse 71 Temp 97.5 F (36.4 C) (Temporal) Resp 14 Ht 5' 4 (1.626 m) Wt 128 lb (58.1 kg) SpO2 95% BMI 21.97 kg/m PHYSICAL EXAM: General: in no apparent distress, alert and oriented times 3 Right Lower Extremity Incision: dressing in place, moderate blood showing on proximal dressing Neurologic: Moving lower extremity as appropriate following sugery. Able to dorsiflex and plantar flex foot/ankle. Intact to gross sensation and touch in lower extremity. Vascular: present 2+ lower extremity. Calf soft, non-tender. Abnormal Exam findings: none LABS: Hgb: Lab Results Component Value Date HGB 11.1 07/12/2021 ASSESSMENT AND PLAN: Post operative day 1 status post right femur short CM nail. 1: Weight bearing as tolerated 2: Continue Deep venous thrombosis prophylaxis - Lovenox 3: Continue physical therapy 4: D/C Plan: detention facility 5: Continue Pain Control 6: Rx left for [place] & Lovenox for discharge 7: F/U with Dr. Ananda Amaya in 2 weeks. Vitals and assessment complete at this time. Youth Corrections Officer explained to patient that she had pain medications available but would need to call out if she wanted them. Youth Corrections Officer also educated patient on the antibiotic she would be getting at 2300. Patient denies questions about her therapy at this time. Youth Corrections Officer explained to patient that she would likely be getting up tomorrow with therapy if possible and that her correia catheter would be removed at 0800 07/12. Patient declines needing anything for pain control at this time. The proximal dressing has a moderate amount of sanguinous drainage. Ice was applied to the surgical site. Patient denies needs at this time. Will continue to monitor and assess. Pt returned from surgery to room. Report received. VS taken, pt SP02 88% pt placed on 2L O2 NC, pt does not complain of any pain. Will continue to monitor. Patient accepted at [facility] for rehab placement following this hospitalization. SHAQ Jhaveri 07/11/2021 Patient updated with new OR time. Patient very excited to have surgery completed. VS and assessment completed. Correia emptied. Denies pain, and any other needs. Will continue to monitor. RN updated daughter with new OR time. Daughter Irasema will update rest of family. Progress Note SUBJECTIVE: Patient seen for f/u of Right hip pain. She in bed alert oriented no acute distress. No complaints except when she moves. No further spasms. Planning OR today ROS: Constitutional: negative for fevers, and negative for chills. Respiratory: negative for shortness of breath, negative for cough, and negative for wheezing Cardiovascular: negative for chest pain, and negative for palpitations Gastrointestinal: negative for abdominal pain, negative for nausea,negative for vomiting, negative for diarrhea, and negative for constipation All other systems were reviewed with the patient and are negative unless otherwise stated in HPI OBJECTIVE: Vitals: Vitals: 07/11/21 0657 BP: 120/72 Pulse: 74 Resp: 18 Temp: 97.6 F (36.4 C) SpO2: 94% Weight: 125 lb (56.7 kg) Height: 5' 4 (162.6 cm) Weight Wt Readings from Last 3 Encounters: 07/11/21 125 lb (56.7 kg) Body mass index is 21.46 kg/m . 24HR INTAKE/OUTPUT: Intake/Output Summary (Last 24 hours) at 07/11/2021 1133 Last data filed at 07/11/2021 0456 Gross per 24 hour Intake 1236.1 ml Output 2050 ml Net -813.9 ml - Exam: GEN: Awake, alert and oriented x3. EYES: EOMI, pupils equal NECK: Supple. No lymphadenopathy. No carotid bruit CVS: regular rate and rhythm, no audible murmur PULM: CTA, no wheezes, rales or rhonchi, no acute respiratory distress ABD: Bowels sounds normal. Abdomen is soft. No distention. no tenderness to palpation. EXT: no edema bilaterally . No calf tenderness. NEURO: Moves all extremities. Motor and sensory are grossly intact SKIN: No rashes. No skin lesions. - Diagnostic Data: Complete Blood Count: Recent Labs 07/09/21 1100 07/10/21 0540 07/11/21 0550 WBC 6.1 9.7 14.9* RBC 3.86* 3.86* 3.79* HGB 12.9 12.8 12.7 HCT 39.9 37.6 38.0 MCV 103.4* 97.4 100.3 MCH 33.4 33.2 33.5 MCHC 32.3 34.0 33.4 RDW 14.6* 14.2 14.2 PLT 126* See Reflexed IPF Result 129* MPV 11.3 -- 10.5 Last 3 Blood Glucose: Recent Labs 07/09/21 1100 07/10/21 0540 07/11/21 0550 GLUCOSE 87 158* 121* Comprehensive Metabolic Profile: Recent Labs 07/09/21 1100 07/10/21 0540 07/11/21 0550 NA 138 139 140 K 4.2 4.2 4.9 CL 105 104 104 CO2 25 24 25 BUN 21 23 27* CREATININE 1.05* 1.01* 1.10* GLUCOSE 87 158* 121* CALCIUM 10.1 9.9 9.9 Urinalysis: No results found for: NITRU, COLORU, PHUR, LABCAST, WBCUA, RBCUA, MUCUS, TRICHOMONAS, YEAST, BACTERIA, CLARITYU, SPECGRAV, LEUKOCYTESUR, UROBILINOGEN, BILIRUBINUR, BLOODU, GLUCOSEU, KETUA, AMORPHOUS HgBA1c: No results found for: LABA1C Lactic Acid: No results found for: LACTA Troponin: No results for input(s): TROPONINI in the last 72 hours. CRP: No results for input(s): CRP in the last 72 hours. Radiology/Imaging: CT HIP RIGHT WO CONTRAST Final Result Acute mildly comminuted and displaced right intertrochanteric femoral fracture. XR FEMUR RIGHT (MIN 2 VIEWS) Final Result No acute abnormality visualized right femur. Additional findings, as above. XR CHEST PORTABLE Final Result No prior study available comparison. Probable chronic changes/COPD and mild cardiomegaly. RECOMMENDATION: If prior chest x-ray studies are available, they should be reviewed. XR HIP 2-3 VW W PELVIS RIGHT Final Result Femoral neck fracture. FLUORO FOR SURGICAL PROCEDURES (Results Pending) ASSESSMENT / PLAN: Right hip pain Continue current therapy Appreciate Dr. Bethea Received block for pain control Will start PT and OT postop Appreciate director of social work for discharge planning OR today Hypertension ? Continue losartan ? Continue Coreg 12.5 mg twice daily ? Continue Aldactone Rheumatoid arthritis ? Continue Rheumatrex Thrombocytopenia Trend platelet count-stable Likely due to RA Reviewed with Dr. Bethea no concerns for surgery Will monitor bleeding postop Nutrition status: Well developed, well nourished with no malnutrition Hearing Therapy Director consult initiated Hospital Prophylaxis: DVT: Lovenox start postop Stress Ulcer: H2 Rima High risk medications: none Disposition: Discharge plan is pending Leanne King APRN - [employer]ER , DIRECTOR CRITICAL CARE, TV TECHNICIAN-C Hospitalist Medicine 07/11/2021, 11:33 AM Associated attestation - Patience Neil MD - 07/11/2021 1:03 PM EST Images from the original note were not included. [address], [place], [place], [address] Attestation Patient: Elza Blas Date of Admission: 07/09/2021 10:32 AM Hospital Day # 2 Date of Evaluation: 07/11/2021 I personally evaluated and examined the patient [id number] in conjunction with the PA/TV TECHNICIAN and agree with the management and dispostition of the patient. Please see the PA/TV TECHNICIAN's note for full details. My harrison findings are: SUBJECTIVE: Patient seen for follow up of Right hip pain. She states that she is not doing well this morning. She is concerned and anxious about the hip surgery that is scheduled for later today. I had discussed the plans and goals of care with the patient and family at the beside yesterday evening in detail given the issues with scheduling the surgery yesterday. I discussed that the surgery is likely to be completed today and per the patient's preference that if she would like to be transferred to another facility that we will arrange for that to occur. Patient stated that she wanted to stay for the procedure. She was upset as something similar occurred while she had been admitted in [place] waiting for a Heart Surgery. She is concerned about her recovery. She also states that she may or may not want to go to a Rehab Facility after she has the surgery and thinks that her recovery would be better at home where she has full support from her family and . I discussed the risks/benefits/alternative for this and also discussed that we would make our recommendation per the Orthopedic Surgeon as well as PT/OT once she is evaluated. I also discussed that we would follow her decision if she would choose Home Health instead of a Rehab facility. She is comfortable at this time, VSS, afebrile, without any n/v/d. Patient was in agreement with the plan this morning. OBJECTIVE: Vitals: Temp: 97.6 F (36.4 C) BP: 120/72 Resp: 18 Pulse: 74 SpO2: 94 % Weight Wt Readings from Last 3 Encounters: 07/11/21 125 lb (56.7 kg) Body mass index is 21.46 kg/m . 24HR INTAKE/OUTPUT: Intake/Output Summary (Last 24 hours) at 07/11/2021 1255 Last data filed at 07/11/2021 0456 Gross per 24 hour Intake 1236.1 ml Output 2050 ml Net -813.9 ml - Exam: GEN: Awake, alert and oriented x3. EYES: EOMI, pupils equal NECK: Supple. No lymphadenopathy. No carotid bruit CVS: regular rate and rhythm, no audible murmur PULM: CTA, no wheezes, rales or rhonchi, no acute respiratory distress ABD: Bowels sounds normal. Abdomen is soft. No distention. no tenderness to palpation. EXT: trace edema bilaterally . No calf tenderness. Minimal right hip tenderness with palpation is present. NEURO: Moves all extremities. Motor and sensory are grossly intact SKIN: No rashes. No skin lesions. DATA: Complete Blood Count: Recent Labs 07/09/21 1100 07/10/21 0540 07/11/21 0550 WBC 6.1 9.7 14.9* RBC 3.86* 3.86* 3.79* HGB 12.9 12.8 12.7 HCT 39.9 37.6 38.0 MCV 103.4* 97.4 100.3 RDW 14.6* 14.2 14.2 PLT 126* See Reflexed IPF Result 129* Recent Labs 07/09/21 1100 07/10/21 0540 07/11/21 0550 SEGS 73* 91* 90* NEUTROABS 4.46 8.82* 13.35* LYMPHOPCT 16* 7* 4* LYMPHSABS 0.99* 0.68* 0.62* MONOPCT 8 1* 5 EOSRELPCT 2 0* 0* BASOPCT 0 0 0 IMMGRAN 1* 1* 1* CMP: Lab Results Component Value Date GLUCOSE 121 (H) 07/11/2021 BUN 27 (H) 07/11/2021 CREATININE 1.10 (H) 07/11/2021 NA 140 07/11/2021 K 4.9 07/11/2021 CALCIUM 9.9 07/11/2021 CL 104 07/11/2021 CO2 25 07/11/2021 UA: No results found for: COLORU, CLARITYU, SPECGRAV, WBCUA, RBCUA, EPITHUA, LEUKOCYTESUR, GLUCOSEU, BLOODU, KETUA, PROTEINU, HGBUR, CASTUA, CRYSTUA, BACTERIA, YEAST Lactic Acid: No results found for: LACTA High Sensitivity Troponin: No results for input(s): TROPHS in the last 72 hours. Radiology/Imaging: CT HIP RIGHT WO CONTRAST Final Result Acute mildly comminuted and displaced right intertrochanteric femoral fracture. XR FEMUR RIGHT (MIN 2 VIEWS) Final Result No acute abnormality visualized right femur. Additional findings, as above. XR CHEST PORTABLE Final Result No prior study available comparison. Probable chronic changes/COPD and mild cardiomegaly. RECOMMENDATION: If prior chest x-ray studies are available, they should be reviewed. XR HIP 2-3 VW W PELVIS RIGHT Final Result Femoral neck fracture. FLUORO FOR SURGICAL PROCEDURES (Results Pending) ASSESSMENT: Principal Problem: Right hip pain Active Problems: Femoral neck stress fracture, initial encounter - Right Hypertension Arthritis Thrombocytopenia (HCC) Resolved Problems: * No resolved hospital problems. * PLAN: I agree with the plan as outlined in the TV TECHNICIAN's note Disposition: Discharge plan is pending Please note that this chart was generated using voice recognition [employer] dictation software. Although every effort was made to ensure the accuracy of this automated federal mediator, some errors in federal mediator may have occurred. Patience Neil MD 07/11/2021 12:55 PM Met with Patient and her daughter, Irasema, this a.m. per their request to discuss surgery postponement and discharge planning. Daughter voices her frustration as Patient is tearful when events of yesterday were recounted to this advertising writer. Empathy and emotional support provided to both Patient and daughter at this time. RN in to state that surgery will take place today. Discharge plans discussed with Patient and daughter at this time. Patient was referred to outpatient therapy following her stroke, per PCP office message received yesterday. Patient would like to go home following the surgery but is agreeable to doing in patient rehab for a week or two if necessary. Daughter and Patient both agreeable to [facility] in [place] as advertising writer had spoken with yesterday about. Spoke with outbound sales representative at [facility], Kaleigh, to verify receipt of referral made yesterday. Kaleigh requesting that advertising writer refax referral information to a different FAX number that will come directly to her email for her to review. PT/OT notes to be FAXED following surgery. APPAREL DESIGNER to continue to assist with discharge placement as appropriate. SHAQ Jhaveri 07/11/2021 This RN went to [facility] to get patient for surgery. Patient's nurse Mary stated that per the patient was allowed to eat a light breakfast. She stated she had a few bites of pancakes and eggs. Called and updated ROSA ELENA Rooney and he stated that we need to wait 8 hours from the time she ate. Updated Mary who will update the patient. This RN also updated Kerri, steam tunnel feeder. Kevin, OR steam tunnel feeder aware and will get in contact with . Griffin hose placed on left leg at this time and SCD's also placed on patient at this time. Pt laying in bed with family at the bedside, shift assessment and vitals completed at this time, no questions voiced, call light within reach, will continue to monitor. Dr. Bethea states unable to do surgery this late in the evening, as we are waiting for anesthesia to be available from previous surgery. Dr. Bethea states he will be able to do surgery tomorrow night at 1800, unless he is able to reach Dr. Amaya to do surgery earlier in the day tomorrow. Dr. Bethea states pt may eat tonight but will resume NPO status after midnight tonight. Informed pt and her , pt's upset but pt in understanding and agreeable. Brought pt back to [facility] 330 by bed. Patient left with surgery. updated at this time CHG bath performed. Correia care performed. Denies any needs. No pain at this time d/t recent block in right hip Patient had a bladder spasm and urine leaked around catheter. Patients pad changed under neath. This caused the patient to have a lot of pain, see mar for medications. Also let the TV TECHNICIAN know that patient c/o muscle spasms in the hip/leg area. See mar also. VS and assessment completed. Patient repositioned in bed. Will continue to monitor. Referral made to [facility] as advertising writer informed via voicemail message from Dr. Quiroz's office that Patient had taken out patient therapy following her stroke. Will continue to remain involved and assist with discharge planning as appropriate. SHAQ Jhaveri 07/10/2021 Met with Patient and spoke with Patient's via telephone conversation this a.m. to discuss discharge planning. Patient is a 80 year old , white female, admitted with a diagnosis of Right Hip Fracture. Patient states that she would like to go back to rehab facility in [place] but could not recall the name of the facility. states that this would be fine with him but also cannot recall the name of facility. States that it was a facility across from the hospital in [place]. Second choice of facility would be [facility] in [place]. Patient resides with her in [place]. She reports that she uses no DME and has no outside services currently in place. Patient is independent with all ADL's. Is active in her lifestyle, per she and her 's report. Relies on her and/or her daughter for her transportation needs since her stroke about a year ago. PCP is Dr. Alice Quiroz. Patient has medical insurance and denies needing further financial assistance with the cost of her medications. Telephone voicemail message left for Dr. Quiroz's office, per 's request, to find out where Patient has been for rehab in the past as states that wherever it was we chose that because the doctor suggested it. Patient is a 'Full Code' status and does not have medical directives currently on file. is Patient decision maker. APPAREL DESIGNER to assist with discharge placement as appropriate. SHAQ Jhaveri 07/10/2021 Progress Note SUBJECTIVE: Patient seen for f/u of Right hip pain. She in bed alert oriented no acute distress. Patient is more comfortable since receiving block. Patient has no complaints is awaiting surgery today. ROS: Constitutional: negative for fevers, and negative for chills. Respiratory: negative for shortness of breath, negative for cough, and negative for wheezing Cardiovascular: negative for chest pain, and negative for palpitations Gastrointestinal: negative for abdominal pain, negative for nausea,negative for vomiting, negative for diarrhea, and negative for constipation All other systems were reviewed with the patient and are negative unless otherwise stated in HPI OBJECTIVE: Vitals: Vitals: 07/10/21 0653 BP: 132/78 Pulse: 86 Resp: 16 Temp: 97.8 F (36.6 C) SpO2: 92% Weight: 124 lb 3.2 oz (56.3 kg) Height: 5' 4 (162.6 cm) Weight Wt Readings from Last 3 Encounters: 07/10/21 124 lb 3.2 oz (56.3 kg) Body mass index is 21.32 kg/m . 24HR INTAKE/OUTPUT: Intake/Output Summary (Last 24 hours) at 07/10/2021 0955 Last data filed at 07/10/2021 0523 Gross per 24 hour Intake Output 650 ml Net -650 ml - Exam: GEN: Awake, alert and oriented x3. EYES: EOMI, pupils equal NECK: Supple. No lymphadenopathy. No carotid bruit CVS: regular rate and rhythm, no audible murmur PULM: CTA, no wheezes, rales or rhonchi, no acute respiratory distress ABD: Bowels sounds normal. Abdomen is soft. No distention. no tenderness to palpation. EXT: no edema bilaterally . No calf tenderness. NEURO: Moves all extremities. Motor and sensory are grossly intact SKIN: No rashes. No skin lesions. - Diagnostic Data: Complete Blood Count: Recent Labs 07/09/21 1100 07/10/21 0540 WBC 6.1 9.7 RBC 3.86* 3.86* HGB 12.9 12.8 HCT 39.9 37.6 MCV 103.4* 97.4 MCH 33.4 33.2 MCHC 32.3 34.0 RDW 14.6* 14.2 PLT 126* See Reflexed IPF Result MPV 11.3 -- Last 3 Blood Glucose: Recent Labs 07/09/21 1100 07/10/21 0540 GLUCOSE 87 158* Comprehensive Metabolic Profile: Recent Labs 07/09/21 1100 07/10/21 0540 NA 138 139 K 4.2 4.2 CL 105 104 CO2 25 24 BUN 21 23 CREATININE 1.05* 1.01* GLUCOSE 87 158* CALCIUM 10.1 9.9 Urinalysis: No results found for: NITRU, COLORU, PHUR, LABCAST, WBCUA, RBCUA, MUCUS, TRICHOMONAS, YEAST, BACTERIA, CLARITYU, SPECGRAV, LEUKOCYTESUR, UROBILINOGEN, BILIRUBINUR, BLOODU, GLUCOSEU, KETUA, AMORPHOUS HgBA1c: No results found for: LABA1C Lactic Acid: No results found for: LACTA Troponin: No results for input(s): TROPONINI in the last 72 hours. CRP: No results for input(s): CRP in the last 72 hours. Radiology/Imaging: CT HIP RIGHT WO CONTRAST Final Result Acute mildly comminuted and displaced right intertrochanteric femoral fracture. XR FEMUR RIGHT (MIN 2 VIEWS) Final Result No acute abnormality visualized right femur. Additional findings, as above. XR CHEST PORTABLE Final Result No prior study available comparison. Probable chronic changes/COPD and mild cardiomegaly. RECOMMENDATION: If prior chest x-ray studies are available, they should be reviewed. XR HIP 2-3 VW W PELVIS RIGHT Final Result Femoral neck fracture. ASSESSMENT / PLAN: Right hip pain Continue current therapy Appreciate Dr. Bethea Received block for pain control Will start PT and OT postop Appreciate director of social work for discharge planning OR today Hypertension ? Continue losartan ? Continue Coreg 12.5 mg twice daily ? Continue Aldactone Rheumatoid arthritis ? Continue Rheumatrex Thrombocytopenia Trend platelet count Likely due to RA Reviewed with Dr. Bethea no concerns for surgery Will monitor bleeding postop Nutrition status: Well developed, well nourished with no malnutrition Hearing Therapy Director consult initiated Hospital Prophylaxis: DVT: Lovenox start postop Stress Ulcer: H2 Rima High risk medications: none Disposition: Discharge plan is pending Leanne King, ESPERANZA - BONB[employer] CREAM WARMER , DIRECTOR CRITICAL CARE, TV TECHNICIAN-C [email or web address] Medicine 07/10/2021, 9:55 AM Associated attestation - Patience Neil MD - 07/10/2021 5:30 PM EST Images from the original note were not included. [address], [address] Attestation Patient: Elza Blas Date of Admission: 07/09/2021 10:32 AM Hospital Day # 1 Date of Evaluation: 07/10/2021 I personally evaluated and examined the patient [id number] in conjunction with the PA/TV TECHNICIAN and agree with the management and dispostition of the patient. Please see the PA/TV TECHNICIAN's note for full details. My harrison findings are: SUBJECTIVE: Patient seen for follow up of Right hip pain. She is doing well this morning, not in any acute distress, pain is 1-2/10 with some discomfort. She has no n/v/d. She is waiting for surgery today. She does not have any other concerns at this time. OBJECTIVE: Vitals: Temp: 98.1 F (36.7 C) BP: 136/66 Resp: 12 Pulse: 76 SpO2: 93 % Weight Wt Readings from Last 3 Encounters: 07/10/21 124 lb 3.2 oz (56.3 kg) Body mass index is 21.32 kg/m . 24HR INTAKE/OUTPUT: Intake/Output Summary (Last 24 hours) at 07/10/2021 1729 Last data filed at 07/10/2021 1400 Gross per 24 hour Intake -- Output 1450 ml Net -1450 ml - Exam: GEN: Awake, alert and oriented x3. EYES: EOMI, pupils equal NECK: Supple. No lymphadenopathy. No carotid bruit CVS: regular rate and rhythm, no audible murmur PULM: CTA, no wheezes, rales or rhonchi, no acute respiratory distress ABD: Bowels sounds normal. Abdomen is soft. No distention. no tenderness to palpation. EXT: trace edema bilaterally . No calf tenderness. Some right sided hip tenderness present with palpation is present. NEURO: Moves all extremities. Motor and sensory are grossly intact SKIN: No rashes. No skin lesions. DATA: Complete Blood Count: Recent Labs 07/09/21 1100 07/10/21 0540 WBC 6.1 9.7 RBC 3.86* 3.86* HGB 12.9 12.8 HCT 39.9 37.6 MCV 103.4* 97.4 RDW 14.6* 14.2 PLT 126* See Reflexed IPF Result Recent Labs 07/09/21 1100 07/10/21 0540 SEGS 73* 91* NEUTROABS 4.46 8.82* LYMPHOPCT 16* 7* LYMPHSABS 0.99* 0.68* MONOPCT 8 1* EOSRELPCT 2 0* BASOPCT 0 0 IMMGRAN 1* 1* CMP: Lab Results Component Value Date GLUCOSE 158 (H) 07/10/2021 BUN 23 07/10/2021 CREATININE 1.01 (H) 07/10/2021 NA 139 07/10/2021 K 4.2 07/10/2021 CALCIUM 9.9 07/10/2021 CL 104 07/10/2021 CO2 24 07/10/2021 UA: No results found for: COLORU, CLARITYU, SPECGRAV, WBCUA, RBCUA, EPITHUA, LEUKOCYTESUR, GLUCOSEU, BLOODU, KETUA, PROTEINU, HGBUR, CASTUA, CRYSTUA, BACTERIA, YEAST Lactic Acid: No results found for: LACTA High Sensitivity Troponin: No results for input(s): TROPHS in the last 72 hours. Radiology/Imaging: CT HIP RIGHT WO CONTRAST Final Result Acute mildly comminuted and displaced right intertrochanteric femoral fracture. XR FEMUR RIGHT (MIN 2 VIEWS) Final Result No acute abnormality visualized right femur. Additional findings, as above. XR CHEST PORTABLE Final Result No prior study available comparison. Probable chronic changes/COPD and mild cardiomegaly. RECOMMENDATION: If prior chest x-ray studies are available, they should be reviewed. XR HIP 2-3 VW W PELVIS RIGHT Final Result Femoral neck fracture. FLUORO FOR SURGICAL PROCEDURES (Results Pending) ASSESSMENT: Principal Problem: Right hip pain Active Problems: Femoral neck stress fracture, initial encounter - Right Hypertension Arthritis Thrombocytopenia (HCC) Resolved Problems: * No resolved hospital problems. * PLAN: I agree with the plan as outlined in the TV TECHNICIAN's note Disposition: Discharge plan is pending Please note that this chart was generated using voice recognition [employer] dictation software. Although every effort was made to ensure the accuracy of this automated federal mediator, some errors in federal mediator may have occurred. Patience Neil MD 07/10/2021 5:29 PM [facility] No Visit Note [] ICU [x] Acute Patient: Elza Blas Room: [facility]4/0334- Elza Blas not seen on 07/10/2021 at 9:29 AM due to patient scheduled for surgery this date. OT to eval post op at our earliest convenience. Signature: MO Rosa, OTR/L Comprehensive Nutrition Assessment Type and Reason for Visit: Initial,Consult (c/s wounds, none noted) Nutrition Recommendations/Plan: 1. Continue NPO diet. 2. Progress to regular diet when medically appropriate. 3. Encourage protein foods to aid healing needs. 4. Add 4 oz ensure enlive TID with meals (vary flavors). Nutrition Assessment: Increased nutrient needs r/t acute injury/trauma aeb R femur Fx. Pt states she got tangled in her grocery bags and tripped/fell. Surgery planned for 4:30 today. Drinks boost at home, likes any flavor. Pt encouraged to consume protein foods to aid healing post op. Reports allergy to green peppers and green onions, they cause diarrhea and upset stomach. Malnutrition Assessment: Malnutrition Status: At risk for malnutrition (Comment) Context: Acute Illness Findings of the 6 clinical characteristics of malnutrition: Energy Intake: No significant decrease in energy intake Weight Loss: No significant weight loss Body Fat Loss: 1 - Mild body fat loss Orbital Muscle Mass Loss: No significant muscle mass loss Fluid Accumulation: 1 - Mild Extremities (+ 1 RLE) Complaint Supervisor Strength: Not Performed Estimated Daily Nutrient Needs: Energy (kcal): 2002-7242 (30-33/kg); Weight Used for Energy Requirements: Current Protein (g): 73-84g (1.3-1.5g/kg); Weight Used for Protein Requirements: Current Fluid (ml/day): 1680 ml (30/kg); Method Used for Fluid Requirements: ml/Kg Nutrition Related Findings: mild fat losses Wounds: None Current Nutrition Therapies: Diet NPO Anthropometric Measures: Height: 5' 4 (162.6 cm) Current Body Weight: 124 lb 3.2 oz (56.3 kg) Admission Body Weight: 124 lb 3.2 oz (56.3 kg) Usual Body Weight: 125 lb (56.7 kg) [place] Body Weight: 120 lbs; % [place] Body Weight 103.5 % BMI: 21.3 BMI Categories: Underweight (BMI less than 22) age over 65 Nutrition Diagnosis: Increased nutrient needs related to acute injury/trauma as evidenced by other (comment) (healing needs from R femur Fx) Nutrition Interventions: Food and/or Nutrient Delivery: Continue NPO Nutrition Education/Counseling: Education initiated Coordination of Nutrition Care: Continue to monitor while inpatient Goals: PO > 75% of meals and supplements when oral intakes resumed Recent Labs 07/09/21 1100 07/10/21 0540 NA 138 139 K 4.2 4.2 CL 105 104 CO2 25 24 BUN 21 23 CREATININE 1.05* 1.01* GLUCOSE 87 158* GFR No results found for: LABALBU Nutrition Monitoring and Evaluation: Behavioral-Environmental Outcomes: None Identified Food/Nutrient Intake Outcomes: Diet Advancement/Tolerance Physical Signs/Symptoms Outcomes: Biochemical Data,Weight,Skin,Fluid Status or Edema Discharge Planning: Too soon to determine Contact: [id number] Rn attempted to call patients to update him for new surgery time. No answer and no name on voicemail. Will try again later. Patient awake and in bed laying supine. Patient stated she isnt having any pain as long as she doesn't move. RN told patient we need to roll a bit with pillow support every few hours to help prevent bed sores. Patient agreeable with trying to turn to a side with pillow support. Patient did not tolerate at all. Patient started yelling as soon as body was slightly moved. RN provided education with pain medication and is willing to try a small dose of morphine. Denies any other needs. Will continue to monitor. Paper surgical checklist completed. New bag of fluids hung. Patient continues to state her pain is good as long as she doesn't move and rates her pain at 1/10. Correia bag emptied. Extension tubing placed at this time. SCD leggings placed into room. Wash rags and surgical soap placed at bedside for later wash up. Patient denies any other needs at this time. Call light, bedside table and personal belongings within reach. Bed alarm on. Patient lying in bed. Second assessment completed at this time. Assessment unchanged from previous shift assessment. Vital signs completed. Youth Corrections Officer was informed at shift report that surgery was at 12pm however per Dr. Bethea's note, tentative surgery is 4:30pm. Youth Corrections Officer updated patient on this. Youth Corrections Officer would like called and updated of time as he thought it was 12pm too. Per patient, patient doesn't wake up til 8-9am however. [facility] Patient denies any other needs at this time. Call light, bedside table and personal belongings within reach. Patient made NPO at this time. Imaging reviewed. Patient is noted to have right intertrochanteric femur fracture. Plan is for surgical treatment tomorrow afternoon, approximately 4:30 PM, potentially earlier if the OR can accomodate. Patient continues to be comfortable and denies any needs. Call light, bedside table and personal belongings within reach. Bed alarm on. Patient returned from CT scan at this time. Patient tolerated being transferred onto cart and from cart back to bed well. Patient got comfortable in bed and moved up in bed at this time. Patient assisted with getting a sip of water and denies any further needs at this time. Patient states she would like to get some sleep right now. Youth Corrections Officer reminded patient how to use call light to call out. Call light, bedside table and personal belongings within reach. Bed alarm on. Patient down for CT at this time. Patient lying in bed. Patient rates her pain low, roughly a 4/10, and states If I don't move, I'm fine. Patient reminded patient of being NPO tonight and educated patient that she will be going down for a CT very shortly. Patient has a correia which is draining. Patient denies any other needs at this time. Call light, bedside table and personal belongings within reach. Bed alarm. Awaiting radiology at this time. Per Lashon MITCHELL during report, patient home medications were ordered incorrectly and she requested I pass this information along to Dr. Neil when he rounds. Youth Corrections Officer made Dr. Neil aware of this at this time in person. Dr. Neil at bedside. Spoke with Dr. Bethea at this time on the telephone. He requested advertising writer put in order for CT of right hip STAT at this time. Order placed. [facility] Inpatient/Observation/Outpatient Rehabilitation Date: 07/09/2021 Patient Name: Elza Blas [x] Inpatient Acute/Observation [] Outpatient : 1940 [x] Pt cancelled due to: [] No Reason Given [] Sick/ill [] Other: Pt awaiting surgery for right hip fracture; planned OR tomorrow morning and will eval post op. Will attempt evaluation at our earliest opportunity. Quita Santiago PT , DPT, CMPT Date: 07/09/2021 [facility] OCCUPATIONAL THERAPY No Visit Note [] ICU [x] Acute Patient: Elza Blas Room: [address] [place] [address] Elza Blas not seen on 07/09/2021 at 4:19 PM due to Pt is scheduled for surgery on 07/10. Pt currently on bedrest. OT to evaluate post surgery when appropriate.. Signature: LANDEN Guajardo, OTR/L documented in this encounter [facility] Work Phone: 07-13-2021 Hospital Discharge instructions Kaelyn Berrios RN - 07/13/2021 11:48 AM EST As tolerated. Kaelyn Berrios RN - 07/13/2021 11:48 AM EST Good nutrition is important when healing from an illness, injury, or surgery. Follow any nutrition recommendations given to you during your hospital stay. If you were given an oral nutrition supplement while in the hospital, continue to take this supplement at home. You can take it with meals, in-between meals, and/or before bedtime. These supplements can be purchased at most local grocery stores, pharmacies, and [employer]stores. If you have any questions about your diet or nutrition, call the hospital and ask for the dietitian. Regular diet. SHAQ Foley - 07/11/2021 2:41 PM EST Continuity of Care Form Patient Name: Elza Blas : 1940 Admit date: 07/09/2021 Discharge date: Code Status Order: Full Code Advance Directives: Advance Care Flowsheet Documentation Date/Time Healthcare Directive Type of Healthcare Directive Copy in Chart Healthcare Agent Appointed Healthcare Agent's Name Healthcare Agent's Phone Number 07/11/21 1422 No, patient does not have an advance directive for healthcare treatment -- -- -- -- -- 07/11/21 1053 No, patient does not have an advance directive for healthcare treatment -- -- -- -- -- 07/10/21 1556 No, patient does not have an advance directive for healthcare treatment -- -- -- -- -- 07/10/21 1515 No, patient does not have an advance directive for healthcare treatment -- -- -- -- -- Admitting Physician: Patience Neil MD PCP: Alice Quiroz MD Discharging Nurse: Discharging Hospital Unit/Room#: [facility] OR POOL/NONE Discharging Unit Phone Number: Emergency Contact: Extended Emergency Contact Information Primary Emergency Contact: TIFFANY BLAS Mobile Relation: Spouse Preferred language: [employer] Sales Representative needed? No Secondary Emergency Contact: Irasema Bear Mobile Relation: Child Past Surgical History: Past Surgical History: Procedure Laterality Date ABDOMINAL AORTIC ANEURYSM REPAIR HYSTERECTOMY Immunization History: There is no immunization history on file for this patient. Active Problems: Patient Active Problem List Diagnosis Code Femoral neck stress fracture, initial encounter - Right M84.353A Hypertension I10 Cerebral artery occlusion with cerebral infarction (HCC) I63.50 Arthritis M19.90 Right hip pain M25.551 Thrombocytopenia (HCC) D69.6 Isolation/Infection: Isolation No Isolation Patient Infection Status None to display Nurse Assessment: Last Vital Signs: BP (!) 167/71 Pulse 66 Temp 98.1 F (36.7 C) (Temporal) Resp 18 Ht 5' 4 (1.626 m) Wt 125 lb (56.7 kg) SpO2 95% BMI 21.46 kg/m Last documented pain score (0-10 scale): Pain Level: 0 Last Weight: Wt Readings from Last 1 Encounters: 07/11/21 125 lb (56.7 kg) Mental Status: {IP PT MENTAL STATUS:} IV Access: { LAUREN IV ACCESS:524305316} Nursing Mobility/ADLs: Walking {CHP DME ADLs:748313038} Transfer {CHP DME ADLs:498648198} Bathing {CHP DME ADLs:555891479} Dressing {CHP DME ADLs:187674013} Toileting {CHP DME ADLs:431179856} Feeding {CHP DME ADLs:069340308} Manager Asset {P DME ADLs:832448794} Med Delivery { LAUREN MED Delivery:951956091} Wound Care Documentation and Therapy: Elimination: Continence: Bowel: {YES / NO:} Bladder: {YES / NO:} Urinary Catheter: {Urinary Catheter:563182795} Colostomy/Ileostomy/Ileal Conduit: {YES / NO:} Date of Last BM: Intake/Output Summary (Last 24 hours) at 07/11/2021 1441 Last data filed at 07/11/2021 1308 Gross per 24 hour Intake 1236.1 ml Output 1975 ml Net -738.9 ml I/O last 3 completed shifts: In: 1236.1 [P.O.:400; I.V.:836.1] Out: 2700 [Urine:2700] Safety Concerns: { LAUREN Safety Concerns:321880221} Impairments/Disabilities: { LAUREN Impairments/Disabilities:2078208 73} Nutrition Therapy: Current Nutrition Therapy: { LAUREN Diet List:948149897} Routes of Feeding: {[facility] DME Other Feedings:474048179} Liquids: {Tilt Wall Supervisor liquid thickness:36349} Daily Fluid Restriction: {[facility] D[facility] Yes amt example:646351117} Last Modified Barium Swallow with Video (Video Swallowing Test): {Done Not Done Date:} Treatments at the Time of Hospital Discharge: Respiratory Treatments: Oxygen Therapy: {Therapy; copd oxygen:10329} Ventilator: {[facility] Vent List:441002954} Rehab Therapies: {THERAPEUTIC INTERVENTION:8139800080} Weight Bearing Status/Restrictions: {[facility] Weight Bearin} Other Medical Equipment (for information only, NOT a DME order): {EQUIPMENT:793433281} Other Treatments: Patient's personal belongings (please select all that are sent with patient): {[facility] D[facility] Belongings:520884583} RN SIGNATURE: {Esignature:474544164} CASE MANAGEMENT/SOCIAL WORK SECTION Inpatient Status Date: 07/09/21 Readmission Risk Assessment Score: Readmission Risk Risk of Unplanned Readmission: 12 Discharging to Facility/ Agency Name: [facility] Address: [place] [address] Dialysis Facility (if applicable) Name: Address: Dialysis Schedule: Phone: Fax: Armed Guard/Grounds Person signature: PHYSICIAN SECTION Prognosis: Good Condition at Discharge: Stable Rehab Potential (if transferring to Rehab): Good Recommended Labs or Other Treatments After Discharge: Physician Certification: I certify the above information and transfer of Elza Blas is necessary for the continuing treatment of the diagnosis listed and that she requires [facility] Facility for less 30 days. Update Admission H&P: No change in H&P PHYSICIAN SIGNATURE: Kaelyn Reich RN - 07/13/2021 Patient Instructions: Activity: activity as tolerated Diet: regular diet Wound Care: keep wound clean and dry Disposition: Discharge to Home with home health Follow up: Patient will be followed by Alice Quiroz MD in 1-2 weeks; Dr. Ananda Amaya 2 weeks documented in this encounter [employer] Phone: Evaluation note Diagnosis Right hip pain- Primary Pain in joint, pelvic region and thigh Closed fracture of neck of right femur, initial encounter ([facility]) Postoperative pain Other acute postoperative pain Femoral neck stress fracture, initial encounter - Right Hypertension Unspecified essential hypertension Arthritis Arthropathy, unspecified, site unspecified Thrombocytopenia ([facility]) Thrombocytopenia, unspecified documented in this encounter [employer] Phone: evaluation note* Diagnosis Onset Date Resolution Status UTI (urinary tract infection) [facility] Work Phone: Evaluation note* Diagnosis Routine general medical examination at health care facility- Primary Routine general medical examination at a health care facility Estrogen deficiency Other ovarian failure Screening for cholesterol level Flu vaccine need Hypertensive chronic kidney disease with stage 1 through stage 4 chronic kidney disease, or unspecified chronic kidney disease (CMS/HCC) Ischemic cardiomyopathy (CMS/HCC) Other specified forms of chronic ischemic heart disease Cerebrovascular accident (CVA) due to occlusion of right middle cerebral artery (CMS/HCC) Medicare annual wellness visit, subsequent Stage 3a chronic kidney disease (HCC) (CMS/HCC) Disorder of parathyroid gland (CMS/HCC) Unspecified disorder of parathyroid gland Rheumatoid arthritis with positive rheumatoid factor, involving unspecified site (CMS/HCC) Medicare annual wellness visit, subsequent- Primary Rheumatoid arthritis with positive rheumatoid factor, involving unspecified site (CMS/HCC) Aphasia Cerebral artery occlusion with cerebral infarction (CMS/HCC) Unspecified cerebral artery occlusion with cerebral infarction Cerebrovascular accident (CVA) due to occlusion of right middle cerebral artery (CMS/HCC) Ischemic cardiomyopathy (CMS/HCC) Other specified forms of chronic ischemic heart disease Essential hypertension (CMS/HCC) Unspecified essential hypertension Chronic gastritis without bleeding, unspecified gastritis type Hypertensive chronic kidney disease with stage 1 through stage 4 chronic kidney disease, or unspecified chronic kidney disease (CMS/HCC) Femoral neck stress fracture, initial encounter Myalgia Unspecified myalgia and myositis Myopathy Unspecified myopathy Disorder of parathyroid gland (CMS/HCC) Unspecified disorder of parathyroid gland Vitamin D deficiency Thrombocytopenia (CMS/HCC) Unspecified thrombocytopenia H/O hysterectomy for benign disease History of cataract extraction, unspecified laterality Screening for lipid disorders Routine general medical examination at health care facility Routine general medical examination at a health care facility Weight loss Loss of weight documented in this encounter [facility] HealthcareEvaluation note* Diagnosis Benign essential hypertension- Primary Essential hypertension, benign Nonischemic cardiomyopathy (Multi) Other primary cardiomyopathies BMI 20.0-20.9, adult Status post repair of abdominal aortic aneurysm using bifurcation graft documented in this encounter [facility] Work Phone: Evaluation note* Diagnosis Routine general medical examination at health care facility- Primary Routine general medical examination at a health care facility Estrogen deficiency Other ovarian failure Screening for cholesterol level Flu vaccine need Hypertensive chronic kidney disease with stage 1 through stage 4 chronic kidney disease, or unspecified chronic kidney disease (CMS/HCC) Ischemic cardiomyopathy (CMS/HCC) Other specified forms of chronic ischemic heart disease Cerebrovascular accident (CVA) due to occlusion of right middle cerebral artery (CMS/HCC) Medicare annual wellness visit, subsequent Stage 3a chronic kidney disease (HCC) (CMS/HCC) Disorder of parathyroid gland (CMS/HCC) Unspecified disorder of parathyroid gland Rheumatoid arthritis with positive rheumatoid factor, involving unspecified site (CMS/HCC) Weight loss, abnormal- Primary Diarrhea, unspecified type Epigastric pain Abdominal pain, epigastric documented in this encounter [facility] HealthcareEvaluation note* Diagnosis Thrombocytopenia- Primary Thrombocytopenia, unspecified [facility] Diagnosis Thrombocytopenia- Primary Thrombocytopenia, unspecified documented in this encounter [facility] Summary Purpose Family History No Family History Records FoundUnknown Family Member Name Dates Details No pertinent family history: Mother, Father(V49.89, Z78.9) Status:Active Unknown Family Member Name Dates Details No pertinent family history: Mother, Father(V49.89, Z78.9) Status:Active Unknown Family Member Name Dates Details No pertinent family history: Mother, Father(V49.89, Z78.9) Status:Active Unknown Family Member Name Dates Details No pertinent family history: Mother, Father(V49.89, Z78.9) Status:Active Advance Directives No Advanced Directives Records FoundLatest Code Status on File Code Status Date Activated Date Inactivated Comments Full Code 07/11/2021 5:35 PM Full Code 07/09/2021 1:55 PM 07/11/2021 5:35 PM Healthcare Agents on File Name Relationship Healthcare Agent Relationshi p Communication Tiffany Blas Spouse Primary Decision Maker Advance Directive Response Recorded Date/ Time Advance Directives No October 09 2:21pm Reason for Referral Specialty Diagnoses / Procedures Referred By Contac t Referred To Contact Home Health Services Diagnoses Closed fracture of neck of right femur, initial encounter ([facility]) Leanne King, DIRECTOR CRITICAL CARE - [employer] [address] [place] [address] Referral ID Status Reason Start Date Expiration Date V isits Requested Visits Authorized [id number] Open Specialty Services Required 07/13/2021 01/09/2022 1 1 Chief Complaint and Reason for Visit Chief Complaint Poss uti Reason for Visit UTI (urinary tract i nfection) Additional Source Comments INFORMATION SOURCE (unrecogn ized section and content) DATE CREATED AUTHOR 05/19/2020 [facility] DATE CREATED AUTHOR AUTHOR'S ORGANIZ ATION 11/30/2020 [facility] DATE CREATED AUTHOR AUTHOR'S ORGANIZ ATION 04/25/2021 [facility] DATE CREATED AUTHOR AUTHOR'S ORGANIZ ATION 07/20/2021 [facility] DATE CREATED AUTHOR AUTHOR'S ORGANIZ ATION 11/27/2021 [facility] DATE CREATED AUTHOR AUTHOR'S ORGANIZ ATION 10/24/2023 [facility] DATE CREATED AUTHOR AUTHOR'S ORGANIZ ATION 06/25/2024 [facility] DATE CREATED AUTHOR AUTHOR'S ORGANIZ ATION 09/16/2024 [facility] DATE CREATED AUTHOR AUTHOR'S ORGANIZ ATION 09/20/2024 [facility] EPIC DATE CREATED AUTHOR AUTHOR'S ORGANIZ ATION 10/29/2024 [facility] Reason for Visit (unrecogniz ed section and content) Reason Comments Hip Pain tripped over grocery bags in the parking lot and fell onto right hip. Denies any loss of consciousness, denies blood thinner.No deformity noted, pain with right leg movement Reason Comments Annual Exam Specialty Diagnoses / Procedures Referred By Contac t Referred To Contact Cardiology Diagnoses Nonischemic cardiomyopathy (Multi) Procedures Follow Up In Cardiology Bernardino Ramos MD McGuinn, William P, MD Retired From Practice Referral ID Status Reason Start Date Expiration Date V isits Requested Visits Authorized [id number] Authorized 06/13/2023 06/12/2024 1 1 Reason Comments stomach issues Reason Comments Consult Specialty Diagnoses / Procedures Referred By Contac t Referred To Contact Hematology Diagnoses Thrombocytopenia Anemia, unspecified type Procedures OFFICE/OUTPATIENT [facility] 60 MINUTES [id number] (SNOMED CT) - AMB REFERRAL TO HEMATOLOGY Alice Quiroz MD [address] [facility] [address] [place] [address] Phone: tel: fax: Pedro Pablo Bullock MD [address] [place] [address] Phone: tel: fax: Referral ID Status Reason Start Date Expiration Date V isits Requested Visits Authorized [id number] Pending Review 09/16/2024 03/15/2025 1 1 Reason Comments OTC Zinc supplement recommendation Reason Comments Thrombocytopenia Ordered Prescriptions (unrec ognized section and content) Prescription Sig Dispensed Refills Start Date End Da te polyethylene glycol (GLYCOLAX) 17 g packet Take 17 g by mouth daily 527 g 1 07/14/2021 08/13/2021 enoxaparin (LOVENOX) 40 MG/0.4ML injection Inject 0.4 mLs into the skin daily 30 each 0 07/12/2021 HYDROcodone-acetaminophen (NORCO) 5-325 MG per tabletIndications:Postope rative pain Take 1 tablet by mouth every 4 hours as needed for Pain for up to 7 days. 40 tablet 0 07/12/2021 07/19/2021 Scheduled Active and Recently Administ ered Medications (unrecognized section and content) Medication Order 07/11/2021 07/12/2021 07/13/2021 bisacodyl (DULCOLAX) EC tablet 10 mg (COMPLETED) 10 mg, Oral, ONCE, On Fransisca 07/12/21 at 0945, For 1 dose, Do not crush or break. 1039 (Given - Provider: Sanjana Mccann RN) carvedilol (COREG) tablet 12.5 mg 12.5 mg, Oral, 2 TIMES DAILY WITH MEALS, First dose (after last modification) on Fri07/10/21 at 2000, Administer with food to minimize the risk of orthostatic hypotension 0709 (Given - Provider: Mary Dominguez)1420 (JUL Hold - Provider: Sarika Autohold - Reason: Unreviewed Transfer Orders)1700 (Automatically Held - Provider: Sarika Autohold)1735 (MAR Unhold - Provider: Mary Dominguez) 0809 (Given - Provider: Sanjana Mccann RN)1607 (Given - Provider: Sanjana Mccann RN - Comment: 138/79 hr:69) 0819 (Given - Provider: Kaelyn Berrios RN)1700 (Due - Provider: Mary Dominguez) ceFAZolin (ANCEF) 2000 mg in dextrose 5 % 100 mL IVPB (COMPLETED) 2,000 mg, IntraVENous, ONCE, 1 dose, On Fri07/11/21 at 1545, Pre-op (day of surgery) 1530 (Given - Provider: Wilman Rocha APRN - ENTRY LEVEL RECEPTIONIST) ceFAZolin (ANCEF) 2000 mg in dextrose 5 % 100 mL IVPB (COMPLETED) 2,000 mg, IntraVENous, EVERY 8 HOURS, 2 doses, First dose on Fri07/11/21 at 2330, Last dose on Fri07/12/21 at 0730, Post-op 2312 (New Bag - Provider: Narcisa Orlando RN)2350 (Stopped - Provider: Narcisa Orlando RN) 0811 (New Bag - Provider: Sanjana Mccann RN)0915 (Stopped - Provider: Sanjana Mccann RN) enoxaparin (LOVENOX) injection 40 mg 40 mg, SubCUTAneous, DAILY, First dose on Fri07/12/21 at 0900, Post-op 0809 (Given - Provider: Sanjana Mccann RN) 0820 (Given - Provider: Kaelyn Berrios, STEPHEN) losartan (COZAAR) tablet 50 mg 50 mg, Oral, DAILY, First dose (after last modification) on Fri07/10/21 at 2000 0811 (Not Given - Provider: Mary Dominguez - Reason: Pt NPO)1420 (MAR Hold - Provider: Sarika Autohold - Reason: Unreviewed Transfer Orders)1735 (MAR Unhold - Provider: Mary Dominguez) 0810 (Given - Provider: Sanjana Mccann RN) 0819 (Given - Provider: Kaelyn Berrios, STEPHEN) magnesium hydroxide (MILK OF MAGNESIA) 400 MG/5ML suspension 30 mL (COMPLETED) 30 mL, Oral, ONCE, On Fri07/12/21 at 0945, For 1 dose 1039 (Given - Provider: Sanjana Mccann RN) methotrexate (RHEUMATREX) chemo tablet 10 mg 10 mg, Oral, WEEKLY, First dose on Fri07/10/21 at 0900, Hazardous Medication -- Refer to facility policy for handling and disposal. 1735 ([facility] Unhold - Provider: Mary Dominguez) pantoprazole (PROTONIX) tablet 40 mg 40 mg, Oral, DAILY BEFORE BREAKFAST, First dose on Fri07/11/21 at 0700, Do not crush or break. 0811 (Not Given - Provider: Mary Dominguez - Reason: Pt NPO)1420 ([facility] Hold - Provider: Sarika Autohold - Reason: Unreviewed Transfer Orders)1735 ([facility] Unhold - Provider: Mary Dominguez) 0810 (Given - Provider: Sanjana Mccann RN) 0721 (Given - Provider: Kaelyn Berrios, RN) polyethylene glycol (GLYCOLAX) packet 17 g 17 g, Oral, DAILY, First dose (after last modification) on Fri07/12/21 at 0945 1039 (Given - Provider: Sanjana Mccann RN) 0820 (Given - Provider: Kaelyn Berrios, RN) sodium chloride flush 0.9 % injection 5-40 mL 5-40 mL, IntraVENous, 2 TIMES DAILY, First dose on Fri07/10/21 at 2100, For Line Patency: Peripheral IV = 5 mL; Midline or Central Line = 10 mL/lumen. If following IV push medication, administer flush at same rate as the IV push. Flush volume is determined by type of infusion therapy being given. For non-viscous solutions use: Peripheral IV = 5 mL Midline or Central Line = 10 mL/lumen For viscous solutions (i.e. blood components, parenteral nutrition, contrast media, or after obtaining blood sample) use: Peripheral IV = 10 mL Midline or Central Line = 20 mL/lumen 0811 (Not Given - Provider: Mary Dominguez - Reason: IV Fluid Infusing)1420 ([facility] Hold - Provider: Mar Autohold - Reason: Unreviewed Transfer Orders)1735 ([facility] Unhold - Provider: Mary Dominguez)2035 (Not Given - Provider: Narcisa Orlando RN - Reason: IV Fluid Infusing) 1041 (Not Given - Provider: Sanjana Mccann RN - Reason: IV Fluid Infusing)2119 (Not Given - Provider: Narcisa Orlando RN - Reason: IV Fluid Infusing) 0820 (Not Given - Provider: Kaelyn Berrios RN - Reason: Other - Comment: duplicate order)2099 (Due - Provider: Mary Dominguez) sodium chloride flush 0.9 % injection 5-40 mL 5-40 mL, IntraVENous, EVERY 12 HOURS SCHEDULED (2 times per day), First dose on Fri07/11/21 at 2100, For Line Patency: Peripheral IV = 5 mL; Midline or Central Line = 10 mL/lumen. If following IV push medication, administer flush at same rate as the IV push. Flush volume is determined by type of infusion therapy being given. For non-viscous solutions use: Peripheral IV = 5 mL Midline or Central Line = 10 mL/lumen For viscous solutions (i.e. blood components, parenteral nutrition, contrast media, or after obtaining blood sample) use: Peripheral IV = 10 mL Midline or Central Line = 20 mL/lumen, Post-op 2035 (Not Given - Provider: Narcisa Orlando RN - Reason: IV Fluid Infusing) 0813 (Not Given - Provider: Sanjana Mccann RN - Reason: IV Fluid Infusing)2119 (Not Given - Provider: Narcisa Orlando RN - Reason: IV Fluid Infusing) 0820 (Given - Provider: Kaelyn Berrios RN)2100 (Due) spironolactone (ALDACTONE) tablet 25 mg 25 mg, Oral, DAILY, First dose on Fri07/10/21 at 1999 0812 (Not Given - Provider: Mary Dominguez - Reason: Pt NPO)1420 ([facility] Hold - Provider: Sarika Autohold - Reason: Unreviewed Transfer Orders)1735 ([facility] Unhold - Provider: Mary Dominguez) 0810 (Given - Provider: Sanjana Mccann RN) 0819 (Given - Provider: Kaelyn Berrios RN) Continuous Medication Order 07/11/2021 07/12/2021 07/13/2021 lactated ringers infusion (CANCELED) IntraVENous, at 75 mL/hr, CONTINUOUS, Starting on Fri07/10/21 at 2000 0714 (New Bag - Provider: Mary Dominguez)1420 ([facility] Hold - Provider: Sarika Autohold - Reason: Unreviewed Transfer Orders)1735 ([facility] Unhold - Provider: Mary Dominguez) 0630 (New Bag - Provider: Narcisa Orlando RN) PRN Medication Order 07/11/2021 07/12/2021 07/13/2021 0.9 % sodium chloride infusion 25 mL, IntraVENous, at 100 mL/hr, PRN, If patient receiving piggyback infusions without ordered maintenance IV fluids or with frequent/long duration piggyback infusions, Starting on Fri07/09/21 at 1354, Administer at the same rate as the piggyback being infused. 1735 ([facility] Unhold - Provider: Mary Dominguez) 0.9 % sodium chloride infusion 25 mL, IntraVENous, at 100 mL/hr, PRN, If patient receiving piggyback infusions without ordered maintenance IV fluids or with frequent/long duration piggyback infusions, Starting on Fri07/11/21 at 1735, Administer at the same rate as the piggyback being infused., Post-op acetaminophen (TYLENOL) suppository 650 mg(Linked Group 1) 650 mg, Rectal, EVERY 6 HOURS PRN, Pain Mild (1-3), Fever, For temp greater than 100.4 F (38 C), Starting on Fri07/09/21 at 1354, Administer if oral route cannot be used. 1735 ([facility] Unhold - Provider: Mary Dominguez) acetaminophen (TYLENOL) suppository 650 mg 650 mg, Rectal, EVERY 4 HOURS PRN, Pain Mild (1-3), Starting on Fri07/10/21 at 1941, Maximum dose of acetaminophen is 4000 mg from all sources in 24 hours. 1420 ([facility] Hold - Provider: Sarika Autohold - Reason: Unreviewed Transfer Orders)1735 ([facility] Unhold - Provider: Mary Dominguez) acetaminophen (TYLENOL) tablet 650 mg(Linked Group 1) 650 mg, Oral, EVERY 6 HOURS PRN, Pain Mild (1-3), Fever, For temp greater than 100.4 F (38 C), Starting on Fri07/09/21 at 1354, Maximum dose of acetaminophen is 4000 mg from all sources in 24 hours. 173 ([facility] Unhold - Provider: Mary Dominguez) acetaminophen (TYLENOL) tablet 650 mg 650 mg, Oral, EVERY 4 HOURS PRN, Pain Mild (1-3), Starting on Fri07/10/21 at 1941, Maximum dose of acetaminophen is 4000 mg from all sources in 24 hours. 1420 ([facility] Hold - Provider: Sarika Autohold - Reason: Unreviewed Transfer Orders)173 ([facility] Unhold - Provider: Mary Dominguez) 0822 (Given - Provider: Kaelyn Berrios RN) HYDROcodone-acetaminophen (NORCO) 5-325 MG per tablet 1 tablet 1 tablet, Oral, EVERY 6 HOURS PRN, Pain Moderate (4-6), Starting on Fri07/11/21 at 1735, Maximum dose of acetaminophen is 4000 mg from all sources in 24 hours. HYDROcodone-acetaminophen (NORCO) 5-325 MG per tablet 2 tablet 2 tablet, Oral, EVERY 6 HOURS PRN, Pain Severe (7-10), Starting on Fri07/11/21 at 1735, Maximum dose of acetaminophen is 4000 mg from all sources in 24 hours. morphine (PF) injection 2 mg (CANCELED) 2 mg, IntraVENous, EVERY 2 HOURS PRN, Pain Moderate (4-6), Starting on Fri07/10/21 at 1941, If oral and IV narcotics ordered, use oral first and only use IV if oral is ineffective or cannot take oral. Do Not give oral and IV within 1 hour of each other unless specifically ordered. 0709 (Given - Provider: Mary Dominguez)1420 ([facility] Hold - Provider: Sarika Autohold - Reason: Unreviewed Transfer Orders)1735 ([facility] Unhold - Provider: Mary Dominguez) ondansetron (ZOFRAN) injection 4 mg(Linked Group 2) 4 mg, IntraVENous, EVERY 6 HOURS PRN, Nausea, Vomiting, Starting on Fri07/11/21 at 1735, Administer if oral route cannot be used., Post-op ondansetron (ZOFRAN-ODT) disintegrating tablet 4 mg 4 mg, Oral, EVERY 8 HOURS PRN, Nausea, Vomiting, Starting on Fri07/10/21 at 1943 1420 ([facility] Hold - Provider: Mar Autohold - Reason: Unreviewed Transfer Orders)1735 ([facility] Unhold - Provider: Mary Dominguez) ondansetron (ZOFRAN-ODT) disintegrating tablet 4 mg(Linked Group 2) 4 mg, Oral, EVERY 8 HOURS PRN, Nausea, Vomiting, Starting on Fri07/11/21 at 1735, Post-op sodium chloride flush 0.9 % injection 10 mL 10 mL, IntraVENous, PRN, Line Care, After every IV line use, Starting on Fri07/09/21 at 1354 1735 ([facility] Unhold - Provider: Mary Dominguez) sodium chloride flush 0.9 % injection 5-40 mL 5-40 mL, IntraVENous, PRN, Line Care, Starting on Fri07/11/21 at 1735, After every IV line use, Post-op Linked Groups Order Group 1: acetaminophen (TYLENOL) tablet 650 mgJump to med 650 mg, Oral, EVERY 6 HOURS PRN, Pain Mild (1-3), Fever, For temp greater than 100.4 F (38 C), Starting on Fri07/09/21 at 1354
Maximum dose of acetaminophen is 4000 mg from all sources in 24 hours.
Or acetaminophen (TYLENOL) suppository 650 mgJump to med 650 mg, Rectal, EVERY 6 HOURS PRN, Pain Mild (1-3), Fever, For temp greater than 100.4 F (38 C), Starting on Fri07/09/21 at 1354
Administer if oral route cannot be used.
Group 2: ondansetron (ZOFRAN-ODT) disintegrating tablet 4 mgJump to med 4 mg, Oral, EVERY 8 HOURS PRN, Nausea, Vomiting, Starting on Fri07/11/21 at 1735, Post-op Or ondansetron (ZOFRAN) injection 4 mgJump to med 4 mg, IntraVENous, EVERY 6 HOURS PRN, Nausea, Vomiting, Starting on Fri07/11/21 at 1735
Administer if oral route cannot be used.
Post-op Care Teams (unrecognized sec tion and content) Dispatcher Chief Oil Relationship Specialty Start Date End Date Alice Quiroz MD [address] [facility] [address] [place] [address] PCP - General Family Medicine 07/09/21 Team Status: Active Member Role Status Dates Alice Quiroz MD Primary Care Provider Active Team Status: Inactive Member Role Status Dates Idalmis Cardona APRN Attending Provider Active S tart: October 10, 2023 End: October 10, 2023 Alice Quiroz MD Primary Care Provider Active S tart: October 10, 2023 End: October 10, 2023 Team Status: Inactive Member Role Status Dates Idalmis Cardona APRN Attending Provider Active S tart: October 10, 2023 End: October 10, 2023 Dispatcher Chief Oil Relationship Specialty Start Date End Date Alice Quiroz MD [address] [facility] [address] [place] [address] PCP - General Family Medicine 10/03/22 Dispatcher Chief Oil Relationship Specialty Start Date End Date Alice Quiroz MD [address] [facility] [address] [place] [address] PCP - General Family Medicine 10/03/22 Dispatcher Chief Oil Relationship Specialty Start Date End Date Alice Quiroz MD [address] [facility] [address] [place] [address] PCP - General 03/08/20 Dispatcher Chief Oil Relationship Specialty Start Date End Date Alice Quiroz MD [address] [facility] [address] [place] [address] PCP - General Family Medicine 10/03/22 Alice Quiroz MD [address] [facility] [address] [place] [address] PCP - ACO Reach 06/11/24 Goals (unrecognized section and content) Goals may be documented in a n alternate sectionGoals may be documented in an alternate section Source Comments (unrecognize d section and content) In the event this informatio n is protected by the [facility] Confidentiality of Alcohol and Drug Abuse Patient Records regulations: The Federal rules restrict any use of the information to criminally investigate or prosecute any alcohol or drug abuse patient.[facility] the event this information is protected by the Federal Confidentiality of Alcohol and Drug Abuse Patient Records regulations: The Federal rules restrict any use of the information to criminally investigate or prosecute any alcohol or drug abuse patient.[facility] the event this information is protected by the Federal Confidentiality of Alcohol and Drug Abuse Patient Records regulations: The Federal rules restrict any use of the information to criminally investigate or prosecute any alcohol or drug abuse patient.[facility] the event this information is protected by the Federal Confidentiality of Alcohol and Drug Abuse Patient Records regulations: The Federal rules restrict any use of the information to criminally investigate or prosecute any alcohol or drug abuse patient.[facility] FOR RECORDS PERTAINING TO PATIENTS WHO ARE OR HAVE BEEN ENROLLED IN A CHEMICAL DEPENDENCY/SUBSTANCEABUSE PROGRAM, SOME INFORMATION MAY BE OMITTED. This clinical summary was aggregated from multiple sources. Caution should be exercised in using it in the provision of clinical care. This summary normalizes information from multiple sources, and as a consequence, information in this document may materially change the coding, format and clinical context of patient data. In addition, data may be omitted in some cases. CLINICAL DECISIONS SHOULD BE BASED ON THE PRIMARY CLINICAL RECORDS. [facility]. provides no warranty or guarantee of the accuracy or completeness of information in this document.
--- NOTE | 2024-12-09 21:33 | XR_ITS ---
The [address] [address] Patient Name: DESTINY BLAS MRN: [id number] date: 1940 Sex: F Assigned Patient Location: ER Current Patient Location: ER Accession/Order Number: [id number] Exam Date: 12/09/2024 22:41 Report Date: 12/09/2024 22:42 At the request of: FRANCISCA ANDERSON DO Procedure: XR chest 1V PA CHEST: CLINICAL HISTORY: hypoxic, SOB COMPARISON: None Mildly prominent cardiac silhouette. Minor perihilar congestion. Hazy interstitial thickening possible interstitial edema. Otherwise no acute disease effusion or pneumothorax. XR/XR chest 1V IMPRESSION: Suspect mild central congestion and minimal interstitial edema. Impression dictated by: Edi Hong M.D. 12/09/2024 10:42 PM Dictation Location: [place] [address] Electronically authenticated by: [id number] Y Date: 12/09/2024 22:42
--- NOTE | 2024-12-09 21:34 | ECG_ITS ---
The [facility] Test Date: 2024-12-09 Pat Name: DESTINY BLAS Department: Room: - Gender: Female Document Review Specialist: : 1940 Requested By: [id number] Order Number: [id number] Reading MD: JUAN GANDARA M.D. Measurements Intervals [place] Rate: 102 P: 72 UT: 158 QRS: 93 QRSD: 86 T: 66 QT: 318 QTc: 376 Interpretive Statements 1120 Sinus tachycardia 1470 with occasional supraventricular premature complexes 7102 Moderate right axis deviation 0102 ARTIFACT PRESENT Borderline ECG No previous ECG available for comparison Electronically Signed On 12-11-2024 7:34:46 EDT by JUAN GANDARA M.D.
[2024-12-09] MEDS: 0.9 % SODIUM CHLORIDE 1,000 ML 1000 ML IV (21:46)
[2024-12-09 21:51] LABS: Hematocrit 34.7 % (36.0-48.0); Hemoglobin 11.6 g/dL (12.0-16.0); Mean Corpuscular HGB Conc 33.4 g/dL (29.9-35.2); Mean Corpuscular Hemoglobin 34.4 pg (26.7-34.0); Mean Corpuscular Volume 103.0 fL (81.0-99.0); Platelet Count 285 10^3/uL (150-450); Red Blood Count 3.37 10^6/uL (4.20-5.40); White Blood Count 6.6 10^3/uL (4.0-11.0)
[2024-12-09 22:02] LABS: Lactate/Lactic Acid 1.2 mmol/L (0.4-2.0)
[2024-12-09 22:04] LABS: Alanine Aminotransferase 21 U/L (14-59); Albumin Globulin Ratio 0.8; Albumin Level 2.9 g/dL (3.4-5.0); Alkaline Phosphatase 106 U/L (46-116); Anion Gap 12.6; Aspartate Amino Transferase 22 U/L (15-37); Blood Urea Nitrogen 19.0 mg/dL (7.0-18.0); Calcium 9.7 mg/dL (8.5-10.1); Carbon Dioxide 28.8 mmol/L (21.0-32.0); Chloride 105 mmol/L (98-107); Estimated GFR (African America 60 (>=60 mL/min/1.73m^2); Estimated GFR (Non-African Ame 50 (>=60 mL/min/1.73m^2); Globulin 3.6 g/dL; Glucose 130 mg/dL (74-106); Lipase 36.0 U/L (16.0-77.0); Magnesium 1.9 mg/dL (1.8-2.4); Potassium 4.4 mmol/L (3.5-5.1); Sodium 142 mmol/L (136-145); Total Protein 6.5 g/dL (6.4-8.2)
[2024-12-09 22:22] LABS: Basophils Abs Manual 0.00 10^3/uL (0.00-0.10); Basophils Percent Manual 0.0 % (0.2-2.0); Eosinophils Absolute Manual 0.00 10^3/uL (0.00-0.70); Eosinophils Percent Manual 0.0 % (0.9-7.0); Lymphocytes Absolute Manual 0.52 10^3/uL (1.20-3.80); Lymphocytes Percent Manual 8.0 % (20.5-60.0); Monocytes Absolute Manual 0.39 10^3/uL (0.30-0.80); Monocytes Percent Manual 6.0 % (1.7-12.0); Segmented Neut Absolute Manual 5.67 10^3/uL (1.4-6.5); Segmented Neutrophils % Manual 86.0 (43.0-75.0)
[2024-12-09 22:28] LABS: Glucose Urine UA NEGATIVE (NEGATIVE)
[2024-12-09 22:34] LABS: Cast Seen? NONE SEEN #/LPF (NONE SEEN); Crystals Seen? None Seen #/HPF (None Seen); Urine Culture Indicated YES-FRMC
--- NOTE | 2024-12-09 23:06 | PC.NURSE ---
Pt states that she feels alot better .
--- NOTE | 2024-12-09 23:12 | ED_ITS ---
HPI HPI - General Adult General Chief complaint: Nausea/Vomiting/Diarrhea Stated complaint: VOMITING, WEAKNESS, DIFFICULTY WALKING Time Seen by Provider: 12/09/24 21:24 Source: patient Mode of arrival: Wheelchair History of Present Illness HPI narrative: Patient is an 84-year-old female presenting to the emergency department with her from home for concerns of vomiting, decreased p.o. intake, and generali zed weakness over the last 7 days. The stated that earlier tonight at dinner, the patient vomited and was too weak to even walk to the car. This is getting progressively worse over the last week. The patient herself states she feels nauseous and cold, but otherwise denies any acute complaints. She states she might be a little bit short of breath. She denies any associated cough or hemoptysis. No history of DVT/PE. No fevers or chills. She denies any abdominal pain, constipation, or diarrhea. She states she may have mild dysuria, and has a history of UTIs. She states she has a history of AAA repair many years ago. She denies any numbness/tingling/weakness/pain in the extremities. She denies any back pain. Related Data Allergies Allergy/AdvReac Type Severity Reaction Status Date / Time No Known Drug Allergies Allergy Verified 12/09/24 21:33 Review of Systems ROS Status of ROS 10 or more systems reviewed and unremark able except as noted in history and below PFSH PFSH Social History Little interest or pleasure in doing things: not at all Feeling down, depressed, or hopeless: not at all Exam Narrative Exam Narrative: CONSTITUTIONAL: Laying in the stretcher, eyes closed, moaning in pain, is easily arousable and answers questions/follows commands appropriately SKIN: [was warm and dry]. EYES: [PERRLA, no scleral icterus or conjunctival pallor] EARS, NOSE, THROAT: [Neck was supple. There was no jugular venous distention.] RESPIRATORY: Mildly diminished breath sounds at the left lung base compared to the right. No wheezing or crackles. CARDIOVASCULAR: [Tachycardic rate and regular rhythm. There is no S3, S4, murmur, rub. Radial and dorsalis pedis pulses are 2+ and symmetrical. Extremities are warm and well-perfused] GASTROINTESTINAL: [Abdomen was soft, non-tender, and non-distended. There is no guarding or rebound tenderness] MUSCULOSKELETAL: [There was no lower extremity edema, erythema, or tenderness.] NEUROLOGIC: [Equal strength and sensation to light touch in all extremities. No pronator drift. Speech normal. Facies were symmetrical.] Constitutional Vital Signs, click to edit/add: Last Vital Signs Temp 99.4 F 12/09/24 22:18 Pulse 99 H 12/09/24 22:10 Resp 16 12/09/24 22:10 BP 154/85 H 12/09/24 22:01 Pulse Ox 98 12/09/24 21:40 O2 Del Method Room Air 12/09/24 21:19 Course Vital Signs Vital signs: Vital Signs Temperature 100.9 F H 12/09/24 21:19 Pulse Rate 106 H 12/09/24 21:19 Respiratory Rate 24 H 12/09/24 21:19 Blood Pressure 157/101 H 12/09/24 21:19 Pulse Oximetry 90 L 12/09/24 21:19 Oxygen Delivery Method Room Air 12/09/24 21:19 Temperature 99.4 F 12/09/24 22:18 Pulse Rate 99 H 12/09/24 22:10 Respiratory Rate 16 12/09/24 22:10 Blood Pressure 154/85 H 12/09/24 22:01 Pulse Oximetry 98 12/09/24 21:40 Oxygen Delivery Method Room Air 12/09/24 21:19 Medical Decision Making MDM Narrative Medical decision making narrative: Patient is an 84-year-old female presenting to the emergency department for 1 we ek history of progressively worsening generalized weakness, vomiting, and shortness breath. Triage vital signs were significant for hypoxia to 88% on room air. She was placed on 2 L nasal cannula which improved her saturations to 99%. Her vital signs are within normal limits otherwise. Physical examination was notable for somewhat diminished breath sounds at the left lung base. She is mildly dyspneic, but not in acute respiratory distress or impending failure. Her abdomen is soft and nontender, making surgical etiologies of vomiting of low likelihood. Differential diagnosis includes UTI, pneumonia, electrolyte derangement, atypical presentation for ACS, metabolic derangement, pneumothorax. IV was established and laboratory studies were obtained. She was given 1 L bolus normal saline and Zofran for symptomatic treatment. Chest x-ray is obtained as well. Laboratory studies were significant for UTI. She has a new macrocytic anemia compared to laboratory studies drawn from 2022. Otherwise, her laboratory studies are unremarkable. No significant electrolyte or metabolic derangement. Lactic acid level was normal. Troponin non-elevated. No transaminitis or hyperbilirubinemia. Lipase non-elevated. Chest x-ray independently reviewed/interpreted by myself demonstrated minimal interstitial edema but no evidence of pneumonia. EKG demonstrated no evidence of acute myocardial ischemia. Full dictation below. On reevaluation, patient states she feels improved but still overall weak. She maintains her saturations in the high 90s on 2 L nasal cannula in no respiratory distress. I do believe she warrants admission to the hospital for further treatment of her UTI and hypoxia. She was given 1 g of ceftriaxone for empiric treatment and urine culture was sent. I discussed the patient with the hospitalist, Dr. Paul, who accepted the patient to their service. Differential Diagnosis Differential Diagnosis: UTI, pneumonia, sepsis, dehydration Medical Records Medical records reviewed: Yes I reviewed the patient's medical records Lab Data Lab results reviewed: Yes I reviewed the patient's lab results Labs: Lab Results 12/09/24 12/09/24 Range/Units 21:25 22:10 WBC 6.6 (4.0-11.0) 10^3/uL RBC 3.37 L (4.20-5.40) 10^6/uL Hgb 11.6 L (12.0-16.0) g/dL Hct 34.7 L (36.0-48.0) % MCV 103.0 H (81.0-99.0) fL MCH 34.4 H (26.7-34.0) pg MCHC 33.4 (29.9-35.2) g/dL RDW 19.1 H (11.0-15.0) % Plt Count 285 (150-450) 10^3/uL MPV 10.0 (9.5-13.5) fL Seg Neuts % (Manual) 86.0 H (43.0-75.0) Lymphocytes % (Manual) 8.0 L (20.5-60.0) % Monocytes % (Manual) 6.0 (1.7-12.0) % Eosinophils % (Manual) 0.0 L (0.9-7.0) % Basophils % (Manual) 0.0 L (0.2-2.0) % Neutrophils # (Manual) 5.67 (1.4-6.5) 10^3/uL Lymphocytes # (Manual) 0.52 L (1.20-3.80) 10^3/uL Monocytes # (Manual) 0.39 (0.30-0.80) 10^3/uL Eosinophils # (Manual) 0.00 (0.00-0.70) 10^3/uL Basophils # (Manual) 0.00 (0.00-0.10) 10^3/uL Sodium 142 (136-145) mmol/L Potassium 4.4 (3.5-5.1) mmol/L Chloride 105 (98-107) mmol/L Carbon Dioxide 28.8 (21.0-32.0) mmol/L Anion Gap 12.6 BUN 19.0 H (7.0-18.0) mg/dL Creatinine 1.06 H (0.55-1.02) mg/dL Est GFR ( Amer) 60 (>=60 mL/min/1.73m^2) Est GFR (Non-Af Amer) 50 L (>=60 mL/min/1.73m^2) BUN/Creatinine Ratio 17.9 Glucose 130 H (74-106) mg/dL Lactate 1.2 (0.4-2.0) mmol/L Calcium 9.7 (8.5-10.1) mg/dL Magnesium 1.9 (1.8-2.4) mg/dL Total Bilirubin 1.2 H (0.2-1.0) mg/dL AST 22 (15-37) U/L ALT 21 (14-59) U/L Alkaline Phosphatase 106 (46-116) U/L Troponin I High Sens 6.7 (4.0-51.3) pg/mL Total Protein 6.5 (6.4-8.2) g/dL Albumin 2.9 L (3.4-5.0) g/dL Globulin 3.6 g/dL Albumin/Globulin Ratio 0.8 Lipase 36.0 (16.0-77.0) U/L Urine Color Yellow (YELLOW) Urine Clarity Sl cloudy (CLEAR) Urine pH 6.5 (5.0-9.0) Ur Specific [place] 1.020 (1.005-1.025) Urine Protein Trace (NEG/TRACE) mg/dL Urine Glucose (UA) Negative (NEGATIVE) mg/dL Urine Ketones Negative (NEGATIVE) mg/dL Urine Occult Blood Moderate A (NEGATIVE) Urine Nitrite Positive A (NEGATIVE) Urine Bilirubin Negative (NEGATIVE) Urine Urobilinogen 1.0 (0.2-1.0) EU/dL Ur Leukocyte Esterase Small A (NEGATIVE) Urine RBC 2-5 A (0-2) #/HPF Urine WBC 10-20 A (NONE SEEN) #/HPF Ur Squamous Epith Cells Moderate A (NONE/RARE) #/LPF Urine Crystals None seen (None Seen) #/HPF Urine Bacteria Large A (NONE SEEN) #/HPF Urine Casts None seen (NONE SEEN) #/LPF Urine Mucus Trace A (NONE SEEN) Ur Culture Indicated? [place] [place] Chest x-ray: Radiologist's impression: ITS Impressions Chest X-Ray 12/09/24 21:33 IMPRESSION: Suspect mild central congestion and minimal interstitial edema. Impression dictated by: Edi Hong M.D. 12/09/2024 10:42 PM Dictation Location: [place] [address] Electronically authenticated by: [id number] Y Date: 12/09/2024 22:42 ECG Data Attestation: I personally reviewed and interpreted this ECG as follows: (Sinus tachycardia at a rate of 102. No evidence of acute myocardial ischemia. Right axis deviation. No ST segment elevation/depression. WA/QT/QRS interval within normal limits unchanged compared to prior EKG from 2023.) Prior ECG tracings: available for review Discharge Plan Discharge Chief Complaint: Nausea/Vomiting/Diarrhea Clinical Impression: Acute UTI, Hypoxia Patient Disposition: Admitted As Inpatient Time of Disposition Decision: 23:29 Condition: Fair
[2024-12-09 23:40] LABS: NT Pro B Type Natriuretic Pept 1301.0 pg/mL (<=1800.0)
--- OUTSIDE RECORDS SUMMARY | 2024-12-09 23:47 | XMS_ITS | CCD ---
Author Organization [facility] Care Team Providers Care Hvac Sales Engineer Name Role Phone BERNARDINO RAMOS Consulting Unavailable [...] RUGEN Admitting Unavailable GABRIELLA, ZAFAREN Attending Unavailable [place], Rugen M Unavailable Unavailable Unavailable Alice Quiroz MD Primary Care Provider PATIENCE NEIL Attending Unavailable PATIENCE NEIL Admitting Unavailable GABRIELLA, RUGEN M Primary Care Unavailable ANDI BETHEA Consulting Unavailable ESPERANZA Cardona Attending Provider [phone] Idalmis Cardona Attending Unavailable Idalmis Cardona Admitting [...] source) Onion extract Drug Allergy 2 Diarrhea [employer] Phone: (6 sources) Food Propensity to adverse reactions to drug 2 Diarrhea [employer] Phone: (5 sources) Onion extract Drug Allergy [...] Start: 07-11-2021 take 2 tablets by mo [facility] every six hours as needed for pain [...] with positive rheumatoid factor, involving unspecified site ([facility]) Pt is to take 4 tablets once [...] (PROTONIX) tablet 40 mg polyethylene glycol [id number] [id number] mg powder for oral solution (2 sources) [...] l (Bld)on 10-28-2024 Basophils (Bld) [#/Vol] NINF [facility] Basophils/100 WBC (Bld) 0.3 % [facility] Differential cell count method Nom (Bld) Auto [facility] Eosinophils (Bld) [#/Vol] 0.09 10*3/uL [facility] Eosinophils/100 WBC (Bld) 1.4 % [facility] Erythrocyte distribution width (RBC) [Ratio] 17.3 % High 11.5 - 15.0 % [facility] Hematocrit (Bld) [Volume fraction] 35.4 % Low 36.0 - 46.0 % [facility] Hemoglobin (Bld) [Mass/Vol] 11.7 g/dL 11.5 - 15.5 g/dL [facility] Immature granulocytes (Bld) [#/Vol] 0.03 10*3/uL [facility] Immature granulocytes/100 WBC (Bld) 0.5 % [facility] Interpretation and review of laboratory results Abnormal [facility] Lymphocytes (Bld) [#/Vol] 1.46 10*3/uL [facility] Lymphocytes/100 WBC (Bld) 23 % [facility] MCH (RBC) [Entitic mass] 34 pg 26.0 - 34.0 pg [facility] MCHC (RBC) [Mass/Vol] 33.1 g/dL 30.5 - 36.0 g/dL [facility] MCV (RBC) [Entitic vol] 102.9 fL High 80.0 - 100.0 fL [facility] Monocytes (Bld) [#/Vol] 0.3 10*3/uL [facility] Monocytes/100 WBC (Bld) 4.7 % [facility] Neutrophils (Bld) [#/Vol] 4.44 10*3/uL [facility] Neutrophils/100 WBC (Bld) 70.1 % [facility] Nucleated RBC (Bld) [#/Vol] [facility] Nucleated RBC/100 WBC (Bld) [Ratio] 0 % /100 WBC [facility] Platelet mean volume (Bld) [Entitic vol] 10.4 fL 9.0 - 12.7 fL [facility] Platelets (Bld) [#/Vol] 119 10*3/uL Low [facility] RBC (Bld) [#/Vol] 3.44 10*6/uL Low 3.90 - 5.2 0 m/uL [facility] WBC (Bld) [#/Vol] 6.34 10*3/uL [facility] Basophils (Bld) [#/Vol] 10*3/uL Normal <0.11 [facility] Comment on above: Order Comment: Speci men Type: BLOOD SPECIMEN Ordering Facility: [facility] Address: [address] [place] [address] Performed By: #### 5 0190-8, 2275- #### [facility] CLIA [id number] [address] [place] [address] [place] Basophils/100 WBC (Bld) 0.3 % Normal [facility] Comment on above: Order Comment: Speci men Type: BLOOD SPECIMEN Ordering Facility: [facility] Address: [address] [place] [address] Performed By: #### 5 0190-8, 4 #### [facility] CLIA [id number] [address] [place] [address] [place] Differential cell count method Nom (Bld) Auto Normal [facility] Comment on above: Order Comment: Speci men Type: BLOOD SPECIMEN Ordering Facility: [facility] Address: [address] [place] [address] Performed By: #### 5 0190-8, 2275-08 #### [facility] CLIA [id number] [address] [place] [address] [place] Eosinophils (Bld) [#/Vol] 0.09 10*3/uL Normal <0.46 [facility] Comment on above: Order Comment: Speci men Type: BLOOD SPECIMEN Ordering Facility: [facility] Address: [address] [place] [address] Performed By: #### 5 0190-8, 2275- #### [facility] CLIA [id number] [address] [place] [address] [place] Eosinophils/100 WBC (Bld) 1.4 % Normal [facility] Comment on above: Order Comment: Speci men Type: BLOOD SPECIMEN Ordering Facility: [facility] Address: [address] [place] [address] Performed By: #### 5 0190-8, 2275-4 #### [facility] CLIA [id number] [address] [place] [address] [place] Erythrocyte distribution width (RBC) [Ratio] 17.3 % High 11.5-15.0 [facility] Comment on above: Order Comment: Speci men Type: BLOOD SPECIMEN Ordering Facility: [facility] Address: [address] [place] [address] Performed By: #### 5 0190-8, 2275-08 #### [facility] CLIA [id number] [address] [place] [address] [place] Hematocrit (Bld) [Volume fraction] 35.4 % Low 36.0-46.0 [facility] Comment on above: Order Comment: Speci men Type: BLOOD SPECIMEN Ordering Facility: [facility] Address: [address] [place] [address] Performed By: #### 5 0190-8, 2275-08 #### [facility] CLIA [id number] [address] [place] [address] [place] Hemoglobin (Bld) [Mass/Vol] 11.7 g/dL Normal 11.5-15.5 [facility] Comment on above: Order Comment: Speci men Type: BLOOD SPECIMEN Ordering Facility: [facility] Address: [address] [place] [address] Performed By: #### 5 0190-8, 2275-08 #### [facility] CLIA [id number] [address] [place] [address] [place] Immature granulocytes (Bld) [#/Vol] 0.03 10*3/uL Normal <0.10 [facility] Comment on above: Order Comment: Speci men Type: BLOOD SPECIMEN Ordering Facility: [facility] Address: [address] [place] [address] Performed By: #### 5 0190-8, 2275-08 #### [facility] CLIA [id number] [address] [place] [address] [place] Immature granulocytes/100 WBC (Bld) 0.5 % Normal [facility] Comment on above: Order Comment: Speci men Type: BLOOD SPECIMEN Ordering Facility: [facility] Address: [address] [place] [address] Performed By: #### 5 0190-8, 2275- #### [facility] CLIA [id number] [address] [place] [address] [place] Lymphocytes (Bld) [#/Vol] 1.46 10*3/uL Normal 1.00-4.00 [facility] Comment on above: Order Comment: Speci men Type: BLOOD SPECIMEN Ordering Facility: [facility] Address: [address] [place] [address] Performed By: #### 5 0190-8, 2275-08 #### [facility] CLIA [id number] [address] [place] [address] [place] Lymphocytes/100 WBC (Bld) 23.0 % Normal [facility] Comment on above: Order Comment: Speci men Type: BLOOD SPECIMEN Ordering Facility: [facility] Address: [address] [place] [address] Performed By: #### 5 0190-8, 2275-08 #### [facility] CLIA [id number] [address] [place] [address] [place] MCH (RBC) [Entitic mass] 34.0 pg Normal 26.0-34.0 [facility] Comment on above: Order Comment: Speci men Type: BLOOD SPECIMEN Ordering Facility: [facility] Address: [address] [place] [address] Performed By: #### 5 0190-8, 2275-08 #### [facility] CLIA [id number] [address] [place] [address] [place] MCHC (RBC) [Mass/Vol] 33.1 g/dL Normal 30.5-36.0 [facility] Comment on above: Order Comment: Speci men Type: BLOOD SPECIMEN Ordering Facility: [facility] Address: [address] [place] [address] Performed By: #### 5 0190-8, 4 #### [facility] CLIA [id number] [address] [place] [address] [place] MCV (RBC) [Entitic vol] 102.9 fL High 80.0-100.0 [facility] Comment on above: Order Comment: Speci men Type: BLOOD SPECIMEN Ordering Facility: [facility] Address: [address] [place] [address] Performed By: #### 5 0190-8, 4 #### [facility] CLIA [id number] [address] [place] [address] [place] Monocytes (Bld) [#/Vol] 0.30 10*3/uL Normal <0.87 [facility] Comment on above: Order Comment: Speci men Type: BLOOD SPECIMEN Ordering Facility: [facility] Address: [address] [place] [address] Performed By: #### 5 0190-8, 2275-08 #### [facility] CLIA [id number] [address] [place] [address] [place] Monocytes/100 WBC (Bld) 4.7 % Normal [facility] Comment on above: Order Comment: Speci men Type: BLOOD SPECIMEN Ordering Facility: [facility] Address: [address] [place] [address] Performed By: #### 5 0190-8, 2275-08 #### [facility] CLIA [id number] [address] [place] [address] [place] Neutrophils (Bld) [#/Vol] 4.44 10*3/uL Normal 1.45-7.50 [facility] Comment on above: Order Comment: Speci men Type: BLOOD SPECIMEN Ordering Facility: [facility] Address: [address] [place] [address] Performed By: #### 5 0190-8, 2275-4 #### [facility] CLIA [id number] [address] [place] [address] [place] Neutrophils/100 WBC (Bld) 70.1 % Normal [facility] Comment on above: Order Comment: Speci men Type: BLOOD SPECIMEN Ordering Facility: [facility] Address: [address] [place] [address] Performed By: #### 5 0190-8, 2275-4 #### [facility] CLIA [id number] [address] [place] [address] [place] Nucleated RBC (Bld) [#/Vol] 10*3/uL Normal <0.01 [facility] Comment on above: Order Comment: Speci men Type: BLOOD SPECIMEN Ordering Facility: [facility] Address: [address] [place] [address] Performed By: #### 5 0190-8, 2275-4 #### [facility] CLIA [id number] [address] [place] [address] [place] Nucleated RBC/100 WBC (Bld) [Ratio] 0.0 /100 WBC Normal [facility] Comment on above: Order Comment: Speci men Type: BLOOD SPECIMEN Ordering Facility: [facility] Address: [address] [place] [address] Performed By: #### 5 0190-8, 2275- #### [facility] CLIA [id number] [address] [place] [address] [place] Platelet mean volume (Bld) [Entitic vol] 10.4 fL Normal 9.0-12.7 [facility] Comment on above: Order Comment: Speci men Type: BLOOD SPECIMEN Ordering Facility: [facility] Address: [address] [place] [address] Performed By: #### 5 0190-8, 2276-4 #### [facility] CLIA [id number] [address] [place] [address] [place] Platelets (Bld) [#/Vol] 119 10*3/uL Low 150-400 [facility] Comment on above: Order Comment: Speci men Type: BLOOD SPECIMEN Ordering Facility: [facility] Address: [address] [place] [address] Performed By: #### 5 0190-8, 6-4 #### [facility] CLIA [id number] [address] [place] [address] [place] RBC (Bld) [#/Vol] 3.44 10*6/uL Low 3.90-5.20 [facility] Comment on above: Order Comment: Speci men Type: BLOOD SPECIMEN Ordering Facility: [facility] Address: [address] [place] [address] Performed By: #### 5 0190-8, 2275-4 #### [facility] CLIA [id number] [address] [place] [address] [place] WBC (Bld) [#/Vol] 6.34 10*3/uL Normal 3.70-11.00 [facility] Comment on above: Order Comment: Speci men Type: BLOOD SPECIMEN Ordering Facility: [facility] Address: [address] [place] [address] Performed By: #### 5 0190-8, 6-4 #### [facility] CLIA [id number] [address] [place] [address] [place] [facility] [place] CNOVSPon 10-28-2024 CNOVSP Visit (SP) Office (HEMASA) ELZA BLAS ([id number]) 1940 F Date Time Provider Department 10/28/24 1:00 PM SID LAU During your visit today, we recorded the following information about you: Temperature Pulse Respiration Blood pressure 97 degrees 69/minute 18/minute 163/78 Weight 52.8 kg Sid Lau MD 10/28/2024 3:42 PM Addendum PATIENT NAME: Elza Blas CLINIC NO.: [id number] ATTENDING PHYSICIAN: Sid Lau MD DATE OF SERVICE: 10/28/[address] Alice Quiroz MD [address] [place] [address] thank you for referring Elza Blas for [...] symmetric. Mu (more content not included)... Normal [facility] Comprehensive metabolic 2000 panelOrdered By: Hilario Salas on 10-28-2024 Albumin [Mass/Vol] 3.7 g/dL Low 3.9 - 4.9 g/dL [facility] ALP [Catalytic activity/Vol] 100 U/L 34 - 123 U/L [facility] ALT [Catalytic activity/Vol] 16 U/L 7 - 38 U/L [facility] Anion gap [Moles/Vol] 7 mmol/L Low 8 - 15 mmol/L [facility] AST [Catalytic activity/Vol] 22 U/L 13 - 35 U/L [facility] Bilirubin [Mass/Vol] 1.1 mg/dL 0.2 - 1.3 mg/dL [facility] Calcium [Mass/Vol] 10.3 mg/dL High 8.5 - 10. 2 mg/dL [facility] Chloride [Moles/Vol] 107 mmol/L 98 - 107 mmol/L [facility] CO2 [Moles/Vol] 27 mmol/L 22 - 30 mmol/L [facility] Creatinine [Mass/Vol] 1.04 mg/dL High 0.58 - 0.96 mg/dL [facility] GFR/1.73 sq M.predicted among non-blacks MDRD (S/P/Bld) [Vol rate/Area] 54 mL/min/{1.73_m2} Low - PINF [facility] Comment on above: Estimated Glomerular Filtration Rate [...] 102 mg/dL High 74 - 99 mg/dL [facility] Comment on above: The [place] Diabete s Association (ADA) provides guidance for [...] Standards of Medical Care in Diabetes 2016, [place] [employer]. Diabetes Care. 2016.39(Suppl 1). Interpretation and review of laboratory results Abnormal [facility] Potassium [Moles/Vol] 4.6 mmol/L 3.7 - 5.1 mmol/L [facility] Protein [Mass/Vol] 6.3 g/dL 6.3 - 8.0 g/dL [facility] Sodium [Moles/Vol] 141 mmol/L 136 - 144 mmol/L [facility] Urea nitrogen [Mass/Vol] 22 mg/dL High 7 - 21 mg/dL [facility] Comprehensive metabolic 2000 panelon 10-28-2024 Albumin [Mass/Vol] 3.7 g/dL Low 3.9-4.9 [facility] Comment on above: Order Comment: Speci men Type: BLOOD SPECIMEN Ordering Facility: [facility] Address: [address] [place] [address] Performed By: #### 2 4323-8 #### [facility] CLIA [id number] [address] [place] [address] ALP [Catalytic activity/Vol] 100 U/L Normal 34-123 [facility] Comment on above: Order Comment: Speci men Type: BLOOD SPECIMEN Ordering Facility: [facility] Address: [facility] [place] [address] Performed By: #### 2 4323-8 #### [facility] CLIA [id number] [address] [place] [address] ALT [Catalytic activity/Vol] 16 U/L Normal 7-38 [facility] Comment on above: Order Comment: Speci men Type: BLOOD SPECIMEN Ordering Facility: [facility] Address: [address] [place] [address] Performed By: #### 2 4323-8 #### [facility] CLIA [id number] [address] [place] [address] Anion gap [Moles/Vol] 7 mmol/L Low 8-15 [facility] Comment on above: Order Comment: Speci men Type: BLOOD SPECIMEN Ordering Facility: [facility] Address: [address] [place] [id number] Performed By: #### 2 4323-8 #### [facility] CLIA [id number] [address] [place] [address] AST [Catalytic activity/Vol] 22 U/L Normal 13-35 [facility] Comment on above: Order Comment: Speci men Type: BLOOD SPECIMEN Ordering Facility: [facility] Address: [address] [place] [id number] Performed By: #### 2 4323-8 #### [facility] CLIA [id number] [address] [place] [address] Bilirubin [Mass/Vol] 1.1 mg/dL Normal 0.2-1.3 [facility] Comment on above: Order Comment: Speci men Type: BLOOD SPECIMEN Ordering Facility: [facility] Address: [address] [place] [address] Performed By: #### 2 4323-8 #### [facility] CLIA [id number] [address] [place] [address] Calcium [Mass/Vol] 10.3 mg/dL High 8.5-10.2 [facility] Comment on above: Order Comment: Speci men Type: BLOOD SPECIMEN Ordering Facility: [facility] Address: [address] [place] [id number] Performed By: #### 2 4323-8 #### [facility] CLIA [id number] [address] [place] [address] Chloride [Moles/Vol] 107 mmol/L Normal 98-107 [facility] Comment on above: Order Comment: Speci men Type: BLOOD SPECIMEN Ordering Facility: [facility] Address: [address] [place], [place] [address] Performed By: #### 2 4323-8 #### [facility] CLIA [id number] [address] [place] [address] CO2 [Moles/Vol] 27 mmol/L Normal 22-30 [facility] Comment on above: Order Comment: Speci men Type: BLOOD SPECIMEN Ordering Facility: [facility] Address: [address] [place] [address] Performed By: #### 2 4323-8 #### [facility] CLIA [id number] [address] [place] [address] Creatinine [Mass/Vol] 1.04 mg/dL High 0.58-0.96 [facility] Comment on above: Order Comment: Speci men Type: BLOOD SPECIMEN Ordering Facility: [facility] Address: [address] [place] [address] Performed By: #### 2 4323-8 #### [facility] CLIA [id number] [address] [place], [place] [address] Creatinine and Glomerular filtration rate.predicted panel (S/P/Bld) 54 mL/min/1.73m??? Low >=60 [facility] Comment on above: Order Comment: Speci men Type: BLOOD SPECIMEN Ordering Facility: [facility] Address: [address] [place] [address] Result Comment: Ivory mated Glomerular Filtration Rate [...] GFR. Performed By: #### 2 4323-8 #### [facility] CLIA [id number] [address] [place] [address] Glucose [Mass/Vol] 102 mg/dL High 74-99 [facility] Comment on above: Order Comment: Brendan cummins Type: BLOOD SPECIMEN Ordering Facility: [facility] Address: [address] [place] [address] Result Comment: The [place] Diabetes Association (ADA) provides guidance for cutoff [...] Standards of Medical Care in Diabetes 2016, [place] Diabetes Association. Diabetes Care. 2016.39(Suppl 1). Performed By: #### 2 4323-8 #### [facility] CLIA [id number] [address] [place] [address] Potassium [Moles/Vol] 4.6 mmol/L Normal 3.7-5.1 [facility] Comment on above: Order Comment: Brendan cummins Type: BLOOD SPECIMEN Ordering Facility: [facility] Address: [address] [place], [place] [address] Performed By: #### 2 4323-8 #### [facility] CLIA [id number] [address] [place] [address] Protein [Mass/Vol] 6.3 g/dL Normal 6.3-8.0 [facility] Comment on above: Order Comment: Brendan cummins Type: BLOOD SPECIMEN Ordering Facility: [facility] Address: [address] [place] [address] Performed By: #### 2 4323-8 #### [facility] CLIA [id number] [address] [place] [address] Sodium [Moles/Vol] 141 mmol/L Normal 136-144 [facility] Comment on above: Order Comment: Speci men Type: BLOOD SPECIMEN Ordering Facility: [facility] Address: [address] [place] [address] Performed By: #### 2 4323-8 #### [facility] CLIA [id number] [address] [place] [address] Urea nitrogen [Mass/Vol] 22 mg/dL High 7-21 [facility] Comment on above: Order Comment: Speci men Type: BLOOD SPECIMEN Ordering Facility: [facility] Address: [address] [place] [address] Performed By: #### 2 4323-8 #### [facility] CLIA [id number] [address] [place] [address] CNPNon 10-01-2024 CNPN Telephone (HEMASA) ELZA BLAS ([id number]) 1940 F Date Time Provider Department 10/01/24 [...] Status:Closed by FLASH WELLS on 10/04/24 Normal [facility] CBC W Auto Differential pane l (Bld)on 09-29-2024 Basophils (Bld) [#/Vol] [facility] Basophils/100 WBC (Bld) 0.1 % [facility] Differential cell count method Nom (Bld) Auto [facility] Eosinophils (Bld) [#/Vol] [facility] Eosinophils/100 WBC (Bld) 0 % [facility] Erythrocyte distribution width (RBC) [Ratio] 20.1 % High 11.5 - 15.0 % [facility] Hematocrit (Bld) [Volume fraction] 36.2 % 36.0 - 46.0 % [facility] Hemoglobin (Bld) [Mass/Vol] 12 g/dL 11.5 - 15.5 g/dL [facility] Immature granulocytes (Bld) [#/Vol] 0.14 10*3/uL High [facility] Immature granulocytes/100 WBC (Bld) 1.7 % [facility] Interpretation and review of laboratory results Abnormal [facility] Lymphocytes (Bld) [#/Vol] 0.52 10*3/uL Low [facility] Lymphocytes/100 WBC (Bld) 6.4 % [facility] MCH (RBC) [Entitic mass] 35.3 pg High 26.0 - 34.0 pg [facility] MCHC (RBC) [Mass/Vol] 33.1 g/dL 30.5 - 36.0 g/dL [facility] MCV (RBC) [Entitic vol] 106.5 fL High 80.0 - 100.0 fL [facility] Monocytes (Bld) [#/Vol] 0.99 10*3/uL High NINF [facility] Monocytes/100 WBC (Bld) 12.3 % [facility] Neutrophils (Bld) [#/Vol] 6.41 10*3/uL [facility] Neutrophils/100 WBC (Bld) 79.5 % [facility] Nucleated RBC (Bld) [#/Vol] NINF [facility] Nucleated RBC/100 WBC (Bld) [Ratio] 0 % /100 WBC [facility] Platelet mean volume (Bld) [Entitic vol] 9.9 fL 9.0 - 12.7 fL [facility] Platelets (Bld) [#/Vol] 133 10*3/uL Low [facility] RBC (Bld) [#/Vol] 3.4 10*6/uL Low 3.90 - 5.2 0 m/uL [facility] WBC (Bld) [#/Vol] 8.07 10*3/uL [facility] Basophils (Bld) [#/Vol] 10*3/uL Normal <0.11 [facility] Comment on above: Order Comment: Speci men Type: BLOOD SPECIMEN Ordering Facility: [facility] Address: [address] [place] [address] Performed By: #### 5 0190-8, 2275- #### [facility] CLIA [id number] [address] [place] [address] [place] Basophils/100 WBC (Bld) 0.1 % Normal [facility] Comment on above: Order Comment: Speci men Type: BLOOD SPECIMEN Ordering Facility: [facility] Address: [address] [place] [address] Performed By: #### 5 0190-8, 2275- #### [facility] CLIA [id number] [address] [place] [address] [place] Differential cell count method Nom (Bld) Auto Normal [facility] Comment on above: Order Comment: Speci men Type: BLOOD SPECIMEN Ordering Facility: [facility] Address: [address] [place] [address] Performed By: #### 5 0190-8, 2275- #### [facility] CLIA [id number] [address] [place] [address] [place] Eosinophils (Bld) [#/Vol] 10*3/uL Normal <0.46 [facility] Comment on above: Order Comment: Speci men Type: BLOOD SPECIMEN Ordering Facility: [facility] Address: [address] [place] [address] Performed By: #### 5 0190-8, 2275- #### [facility] CLIA [id number] [address] [place] [address] [place] Eosinophils/100 WBC (Bld) 0.0 % Normal [facility] Comment on above: Order Comment: Speci men Type: BLOOD SPECIMEN Ordering Facility: [facility] Address: [address] [place] [address] Performed By: #### 5 0190-8, 2275-08 #### [facility] CLIA [id number] [address] [place] [address] [place] Erythrocyte distribution width (RBC) [Ratio] 20.1 % High 11.5-15.0 [facility] Comment on above: Order Comment: Speci men Type: BLOOD SPECIMEN Ordering Facility: [facility] Address: [address] [place] [address] Performed By: #### 5 0190-8, 2275-08 #### [facility] CLIA [id number] [address] [place] [address] [place] Hematocrit (Bld) [Volume fraction] 36.2 % Normal 36.0-46.0 [facility] Comment on above: Order Comment: Speci men Type: BLOOD SPECIMEN Ordering Facility: [facility] Address: [address] [place] [address] Performed By: #### 5 0190-8, 2275- #### [facility] CLIA [id number] [address] [place] [address] [place] Hemoglobin (Bld) [Mass/Vol] 12.0 g/dL Normal 11.5-15.5 [facility] Comment on above: Order Comment: Speci men Type: BLOOD SPECIMEN Ordering Facility: [facility] Address: [address] [place] [address] Performed By: #### 5 0190-8, 2275- #### [facility] CLIA [id number] [address] [place] [address] [place] Immature granulocytes (Bld) [#/Vol] 0.14 10*3/uL High <0.10 [facility] Comment on above: Order Comment: Speci men Type: BLOOD SPECIMEN Ordering Facility: [facility] Address: [address] [place] [address] Performed By: #### 5 0190-8, 2275-08 #### [facility] CLIA [id number] [address] [place] [address] [place] Immature granulocytes/100 WBC (Bld) 1.7 % Normal [facility] Comment on above: Order Comment: Speci men Type: BLOOD SPECIMEN Ordering Facility: [facility] Address: [address] [place] [address] Performed By: #### 5 0190-8, 2275-08 #### [facility] CLIA [id number] [address] [place] [address] [place] Lymphocytes (Bld) [#/Vol] 0.52 10*3/uL Low 1.00-4.00 [facility] Comment on above: Order Comment: Speci men Type: BLOOD SPECIMEN Ordering Facility: [facility] Address: [address] [place] [address] Performed By: #### 5 0190-8, 2275-08 #### [facility] CLIA [id number] [address] [place] [address] [place] Lymphocytes/100 WBC (Bld) 6.4 % Normal [facility] Comment on above: Order Comment: Speci men Type: BLOOD SPECIMEN Ordering Facility: [facility] Address: [address] [place] [address] Performed By: #### 5 0190-8, 2275-4 #### [facility] CLIA [id number] [address] [place] [address] [place] MCH (RBC) [Entitic mass] 35.3 pg High 26.0-34.0 [facility] Comment on above: Order Comment: Speci men Type: BLOOD SPECIMEN Ordering Facility: [facility] Address: [address] [place] [address] Performed By: #### 5 0190-8, 4 #### [facility] CLIA [id number] [address] [place] [address] [place] MCHC (RBC) [Mass/Vol] 33.1 g/dL Normal 30.5-36.0 [facility] Comment on above: Order Comment: Speci men Type: BLOOD SPECIMEN Ordering Facility: [facility] Address: [address] [place] [address] Performed By: #### 5 0190-8, 2275-08 #### [facility] CLIA [id number] [address] [place] [address] [place] MCV (RBC) [Entitic vol] 106.5 fL High 80.0-100.0 [facility] Comment on above: Order Comment: Speci men Type: BLOOD SPECIMEN Ordering Facility: [facility] Address: [address] [place] [address] Performed By: #### 5 0190-8, 2275- #### [facility] CLIA [id number] [address] [place] [address] [place] Monocytes (Bld) [#/Vol] 0.99 10*3/uL High <0.87 [facility] Comment on above: Order Comment: Speci men Type: BLOOD SPECIMEN Ordering Facility: [facility] Address: [address] [place] [address] Performed By: #### 5 0190-8, 2275-4 #### [facility] CLIA [id number] [address] [place] [address] [place] Monocytes/100 WBC (Bld) 12.3 % Normal [facility] Comment on above: Order Comment: Speci men Type: BLOOD SPECIMEN Ordering Facility: [facility] Address: [address] [place] [address] Performed By: #### 5 0190-8, 2275-08 #### [facility] CLIA [id number] [address] [place] [address] [place] Neutrophils (Bld) [#/Vol] 6.41 10*3/uL Normal 1.45-7.50 [facility] Comment on above: Order Comment: Speci men Type: BLOOD SPECIMEN Ordering Facility: [facility] Address: [address] [place] [address] Performed By: #### 5 0190-8, 2275-08 #### [facility] CLIA [id number] [address] [place] [address] [place] Neutrophils/100 WBC (Bld) 79.5 % Normal [facility] Comment on above: Order Comment: Speci men Type: BLOOD SPECIMEN Ordering Facility: [facility] Address: [address] [place] [address] Performed By: #### 5 0190-8, 2275-08 #### [facility] CLIA [id number] [address] [place] [address] [place] Nucleated RBC (Bld) [#/Vol] 10*3/uL Normal <0.01 [facility] Comment on above: Order Comment: Speci men Type: BLOOD SPECIMEN Ordering Facility: [facility] Address: [address] [place] [address] Performed By: #### 5 0190-8, 2275- #### [facility] CLIA [id number] [address] [place] [address] [place] Nucleated RBC/100 WBC (Bld) [Ratio] 0.0 /100 WBC Normal [facility] Comment on above: Order Comment: Speci men Type: BLOOD SPECIMEN Ordering Facility: [facility] Address: [address] [place] [address] Performed By: #### 5 0190-8, 6-4 #### [facility] CLIA [id number] [address] [place] [address] [place] Platelet mean volume (Bld) [Entitic vol] 9.9 fL Normal 9.0-12.7 [facility] Comment on above: Order Comment: Speci men Type: BLOOD SPECIMEN Ordering Facility: [facility] Address: [address] [place] [address] Performed By: #### 5 0190-8, 2275-4 #### [facility] CLIA [id number] [address] [place] [address] [place] Platelets (Bld) [#/Vol] 133 10*3/uL Low 150-400 [facility] Comment on above: Order Comment: Speci men Type: BLOOD SPECIMEN Ordering Facility: [facility] Address: [address] [place] [address] Performed By: #### 5 0190-8, 2275-4 #### [facility] CLIA [id number] [address] [place] [address] [place] RBC (Bld) [#/Vol] 3.40 10*6/uL Low 3.90-5.20 [facility] Comment on above: Order Comment: Speci men Type: BLOOD SPECIMEN Ordering Facility: [facility] Address: [address] [place] [address] Performed By: #### 5 0190-8, 2275-4 #### [facility] CLIA [id number] [address] [place] [address] [place] WBC (Bld) [#/Vol] 8.07 10*3/uL Normal 3.70-11.00 [facility] Comment on above: Order Comment: Speci men Type: BLOOD SPECIMEN Ordering Facility: [facility] Address: [address] [place] [address] Performed By: #### 5 0190-8, 2276-4 #### [facility] CLIA [id number] [address] [place] [address] [place] CNOVSPon 09-29-2024 CNOVSP Visit (SP) Office ([facility]) ELZA BLAS ([id number]) 1940 F Date Time Provider Department 09/29/24 11:00 AM SID LAU During your visit today, we recorded the following information about you: Temperature Pulse Respiration Blood pressure 97.3 degrees 67/minute 16/minute 156/81 Weight 51.4 kg Sid Lau MD 09/29/2024 12:05 PM Signed PATIENT NAME: Elza Blas CLINIC NO.: [id number] ATTENDING PHYSICIAN: Sid Lau MD DATE OF SERVICE: September 29, [address] Alice Quiroz MD [address] [place] [address] thank you for referring Elza Blas for [...] WBC Date (more content not included)... Normal [facility] COPPER BLOODon 09-29-2024 Copper [Mass/Vol] 83 ug/dL Normal 80-155 [facility] Comment on above: Order Comment: Speci men Type: BLOOD SPECIMEN Ordering Facility: [facility] Address: [address] [place] [address] Result Comment: This test was developed, and its performance characteristics determined by the [facility] Department of Pathology and Laboratory Medicine. It has not been cleared or approved by the FDA. The [facility] Department of Pathology and Laboratory Medicine is regulated under CLIA as qualified to perform high-complexity testing. This test is used for clinical purposes. It should not be regarded as investigational or for research. Performed By: #### 5 763-8, COPPER #### [facility] CLIA [id number] [address] [place], [place] [address] [place] Comprehensive metabolic 2000 panelOrdered By: Tammi Alcantar on 09-29-2024 Albumin [Mass/Vol] 3.7 g/dL Low 3.9 - 4.9 g/dL [facility] ALP [Catalytic activity/Vol] 84 U/L 34 - 123 U/L [facility] ALT [Catalytic activity/Vol] 27 U/L 7 - 38 U/L [facility] Anion gap [Moles/Vol] 10 mmol/L 8 - 15 mmol/L [facility] AST [Catalytic activity/Vol] 16 U/L 13 - 35 U/L [facility] Bilirubin [Mass/Vol] 1.3 mg/dL 0.2 - 1.3 mg/dL [facility] Calcium [Mass/Vol] 10.1 mg/dL 8.5 - 10. 2 mg/dL [facility] Chloride [Moles/Vol] 108 mmol/L High 98 - 107 mmol/L [facility] CO2 [Moles/Vol] 27 mmol/L 22 - 30 mmol/L [facility] Creatinine [Mass/Vol] 0.91 mg/dL 0.58 - 0.96 mg/dL [facility] GFR/1.73 sq M.predicted among non-blacks MDRD (S/P/Bld) [Vol rate/Area] 63 mL/min/{1.73_m2} - PINF [facility] Comment on above: Estimated Glomerular Filtration Rate [...] [Mass/Vol] 89 mg/dL 74 - 99 mg/dL [facility] Comment on above: The [place] Diabete s Association (ADA) provides guidance for [...] Standards of Medical Care in Diabetes 2016, [place] [employer] Association. Diabetes Care. 2016.39(Suppl 1). Interpretation and review of laboratory results Abnormal [facility] Potassium [Moles/Vol] 4.5 mmol/L 3.7 - 5.1 mmol/L [facility] Protein [Mass/Vol] 5.4 g/dL Low 6.3 - 8.0 g/dL [facility] Sodium [Moles/Vol] 145 mmol/L High 136 - 144 mmol/L [facility] Urea nitrogen [Mass/Vol] 25 mg/dL High 7 - 21 mg/dL [facility] Comprehensive metabolic 2000 panelon 09-29-2024 Albumin [Mass/Vol] 3.7 g/dL Low 3.9-4.9 [facility] Comment on above: Order Comment: Uzieli placido Type: BLOOD SPECIMEN Ordering Facility: [facility] Address: [address] [place] [address] Performed By: #### 5 0190-8, 2275- #### [facility] CLIA [id number] [address] [place] [address] [place] ALP [Catalytic activity/Vol] 84 U/L Normal 34-123 [facility] Comment on above: Order Comment: Brendan cummins Type: BLOOD SPECIMEN Ordering Facility: [facility] Address: [address] [place] [address] Performed By: #### 5 0190-8, 2275- #### [facility] CLIA [id number] [address] [place] [address] [place] ALT [Catalytic activity/Vol] 27 U/L Normal 7-38 [facility] Comment on above: Order Comment: Uzieli men Type: BLOOD SPECIMEN Ordering Facility: [facility] Address: [address] [place] [address] Performed By: #### 5 0190-8, 6- #### [facility] CLIA [id number] [address] [place] [address] [place] Anion gap [Moles/Vol] 10 mmol/L Normal 8-15 [facility] Comment on above: Order Comment: Speci men Type: BLOOD SPECIMEN Ordering Facility: [facility] Address: [address] [place] [address] Performed By: #### 5 0190-8, 2275-4 #### [facility] CLIA [id number] [address] [place] [address] [place] AST [Catalytic activity/Vol] 16 U/L Normal 13-35 [facility] Comment on above: Order Comment: Speci men Type: BLOOD SPECIMEN Ordering Facility: [facility] Address: [address] [place] [address] Performed By: #### 5 0190-8, 2275-4 #### [facility] CLIA [id number] [address] [place] [address] [place] Bilirubin [Mass/Vol] 1.3 mg/dL Normal 0.2-1.3 [facility] Comment on above: Order Comment: Speci men Type: BLOOD SPECIMEN Ordering Facility: [facility] Address: [address] [place] [address] Performed By: #### 5 0190-8, 4 #### [facility] CLIA [id number] [address] [place] [address] [place] Calcium [Mass/Vol] 10.1 mg/dL Normal 8.5-10.2 [facility] Comment on above: Order Comment: Speci men Type: BLOOD SPECIMEN Ordering Facility: [facility] Address: [address] [place] [address] Performed By: #### 5 0190-8, 2275- #### [facility] CLIA [id number] [address] [place] [address] [place] Chloride [Moles/Vol] 108 mmol/L High 98-107 [facility] Comment on above: Order Comment: Speci men Type: BLOOD SPECIMEN Ordering Facility: [facility] Address: [address] [place] [address] Performed By: #### 5 0190-8, 6-4 #### [facility] CLIA [id number] [address] [place] [address] [place] CO2 [Moles/Vol] 27 mmol/L Normal 22-30 [facility] Comment on above: Order Comment: Speci men Type: BLOOD SPECIMEN Ordering Facility: [facility] Address: [address] [place] [address] Performed By: #### 5 0190-8, 2275-4 #### [facility] CLIA [id number] [address] [place] [address] [place] Creatinine [Mass/Vol] 0.91 mg/dL Normal 0.58-0.96 [facility] Comment on above: Order Comment: Speci men Type: BLOOD SPECIMEN Ordering Facility: [facility] Address: [address] [place] [address] Performed By: #### 5 0190-8, 2275-4 #### [facility] CLIA [id number] [address] [place] [address] Creatinine and Glomerular filtration rate.predicted panel (S/P/Bld) 63 mL/min/1.73m??? Normal >=60 [facility] Comment on above: Order Comment: Speci men Type: BLOOD SPECIMEN Ordering Facility: [facility] Address: [address] [place] [address] Result Comment: Ivory mated Glomerular Filtration Rate [...] Performed By: #### 5 0190-8, 6-4 #### [facility] CLIA [id number] [address] [place] [address] [place] Glucose [Mass/Vol] 89 mg/dL Normal 74-99 [facility] Comment on above: Order Comment: Brendan men Type: BLOOD SPECIMEN Ordering Facility: [facility] Address: [address] [place] [address] Result Comment: The [place] Diabetes Association (ADA) provides guidance for cutoff [...] Standards of Medical Care in Diabetes 2016, [place] [employer]. Diabetes Care. 2016.39(Suppl 1). Performed By: #### 5 0190-8, 2275- #### [facility] CLIA [id number] [address] [place] [address] [place] Potassium [Moles/Vol] 4.5 mmol/L Normal 3.7-5.1 [facility] Comment on above: Order Comment: Brendan cummins Type: BLOOD SPECIMEN Ordering Facility: [facility] Address: [address] [place] [address] Performed By: #### 5 0190-8, 2275- #### [facility] CLIA [id number] [address] [place] [address] [place] Protein [Mass/Vol] 5.4 g/dL Low 6.3-8.0 [facility] Comment on above: Order Comment: Brendan cummins Type: BLOOD SPECIMEN Ordering Facility: [facility] Address: [address] [place] [address] Performed By: #### 5 0190-8, 2275-08 #### [facility] CLIA [id number] [address] [place] [address] [place] Sodium [Moles/Vol] 145 mmol/L High 136-144 [facility] Comment on above: Order Comment: Speci men Type: BLOOD SPECIMEN Ordering Facility: [facility] Address: [address] [place] [address] Performed By: #### 5 0190-8, 2276-4 #### [facility] CLIA [id number] [address] [place] [address] [place] Urea nitrogen [Mass/Vol] 25 mg/dL High 7-21 [facility] Comment on above: Order Comment: Speci men Type: BLOOD SPECIMEN Ordering Facility: [facility] Address: [address] [place] [address] Performed By: #### 5 0190-8, 6-4 #### [facility] CLIA [id number] [address] [place] [address] [place] FERRITINon 09-29-2024 Ferritin [Mass/Vol] 627 ng/mL High 14.7 - 2 05.1 ng/mL [facility] FOLATE, SERUMon 09-29-2024 Folate [Mass/Vol] ng/mL 4.7 - PINF ng/mL [facility] Comment on above: A result of > 20 ng/ mL is not necessarily indicative of a pathologic or treatable condition: it reflects a limitation of the test methodology. Assay reference range: 4.8 to 24.2 ng/mL. Suitable for detection of folate deficiency. Reference: Folate III (Folate III) [package insert V 1.0 [place]an]. [facility], [place], [place]: March 2015. Ferritin SerPl-mCncon 2024 Ferritin [Mass/Vol] 627.0 ng/mL High 14.7-205.1 [facility] Comment on above: Order Comment: Speci men Type: BLOOD SPECIMEN Ordering Facility: [facility] Address: [address] [place] [address] Performed By: #### 5 0190-8, 2275-08 #### [facility] CLIA [id number] [address] [place] [address] [place] Ferritin [Mass/Vol]on 2024 Interpretation and review of laboratory results Abnormal [facility] Folate SerPl-mCncon 09-30-19 25 Folate [Mass/Vol] ng/mL Normal >4.7 [facility] Comment on above: Order Comment: Speci men Type: BLOOD SPECIMEN Ordering Facility: [facility] Address: [address] [place] [address] Result Comment: A re sult of > 20 ng/mL is not necessarily indicative of a pathologic or treatable condition: it reflects a limitation of the test methodology. Assay reference range: 4.8 to 24.2 ng/mL. Suitable for detection of folate deficiency. Reference: Folate III (Folate III) [package insert V 1.0 Sam[place]an]. [facility], [place], [place]: March 2015. Performed By: #### 2 284-8, 2885-2, 2132-9 #### [facility] CLIA [id number] [address] [place] [address] [place] Iron and Iron binding capaci ty panelon 09-29-2024 Interpretation and review of laboratory results Normal [facility] Iron [Mass/Vol] 118 ug/dL 41 - 186 ug/dL [facility] Iron binding capacity [Mass/Vol] 249 ug/dL 232 - 386 ug/dL [facility] Iron/TIBC [Molar ratio] 47.4 % 15.0 - 57.0 % [facility] Iron [Mass/Vol] 118 ug/dL Normal 41-186 [facility] Comment on above: Order Comment: Speci men Type: BLOOD SPECIMEN Ordering Facility: [facility] Address: [address] [place] [address] Performed By: #### 5 0190-8, 2275-08 #### [facility] CLIA [id number] [address] [place] [address] [place] Iron binding capacity [Mass/Vol] 249 ug/dL Normal 232-386 [facility] Comment on above: Order Comment: Speci men Type: BLOOD SPECIMEN Ordering Facility: [facility] Address: [address] [place] [address] Performed By: #### 5 0190-8, 2276-4 #### [facility] CLIA [id number] [address] [place] [address] [place] Iron/TIBC [Molar ratio] 47.4 % Normal 15.0-57.0 [facility] Comment on above: Order Comment: Speci men Type: BLOOD SPECIMEN Ordering Facility: [facility] Address: [address] [place] [address] Performed By: #### 5 0190-8, 6-4 #### [facility] CLIA [id number] [address] [place] [address] [place] KAPPA/CUTLER,FREE,SERon 2024 Immunoglobulin light chains.kappa.free (S) [Mass/Vol] 19.4 mg/L Normal 3.3-19.4 [facility] Comment on above: Order Comment: Speci [facility] Type: BLOOD SPECIMEN Ordering Facility: [facility] Address: [address] [place] [address] Result Comment: Rare ly, increased serum free light chains levels may not be detected or accurately quantified due to prozone phenomenon or in high viscosity samples using this immunoturbidimetric assay. Correlation with other laboratory results and clinical findings is recommended. The [place] Free Light Chain was performed using the Binding Site Optilite immunoturbidimetric method. Result obtained with different assay methods or kits cannot be used interchangeably. Performed By: #### K LFRS #### [facility] CLIA [id number] [address] [place] [address] [place] Immunoglobulin light chains.kappa/Immuno globulin light chains.lambda (S) [Mass ratio] 1.25 Normal 0.26-1.65 [facility] Comment on above: Order Comment: Speci men Type: BLOOD SPECIMEN Ordering Facility: [facility] Address: [address] [place] [address] Performed By: #### K LFRS #### [facility] CLIA [id number] [address] [place] [address] [place] Immunoglobulin light chains.lambda.free [Mass/Vol] 15.5 mg/L Normal 5.7-26.3 [facility] Comment on above: Order Comment: Speci men Type: BLOOD SPECIMEN Ordering Facility: [facility] Address: [address] [place] [address] Result Comment: Rare ly, increased serum free [...] interchangeably. Performed By: #### K LFRS #### [facility] CLIA [id number] [address] [place] [address] [place] No Panel Informationon 09-29 Interpretation and review of laboratory results Normal [facility] PROTEIN ELECTROPHORESIS SERU M (P)on 09-29-2024 Albumin [Mass/Vol] 3.43 g/dL Normal 3.43-5.41 [facility] Comment on above: Order Comment: Speci men Type: BLOOD SPECIMEN Ordering Facility: [facility] Address: [address] [place] [address] Performed By: #### L [id number] #### [facility] CLIA [id number] [address] [place] [address] [place] Alpha 1 globulin Elph [Mass/Vol] 0.37 g/dL Normal 0.18-0.43 [facility] [facility] Comment on above: Order Comment: Speci men Type: BLOOD SPECIMEN Ordering Facility: [facility] Address: [address] [place] [address] Performed By: #### L [id number] #### [facility] CLIA [id number] [address] [place] [address] [place] Alpha 2 globulin Elph [Mass/Vol] 0.62 g/dL Normal 0.42-0.98 [facility] Comment on above: Order Comment: Speci men Type: BLOOD SPECIMEN Ordering Facility: [facility] Address: [address] [place] [address] Performed By: #### L [id number] #### [facility] CLIA [id number] [address] [place] [address] [place] Beta globulin Elph [Mass/Vol] 0.51 g/dL Low 0.61-1.17 [facility] Comment on above: Order Comment: Speci men Type: BLOOD SPECIMEN Ordering Facility: [facility] Address: [address] [place] [address] Performed By: #### L [id number] #### [facility] CLIA [id number] [address] [place] [address] [place] Gamma globulin Elph [Mass/Vol] 0.56 g/dL Normal 0.53-1.51 [facility] Comment on above: Order Comment: Speci men Type: BLOOD SPECIMEN Ordering Facility: [facility] Address: [address] [place] [address] Performed By: #### L [id number] #### [facility] CLIA [id number] [address] [place] [address] [place] M-PROTEIN LOCATION Normal [facility] Comment on above: Order Comment: Speci men Type: BLOOD SPECIMEN Ordering Facility: [facility] Address: [address] [place] [address] Result Comment: Not Applicable. Performed By: #### L [id number] #### [facility] CLIA [id number] [address] [place] [address] [place] Protein Fractions [Interp] No definitive M protein is identified on protein electrophoresis. Normal No definitive M protein is identified on protein electrophores is. [facility] Comment on above: Order Comment: Speci men Type: BLOOD SPECIMEN Ordering Facility: [facility] Address: [address] [place] [address] Performed By: #### L [id number] #### [facility] CLIA [id number] [address] [place] [address] [place] Protein.monoclonal Elph [Mass/Vol] 0.00 g/dL Normal <=0.00 [facility] Comment on above: Order Comment: Speci men Type: BLOOD SPECIMEN Ordering Facility: [facility] Address: [address] [place] [address] Performed By: #### L [id number] #### [facility] CLIA [id number] [address] [place] [address] [place] SPE STAFF REVIEW Reviewed by Maciej Piedra MD, Ph.D ([id number]) Normal [facility] Comment on above: Order Comment: Speci men Type: BLOOD SPECIMEN Ordering Facility: [facility] Address: [address] [place] [address] Performed By: #### L [id number] #### [facility] CLIA [id number] [address] [place] [address] [place] Prot SerPl-mCncon 09-29-2024 Protein [Mass/Vol] 5.5 g/dL Low 6.3-8.0 [facility] Comment on above: Order Comment: Speci men Type: BLOOD SPECIMEN Ordering Facility: [facility] Address: [address] [place] [address] Performed By: #### 2 284-8, 2885-2, 2132-9 #### [facility] CLIA [id number] [address] [place] [address] [place] VITAMIN B12on 09-29-2024 Cobalamin (Vitamin B12) [Mass/Vol] 752 pg/mL 232 - 1245 pg/mL [facility] Vit B12 SerPl-mCncon 025 Cobalamin (Vitamin B12) [Mass/Vol] 752 pg/mL Normal 232-1245 [facility] Comment on above: Order Comment: Speci men Type: BLOOD SPECIMEN Ordering Facility: [facility] Address: [address] [place] [address] Performed By: #### 2 284-8, 2885-2, 2132-9 #### [facility] CLIA [id number] [address] [place] [address] [place] Zinc SerPl-mCncon 09-29-2024 Zinc [Mass/Vol] 54 ug/dL Low 60-120 [facility] Comment on above: Order Comment: Speci men Type: BLOOD SPECIMEN Ordering Facility: [facility] Address: [address] [place] [address] Result Comment: This test was developed, and its performance characteristics determined by the [facility] Department of Pathology and Laboratory Medicine. It has not been cleared or approved by the FDA. The [facility] Department of Pathology and Laboratory Medicine is regulated under CLIA as qualified to perform high-complexity testing. This test is used for clinical purposes. It should not be regarded as investigational or for research. Performed By: #### 5 763-8, COPPER #### [facility] CLIA [id number] [address] [place] [address] [place] [address] ABDOMEN PELVIS [...] #### 1 230, 1759 #### [facility] [place] [address] Wire Coiler: Mateo López MD Hematocrit (Bld) [Volume fraction] 33.4 % Low 35.0-45.0 [facility] Comment on above: Performed By: #### 1 230, 175 #### [facility] [place] [address] Wire Coiler: Mateo López MD Hemoglobin (Bld) [Mass/Vol] 10.9 g/dL Low 11.7-15.5 [facility] Comment on above: Performed By: #### 1 230, 175 #### [facility] [place] [address] Wire Coiler: Mateo López MD MCH (RBC) [Entitic mass] 33.7 pg High 27.0-33.0 [facility] Comment on above: Performed By: #### 1 230, 1759 #### [facility] [place] [address] Wire Coiler: Mateo López MD MCHC (RBC) [Mass/Vol] 32.6 [...] #### 1 230, 1759 #### [facility] [place] [address] [employer] Coiler: Mateo López MD MCV (RBC) [Entitic vol] 103.4 fL High 80.0-100.0 [facility] Comment on above: Performed By: #### 1 230, 1759 #### [facility] [place] [address] [employer]iler: Mateo López MD Platelet mean volume (Bld) [Entitic vol] 10.9 fL Normal 7.5-12.5 [facility] Comment on above: Performed By: #### 1 023, 1759 #### [facility] [place] [address] Wire Coiler: Mateo López MD Platelets (Bld) [#/Vol] 61 10*3/uL Low 140-400 [facility] Comment on above: Performed By: #### 1 0231, 1759 #### [facility] [place] [address] Wire Coiler: Mateo López MD RBC (Bld) [#/Vol] 3.23 10*6/uL Low 3.80-5.10 [facility] Comment on above: Performed By: #### 1 230, 175 #### [facility] [place] [address] [employer]iler: Mateo López MD WBC (Bld) [#/Vol] 5.9 10*3/uL Normal 3.8-10.8 [facility] Comment on above: Performed By: #### 1 230, 175 #### [facility] [place] [address] Wire Coiler: Mateo López MD [facility] 09-15-2024 Albumin [Mass/Vol] 3.9 g/dL Normal 3.6-5.1 [facility] Comment on above: Performed By: #### 1 023, 1759 #### [facility] [place] [address] Wire Coiler: Mateo López MD Albumin/Globulin [Mass ratio] 1.9 {ratio} Normal 1.0-2.5 [facility] Comment on above: Performed By: #### 1 0231, 1759 #### [facility] [place] [address] Wire Coiler: Mateo López MD ALP [Catalytic activity/Vol] 70 U/L Normal 37-153 [facility] Comment on above: Performed By: #### 1 0231, 1759 #### [facility] of [address], [address] [place] [address] Wire Coiler: Mateo López MD ALT [Catalytic activity/Vol] 14 U/L Normal 6-29 [facility] Comment on above: Performed By: #### 1 0231, 1759 #### [facility] [place] [address] Wire Coiler: Mateo López MD AST [Catalytic activity/Vol] 17 U/L Normal 10-35 [facility] Comment on above: Performed By: #### 1 023, 175 #### [facility] [place] [address] Wire Coiler: Mateo López MD Bilirubin [Mass/Vol] 1.7 mg/dL High 0.2-1.2 [facility] Comment on above: Performed By: #### 1 0231, 175 #### [facility] [place] [address] Wire Coiler: Mateo López MD Calcium [Mass/Vol] 9.6 mg/dL Normal 8.6-10.4 [facility] Comment on above: Performed By: #### 1 0231, 1759 #### [facility] [place] [address] Wire Coiler: Mateo López MD Chloride [Moles/Vol] 105 mmol/L Normal 98-110 [facility] Comment on above: Performed By: #### 1 0231, 1759 #### [facility] [place] [address] Wire Coiler: Mateo López MD CO2 [Moles/Vol] 27 mmol/L Normal 20-32 [facility] Comment on above: Performed By: #### 1 230, 1759 #### [facility] [place] [address] [employer] Coiler: Mateo López MD Creatinine [Mass/Vol] 1.11 mg/dL High 0.60-0.95 [facility] Comment on above: Performed By: #### 1 230, 175 #### [facility] [place] [address] Wire Coiler: Mateo López MD GFR/1.73 sq M.predicted among non-blacks MDRD (S/P/Bld) [Vol rate/Area] 50 mL/min/{1.73_m2} Low > OR = 60 [facility] Comment on above: Performed By: #### 1 230, 175 #### [facility] [place] [address] [employer] Coiler: Mateo López MD Globulin (S) [Mass/Vol] 2.1 g/dL Normal 1.9-3.7 [facility] Comment on above: Performed By: #### 1 230, 175 #### [facility] [place] [address] [employer]iler: Mateo López MD Glucose [Mass/Vol] 98 mg/dL Normal 65-99 [facility] Comment on above: Result Comment: Fasting reference interval Performed By: #### 1 230, 1759 #### [facility] [place] [address] [employer] Coiler: Mateo López MD Potassium [Moles/Vol] 4.3 mmol/L Normal 3.5-5.3 [facility] Comment on above: Performed By: #### 1 230, 175 #### [facility] [place] [address] [employer] Coiler: Mateo López MD Protein [Mass/Vol] 6.0 g/dL Low 6.1-8.1 [facility] Comment on above: Performed By: #### 1 0231, 1759 #### [facility] [place] [address] Wire Coiler: Mateo López MD Sodium [Moles/Vol] 141 mmol/L Normal 135-146 [facility] Comment on above: Performed By: #### 1 0231, 1759 #### [facility] [place] [address] Wire Coiler: Mateo López MD Urea nitrogen [Mass/Vol] 22 mg/dL Normal 7-25 [facility] Comment on above: Performed By: #### 1 0231, 1759 #### [facility] [place] [address] Wire Coiler: Mateo López MD Urea nitrogen/Creatinine [Mass ratio] 20 mg/mg Normal 6-22 [facility] Comment on above: Performed By: #### 1 0231, 1759 #### [facility] [place] [address] [employer] Coiler: Mateo López MD CBC (H/H, RBC, INDICES, WBC, PLT)on 04-08-2024 Erythrocyte distribution width (RBC) [Ratio] 13.4 % Normal 11.0-15.0 [facility] Comment on above: Performed By: #### 1 87, 9650, 175, 49293, 899 #### [facility] [place] [address] [employer] Coiler: Mateo López MD Hematocrit (Bld) [Volume fraction] 36.6 % Normal 35.0-45.0 [facility] Comment on above: Performed By: #### 1 73, 7600, 175, 69827, 899 #### [facility] [place] [address] [employer] Coiler: Mateo López MD Hemoglobin (Bld) [Mass/Vol] 12.8 g/dL Normal 11.7-15.5 [facility] Comment on above: Performed By: #### 1 7306, 7600, 175, 53060, 899 #### [facility] [place] [address] [employer] Coiler: Mateo López MD MCH (RBC) [Entitic mass] 33.8 pg High 27.0-33.0 [facility] Comment on above: Performed By: #### 1 7306, 7600, 175, , 899 #### [facility] [place] [address] [employer] Coiler: Mateo López MD MCHC (RBC) [Mass/Vol] 35.0 [...] Performed By: #### 1 7306, 7600, 175, 77179, 899 #### [facility] [place] [address] [employer]iler: Mateo López MD MCV (RBC) [Entitic vol] 96.6 fL Normal 80.0-100.0 [facility] Comment on above: Performed By: #### 1 73, 7600, 175, , 899 #### [facility] [place] [address] [employer] Coiler: Mateo López MD Platelet mean volume (Bld) [Entitic vol] 10.8 fL Normal 7.5-12.5 [facility] Comment on above: Performed By: #### 1 7306, 7600, 175, 56359, 899 #### [facility] [place] [address] [employer] Coiler: Mateo López MD Platelets (Bld) [#/Vol] 147 10*3/uL Normal 140-400 [facility] Comment on above: Performed By: #### 1 7306, 7600, 1759, 97760, 899 #### [facility] of [address], [address] [place] [address] Wire Coiler: Mateo López MD RBC (Bld) [#/Vol] 3.79 10*6/uL Low 3.80-5.10 [facility] Comment on above: Performed By: #### 1 7306, 7600, 1759, 59514, 899 #### [facility] of [address], [address] [place] [address] Wire Coiler: Mateo López MD WBC (Bld) [#/Vol] 6.2 10*3/uL Normal 3.8-10.8 [facility] Comment on above: Performed By: #### 1 7306, 7600, 1759, 92305, 899 #### [facility] [place] [address] Wire Coiler: Mateo López MD [facility] 04-08-2024 Albumin [Mass/Vol] 3.7 g/dL Normal 3.6-5.1 [facility] Comment on above: Performed By: #### 1 7306, 7600, 1759, 89312, 899 #### [facility] [place] [address] [employer] Coiler: Mateo López MD Albumin/Globulin [Mass ratio] 1.9 {ratio} Normal 1.0-2.5 [facility] Comment on above: Performed By: #### 1 7306, 7600, 1759, 29061, 899 #### [facility] [place] [address] Wire Coiler: Mateo López MD ALP [Catalytic activity/Vol] 60 U/L Normal 37-153 [facility] Comment on above: Performed By: #### 1 7306, 7600, 1759, 31712, 899 #### [facility] [place] [address] Wire Coiler: Mateo López MD ALT [Catalytic activity/Vol] 12 U/L Normal 6-29 [facility] Comment on above: Performed By: #### 1 7306, 7600, 175, 92920, 899 #### [facility] [place] [address] Wire Coiler: Mateo López MD AST [Catalytic activity/Vol] 14 U/L Normal 10-35 [facility] Comment on above: Performed By: #### 1 7306, 7600, 175, 55148, 899 #### [facility] [place] [address] Wire Coiler: Mateo López MD Bilirubin [Mass/Vol] 1.0 mg/dL Normal 0.2-1.2 [facility] Comment on above: Performed By: #### 1 7306, 7600, 175, 14957, 899 #### [facility] [place] [address] [employer] Coiler: Mateo López MD Calcium [Mass/Vol] 9.8 mg/dL Normal 8.6-10.4 [facility] Comment on above: Performed By: #### 1 7306, 7600, 175, 61244, 899 #### [facility] [place] [address] [employer] Coiler: Mateo López MD Chloride [Moles/Vol] 109 mmol/L Normal 98-110 [facility] Comment on above: Performed By: #### 1 7306, 7600, 175, 32078, 899 #### [facility] [place] [address] [employer] Coiler: Mateo López MD CO2 [Moles/Vol] 30 mmol/L Normal 20-32 [facility] Comment on above: Performed By: #### 1 7306, 7600, 175, 46054, 899 #### [facility] [place] [address] [employer] Coiler: Mateo López MD Creatinine [Mass/Vol] 0.98 mg/dL High 0.60-0.95 [facility] Comment on above: Performed By: #### 1 7306, 7600, 1759, 29865, 899 #### [facility] [place] [address] [employer] Coiler: Mateo López MD GFR/1.73 sq M.predicted among non-blacks MDRD (S/P/Bld) [Vol rate/Area] 58 mL/min/{1.73_m2} Low > OR = 60 [facility] Comment on above: Performed By: #### 1 7306, 7600, 175, 95599, 899 #### [facility] [place] [address] [employer] Coiler: Mateo López MD Globulin (S) [Mass/Vol] 2.0 g/dL Normal 1.9-3.7 [facility] Comment on above: Performed By: #### 1 7306, 7600, 175, 51275, 899 #### [facility] [place] [address] [employer] Coiler: Mateo López MD Glucose [Mass/Vol] 92 mg/dL Normal 65-99 [facility] Comment on above: Result Comment: Fasting reference interval Performed By: #### 1 7306, 7600, 175, 02635, 899 #### [facility] [place] [address] Wire Coiler: Mateo López MD Potassium [Moles/Vol] 4.2 mmol/L Normal 3.5-5.3 [facility] Comment on above: Performed By: #### 1 7306, 7600, 1759, 71953, 899 #### [facility] [place] [address] [employer] Coiler: Mateo López MD Protein [Mass/Vol] 5.7 g/dL Low 6.1-8.1 [facility] Comment on above: Performed By: #### 1 7306, 7600, 1759, 25815, 899 #### [facility] [place] [address] Wire Coiler: Mateo López MD Sodium [Moles/Vol] 144 mmol/L Normal 135-146 [facility] Comment on above: Performed By: #### 1 7306, 7600, 1759, 33447, 899 #### [facility] [place] [address] Wire Coiler: Mateo López MD Urea nitrogen [Mass/Vol] 19 mg/dL Normal 7-25 [facility] Comment on above: Performed By: #### 1 7306, 7600, 1759, 15866, 899 #### [facility] [place] [address] Wire Coiler: Mateo López MD Urea nitrogen/Creatinine [Mass ratio] 19 mg/mg Normal 6-22 [facility] Comment on above: Performed By: #### 1 7306, 7600, 1759, 40423, 899 #### [facility] [place] [address] Wire Coiler: Mateo López MD LIPID PANEL, [facility] 120 Cholesterol [Mass/Vol] 154 mg/dL Normal <200 [facility] Comment on above: Order Comment: FASTI NG:YES FASTING: YES Performed By: #### 1 7306, 7600, 1759, 78745, 899 #### [facility] [place] [address] Wire Coiler: Mateo López MD Cholesterol in HDL [Mass/Vol] 45 mg/dL Low > OR = 50 [facility] Comment on above: Order Comment: FASTI NG:YES FASTING: YES Performed By: #### 1 7306, 7600, 1759, 50190, 899 #### [facility] of [address], [address] [place] [address] Wire Coiler: Mateo López MD Cholesterol in LDL [Mass/Vol] [...] LDL-C. Wilber SS et al. HUSSAIN. 2013;310(19): 5699-7363 (http://education.3dim.Cumed/faq/MWT164) Performed By: #### 1 7306, 7600, 1759, 10322, 899 #### [facility] [address], [address] [place] [address] Wire Coiler: Mateo López MD Cholesterol.total/C holesterol in HDL [Mass ratio] 3.4 {ratio} Normal <5.0 [facility] Comment on above: Order Comment: FASTI NG:YES FASTING: YES Performed By: #### 1 7306, 7600, 1759, 07344, 899 #### [facility] [address], [address] [place] [address] Wire Coiler: Mateo López MD NON HDL CHOLESTEROL 109 mg/dL (calc) Normal <130 [facility] Comment on above: Order Comment: FASTI NG:YES FASTING: YES Result Comment: For patients with diabetes plus 1 major ASCVD risk factor, treating to a non-HDL-C goal of <100 mg/dL (LDL-C of <70 mg/dL) is considered a therapeutic option. Performed By: #### 1 7306, 7600, 1759, 49460, 899 #### [facility] [address], [address] [place] [address] Wire Coiler: Mateo López MD Triglyceride [Mass/Vol] 80 mg/dL Normal <150 [facility] Comment on above: Order Comment: FASTI NG:YES FASTING: YES Performed By: #### 1 7306, 7600, 1759, 13910, 899 #### [facility] [address], [address] [place] [address] Wire Coiler: Mateo López MD TSHon 04-08-2024 TSH Qn 1.87 m[IU]/L Normal 0.40-4.50 [facility] Comment on above: Performed By: #### 1 7306, 7600, 1759, 22806, 899 #### [facility] [address], [address] [place] [address] Wire Coiler: Mateo López MD VITAMIN D,25-OH,TOTAL,IAon 1 06-09-2023 [...] D, (D2,D3), LC/MS/MS is recommended: order code 14332 (patients >2yrs). See Note 1 Note 1 For additional information, please refer to http://education.Wagon/faq/IUU882 (This link is being provided for informational/ educational purposes only.) Performed By: #### 1 7306, 7600, 1759, 72624, 899 #### [facility] [address], [address] [place] [address] Wire Coiler: Mateo López MD Urine Cultureon 10-10-2023 Bacteria identified Cx Nom (U) ORGANISM: Escherichia coli (O:ESCCOL) [place] Count >100,000 Aerobic DOROTHY Charge (NMIC56) --- [...] RESISTANT TO ALL B-LACTAM DRUGS. PERFORMED BY: [place] [address] PATHOLOGIST TONSORIAL ARTIST UBALDO GROSSMAN M.D. 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 Vitals Vital Signs Recorded: [id number] 01:56PM Heart Rate65, L Radial Ojkdecss544, LUE, Sitting Rbsytusuh59, LUE, Sitting Height5 ft 5 in Towvpz265 lb BMI Qzeuyncfiu38.8 kg/m2 BSA Calculated1.59 Tobacco Useb) No PHQ-2 [...] Nov 26 2021 5:36PM EST (Author) Normal [employer] Tobacco Screening.on 022 Adult depression screening assessment No [facility] [employer] 250 DO Work Phone: Fall risk assessment a) No falls within the last year [facility] [employer] 250 DO Work Phone: Tobacco use status CPHS b) No [facility] [employer] 250 DO Work Phone: Basic Metab w/rfx MGon 07-13 (cont.) Normal [facility] Comment on above: Result Comment: Aver age GFR for 70 or more years old: 75 mL/min/1.73sq m Chronic Kidney Disease: <60 mL/min/1.73sq m Kidney failure: <15 mL/min/1.73sq m eGFR calculated using average adult body mass. Additional eGFR calculator available at: http://www.Rise.Cumed/multiple_crcl_2012.htm Performed By: #### B JAIMEE HUERTAS, IPF #### [facility] [address] [place] [address] Forward Air Controller/Air Officer: Cornell Brink MD Anion gap [Moles/Vol] 7 mmol/L Low 9-17 [facility] Comment on above: Performed By: #### B MPX, CDP, IPF #### [facility] [address] [place] [address] Forward Air Controller/Air Officer: Cornell Brink MD BUN/CRE Ratio 25 High 9-20 [facility] Comment on above: Performed By: #### B JAIMEE HUERTAS, IPF #### [facility] [address] [place] [address] Forward Air Controller/Air Officer: Cornell Brink MD Calcium [Mass/Vol] 9.4 mg/dL Normal 8.6-10.4 [facility] Comment on above: Performed By: #### B JAIMEE HUERTAS, IPF #### [facility] [address] [place], [place] [id number] Forward Air Controller/Air Officer: Cornell Brink MD Chloride [Moles/Vol] 104 mmol/L Normal 98-107 [facility] Comment on above: Performed By: #### B ALEKSANDAR CDP, IPF #### [facility] [address] [place], [place] [id number] Forward Air Controller/Air Officer: Cornell Brink MD CO2 [Moles/Vol] 28 mmol/L Normal 20-31 [facility] Comment on above: Performed By: #### B MPAnival, CDP, IPF #### [facility] [address] [place] [address] Forward Air Controller/Air Officer: Cornell Brink MD Creatinine [Mass/Vol] 1.09 mg/dL High 0.50-0.90 [facility] Comment on above: Performed By: #### B MPX, CDP, IPF #### [facility] [address] [place] [address] Forward Air Controller/Air Officer: Cornell Brink MD GFR, Amer 59 mL/min Low >60 [facility] Comment on above: Performed By: #### B MPX, CDP, IPF #### [facility] [address] [place], [place] [id number] Forward Air Controller/Air Officer: Cornell Brink MD GFR,non Amer 48 mL/min Low >60 [facility] Comment on above: Performed By: #### B MPX, CDP, IPF #### [facility] [address] [place], [place] [id number] Forward Air Controller/Air Officer: Cornell Brink MD Glucose [Mass/Vol] 90 mg/dL Normal 70-99 [facility] Comment on above: Performed By: #### B MPX, CDP, IPF #### [facility] [address] [place], [place] [id number] Forward Air Controller/Air Officer: Cornell Brink MD Potassium [Moles/Vol] 4.2 mmol/L Normal 3.7-5.3 [facility] Comment on above: Performed By: #### B MPX, CDP, IPF #### [facility] [address] [place], [place] [id number] Forward Air Controller/Air Officer: Cornell Brink MD Sodium [Moles/Vol] 139 mmol/L Normal 135-144 [facility] Comment on above: Performed By: #### B MPX, CDP, IPF #### [facility] [address] [place], [place] [id number] Forward Air Controller/Air Officer: Cornell Brink MD Staging: Normal [facility] Comment on above: Result Comment: Stag e 1: Some kidney damage normal GFR Stage 2: Mild kidney damage GFR 60-89 Stage 3: Moderate kidney damage GFR 30-59 Stage 4: Severe kidney damage GFR 15-29 Stage 5: Severe kidney damage GFR <15 ESRD - chronic treatment by dialysis or transplant Performed By: #### B MPX, CDP, IPF #### [facility] [address] [place] [address] [employer] Controller/Air Officer: Cornell Brink MD Urea nitrogen [Mass/Vol] 27 mg/dL High 8-23 [facility] Comment on above: Performed By: #### B MPX, CDP, IPF #### [facility] [address] [place] [address] [employer] Air Controller/Air Officer: Cornell Brink MD Basic Metabolic Panel w/ Ref lila to MGon 07-13-2021 Anion gap [Moles/Vol] 7 mmol/L Low 9 - 17 mmol/L [facility] Calcium [Mass/Vol] 9.4 mg/dL 8.6 - 10. 4 mg/dL [facility] Chloride [Moles/Vol] 104 mmol/L 98 - 107 mmol/L [facility] CO2 [Moles/Vol] 28 mmol/L 20 - 31 mmol/L [facility] Creatinine [Mass/Vol] 1.09 mg/dL High 0.50 - 0.90 mg/dL [facility] GFR 59 mL/min Low >60 [facility] GFR Non- 48 mL/min Low >60 [facility] Glucose [Mass/Vol] 90 mg/dL 70 - 99 mg/dL [facility] Interpretation and review of laboratory results Abnormal [facility] Potassium [Moles/Vol] 4.2 mmol/L 3.7 - 5.3 mmol/L [facility] Sodium [Moles/Vol] 139 mmol/L 135 - 144 mmol/L [facility] Urea nitrogen (BldV) [Mass/Vol] 27 mg/dL High 8 - 23 mg/dL [facility] Urea nitrogen/Creatinine (Bld) [Mass ratio] 25 High [facility] CBC auto differentialon 07-03 Absolute Eos # 0.05 [facility] th Absolute Immature Granulocyte 0.04 [facility] Absolute Lymph # 1.31 [facility] He alth Absolute [place] # 0.81 [facility] Basophils (Bld) [#/Vol] 10*3/uL [facility] Basophils/100 WBC (Bld) 0 % 0 - 2 % [facility] Eosinophils/100 WBC (Bld) 1 % 1 - 4 % [facility] Hematocrit (Bld) [Volume fraction] 34.1 % Low 36.3 - 47.1 % [facility] Hemoglobin.gastroin testinal spec 1 Ql (Stl) 11.2 g/dL Low 11.9 - 15.1 g/dL [facility] Immature granulocytes/100 WBC (Bld) 1 % High 0 [facility] Interpretation and review of laboratory results Abnormal [facility] Lymphocytes/100 WBC (Bld) 16 % Low 24 - 43 % [facility] MCH (RBC) [Entitic mass] 33.1 pg 25.2 - 33.5 pg [facility] MCHC (RBC) [Mass/Vol] 32.8 g/dL 28.4 - 34.8 g/dL [facility] MCV (RBC) [Entitic vol] 100.9 fL 82.6 - 102.9 fL [facility] Monocytes/100 WBC (Bld) 10 % 3 - 12 % [facility] NRBC Automated 0.0 0.0 per 100 WBC [facility] Platelet distribution width (Bld) [Ratio] 14.1 % 11.8 - 14.4 % [facility] Platelets (Bld) [#/Vol] See Reflexed IPF Result [facility] RBC (Bld) [#/Vol] 3.38 10*6/uL Low 3.95 - 5.1 1 m/uL [facility] Segmented neutrophils/100 WBC (Bld) 74 % High 36 - 65 % [facility] Segs [facility] 6[facility]17 [facility]) [#/Vol] 8.4 10*3/uL [facility] CBC with Diffon 07-13-2021 Abs. Basophil <0.03 Normal 0.00-0.20 [facility] Comment on above: Performed By: #### B MPX, CDP, IPF #### [facility] [address] [place] [address] [employer] Controller/Air Officer: Cornell Brink MD Abs.Imm.Granulocyte 0.04 k/uL Normal 0.00-0.30 [facility] Comment on above: Performed By: #### B MPX, CDP, IPF #### [facility] [address] [place], [place] [phone] [employer] Controller/Air Officer: Cornell Brink MD Abs.Neutrophil (Seg) 6.17 k/uL Normal 1.50-8.10 [facility] Comment on above: Performed By: #### B MPX, CDP, IPF #### [address] [place] [address] [employer] Controller/Air Officer: Cornell Brink MD Basophils/100 WBC (Bld) 0 % Normal 0-2 [facility] Comment on above: Performed By: #### B MPX, CDP, IPF #### [address] [place] [address] [employer] Air Controller/Air Officer: Cornell Brink MD Eosinophils (Bld) [#/Vol] 0.05 10*3/uL Normal 0.00-0.44 [facility] Comment on above: Performed By: #### B MPX, CDP, IPF #### [address] [place] [address] [employer] Controller/Air Officer: Cornell Brink MD Eosinophils/100 WBC (Bld) 1 % Normal 1-4 [facility] Comment on above: Performed By: #### B MPX, CDP, IPF #### [address] [place] [address] [employer] Controller/Air Officer: Cornell Brink MD Erythrocyte distribution width (RBC) [Ratio] 14.1 % Normal 11.8-14.4 [facility] Comment on above: Performed By: #### B MPX, CDP, IPF #### [address] [place] [address] [employer] Air Controller/Air Officer: Cornell Brink MD Hematocrit (Bld) [Volume fraction] 34.1 % Low 36.3-47.1 [facility] Comment on above: Performed By: #### B MPX, CDP, IPF #### [address] [place], [facility]83 [employer] Controller/Air Officer: Cornell Brink MD Hemoglobin (Bld) [Mass/Vol] 11.2 g/dL Low 11.9-15.1 [facility] Comment on above: Performed By: #### B MPX, CDP, IPF #### [facility] [address] [place], [place] [phone] [employer] Controller/Air Officer: Cornell Brink MD Immature granulocytes/100 WBC (Bld) 1 % High 0 [facility] Comment on above: Performed By: #### B MPX, CDP, IPF #### [facility] [address] [place], [place] [phone] [employer] Controller/Air Officer: Cornell Brink MD Lymphocytes (Bld) [#/Vol] 1.31 10*3/uL Normal 1.10-3.70 [facility] Comment on above: Performed By: #### B MPX, CDP, IPF #### [facility] [address] [place] [address] Dr. [place], [facility]83 [employer] Controller/Air Officer: Cornell Brink MD Lymphocytes/100 WBC (Bld) 16 % Low 24-43 [facility] Comment on above: Performed By: #### B MPX, CDP, IPF #### [address] [place], [place] [phone] [employer] Controller/Air Officer: Cornell Brink MD MCH (RBC) [Entitic mass] 33.1 pg Normal 25.2-33.5 [facility] Comment on above: Performed By: #### B MPX, CDP, IPF #### [facility] [address] [place], [place] [phone] [employer] Controller/Air Officer: Cornell Brink MD MCHC (RBC) [Mass/Vol] 32.8 g/dL Normal 28.4-34.8 [facility] Comment on above: Performed By: #### B MPX, CDP, IPF #### [facility] [address] [place] [id number] [employer] Controller/Air Officer: Cornell Brink MD MCV (RBC) [Entitic vol] 100.9 fL Normal 82.6-102.9 [facility] Comment on above: Performed By: #### B MPX, CDP, IPF #### [facility] [address] [place], [place] [phone] [employer] Controller/Air Officer: Cornell Brink MD Monocytes (Bld) [#/Vol] 0.81 10*3/uL Normal 0.10-1.20 [facility] Comment on above: Performed By: #### B MPX, CDP, IPF #### [facility] [address] [place], [place] [id number] [employer] Controller/Air Officer: Cornell Brink MD Monocytes/100 WBC (Bld) 10 % Normal 3-12 [facility] Comment on above: Performed By: #### B MPX, CDP, IPF #### [facility] [address] [place], [place] [id number] [employer] Controller/Air Officer: Cornell Brink MD Neutrophil (Seg) 74 % High 36-65 [facility] Comment on above: Performed By: #### B MPX, CDP, IPF #### [facility] [address] [place], [place] [phone] [employer] Controller/Air Officer: Cornell Brink MD NRBC Automated 0.0 per 100 WBC Normal 0.0 [facility] Comment on above: Performed By: #### B MPX, CDP, IPF #### [facility] [address] [place], [place] [phone] [employer] Controller/Air Officer: Cornell Brink MD Platelet Count See Reflexed IPF Result Normal 138-453 [facility] Comment on above: Performed By: #### B MPX, CDP, IPF #### [facility] [address] [place], [place] [phone] [employer] Controller/Air Officer: Cornell Brink MD RBC (Bld) [#/Vol] 3.38 10*6/uL Low 3.95-5.11 [facility] Comment on above: Performed By: #### B MPXJAIMEE, IPF #### [facility] [address] [place] [address] Forward Air Controller/Air Officer: Cornell Brink MD WBC (Bld) [#/Vol] 8.4 10*3/uL Normal 3.5-11.3 [facility] Comment on above: Performed By: #### B MPX CDP, IPF #### [facility] [address] [place] [address] Forward Air Controller/Air Officer: Cornell Brikn MD Immature Platelet Fractionon 07-13-2021 Interpretation and review of laboratory results Abnormal [facility] Platelet, Fluorescence 124 Low [facility] Platelet, Immature Fraction 3.5 % 1.1 - 10.3 % [facility] Laboratory - Chemistry and C hemistry - challengeon 07-13-2021 GFR/1.73 sq M.predicted MDRD (S/P/Bld) [Vol rate/Area] [facility] Comment on above: Average GFR for 70 o r more years old: 75 mL/min/1.73sq m Chronic Kidney Disease: <60 mL/min/1.73sq m Kidney failure: <15 mL/min/1.73sq m eGFR calculated using average adult body mass. Additional eGFR calculator available at: http://www.Rise.Cumed/multiple_crcl_2012.htm Stage 1: Some kidney damage normal GFR Stage 2: Mild kidney damage GFR 60-89 Stage 3: Moderate kidney damage GFR 30-59 Stage 4: Severe kidney damage GFR 15-29 Stage 5: Severe kidney damage GFR <15 ESRD - chronic treatment by dialysis or transplant PLT, Immature Fract.on 07-13 Platelet, Fluoresc. 124 k/uL Low 138-453 [facility] Comment on above: Performed By: #### B MPX CDP, IPF #### [facility] [address] [place] [address] [employer] Controller/Air Officer: Cornell Brink MD PLT, Immature Fract. 3.5 % Normal 1.1-10.3 [facility] Comment on above: Performed By: #### B MPX, CDP, IPF #### [facility] [address] [place] [address] [employer] Controller/Air Officer: Cornell Brink MD Basic Metab w/rfx MGon 07-12 (cont.) Normal [facility] Comment on above: Result Comment: Aver age GFR for 70 or more years old: 75 mL/min/1.73sq m Chronic Kidney Disease: <60 mL/min/1.73sq m Kidney failure: <15 mL/min/1.73sq m eGFR calculated using average adult body mass. Additional eGFR calculator available at: http://www.AdScore/multiple_crcl_2011.htm Performed By: #### B MPX, CDP, IPF #### [facility] [address] [place] [address] [employer] Controller/Air Officer: Cornell Brink MD Anion gap [Moles/Vol] 7 mmol/L Low 9-17 [facility] Comment on above: Performed By: #### B MPX, CDP, IPF #### [facility] [address] [place] [address] [employer] Air Controller/Air Officer: Cornell Brink MD BUN/CRE Ratio 25 High 9-20 [facility] Comment on above: Performed By: #### B MPX, CDP, IPF #### [facility] [address] [place] [address] [employer] Air Controller/Air Officer: Cornell Brink MD Calcium [Mass/Vol] 9.3 mg/dL Normal 8.6-10.4 [facility] Comment on above: Performed By: #### B MPX, CDP, IPF #### [facility] [address] [place] [address] [employer] Controller/Air Officer: Cornell Brink MD Chloride [Moles/Vol] 102 mmol/L Normal 98-107 [facility] Comment on above: Performed By: #### B MPX, CDP, IPF #### [facility] [address] [place], [place] [phone] [employer] Controller/Air Officer: Cornell Brink MD CO2 [Moles/Vol] 28 mmol/L Normal 20-31 [facility] Comment on above: Performed By: #### B MPX, CDP, IPF #### [facility] [address] [place], [place] [phone] [employer] Controller/Air Officer: Cornell Brink MD Creatinine [Mass/Vol] 1.12 mg/dL High 0.50-0.90 [facility] Comment on above: Performed By: #### B MPX, CDP, IPF #### [facility] [address] [place], [place] [phone] [employer] Controller/Air Officer: Cornell Brink MD GFR, Amer 57 mL/min Low >60 [facility] Comment on above: Performed By: #### B MPX, CDP, IPF #### [facility] [address] [place], [place] [phone] [employer] Controller/Air Officer: Cornell Brink MD GFR,non Amer 47 mL/min Low >60 [facility] Comment on above: Performed By: #### B MPX, CDP, IPF #### [facility] [address] [place], [place] [phone] [employer] Air Controller/Air Officer: Cornell Brink MD Glucose [Mass/Vol] 131 mg/dL High 70-99 [facility] Comment on above: Performed By: #### B MPX, CDP, IPF #### [facility] [address] [place], [place] [phone] [employer] Controller/Air Officer: Cornell Brink MD Potassium [Moles/Vol] 4.8 mmol/L Normal 3.7-5.3 [facility] Comment on above: Performed By: #### B MPX, CDP, IPF #### [facility] [address] [place] [address] [employer] Controller/Air Officer: Cornell Brink MD Sodium [Moles/Vol] 137 mmol/L Normal 135-144 [facility] Comment on above: Performed By: #### B MPX, CDP, IPF #### [facility] [address] [place] [address] [employer] Controller/Air Officer: Cornell Brink MD Staging: Normal [facility] Comment on above: Result Comment: Stag e 1: Some kidney damage normal GFR Stage 2: Mild kidney damage GFR 60-89 Stage 3: Moderate kidney damage GFR 30-59 Stage 4: Severe kidney damage GFR 15-29 Stage 5: Severe kidney damage GFR <15 ESRD - chronic treatment by dialysis or transplant Performed By: #### B MPX, CDP, IPF #### [facility] [address] [place] [address] [employer] Air Controller/Air Officer: Cornell Brink MD Urea nitrogen [Mass/Vol] 28 mg/dL High 8-23 [facility] Comment on above: Performed By: #### B MPX, CDP, IPF #### [facility] [address] [place] [address] [employer] Controller/Air Officer: Cornell Brink MD Basic Metabolic Panel w/ Ref lila to MGon 07-12-2021 Anion gap [Moles/Vol] 7 mmol/L Low 9 - 17 mmol/L [facility] Calcium [Mass/Vol] 9.3 mg/dL 8.6 - 10. 4 mg/dL [facility] Chloride [Moles/Vol] 102 mmol/L 98 - 107 mmol/L [facility] CO2 [Moles/Vol] 28 mmol/L 20 - 31 mmol/L [facility] Creatinine [Mass/Vol] 1.12 mg/dL High 0.50 - 0.90 mg/dL [facility] GFR 57 mL/min Low >60 [facility] GFR Non- 47 mL/min Low >60 [facility] Glucose [Mass/Vol] 131 mg/dL High 70 - 99 mg/dL [facility] Interpretation and review of laboratory results Abnormal [facility] Potassium [Moles/Vol] 4.8 mmol/L 3.7 - 5.3 mmol/L [facility] Sodium [Moles/Vol] 137 mmol/L 135 - 144 mmol/L [facility] Urea nitrogen (BldV) [Mass/Vol] 28 mg/dL High 8 - 23 mg/dL [facility] Urea nitrogen/Creatinine (Bld) [Mass ratio] 25 High [facility] CBC auto differentialon 07-03 Absolute Eos # <0.03 [facility] th Absolute Immature Granulocyte 0.09 [facility] Absolute Lymph # 0.48 Low [facility] He alth Absolute [place] # 0.58 [facility] Basophils (Bld) [#/Vol] 10*3/uL [facility] Basophils/100 WBC (Bld) 0 % 0 - 2 % [facility] Eosinophils/100 WBC (Bld) 0 % Low 1 - 4 % [facility] Hematocrit (Bld) [Volume fraction] 33.6 % Low 36.3 - 47.1 % [facility] Hemoglobin.gastroin testinal spec 1 Ql (Stl) 11.1 g/dL Low 11.9 - 15.1 g/dL [facility] Immature granulocytes/100 WBC (Bld) 1 % High 0 [facility] Interpretation and review of laboratory results Abnormal [facility] Lymphocytes/100 WBC (Bld) 4 % Low 24 - 43 % [facility] MCH (RBC) [Entitic mass] 32.8 pg 25.2 - 33.5 pg [facility] MCHC (RBC) [Mass/Vol] 33.0 g/dL 28.4 - 34.8 g/dL [facility] MCV (RBC) [Entitic vol] 99.4 fL 82.6 - 102.9 fL [facility] Monocytes/100 WBC (Bld) 5 % 3 - 12 % [facility] NRBC Automated 0.0 0.0 per 100 WBC [facility] Platelet distribution width (Bld) [Ratio] 14.1 % 11.8 - 14.4 % [facility] Platelets (Bld) [#/Vol] See Reflexed IPF Result [facility] RBC (Bld) [#/Vol] 3.38 10*6/uL Low 3.95 - 5.1 1 m/uL [facility] Segmented neutrophils/100 WBC (Bld) 89 % High 36 - 65 % [facility] Segs Absolute 9.69 High [facility] h WBC (Bld) [#/Vol] 10.9 10*3/uL [facility] CBC with Diffon 07-12-2021 Abs. Basophil <0.03 Normal 0.00-0.20 [facility] Comment on above: Performed By: #### B MPX, CDP, IPF #### [facility] [address] [place] [address] [place] [address] [employer] Controller/Air Officer: Cornell Brink MD Abs. Eosinophil <0.03 Normal 0.00-0.44 [facility] Comment on above: Performed By: #### B MPX, CDP, IPF #### [address] [place] [address] [employer] Air Controller/Air Officer: Cornell Brink MD Abs.Imm.Granulocyte 0.09 k/uL Normal 0.00-0.30 [facility] Comment on above: Performed By: #### B MPX, CDP, IPF #### [facility] [address] [place] [address] [place] [address] [employer] Air Controller/Air Officer: Cornell Brink MD Abs.Neutrophil (Seg) 9.69 k/uL High 1.50-8.10 [facility] Comment on above: Performed By: #### B MPX, CDP, IPF #### [address] [place], [place] [phone] [employer] Controller/Air Officer: Cornell Brink MD Basophils/100 WBC (Bld) 0 % Normal 0-2 [facility] Comment on above: Performed By: #### B MPX, CDP, IPF #### [facility] [address] [place] [address] Dr. [place], [place] [phone] [employer] Controller/Air Officer: Cornell Brink MD Eosinophils/100 WBC (Bld) 0 % Low 1-4 [facility] Comment on above: Performed By: #### B MPX, CDP, IPF #### [facility] [address] [place], [place] [phone] [employer] Controller/Air Officer: Cornell Brink MD Erythrocyte distribution width (RBC) [Ratio] 14.1 % Normal 11.8-14.4 [facility] Comment on above: Performed By: #### B JAIMEE HUERTAS, IPF #### [facility] [address] [place] [address] Dr. [place], [place] [phone] [employer] Controller/Air Officer: Cornell Brink MD Hematocrit (Bld) [Volume fraction] 33.6 % Low 36.3-47.1 [facility] Comment on above: Performed By: #### B MPX, CDP, IPF #### [facility] [address] [place] [address] Dr. [place], [place] [phone] [employer] Controller/Air Officer: Cornell Brink MD Hemoglobin (Bld) [Mass/Vol] 11.1 g/dL Low 11.9-15.1 [facility] Comment on above: Performed By: #### B ALEKSANDAR CDP, IPF #### [address] [place], [place] [phone] [employer] Controller/Air Officer: Cornell Brink MD Immature granulocytes/100 WBC (Bld) 1 % High 0 [facility] Comment on above: Performed By: #### B JAIMEE HUERTAS, IPF #### [address] [place], [place] [phone] [employer] Controller/Air Officer: Cornell Brink MD Lymphocytes (Bld) [#/Vol] 0.48 10*3/uL Low 1.10-3.70 [facility] Comment on above: Performed By: #### B MPX CDP, IPF #### [facility] [address] [place] [address] Dr. [place], [place] [phone] [employer] Controller/Air Officer: Cornell Brink MD Lymphocytes/100 WBC (Bld) 4 % Low 24-43 [facility] Comment on above: Performed By: #### B MPX, CDP, IPF #### [facility] [address] [place], [place] [phone] [employer] Controller/Air Officer: Cornell Brink MD MCH (RBC) [Entitic mass] 32.8 pg Normal 25.2-33.5 [facility] Comment on above: Performed By: #### B MPX, CDP, IPF #### [facility] [address] [place] [address] [employer] Air Controller/Air Officer: Cornell Brink MD MCHC (RBC) [Mass/Vol] 33.0 g/dL Normal 28.4-34.8 [facility] Comment on above: Performed By: #### B MPX, CDP, IPF #### [facility] [address] [place] [address] [employer] Air Controller/Air Officer: Cornell Brink MD MCV (RBC) [Entitic vol] 99.4 fL Normal 82.6-102.9 [facility] Comment on above: Performed By: #### B MPX, CDP, IPF #### [facility] [address] [place] [address] Forward Air Controller/Air Officer: Cornell Brink MD Monocytes (Bld) [#/Vol] 0.58 10*3/uL Normal 0.10-1.20 [facility] Comment on above: Performed By: #### B MPX, CDP, IPF #### [address] [place], [place] [phone] [employer] Controller/Air Officer: Cornell Brink MD Monocytes/100 WBC (Bld) 5 % Normal 3-12 [facility] Comment on above: Performed By: #### B MPX, CDP, IPF #### [facility] [address] [place] [address] [employer] Air Controller/Air Officer: Cornell Brink MD Neutrophil (Seg) 89 % High 36-65 [facility] Comment on above: Performed By: #### B MPX, CDP, IPF #### [facility] [address] [place] [address] [employer] Controller/Air Officer: Cornell Brink MD NRBC Automated 0.0 per 100 WBC Normal 0.0 [facility] Comment on above: Performed By: #### B MPX, CDP, IPF #### [facility] [address] [place], [place] [phone] [employer] Controller/Air Officer: Cornell Brink MD Platelet Count See Reflexed IPF Result Normal 138-453 [facility] Comment on above: Performed By: #### B MPX, CDP, IPF #### [facility] [address] [place], [place] [phone] [employer] Controller/Air Officer: Cornell Brink MD RBC (Bld) [#/Vol] 3.38 10*6/uL Low 3.95-5.11 [facility] Comment on above: Performed By: #### B MPX, CDP, IPF #### [facility] [address] [place] [address] [employer] Controller/Air Officer: Cornell Brink MD WBC (Bld) [#/Vol] 10.9 10*3/uL Normal 3.5-11.3 [facility] Comment on above: Performed By: #### B MPX, CDP, IPF #### [facility] [address] [place], [place] [phone] [employer] Controller/Air Officer: Cornell Brink MD Immature Platelet Fractionon 07-12-2021 Interpretation and review of laboratory results Abnormal [facility] Platelet, Fluorescence 121 Low [facility] Platelet, Immature Fraction 3.4 % 1.1 - 10.3 % [facility] Laboratory - Chemistry and C hemistry - challengeon 07-12-2021 GFR/1.73 sq M.predicted MDRD (S/P/Bld) [Vol rate/Area] [facility] Comment on above: Average GFR for 70 o r more years old: 75 mL/min/1.73sq m Chronic Kidney Disease: <60 mL/min/1.73sq m Kidney failure: <15 mL/min/1.73sq m eGFR calculated using average adult body mass. Additional eGFR calculator available at: http://www.Rise.Cumed/multiple_crcl_2012.htm Stage 1: Some kidney damage normal GFR Stage 2: Mild kidney damage GFR 60-89 Stage 3: Moderate kidney damage GFR 30-59 Stage 4: Severe kidney damage GFR 15-29 Stage 5: Severe kidney damage GFR <15 ESRD - chronic treatment by dialysis or transplant PLT, Immature Fract.on 07-12 Platelet, Fluoresc. 121 k/uL Low 138-453 [facility] Comment on above: Performed By: #### B MPX, CDP, IPF #### [facility] [address] [place] [address] [employer] Controller/Air Officer: Cornell Brink MD PLT, Immature Fract. 3.4 % Normal 1.1-10.3 [facility] Comment on above: Performed By: #### B MPX, CDP, IPF #### [facility] [address] [place] [address] [employer] Controller/Air Officer: Cornell Brink MD Basic Metab w/rfx MGon 07-11 (cont.) Normal [facility] Comment on above: Result Comment: Aver age GFR for 70 or more years old: 75 mL/min/1.73sq m Chronic Kidney Disease: <60 mL/min/1.73sq m Kidney failure: <15 mL/min/1.73sq m eGFR calculated using average adult body mass. Additional eGFR calculator available at: http://www.Rise.Cumed/multiple_crcl_2012.htm Performed By: #### B MPX, CDP ####[address] [place] [address] [facility] Director: Cornell Brink MD Anion gap [Moles/Vol] 11 mmol/L Normal 9-17 [facility] Comment on above: Performed By: #### B MPX, CDP ####[facility] [place] [address] lab Director: Cornell Brink MD BUN/CRE Ratio 25 High 9-20 [facility] Comment on above: Performed By: #### B MPX, CDP ####[facility] , [place] [id number] Lab Director: Cornell Brink MD Calcium [Mass/Vol] 9.9 mg/dL Normal 8.6-10.4 [facility] Comment on above: Performed By: #### B MPX, CDP ####[address] , [place] [id number] Lab Director: Cornell Brink MD Chloride [Moles/Vol] 104 mmol/L Normal 98-107 [facility] Comment on above: Performed By: #### B MPX, CDP ####[address] , [place] [id number] Lab Director: Cornell Brink MD CO2 [Moles/Vol] 25 mmol/L Normal 20-31 [facility] Comment on above: Performed By: #### B MPX, CDP ####[address] , [place] [id number] Lab Director: Cornell Brink MD Creatinine [Mass/Vol] 1.10 mg/dL High 0.50-0.90 [facility] Comment on above: Performed By: #### B MPX, CDP ####[address] , [place] [id number] Lab Director: Cornell Brink MD GFR, Amer 58 mL/min Low >60 [facility] Comment on above: Performed By: #### B MPX, CDP ####[address] , [place] [id number] Lab Director: Cornell Brink MD GFR,non Amer 48 mL/min Low >60 [facility] Comment on above: Performed By: #### B MPX, CDP ####[address] , [place] [id number] Lab Director: Cornell Brink MD Glucose [Mass/Vol] 121 mg/dL High 70-99 [facility] Comment on above: Performed By: #### B MPX, CDP ####[address] [place] [address] lab Director: Cornell Brink MD Potassium [Moles/Vol] 4.9 mmol/L Normal 3.7-5.3 [facility] Comment on above: Performed By: #### B MPX, CDP ####[address] [place] [address] lab Director: Cornell Brink MD Sodium [Moles/Vol] 140 mmol/L Normal 135-144 [facility] Comment on above: Performed By: #### B MPX, CDP ####[address] [place] [address] lab Director: Cornell Brink MD Staging: Normal [facility] Comment on above: Result Comment: Stag e 1: Some kidney damage normal GFR Stage 2: Mild kidney damage GFR 60-89 Stage 3: Moderate kidney damage GFR 30-59 Stage 4: Severe kidney damage GFR 15-29 Stage 5: Severe kidney damage GFR <15 ESRD - chronic treatment by dialysis or transplant Performed By: #### B MPX, CDP ####[address] [place] [address] lab Director: Cornell Brink MD Urea nitrogen [Mass/Vol] 27 mg/dL High 8-23 [facility] Comment on above: Performed By: #### B MPX, CDP ####[address] [place] [address] lab Director: Cornell Brink MD Basic Metabolic Panel w/ Ref lila to MGon 07-11-2021 Anion gap [Moles/Vol] 11 mmol/L 9 - 17 mmol/L [facility] Calcium [Mass/Vol] 9.9 mg/dL 8.6 - 10. 4 mg/dL [facility] Chloride [Moles/Vol] 104 mmol/L 98 - 107 mmol/L [facility] CO2 [Moles/Vol] 25 mmol/L 20 - 31 mmol/L [facility] Creatinine [Mass/Vol] 1.1 mg/dL High 0.50 - 0.90 mg/dL [facility] GFR 58 mL/min Low >60 [facility] GFR Non- 48 mL/min Low >60 [facility] Glucose [Mass/Vol] 121 mg/dL High 70 - 99 mg/dL [facility] Interpretation and review of laboratory results Abnormal [facility] Potassium [Moles/Vol] 4.9 mmol/L 3.7 - 5.3 mmol/L [facility] Sodium [Moles/Vol] 140 mmol/L 135 - 144 mmol/L [facility] Urea nitrogen (BldV) [Mass/Vol] 27 mg/dL High 8 - 23 mg/dL [facility] Urea nitrogen/Creatinine (Bld) [Mass ratio] 25 High [facility] CBC auto differentialon 03-0 Absolute Eos # <0.03 [facility] th Absolute Immature Granulocyte 0.17 [facility] Absolute Lymph # 0.62 Low [facility] alth Absolute [place]ell # 0.71 [facility] lt Basophils (Bld) [#/Vol] 10*3/uL [facility] Basophils/100 WBC (Bld) 0 % 0 - 2 % [facility] Eosinophils/100 WBC (Bld) 0 % Low 1 - 4 % [facility] Hematocrit (Bld) [Volume fraction] 38.0 % 36.3 - 47.1 % [facility] Hemoglobin.gastroin testinal spec 1 Ql (Stl) 12.7 g/dL 11.9 - 15.1 g/dL [facility] Immature granulocytes/100 WBC (Bld) 1 % High 0 [facility] Interpretation and review of laboratory results Abnormal [facility] Lymphocytes/100 WBC (Bld) 4 % Low 24 - 43 % [facility] MCH (RBC) [Entitic mass] 33.5 pg 25.2 - 33.5 pg [facility] MCHC (RBC) [Mass/Vol] 33.4 g/dL 28.4 - 34.8 g/dL [facility] MCV (RBC) [Entitic vol] 100.3 fL 82.6 - 102.9 fL [facility] Monocytes/100 WBC (Bld) 5 % 3 - 12 % [facility] NRBC Automated 0.0 0.0 per 100 WBC [facility] Platelet distribution width (Bld) [Ratio] 14.2 % 11.8 - 14.4 % [facility] Platelet mean volume (Bld) [Entitic vol] 10.5 fL 8.1 - 13.5 fL [facility] Platelets (Bld) [#/Vol] 129 10*3/uL Low [facility] RBC (Bld) [#/Vol] 3.79 10*6/uL Low 3.95 - 5.1 1 m/uL [facility] Segmented neutrophils/100 WBC (Bld) 90 % High 36 - 65 % [facility] Segs Absolute 13.35 [facility]) [#/Vol] 14.9 10*3/uL [facility] CBC with Diffon 07-11-2021 Abs. Basophil <0.03 Normal 0.00-0.20 [facility] Comment on above: Performed By: #### B MPX, CDP ####[address] [place], [place] [address])[phone] Director: Cornell Brink MD Abs. Eosinophil <0.03 Normal 0.00-0.44 [facility] Comment on above: Performed By: #### B MPX, CDP ####[address] [place] [address] Lab Director: Cornell Brink MD Abs.Imm.Granulocyte 0.17 k/uL Normal 0.00-0.30 [facility] Comment on above: Performed By: #### B MPX, CDP ####[address] , [facility]83 Lab Director: Cornell Brink MD Abs.Neutrophil (Seg) 13.35 k/uL High 1.50-8.10 [facility] Comment on above: Performed By: #### B MPX, CDP ####[address] [place] [id number] Lab Director: Cornell Brink MD Basophils/100 WBC (Bld) 0 % Normal 0-2 [facility] Comment on above: Performed By: #### B MPX, CDP ####[address] , [place] [id number] Lab Director: Cornell Brink MD Eosinophils/100 WBC (Bld) 0 % Low 1-4 [facility] Comment on above: Performed By: #### B MPX, CDP ####[address] , [place] [id number] Lab Director: Cornell Brink MD Erythrocyte distribution width (RBC) [Ratio] 14.2 % Normal 11.8-14.4 [facility] Comment on above: Performed By: #### B MPX, CDP ####[address] , [place] [id number] Lab Director: Cornell Brink MD Hematocrit (Bld) [Volume fraction] 38.0 % Normal 36.3-47.1 [facility] Comment on above: Performed By: #### B MPX, CDP ####[address] , [place] [phone] Lab Director: Cornell Brink MD Hemoglobin (Bld) [Mass/Vol] 12.7 g/dL Normal 11.9-15.1 [facility] Comment on above: Performed By: #### B MPX, CDP ####[address] [place] [address] Lab Director: Cornell Brink MD Immature granulocytes/100 WBC (Bld) 1 % High 0 [facility] Comment on above: Performed By: #### B MPX, CDP ####[address] , [place] [id number] Lab Director: Cornell Brnik MD Lymphocytes (Bld) [#/Vol] 0.62 10*3/uL Low 1.10-3.70 [facility] Comment on above: Performed By: #### B MPX, CDP ####[address] , [place] [id number] Lab Director: Cornell Brink MD Lymphocytes/100 WBC (Bld) 4 % Low 24-43 [facility] Comment on above: Performed By: #### B MPX, CDP ####[address] , [place] [id number] Lab Director: Cornell Brink MD MCH (RBC) [Entitic mass] 33.5 pg Normal 25.2-33.5 [facility] Comment on above: Performed By: #### B MPX, CDP ####[address] [place] [address] Lab Director: oCrnell Brink MD MCHC (RBC) [Mass/Vol] 33.4 g/dL Normal 28.4-34.8 [facility] Comment on above: Performed By: #### B MPX, CDP ####[address] [place] [address] Lab Director: Cornell Brink MD MCV (RBC) [Entitic vol] 100.3 fL Normal 82.6-102.9 [facility] Comment on above: Performed By: #### B MPX, CDP ####[address] , [place] 239[address]83 Lab Director: Cornell Brink MD Monocytes (Bld) [#/Vol] 0.71 10*3/uL Normal 0.10-1.20 [facility] Comment on above: Performed By: #### B MPX, CDP ####[address] [place] [address] Lab Director: Cornell Brink MD Monocytes/100 WBC (Bld) 5 % Normal 3-12 [facility] Comment on above: Performed By: #### B MPX, CDP ####[address] , [place] [id number] Lab Director: Cornell Brink MD Neutrophil (Seg) 90 % High 36-65 [facility] Comment on above: Performed By: #### B MPX, CDP ####[address] , [place] [id number] Lab Director: Cornell Brink MD NRBC Automated 0.0 per 100 WBC Normal 0.0 [facility] Comment on above: Performed By: #### B MPX, CDP ####[address] , [place] 284[address]83 Lab Director: Cornell Brink MD Platelet mean volume (Bld) [Entitic vol] 10.5 fL Normal 8.1-13.5 [facility] Comment on above: Performed By: #### B MPX, CDP ####[address] , [facility]83 Lab Director: Cornell Brink MD Platelets (Bld) [#/Vol] 129 10*3/uL Low 138-453 [facility] Comment on above: Performed By: #### B MPX, CDP ####[address] , [place] [id number] Lab Director: Cornell Brink MD RBC (Bld) [#/Vol] 3.79 10*6/uL Low 3.95-5.11 [facility] Comment on above: Performed By: #### B MPX, CDP ####[address] , [place] 6431783 Lab Director: Cornell Brink MD WBC (Bld) [#/Vol] 14.9 10*3/uL High 3.5-11.3 [facility] Comment on above: Performed By: #### B MPX, CDP ####[address] , [place] [id number] Lab Director: Cornell Brink MD FLUORO FOR SURGICAL PROCEDUR ESon 07-11-2021 FLUORO FOR SURGICAL PROCEDURES Radiology exam is complete. No Radiologist dictation. Please follow up with ordering provider. Final result Normal [facility] Radiology exam is complete. No Radiologist dictation. Please follow up with ordering provider. [facility] Laboratory - Chemistry and C hemistry - challengeon 07-11-2021 GFR/1.73 sq M.predicted MDRD (S/P/Bld) [Vol rate/Area] [facility] Comment on above: Average GFR for 70 o r more years old: 75 mL/min/1.73sq m Chronic Kidney Disease: <60 mL/min/1.73sq m Kidney failure: <15 mL/min/1.73sq m eGFR calculated using average adult body mass. Additional eGFR calculator available at: http://www.AdScore/multiple_crcl_2012.htm Stage 1: Some kidney damage normal GFR Stage 2: Mild kidney damage GFR 60-89 Stage 3: Moderate kidney damage GFR 30-59 Stage 4: Severe kidney damage GFR 15-29 Stage 5: Severe kidney damage GFR <15 ESRD - chronic treatment by dialysis or transplant APTTon 07-10-2021 aPTT Coag (Bld) [Time] 32.8 s Normal 26.8-34.8 [facility] Comment on above: Result Comment: IV Heparin Therapy Range: 62.0-94.0 NOTE: NEW REFERENCE RANGE Performed By: #### B MPX, CDP, PTT, PT, IPF ####[facility] [place] [address] [facility] Director: Cornell Brink MD aPTT Coag (Bld) [Time] 32.8 s [facility] Comment on above: IV Heparin Therapy Range: 62.0-94.0 NOTE: NEW REFERENCE RANGE [facility] Basic Metab w/rfx MGon 07-10 (cont.) Normal [facility] Comment on above: Result Comment: Aver age GFR for 70 or more years old: 75 mL/min/1.73sq m Chronic Kidney Disease: <60 mL/min/1.73sq m Kidney failure: <15 mL/min/1.73sq m eGFR calculated using average adult body mass. Additional eGFR calculator available at: http://www.Rise.Cumed/multiple_crcl_2012.htm Performed By: #### B MPX, CDP, PTT, PT, IPF ####[address] , [place] [id number] lab Director: Cornell Brink MD Anion gap [Moles/Vol] 11 mmol/L Normal 9-17 [facility] Comment on above: Performed By: #### B MPX, CDP, PTT, PT, IPF ####[address] , [place] 1814383 lab Director: Cornell Brink MD BUN/CRE Ratio 23 High 9-20 [facility] Comment on above: Performed By: #### B MPX, CDP, PTT, PT, IPF ####[address] , [place] [id number] lab Director: Cornell Brink MD Calcium [Mass/Vol] 9.9 mg/dL Normal 8.6-10.4 [facility] Comment on above: Performed By: #### B MPX, CDP, PTT, PT, IPF ####[address] , [place] 77[address]83 lab Director: Cornell Brink MD Chloride [Moles/Vol] 104 mmol/L Normal 98-107 [facility] Comment on above: Performed By: #### B MPX, CDP, PTT, PT, IPF ####[address] , [place] 979[address]83 lab Director: Cornell Brink MD CO2 [Moles/Vol] 24 mmol/L Normal 20-31 [facility] Comment on above: Performed By: #### B MPX, CDP, PTT, PT, IPF ####[address] , [place] [phone] Lab Director: Cornell Brink MD Creatinine [Mass/Vol] 1.01 mg/dL High 0.50-0.90 [facility] Comment on above: Performed By: #### B MPX, CDP, PTT, PT, IPF ####[facility] , [place] 7957383 Lab Director: Cornell Brink MD GFR, Amer >60 Normal >60 [facility] Comment on above: Performed By: #### B MPX, CDP, PTT, PT, IPF ####[address] , [place] 0993383 Lab Director: Cornell Brink MD GFR,non Amer 53 mL/min Low >60 [facility] Comment on above: Performed By: #### B MPX, CDP, PTT, PT, IPF ####[address] , [place] 6126383 Lab Director: Cornell Brink MD Glucose [Mass/Vol] 158 mg/dL High 70-99 [facility] Comment on above: Performed By: #### B MPX, CDP, PTT, PT, IPF ####[address] , [place] [id number] Lab Director: Cornell Brink MD Potassium [Moles/Vol] 4.2 mmol/L Normal 3.7-5.3 [facility] Comment on above: Performed By: #### B MPX, CDP, PTT, PT, IPF ####[address] [place] [address] Lab Director: Cornell Brink MD Sodium [Moles/Vol] 139 mmol/L Normal 135-144 [facility] Comment on above: Performed By: #### B MPX, CDP, PTT, PT, IPF ####[address] , [place] 942[address]83 Lab Director: Cornell Brink MD Staging: Normal [facility] Comment on above: Result Comment: Stag e 1: Some kidney damage normal GFR Stage 2: Mild kidney damage GFR 60-89 Stage 3: Moderate kidney damage GFR 30-59 Stage 4: Severe kidney damage GFR 15-29 Stage 5: Severe kidney damage GFR <15 ESRD - chronic treatment by dialysis or transplant Performed By: #### B MPX, CDP, PTT, PT, IPF ####[facility] [place] [address] Lab Director: Cornell Brink MD Urea nitrogen [Mass/Vol] 23 mg/dL Normal 8- [facility] Comment on above: Performed By: #### B MPX, CDP, PTT, PT, IPF ####[facility] [place] [address] lab Director: Cornell Brink MD Basic Metabolic Panel w/ Ref lila to MGon 07-10-2021 Anion gap [Moles/Vol] 11 mmol/L 9 - 17 mmol/L [facility] Calcium [Mass/Vol] 9.9 mg/dL 8.6 - 10. 4 mg/dL [facility] Chloride [Moles/Vol] 104 mmol/L 98 - 107 mmol/L [facility] CO2 [Moles/Vol] 24 mmol/L 20 - 31 mmol/L [facility] Creatinine [Mass/Vol] 1.01 mg/dL High 0.50 - 0.90 mg/dL [facility] GFR >60 >60 mL/min [facility] GFR Non- 53 mL/min Low >60 [facility] Glucose [Mass/Vol] 158 mg/dL High 70 - 99 mg/dL [facility] Interpretation and review of laboratory results Abnormal [facility] Potassium [Moles/Vol] 4.2 mmol/L 3.7 - 5.3 mmol/L [facility] Sodium [Moles/Vol] 139 mmol/L 135 - 144 mmol/L [facility] Urea nitrogen (BldV) [Mass/Vol] 23 mg/dL 8 - 23 mg/dL [facility] Urea nitrogen/Creatinine (Bld) [Mass ratio] 23 High [facility] CBC auto differentialon 03-0 Absolute Eos # 0.00 [facility] th Absolute Immature Granulocyte 0.10 [facility] Absolute Lymph # 0.68 Low [facility] alth Absolute [place] # 0.10 [facility] lth Basophils (Bld) [#/Vol] 0.00 10*3/uL [facility] Basophils/100 WBC (Bld) 0 % 0 - 2 % [facility] Eosinophils/100 WBC (Bld) 0 % Low 1 - 4 % [facility] Hematocrit (Bld) [Volume fraction] 37.6 % 36.3 - 47.1 % [facility] Hemoglobin.gastroin testinal spec 1 Ql (Stl) 12.8 g/dL 11.9 - 15.1 g/dL [facility] Immature granulocytes/100 WBC (Bld) 1 % High 0 [facility] Interpretation and review of laboratory results Abnormal [facility] Lymphocytes/100 WBC (Bld) 7 % Low 24 - 43 % [facility] MCH (RBC) [Entitic mass] 33.2 pg 25.2 - 33.5 pg [facility] MCHC (RBC) [Mass/Vol] 34.0 g/dL 28.4 - 34.8 g/dL [facility] MCV (RBC) [Entitic vol] 97.4 fL 82.6 - 102.9 fL [facility] Monocytes/100 WBC (Bld) 1 % Low 3 - 12 % [facility] Morphology Anival (Bld) [Interp] Normal [facility] NRBC Automated 0.0 0.0 per 100 WBC [facility] Platelet distribution width (Bld) [Ratio] 14.2 % 11.8 - 14.4 % [facility] Platelets (Bld) [#/Vol] See Reflexed IPF Result [facility] RBC (Bld) [#/Vol] 3.86 10*6/uL Low 3.95 - 5.1 1 m/uL [facility] Segmented neutrophils/100 WBC (Bld) 91 % High 36 - 65 % [facility] Segs Absolute 8.82 [facility] [#/Vol] 9.7 10*3/uL [facility] CBC with Diffon 07-10-2021 Abs. Basophil 0.00 k/uL Normal 0.00-0.20 [facility] Comment on above: Performed By: #### B MPX, CDP, PTT, PT, IPF ####[facility] [address] , [facility]83 Lab Director: Cornell Brink MD Abs.Imm.Granulocyte 0.10 k/uL Normal 0.00-0.30 [facility] Comment on above: Performed By: #### B MPX, CDP, PTT, PT, IPF ####[address] [place] [id number] lab Director: Cornell Brink MD Abs.Neutrophil (Seg) 8.82 k/uL High 1.50-8.10 [facility] Comment on above: Performed By: #### B MPX, CDP, PTT, PT, IPF ####[address] [place] [id number] lab Director: Cornell Brink MD Basophils/100 WBC (Bld) 0 % Normal 0-2 [facility] Comment on above: Performed By: #### B MPX, CDP, PTT, PT, IPF ####[address] , [facility]83 Lab Director: Cornell Brink MD Eosinophils (Bld) [#/Vol] 0.00 10*3/uL Normal 0.00-0.44 [facility] Comment on above: Performed By: #### B MPX, CDP, PTT, PT, IPF ####[address] , [place] [address] Lab Director: Cornell Brink MD Eosinophils/100 WBC (Bld) 0 % Low 1-4 [facility] Comment on above: Performed By: #### B MPX, CDP, PTT, PT, IPF ####[address] [place] [id number] Lab Director: Cornell Brink MD Immature granulocytes/100 WBC (Bld) 1 % High 0 [facility] Comment on above: Performed By: #### B MPX, CDP, PTT, PT, IPF ####[address] , [place] 5[address]83 Lab Director: Cornell Brink MD Lymphocytes (Bld) [#/Vol] 0.68 10*3/uL Low 1.10-3.70 [facility] Comment on above: Performed By: #### B MPX, CDP, PTT, PT, IPF ####[address] , [place] [id number] Lab Director: Cornell Brink MD Lymphocytes/100 WBC (Bld) 7 % Low 24-43 [facility] Comment on above: Performed By: #### B MPX, CDP, PTT, PT, IPF ####[address] , [facility]83 Lab Director: Cornell Brink MD Monocytes (Bld) [#/Vol] 0.10 10*3/uL Normal 0.10-1.20 [facility] Comment on above: Performed By: #### B MPX, CDP, PTT, PT, IPF ####[address] , [facility]83[facility])[phone] Director: Cornell Brink MD Monocytes/100 WBC (Bld) 1 % Low 3-12 [facility] Comment on above: Performed By: #### B MPX, CDP, PTT, PT, IPF ####[address] , [place] [address])[phone] Director: Cornell Brink MD Morphology Anival (Bld) [Interp] Normal Normal [facility] Comment on above: Performed By: #### B MPX, CDP, PTT, PT, IPF ####[address] , [facility]28([facility])[phone] Director: Cornell Brink MD Neutrophil (Seg) 91 % High 36-65 [facility] Comment on above: Performed By: #### B MPX, CDP, PTT, PT, IPF ####[address] , [place] 704[address]83 [facility] Director: Cornell Brink MD Erythrocyte distribution width (RBC) [Ratio] 14.2 % Normal 11.8-14.4 [facility] Comment on above: Performed By: #### B MPX, CDP, PTT, PT, IPF ####[address] [place] [address] Lab Director: Cornell Brink MD Hematocrit (Bld) [Volume fraction] 37.6 % Normal 36.3-47.1 [facility] Comment on above: Performed By: #### B MPX, CDP, PTT, PT, IPF ####[address] [place] [address] lab Director: Cornell Brink MD Hemoglobin (Bld) [Mass/Vol] 12.8 g/dL Normal 11.9-15.1 [facility] Comment on above: Performed By: #### B MPX, CDP, PTT, PT, IPF ####[address] , [place] 147[address]83 Lab Director: Cornell Brink MD MCH (RBC) [Entitic mass] 33.2 pg Normal 25.2-33.5 [facility] Comment on above: Performed By: #### B MPX, CDP, PTT, PT, IPF ####[address] , [place] [id number] Lab Director: Cornell Brink MD MCHC (RBC) [Mass/Vol] 34.0 g/dL Normal 28.4-34.8 [facility] Comment on above: Performed By: #### B MPX, CDP, PTT, PT, IPF ####[address] [place] [address] Lab Director: Cornell Brink MD MCV (RBC) [Entitic vol] 97.4 fL Normal 82.6-102.9 [facility] Comment on above: Performed By: #### B MPX, CDP, PTT, PT, IPF ####[address] , [place] [phone] Lab Director: Cornell Brink MD NRBC Automated 0.0 per 100 WBC Normal 0.0 [facility] Comment on above: Performed By: #### B MPX, CDP, PTT, PT, IPF ####[address] , [place] [phone] lab Director: Cornell Brink MD Platelet Count See Reflexed IPF Result Normal 138-453 [facility] Comment on above: Performed By: #### B MPX, CDP, PTT, PT, IPF ####[address] [place] [address] lab Director: Cornell Brink MD RBC (Bld) [#/Vol] 3.86 10*6/uL Low 3.95-5.11 [facility] Comment on above: Performed By: #### B MPX, CDP, PTT, PT, IPF ####[address] [place] [address] lab Director: Cornell Brink MD WBC (Bld) [#/Vol] 9.7 10*3/uL Normal 3.5-11.3 [facility] Comment on above: Performed By: #### B MPX, CDP, PTT, PT, IPF ####[address] , [place] [id number] lab Director: Cornell Brink MD EKG 12 LeadOrdered By: Jareth wood on 07-10-2021 Atrial Rate 73 BPM [employer] Phone: P [place] 66 degrees [facility] Phone: P-R Interval 158 ms [employer] Phone: Q-T Interval 386 ms [facility] Phone: QRS Duration 82 ms [facility] Work Phone: QTc Calculation (Bazett) 425 ms [facility] [employer] Work Phone: R [place] 75 degrees [facility] Work Phone: T [place] 70 degrees [facility] [employer] Work Phone: Ventricular Rate 73 BPM [employer] Work Phone: [facility] [employer] Work Phone: EKG 12 Leadon 07-10-2021 Poor data qualit y, interpretation may be adversely affected Normal sinus rhythm Septal infarct , age undetermined Abnormal ECG No previous ECGs available Confirmed by Jareth Garcia MD ([id number]) on 07/10/2021 2:34:51 AM [facility] RADIOLOG[facility] Jareth Garcia MD - 07/10/2021 Poor data quality, interpretation may be adversely affected Normal sinus rhythm Septal infarct , age undetermined Abnormal ECG No previous ECGs available Confirmed by Jareth Garcia MD ([id number]) on 07/10/2021 2:34:51 AM [facility] Center[facility] Work Phone: Immature Platelet Fractionon 07-10-2021 Interpretation and review of laboratory results Abnormal [facility] Platelet, Fluorescence 128 Low [facility] Platelet, Immature Fraction 3.2 % 1.1 - 10.3 % [facility] Laboratory - Chemistry and C hemistry - challengeon 07-10-2021 GFR/1.73 sq M.predicted MDRD (S/P/Bld) [Vol rate/Area] [facility] Comment on above: Average GFR for 70 o r more years old: 75 mL/min/1.73sq m Chronic Kidney Disease: <60 mL/min/1.73sq m Kidney failure: <15 mL/min/1.73sq m eGFR calculated using average adult body mass. Additional eGFR calculator available at: http://www.Rise.Cumed/multiple_crcl_2012.htm Stage 1: Some kidney damage normal GFR Stage 2: Mild kidney damage GFR 60-89 Stage 3: Moderate kidney damage GFR 30-59 Stage 4: Severe kidney damage GFR 15-29 Stage 5: Severe kidney damage GFR <15 ESRD - chronic treatment by dialysis or transplant PLT, Immature Fract.on 07-10 Platelet, Fluoresc. 128 k/uL Low 138-453 [facility] Comment on above: Performed By: #### B MPX, CDP, PTT, PT, IPF ####[facility] , [place] [id number] Lab Director: Cornell Brink MD PLT, Immature Fract. 3.2 % Normal 1.1-10.3 [facility] Comment on above: Performed By: #### B MPX, CDP, PTT, PT, IPF ####[address] , [place] [id number] lab Director: Cornell Brink MD PTon 07-10-2021 INR Coag (PPP) [Relative time] 1.2 {INR} Normal [facility] Comment on above: Result Comment: Non-therapeutic Range: INR = 0.9-1.2 Therapeutic Range: Moderate Anticoagulant Intensity: INR = 2.0-3.0 High Anticoagulant Intensity: INR = 2.5-3.5 Performed By: #### B MPX, CDP, PTT, PT, IPF ####[address] , [place] [id number] lab Director: Cornell Brink MD PT Coag (PPP) [Time] 15.0 s High 11.5-14.2 [facility] Comment on above: Performed By: #### B MPX, CDP, PTT, PT, IPF ####[address] , [place] [id number] lab Director: Cornell Brink MD Protime-INRon 07-10-2021 INR Coag (Bld) [Relative time] 1.2 {INR} [facility] Comment on above: Non-therapeutic Range: INR = 0.9-1.2 Therapeutic Range: Moderate Anticoagulant Intensity: INR = 2.0-3.0 High Anticoagulant Intensity: INR = 2.5-3.5 Interpretation and review of laboratory results Abnormal [facility] PT Coag (PPP) [Time] 15 s High [facility] Vitamin D 25 OHon 07-10-2021 Vitamin D 25 [place] 43.0 ng/mL Normal >29.9 [facility] Comment on above: Result Comment: Reference Range: Vitamin D status Range Deficiency <20 ng/mL Mild Deficiency 20-30 ng/mL Sufficiency 30-100 ng/mL Toxicity >100 ng/mL Performed By: #### V D25 #### [facility] [address] [place], [place] [id number] Forward Air Controller/Air Officer: Lalito Roman MD APTTon 07-09-2021 aPTT Coag (Bld) [Time] 29.3 s Normal 26.8-34.8 [facility] Comment on above: Result Comment: IV Heparin Therapy Range: 62.0-94.0 NOTE: NEW REFERENCE RANGE Performed By: #### C DP, PTT, PT, BMPX ####[address] [place] [address] [facility] Director: Cornell Brink MD aPTT Coag (Bld) [Time] 29.3 s [facility] Comment on above: IV Heparin Therapy Range: 62.0-94.0 NOTE: NEW REFERENCE RANGE Basic Metab w/rfx MGon 07-09 (cont.) Normal [facility] Comment on above: Result Comment: Aver age GFR for 70 or more years old: 75 mL/min/1.73sq m Chronic Kidney Disease: <60 mL/min/1.73sq m Kidney failure: <15 mL/min/1.73sq m eGFR calculated using average adult body mass. Additional eGFR calculator available at: http://www.Rise.Cumed/multiple_crcl_2012.htm Performed By: #### C DP, PTT, PT, BMPX ####[facility] [place] [address] lab Director: Cornell Brink MD Anion gap [Moles/Vol] 8 mmol/L Low 9-17 [facility] Comment on above: Performed By: #### C DP, PTT, PT, BMPX ####[address] , [place] [phone] Lab Director: Cornell Brink MD BUN/CRE Ratio 20 Normal 9-20 [facility] Comment on above: Performed By: #### C DP, PTT, PT, BMPX ####[address] , [place] [id number] lab Director: Cornell Brink MD Calcium [Mass/Vol] 10.1 mg/dL Normal 8.6-10.4 [facility] Comment on above: Performed By: #### C DP, PTT, PT, BMPX ####[address] , [place] [id number] lab Director: Cornell Brink MD Chloride [Moles/Vol] 105 mmol/L Normal 98-107 [facility] Comment on above: Performed By: #### C DP, PTT, PT, BMPX ####[address] , [place] [address] Lab Director: Cornell Brink MD CO2 [Moles/Vol] 25 mmol/L Normal 20-31 [facility] Comment on above: Performed By: #### C DP, PTT, PT, BMPX ####[address] , [place] [phone] lab Director: Cornell Brink MD Creatinine [Mass/Vol] 1.05 mg/dL High 0.50-0.90 [facility] Comment on above: Performed By: #### C DP, PTT, PT, BMPX ####[address] , [place] [id number] lab Director: Cornell Brink MD GFR, Amer >60 Normal >60 [facility] Comment on above: Performed By: #### C DP, PTT, PT, BMPX ####[address] , [place] [address] lab Director: Cornell Brink MD GFR,non Amer 51 mL/min Low >60 [facility] Comment on above: Performed By: #### C DP, PTT, PT, BMPX ####[address] [place] [address] lab Director: Cornell Brink MD Glucose [Mass/Vol] 87 mg/dL Normal 70-99 [facility] Comment on above: Performed By: #### C DP, PTT, PT, BMPX ####[address] [place] [address] lab Director: Cornell Brink MD Potassium [Moles/Vol] 4.2 mmol/L Normal 3.7-5.3 [facility] Comment on above: Performed By: #### C DP, PTT, PT, BMPX ####[address] , [place] [id number] lab Director: Cornell Brink MD Sodium [Moles/Vol] 138 mmol/L Normal 135-144 [facility] Comment on above: Performed By: #### C DP, PTT, PT, BMPX ####[address] , [place] [address] Lab Director: Cornell Brink MD Staging: Normal [facility] Comment on above: Result Comment: Stag e 1: Some kidney damage normal GFR Stage 2: Mild kidney damage GFR 60-89 Stage 3: Moderate kidney damage GFR 30-59 Stage 4: Severe kidney damage GFR 15-29 Stage 5: Severe kidney damage GFR <15 ESRD - chronic treatment by dialysis or transplant Performed By: #### C DP, PTT, PT, BMPX ####[address] , [place] [phone] Lab Director: Cornell Brink MD Urea nitrogen [Mass/Vol] 21 mg/dL Normal 8-23 [facility] Comment on above: Performed By: #### C DP, PTT, PT, BMPX ####[place] [address] [place] [address] lab Director: Cornell Brink MD Basic Metabolic Panel w/ Ref lila to MGon 07-09-2021 Anion gap [Moles/Vol] 8 mmol/L Low 9 - 17 mmol/L [facility] Calcium [Mass/Vol] 10.1 mg/dL 8.6 - 10. 4 mg/dL [facility] Chloride [Moles/Vol] 105 mmol/L 98 - 107 mmol/L [facility] CO2 [Moles/Vol] 25 mmol/L 20 - 31 mmol/L [facility] Creatinine [Mass/Vol] 1.05 mg/dL High 0.50 - 0.90 mg/dL [facility] GFR >60 >60 mL/min [facility] GFR Non- 51 mL/min Low >60 [facility] Glucose [Mass/Vol] 87 mg/dL 70 - 99 mg/dL [facility] Interpretation and review of laboratory results Abnormal [facility] Potassium [Moles/Vol] 4.2 mmol/L 3.7 - 5.3 mmol/L [facility] Sodium [Moles/Vol] 138 mmol/L 135 - 144 mmol/L [facility] Urea nitrogen (BldV) [Mass/Vol] 21 mg/dL 8 - 23 mg/dL [facility] Urea nitrogen/Creatinine (Bld) [Mass ratio] 20 [facility] CBC with Auto Differentialon 07-09-2021 Absolute Eos # 0.14 [facility] th Absolute Immature Granulocyte 0.04 [facility] Absolute Lymph # 0.99 Low [facility] alth Absolute [place] # 0.48 [facility] lt Basophils (Bld) [#/Vol] 10*3/uL [facility] Basophils/100 WBC (Bld) 0 % 0 - 2 % [facility] Eosinophils/100 WBC (Bld) 2 % 1 - 4 % [facility] Hematocrit (Bld) [Volume fraction] 39.9 % 36.3 - 47.1 % [facility] Hemoglobin.gastroin testinal spec 1 Ql (Stl) 12.9 g/dL 11.9 - 15.1 g/dL [facility] Immature granulocytes/100 WBC (Bld) 1 % High 0 [facility] Interpretation and review of laboratory results Abnormal [facility] Lymphocytes/100 WBC (Bld) 16 % Low 24 - 43 % [facility] MCH (RBC) [Entitic mass] 33.4 pg 25.2 - 33.5 pg [facility] MCHC (RBC) [Mass/Vol] 32.3 g/dL 28.4 - 34.8 g/dL [facility] MCV (RBC) [Entitic vol] 103.4 fL High 82.6 - 102.9 fL [facility] Monocytes/100 WBC (Bld) 8 % 3 - 12 % [facility] NRBC Automated 0.0 0.0 per 100 WBC [facility] Platelet distribution width (Bld) [Ratio] 14.6 % High 11.8 - 14.4 % [facility] Platelet mean volume (Bld) [Entitic vol] 11.3 fL 8.1 - 13.5 fL [facility] Platelets (Bld) [#/Vol] 126 10*3/uL Low [facility] RBC (Bld) [#/Vol] 3.86 10*6/uL Low 3.95 - 5.1 1 m/uL [facility] Segmented neutrophils/100 WBC (Bld) 73 % High 36 - 65 % [facility] Segs [facility] 4[facility]46 [facility] (Bld) [#/Vol] 6.1 10*3/uL [facility] CBC with Diffon 07-09-2021 Abs. Basophil <0.03 Normal 0.00-0.20 [facility] Comment on above: Performed By: #### C DP, PTT, PT, BMPX ####[address] , [facility]83 Lab Director: Cornell Brink MD Abs.Imm.Granulocyte 0.04 k/uL Normal 0.00-0.30 [facility] Comment on above: Performed By: #### C DP, PTT, PT, BMPX ####[address] [place] [address] lab Director: Cornell Brink MD Abs.Neutrophil (Seg) 4.46 k/uL Normal 1.50-8.10 [facility] Comment on above: Performed By: #### C DP, PTT, PT, BMPX ####[address] [place] [address] Lab Director: Cornell Brink MD Basophils/100 WBC (Bld) 0 % Normal 0-2 [facility] Comment on above: Performed By: #### C DP, PTT, PT, BMPX ####[address] , [facility]83 Lab Director: Cornell Brink MD Eosinophils (Bld) [#/Vol] 0.14 10*3/uL Normal 0.00-0.44 [facility] Comment on above: Performed By: #### C DP, PTT, PT, BMPX ####[address] , [facility]83 Lab Director: Cornell Brink MD Eosinophils/100 WBC (Bld) 2 % Normal 1-4 [facility] Comment on above: Performed By: #### C DP, PTT, PT, BMPX ####[address] , [facility]83 Lab Director: Cornell Brink MD Immature granulocytes/100 WBC (Bld) 1 % High 0 [facility] Comment on above: Performed By: #### C DP, PTT, PT, BMPX ####[address] , [facility]83 Lab Director: Cornell Brink MD Lymphocytes (Bld) [#/Vol] 0.99 10*3/uL Low 1.10-3.70 [facility] Comment on above: Performed By: #### C DP, PTT, PT, BMPX ####[address] , [place] [id number] Lab Director: Cornell Brink MD Lymphocytes/100 WBC (Bld) 16 % Low 24-43 [facility] Comment on above: Performed By: #### C DP, PTT, PT, BMPX ####[address] , [place] [phone] [facility] Director: Cornell Brink MD Monocytes (Bld) [#/Vol] 0.48 10*3/uL Normal 0.10-1.20 [facility] Comment on above: Performed By: #### C DP, PTT, PT, BMPX ####[address] , [place] [address] Lab Director: Cornell Brink MD Monocytes/100 WBC (Bld) 8 % Normal 3-12 [facility] Comment on above: Performed By: #### C DP, PTT, PT, BMPX ####[address] , [facility]83 Lab Director: Cornell Brink MD Neutrophil (Seg) 73 % High 36-65 [facility] Comment on above: Performed By: #### C DP, PTT, PT, BMPX ####[address] , [facility]83 Lab Director: Cornell Brink MD Erythrocyte distribution width (RBC) [Ratio] 14.6 % High 11.8-14.4 [facility] Comment on above: Performed By: #### C DP, PTT, PT, BMPX ####[address] , [facility]83 Lab Director: Cornell Brink MD Hematocrit (Bld) [Volume fraction] 39.9 % Normal 36.3-47.1 [facility] Comment on above: Performed By: #### C DP, PTT, PT, BMPX ####[address] , [place] [address] Lab Director: Cornell Brink MD Hemoglobin (Bld) [Mass/Vol] 12.9 g/dL Normal 11.9-15.1 [facility] Comment on above: Performed By: #### C DP, PTT, PT, BMPX ####[address] , [place] [phone] Lab Director: Cornell Brink MD MCH (RBC) [Entitic mass] 33.4 pg Normal 25.2-33.5 [facility] Comment on above: Performed By: #### C DP, PTT, PT, BMPX ####[address] , [facility]83 Lab Director: Cornell Brink MD MCHC (RBC) [Mass/Vol] 32.3 g/dL Normal 28.4-34.8 [facility] Comment on above: Performed By: #### C DP, PTT, PT, BMPX ####[address] , [facility]83 Lab Director: Cornell Brink MD MCV (RBC) [Entitic vol] 103.4 fL High 82.6-102.9 [facility] Comment on above: Performed By: #### C DP, PTT, PT, BMPX ####[address] , [facility]49([facility])[phone] Director: Cornell Brink MD NRBC Automated 0.0 per 100 WBC Normal 0.0 [facility] Comment on above: Performed By: #### C DP, PTT, PT, BMPX ####[address] , [place] [address])[phone] Director: Cornell Brink MD Platelet mean volume (Bld) [Entitic vol] 11.3 fL Normal 8.1-13.5 [facility] Comment on above: Performed By: #### C DP, PTT, PT, BMPX ####[address] , [facility]83 Lab Director: Cornell Brink MD Platelets (Bld) [#/Vol] 126 10*3/uL Low 138-453 [facility] Comment on above: Performed By: #### C DP, PTT, PT, BMPX ####[facility] , [place] [address] lab Director: Cornell Brink MD RBC (Bld) [#/Vol] 3.86 10*6/uL Low 3.95-5.11 [facility] Comment on above: Performed By: #### C DP, PTT, PT, BMPX ####[address] , [place] [id number] lab Director: Cornell Brink MD WBC (Bld) [#/Vol] 6.1 10*3/uL Normal 3.5-11.3 [facility] Comment on above: Performed By: #### C DP, PTT, PT, BMPX ####[address] , [place] [address] lab Director: Cornell Brink MD CT HIP [...] by: Anthony Mayo MD Signed by: Anthony Maoy MD 07/09/21 Final result Normal [facility] Acute mildly comminuted and displaced right intertrochanteric femoral fracture. [facility] EXAMINATION: CT OF THE RIGHT [...] sacroiliac joints, bilateral hips, and pubic symphysis. [facility] Anthony Mayo MD - 07/09/2021 [...] comminuted and displaced right intertrochanteric femoral fracture. [employer] Phone: Radiology Study observation (narrative) [employer] Phone: CT HIP RIGHT WO CONTRASTOrde red By: Anthony Mayo on 07-09-2021 [facility] Work Phone: Laboratory - Chemistry and C hemistry - challengeon 07-09-2021 GFR/1.73 sq M.predicted MDRD (S/P/Bld) [Vol rate/Area] [facility] Comment on above: Average GFR for 70 o r more years old: 75 mL/min/1.73sq m Chronic Kidney Disease: <60 mL/min/1.73sq m Kidney failure: <15 mL/min/1.73sq m eGFR calculated using average adult body mass. Additional eGFR calculator available at: http://www.AdScore/multiple_crcl_2012.htm Stage 1: Some kidney damage normal GFR Stage 2: Mild kidney damage GFR 60-89 Stage 3: Moderate kidney damage GFR 30-59 Stage 4: Severe kidney damage GFR 15-29 Stage 5: Severe kidney damage GFR <15 ESRD - chronic treatment by dialysis or transplant No Panel Informationon 07-09 [facility] PTon 07-09-2021 INR Coag (PPP) [Relative time] 1.1 {INR} Normal [facility] Comment on above: Result Comment: Non-therapeutic Range: INR = 0.9-1.2 Therapeutic Range: Moderate Anticoagulant Intensity: INR = 2.0-3.0 High Anticoagulant Intensity: INR = 2.5-3.5 Performed By: #### C DP, PTT, PT, BMPX ####[facility] [place] [address] lab Director: Cornell Brink MD PT Coag (PPP) [Time] 14.0 s Normal 11.5-14.2 [facility] Comment on above: Performed By: #### C DP, PTT, PT, BMPX ####[facility] [place] [address] lab Director: Cornell Brink MD Protime-INRon 07-09-2021 INR Coag (Bld) [Relative time] 1.1 {INR} [facility] Comment on above: Non-therapeutic Range: INR = 0.9-1.2 Therapeutic Range: Moderate Anticoagulant Intensity: INR = 2.0-3.0 High Anticoagulant Intensity: INR = 2.5-3.5 PT Coag (PPP) [Time] 14 s [facility] Vitamin D 25 Hydroxyon 07-09 Vit D, 25-Hydroxy 43 ng/mL >29.9 [facility] ealt Comment on above: Reference Range: Vitamin D status Range Deficiency <20 ng/mL Mild Deficiency 20-30 ng/mL Sufficiency 30-100 ng/mL Toxicity >100 ng/mL [facility] XR CHEST PORTABLEon 07-10-19 XR CHEST [...] Andrea Oliveros MD 07/09/21 Final result Normal [facility] No prior study available comparison. Probable chronic [...] No acute bony fracture. Mild DJD spine. [facility] Andrea Nayak MD - 07/09/2021 EXAMINATION: ONE [...] studies are available, they should be reviewed. [employer] Phone: Radiology Study observation (narrative) [employer] Phone: XR CHEST PORTABLEOrdered By: Andrea Oliveros on 07-09-2021 [employer] Phone: XR FEMUR RIGHT (MIN 2 VIEWS) [...] Andrea Oliveros MD 07/09/21 Final result Normal [facility] No acute abnormality visualized right femur. Additional findings, as above. [facility] EXAMINATION: 2 XRAY VIEWS OF [...] marked soft tissue swelling. Some vascular calcifications. [facility] Andrea Oliveros MD - 07/09/2021 EXAMINATION: 2 [...] visualized right femur. Additional findings, as above. [employer] Phone: [employer] Phone: Radiology Study observation (narrative) [employer] Phone: XR HIP 2-3 VW W PELVIS [...] Jus Garner MD 07/09/21 Final result Normal [facility] Femoral neck fractur e. [facility] RIS CONSOL[facility]ATED EXAMINATION: ONE XRAY VIEW OF THE PELVIS AND TWO XRAY VIEWS RIGHT HIP 07/09/2021 11:25 am COMPARISON: None. HISTORY: ORDERING SYSTEM PROVIDED HISTORY: Trauma TECHNOLOGIST PROVIDED HISTORY: Trauma FINDINGS: There is a nondisplaced fracture of the base of the right femoral neck. No significant degenerative changes. Soft tissues are unremarkable. [facility] Jus Garner MD - 07/09/2021 EXAMINATION: ONE XRAY VIEW OF THE PELVIS AND TWO XRAY VIEWS RIGHT HIP 07/09/2021 11:25 am COMPARISON: None. HISTORY: ORDERING SYSTEM PROVIDED HISTORY: Trauma TECHNOLOGIST PROVIDED HISTORY: Trauma FINDINGS: There is a nondisplaced fracture of the base of the right femoral neck. No significant degenerative changes. Soft tissues are unremarkable. IMPRESSION: Femoral neck fracture. [employer] Phone: Radiology Study observation (narrative) [employer] Phone: XR HIP 2-3 VW W PELVIS RIGHT Ordered By: Jus Garner on 07-09-2021 [employer] Phone: Complete Blood Counton 04-24 Erythrocyte distribution width (RBC) [Ratio] 14.3 % Normal 11.0-15.0 [facility] [employer] Comment on above: Performed By: #### C BC, CMP #### [facility] [address] [place], [place] [id number] Hematocrit (Bld) [Volume fraction] 41.5 % Normal 35.0-47.0 [facility] [employer] Comment on above: Performed By: #### C BC, CMP #### [facility] [address] [place], [place] [id number] Hemoglobin (Bld) [Mass/Vol] 13.4 g/dL Normal 11.6-15.5 [facility] [employer]ner Comment on above: Performed By: #### C BC, CMP #### [facility] [address] [place], [place] [id number] MCH (RBC) [Entitic mass] 33.4 pg High 27.0-33.0 [facility] [employer]ner Comment on above: Performed By: #### C BC, CMP #### [facility] [address] [place], [place] [id number] MCHC (RBC) [Mass/Vol] 32.3 g/dL Normal 32.0-36.0 [facility] Specialist Comment on above: Performed By: #### C BC, CMP #### [facility] [address] [place], [place] [id number] MCV (RBC) [Entitic vol] 104 fL High 80-100 [facility] Specialist Comment on above: Performed By: #### C BC, CMP #### [facility] [address] [place], [place] [id number] Platelet mean volume (Bld) [Entitic vol] 10.90 fL Normal 7.50-12.50 [facility] [employer]ner Comment on above: Performed By: #### C BC, CMP #### [facility] [address] [place], [place] [id number] Platelets (Bld) [#/Vol] 125 10*3/uL Low 140-400 [facility] [employer]ner Comment on above: Performed By: #### C BC, CMP #### [facility] [address] [place], [place] [id number] RBC (Bld) [#/Vol] 4.01 10*6/uL Normal 3.90-5.20 [facility] [employer] Service Runner Comment on above: Performed By: #### C BC, CMP #### [facility] [address] [place], [place] [id number] RDW-SD 54.0 fL High 37.0-50.0 [facility] [employer] Service Runner Comment on above: Performed By: #### C BC, CMP #### [facility] [address] [place], [place] [id number] WBC (Bld) [#/Vol] 6.9 10*3/uL Normal 3.8-11.0 [facility] Package [employer] Service Runner Comment on above: Performed By: #### C BC, CMP #### [facility] [address] [place], [place] [id number] Comprehensive Metabolic Pane lazarus 04-24-2021 Albumin [Mass/Vol] 4.4 g/dL Normal 3.6-5.1 [facility] [employer] Service Runner Comment on above: Performed By: #### C BC, CMP #### [facility] [address] [place], [place] [id number] Albumin/Globulin [Mass ratio] 2.3 {ratio} Normal 1.0-2.5 [facility] [employer] Service Runner Comment on above: Performed By: #### C BC, CMP #### [facility] [address] [place], [place] [id number] ALP [Catalytic activity/Vol] 87 U/L Normal 35-119 [facility] [employer] [facility] Service Runner Comment on above: Performed By: #### C BC, CMP #### [facility] [address] [place], [place] [id number] ALT [Catalytic activity/Vol] 10 U/L Normal 6-33 [facility] [employer] Runner Comment on above: Result Comment: 04/04 Female reference range changed. Performed By: #### C BC, CMP #### [facility] [address] [place], [place] [id number] Anion gap [Moles/Vol] 16 mmol/L Normal 12-20 [facility] [employer]ner Comment on above: Result Comment: Effe ctive 05/10/2019 reference range changed. Performed By: #### C BC, CMP #### [facility] [address] [facility] [place] [id number] AST [Catalytic activity/Vol] 12 U/L Normal 9-34 [facility] [employer] Service Runner Comment on above: Performed By: #### C BC, CMP #### [facility] [address] [place], [place] [id number] Bilirubin [Mass/Vol] 0.86 mg/dL Normal 0.30-1.20 [facility] [employer] Service Runner Comment on above: Performed By: #### C BC, CMP #### [facility] [address] [place], [place] [id number] BUN/CREA 16 Ratio Normal 6-22 [facility] [employer] Service Runner Comment on above: Performed By: #### C BC, CMP #### [facility] [address] [place], [place] [id number] Calcium [Mass/Vol] 10.5 mg/dL High 8.6-10.2 [facility] Package [employer] Service Runner Comment on above: Performed By: #### C BC, CMP #### [facility] [address] [place] [place], [place] [id number] Chloride [Moles/Vol] 107 mmol/L Normal 98-107 [facility] Specialist Comment on above: Performed By: #### C BC, CMP #### [facility] [address] [place], [place] [id number] CO2 [Moles/Vol] 26 mmol/L Normal 20-31 [facility] Specialist Comment on above: Performed By: #### C BC, CMP #### [facility] [address] [place], [place] [id number] Creatinine [Mass/Vol] 1.2 mg/dL Normal 0.6-1.4 [facility] Specialist Comment on above: Performed By: #### C BC, CMP #### [facility] [address] [place], [place] [id number] eGFRAA 51 mL/min/1.73m2 Low >60 [facility] Specialist Comment on above: Performed By: #### C BC, CMP #### [facility] [address] [place], [place] [id number] eGFRNAA 42 mL/min/1.73m2 Low >60 [facility] Specialist Comment on above: Performed By: #### C BC, CMP #### [facility] [address] [place], [place] [id number] Globulin (S) [Mass/Vol] 1.9 g/dL Normal 1.9-3.7 [facility] Specialist Comment on above: Performed By: #### C BC, CMP #### [facility] [address] [place], [place] [id number] Glucose [Mass/Vol] 99 mg/dL Normal 65-99 [facility] Comment on above: Result Comment: For FASTING Glucose --- ADA reference ranges: Normal 65-99 mg/dl Prediabetes 100-125 Diabetes >/= 126 Performed By: #### C BC, CMP #### [facility] [address] [place], [place] [id number] Potassium [Moles/Vol] 4.6 mmol/L Normal 3.5-5.5 [facility] Specialist Comment on above: Performed By: #### C BC, CMP #### [facility] [address] [place], [place] [id number] Protein [Mass/Vol] 6.3 g/dL Normal 6.1-8.1 Alondra mitchell [place] [employer] Service Runner Comment on above: Performed By: #### C BC, CMP #### [facility] [address] [place], [place] [id number] Sodium [Moles/Vol] 144 mmol/L Normal 135-146 Alondra mitchell [place] [employer] [facility] [employer]ner Comment on above: Performed By: #### C BC, CMP #### [facility] [address] [place], [place] [id number] Urea nitrogen [Mass/Vol] 20 mg/dL Normal 7-25 [facility] Specialist Comment on above: Performed By: #### C BC, CMP #### [facility] [address] [place], [place] [id number] Parathyroid Hormone, Intacto n 04-24-2021 PTH 24.33 pg/mL Normal 16.00-65.00 [facility] Specialist Comment on above: Performed By: #### P TH* #### [facility] [address] [place], [place] [id number] Office Visit (Cardiology)on 03-07-2021 Follow-up visit Diagnoses/Problems [...] Recorded: 07Mar2021 01:55PM Heart Rate72, R Radial Juewxmhp041, RUE, Sitting Amufriccg78, RUE, Sitting Height5 ft 5 in Cyjptg575 lb BMI Mbdboddehb68.3 kg/m2 BSA Calculated1.6 Tobacco Useb) No Fall [...] EST (Author) Normal [facility] Echocardiogramon 11-22-[address], [address], [place] [address] TRANSTHORACIC ECHOCARDIOGRAM REPORT Patient Name: ELZA BLAS Reading Physician: [id number] Guille Castrejon MD Study Date: 11/22/2020 Referring Physician: Herman RAMOS MRN/PID: [id number] PCP: Alice Quiroz Accession/Order#: [id number] Department Location: [facility] Date of : 1940 Fellow: Gender: F Nurse: Admit Date: Cnc Operator Machinist: Amie Arevalo [facility], T Height: 152.40 cm CC Report to: Weight: 55.34 kg Study Type: Echocardiogram BSA: 1.51 m2 Blood Pressure: 124 /78 mmHg Diagnosis/ICD: I42.8-Other cardiomyopathies; [id number] (primary) hypertension Indication: AAA-s/p Repair, Former Smoker Procedure/CPT: Echo Complete w Full [id number] Study Detail: The following Echo studies were [...] mmHg PIEDV: 1.38 m/s PADP: 10.6 mmHg [id number] Guille Castrejon MD Electronically signed on 11/23/2020 at 5:21:09 PM Final (Updated) Normal [facility] BUNon 05-12-2020 Urea nitrogen [Mass/Vol] 18.0 mg/dL Critically high 7.0-17.0 [facility] Comment on above: Performed By: #### E DEYSI ELLISON BUN #### [facility] [address] [place] [address] Volodymyr Del Castillo CREATININEon 05-12-2020 Creatinine [Mass/Vol] 52 mL/min/1.73m2 Critically low >=60 [facility] Comment on above: Performed By: #### E SCOT CREToyin, BUN #### [facility] [address] [place] Creatinine [Mass/Vol] 1.22 mg/dL Critically high 0.52-1.04 [facility] Comment on above: Performed By: #### E SCOT CREToyin, BUN #### [facility] [address] [place] [address] Volodymyr Magdalene Creatinine [Mass/Vol] 43 mL/min/1.73m2 Critically low >=60 [facility] Comment on above: Performed By: #### E LEC, CREA, BUN #### [facility] [address] [place] [address] Volodymyr Magdalene ELECTROLYTESon 05-12-2020 Anion gap [Moles/Vol] 11.2 mmol/L Normal [facility] Comment on above: Performed By: #### E LEC, CREA, BUN #### [facility] [address] [place] [address] Volodymyr Magdalene Chloride [Moles/Vol] 106 mmol/L Normal 98-107 [facility] Comment on above: Performed By: #### E LEC, CREA, BUN #### [facility] [address] [place] [address] Volodymyr Magdalene CO2 [Moles/Vol] 30.4 mmol/L Critically high 22.0-30.0 [facility] Comment on above: Performed By: #### E LEC, CREA, BUN #### [facility] [address] [place] [address] Volodymyr Magdalene Potassium [Moles/Vol] 4.6 mmol/L Normal 3.4-5.0 [facility] Comment on above: Performed By: #### E LEC, CREA, BUN #### [facility] [address] [place] [address] Volodymyr Magdalene Sodium [Moles/Vol] 143 mmol/L Normal 137-145 [facility] Comment on above: Performed By: #### E LEC, CREA, BUN #### [facility] [address] [place], [place] [id number] Volodymyr Magdalene Echocardiogramon 03-08-[address], [address], [place] [address] TRANSTHORACIC ECHOCARDIOGRAM REPORT Patient Name: ELZA Lacy Physician: [id number] Bernardino BLAS MD Study Date: 03/08/2020 Referring Physician: [id number] Bernardino Ramos MD MRN/PID: [id number] PCP: Alice Quiroz Accession/Order#: [id number] Department Location: [facility] [place] Date of : 1940 Fellow: Gender: F Nurse: Admit Date: Cnc Operator Machinist: Amie Arevalo RDCS, RVT Height: 165.10 cm CC Report to: Weight: 55.34 kg Study Type: Echocardiogram BSA: 1.60 m2 Blood Pressure: 138 /90 mmHg Diagnosis/ICD: I42.8-Other cardiomyopathies Indication: HTN, Former Smoker, AAA-s/p Repair Procedure/CPT: Echo Complete w Full [id number] Study Detail: The following Echo studies were [...] mmHg PIEDV: 0.95 m/s PADP: 6.6 mmHg [id number] Bernardino Ramos MD Electronically signed on 03/12/2020 at 1:14:04 PM Final Normal [facility] BUNon 12-24-2019 Urea nitrogen [Mass/Vol] 18.0 mg/dL Critically high 7.0-17.0 [facility] Comment on above: Performed By: #### B UN, ELEC, CREA #### [facility] [address] [place] [address] Volodymyr Magdalene CREATININEon 12-24-2019 Creatinine [Mass/Vol] 51 mL/min/1.73m2 Critically low >=60 [facility] Comment on above: Performed By: #### B UN, ELEC, CREA ####[facility] [address] [place] [address]Ger[address] [place] Creatinine [Mass/Vol] 1.24 mg/dL Critically high 0.52-1.04 [facility] Comment on above: Performed By: #### B UN, ELEC, CREA ####[facility] [address] [place] [address]Ger[address] [place] Creatinine [Mass/Vol] 42 mL/min/1.73m2 Critically low >=60 [facility] Comment on above: Performed By: #### B UN, ELEC, CREA ####[facility] [address] [place] [address]Ger[address] [place] ELECTROLYTESon 12-24-2019 Anion gap [Moles/Vol] 10.4 mmol/L Normal [facility] Comment on above: Performed By: #### B UN, ELEC, CREA #### [facility] [address] [place] [address] Volodymyr Magdalene Chloride [Moles/Vol] 104 mmol/L Normal 98-107 [facility] Comment on above: Performed By: #### B UN, ELEC, CREA #### [facility] [address] [place] [address] Volodymyr Magdalene CO2 [Moles/Vol] 32.1 mmol/L Critically high 22.0-30.0 [facility] Comment on above: Performed By: #### B UN, ELEC CREA #### [facility] [address] [place] [address] Volodymyr Magdalene Potassium [Moles/Vol] 3.5 mmol/L Normal 3.4-5.0 [facility] Comment on above: Performed By: #### B UN, ELEC, CREA #### [facility] [address] [place] [address] Volodymyr Magdalene Sodium [Moles/Vol] 143 mmol/L Normal 137-145 [facility] Comment on above: Performed By: #### B UN, ELEC CREA #### [facility] [address] [place] [address] Volodymyr Magdalene US CAROTID ART BILon 020 [...] by: EZEQUIEL MART Date: 2019-11-01 08:07 Normal [facility] ECHOCARDIO M/2D COMPLETEon 0 10-29-2019 ECHOCARDIO M/2D COMPLETE Patient: ELZA BLAS Exam Date: 10/29/2019 : 1940 Gender:F Ordering : DR ALICE QUIROZ M.D. Admission #: [id number] Family : Order #: [id number] CLICK HERE TO VIEW EXAM ECHOCARDIOGRAM REPORT [...] Area(A4C): 11.70 cm2 Left Atrium Systolic Volume(A2C): 67688 mm3 Left Atrium Systolic Volume(A4C): 62663 mm3 Mitral Valve MV E to A [...] Pandya M.D. on 11/02/2019 at 10:22 Normal [facility] MRI BRAIN WO W CONon 06-05-2 020 [...] by: CORNELL SANTANA Date: 2019-10-08 16:24 Normal [facility] CREATININEon 10-07-2019 Creatinine [Mass/Vol] 54 mL/min/1.73m2 Critically low >=60 [facility] Comment on above: Performed By: #### C CLARENCE #### [facility] [address] [place] [address] Volodymyr Del Castillo Creatinine [Mass/Vol] 1.18 mg/dL Critically high 0.52-1.04 [facility] Comment on above: Performed By: #### C CLARENCE #### [facility] [address] [place] [address] Volodymyr Del Castillo Creatinine [Mass/Vol] 44 mL/min/1.73m2 Critically low >=60 [facility] Comment on above: Performed By: #### C CLARENCE #### [facility] [address] [place] [address] HEAD WO W [...] by: CORNELL CHIU Date: 2019-10-07 15:52 Normal [facility] Vital Signs Date Time Vital Sign Value Performing Clinician Ford leopoldo 10-28-2024 12:46-0400 Body temperature 97 [degF] Sid Lau MD Work Phone: [facility] 10-28-2024 12:46-0400 Body weight 52.8 kg Sid Lau MD Work Phone: [facility] 10-28-2024 12:46-0400 Diastolic blood pressure 78 mm[Hg] Sid Lau MD Work Phone: [facility] 10-28-2024 12:46-0400 Heart rate 69 /min Sid Lau MD Work Phone: [facility] 10-28-2024 12:46-0400 Respiratory rate 18 /min Sid Lau MD Work Phone: [facility] 10-28-2024 12:46-0400 SaO2% (BldA) [Mass fraction] 94 % Sid Lau MD Work Phone: [facility] 10-28-2024 12:46-0400 Systolic blood pressure 163 mm[Hg] Sid Lau MD Work Phone: [facility] 09-29-2024 10:58-0400 Body temperature 97.3 [degF] Sid Lau MD Work Phone: [facility] 09-29-2024 10:58-0400 Body weight 51.4 kg Sid Lau MD Work Phone: [facility] 09-29-2024 10:58-0400 Diastolic blood pressure 81 mm[Hg] Sid Lau MD Work Phone: [facility] 09-29-2024 10:58-0400 Heart rate 67 /min Sid Lau MD Work Phone: [facility] 09-29-2024 10:58-0400 Respiratory rate 16 /min Sid Lau MD Work Phone: [facility] 09-29-2024 10:58-0400 SaO2% (BldA) [Mass fraction] 99 % Sid Lau MD Work Phone: [facility] 09-29-2024 10:58-0400 Systolic blood pressure 156 mm[Hg] Sid Lau MD Work Phone: [facility] 09-14-2024 15:25-0400 Body height 165.1 cm Alice Quiroz MD Work Phone: [facility] 09-14-2024 15:25-0400 Body mass index (BMI) [Ratio] 18.3 kg/m2 Alice Quiroz MD Work Phone: [facility] 09-14-2024 15:25-0400 Body weight 49.9 kg Alice Quiroz MD Work Phone: [facility] 09-14-2024 15:25-0400 Diastolic blood pressure 78 mm[Hg] Alice Quiroz MD Work Phone: [facility] 09-14-2024 15:25-0400 Heart rate 87 /min Alice Quiroz MD Work Phone: [facility] 09-14-2024 15:25-0400 SaO2% (BldA) [Mass fraction] 96 % Alice Quiroz MD Work Phone: [facility] 09-14-2024 15:25-0400 Systolic blood pressure 122 mm[Hg] Alice Quiroz MD Work Phone: [facility] 06-23-2024 12:50-0500 Body height 165.1 cm Dayton Mayo APRN-WELDER 2ND SHIFT Work Phone: [facility] 06-23-2024 12:50-0500 Body mass index (BMI) [Ratio] 20.1 kg/m2 Dayton Mayo APRN-WELDER 2ND SHIFT Work Phone: [facility] 06-23-2024 12:50-0500 Body weight 54.8 kg Dayton Mayo HYDROELECTRIC PLANT TECHNICIAN-WELDER 2ND SHIFT Work Phone: [facility] 06-23-2024 12:50-0500 Diastolic blood pressure 74 mm[Hg] Dayton Mayo HYDROELECTRIC PLANT TECHNICIAN-WELDER 2ND SHIFT Work Phone: [facility] 06-23-2024 12:50-0500 Heart rate 68 /min Dayton Mayo HYDROELECTRIC PLANT TECHNICIAN-WELDER 2ND SHIFT Work Phone: [facility] 06-23-2024 12:50-0500 Systolic blood pressure 116 mm[Hg] Dayton Mayo HYDROELECTRIC PLANT TECHNICIAN-WELDER 2ND SHIFT Work Phone: [facility] 04-07-2024 10:170500 Body height 165.1 cm Millicent Mayer REPAIRING CALIBRATOR Work Phone: [facility] 04-07-2024 10:17-0500 Body mass index (BMI) [Ratio] 19.8 kg/m2 Millicent Mayer REPAIRING CALIBRATOR Work Phone: [facility] 04-07-2024 10:17-0500 Body weight 53.98 kg Millicent Mayer REPAIRING CALIBRATOR Work Phone: [facility] 04-07-2024 10:17-0500 Diastolic blood pressure 78 mm[Hg] Millicent Mayer REPAIRING CALIBRATOR Work Phone: [facility] 04-07-2024 10:17-0500 Heart rate 69 /min Millicent Mayer REPAIRING CALIBRATOR Work Phone: [facility] 04-07-2024 10:17-0500 Respiratory rate 16 /min Millicent Mayer REPAIRING CALIBRATOR Work Phone: [facility] 04-07-2024 10:17-0500 SaO2% (BldA) [Mass fraction] 98 % Millicent Mayer REPAIRING CALIBRATOR Work Phone: [facility] 04-07-2024 10:17-0500 Systolic blood pressure 124 mm[Hg] Millicent Mayer REPAIRING CALIBRATOR Work Phone: [facility] 10-10-2023 14:26-0400 Body height 165.1 cm [facility] 10-10-2023 14:26-0400 Body mass index (BMI) [Ratio] 20.7 kg/m2 [facility] 10-10-2023 14:26-0400 Body temperature 98.2 [degF] HYDROELECTRIC PLANT TECHNICIAN Idalmis Brendan Work Phone: [facility] 10-10-2023 14:26040 Body weight 56.69 kg [facility] 10-10-2023 14:26-0400 Diastolic blood pressure 82 mm[Hg] HYDROELECTRIC PLANT TECHNICIAN Idalmis Brendan Work Phone: [facility] 10-10-2023 14:260400 Heart rate 86 /min HYDROELECTRIC PLANT TECHNICIAN Idalmis Brendan Work Phone: [facility] 10-10-2023 14:040 Respiratory rate 16 /min HYDROELECTRIC PLANT TECHNICIAN Idalmis Brendan Work Phone: [facility] 10-10-2023 14:26040 SaO2% (BldA) [Mass fraction] 96 % HYDROELECTRIC PLANT TECHNICIAN Idalmis Brendan Work Phone: [facility] 10-10-2023 14:26-0400 Systolic blood pressure 136 mm[Hg] HYDROELECTRIC PLANT TECHNICIAN Idalmis Brendan Work Phone: [facility] 11-26-2021 13:56-0400 Body height 165.1 cm Rugen [employer] Gab[place]ella Work Phone: [facility] [address] DO Work Phone: 11-26-2021 13:56-0400 Body mass index (BMI) [Ratio] 19.8 kg/m2 [employer] [place] Work Phone: [facility] 250 DO Work Phone: 11-26-2021 13:56-0400 Body surface area Derived from formula 1.59 m2 Rugen M Gabriella Work Phone: [facility] 250 DO Work Phone: 11-26-2021 13:56-0400 Body weight 53.98 kg Rugsantino Granados Gabriella Work Phone: [facility] 250 DO Work Phone: 11-26-2021 13:56-0400 Diastolic blood pressure 72 mm[Hg] Alice Granados [place] Work Phone: [facility] 250 DO Work Phone: 11-26-2021 13:56-0400 Heart rate 65 /min Rugsantino Granados [place] Work Phone: [facility] 250 DO Work Phone: 11-26-2021 13:56-0400 Systolic blood pressure 112 mm[Hg] Alice Granados [place] Work Phone: [facility] 250 DO Work Phone: 07-13-2021 07:12-0500 Body temperature 97.11 [degF] Justin Shaq DO Work Phone: [facility] 07-13-2021 07:12-0500 Diastolic blood pressure 67 mm[Hg] Justin Linettettan DO Work Phone: [facility] 07-13-2021 07:12-0500 Heart rate 77 /min Justin Humbertoan DO Work Phone: [facility] 07-13-2021 07:12-0500 Respiratory rate 18 /min Justin Linettedavontean DO Work Phone: [facility] 07-13-2021 07:12-0500 SaO2% (BldA) [Mass fraction] 95 % Justin Linettettan DO Work Phone: [facility] 07-13-2021 07:12-0500 Systolic blood pressure 137 mm[Hg] Justin Linettedavontean DO Work Phone: [facility] 07-13-2021 05:15-0500 Body mass index (BMI) [Ratio] 22.14 kg/m2 Justin Linettedarrel DO Work Phone: [facility] 07-13-2021 05:15-0500 Body weight 58.51 kg Justin New DO Work Phone: [facility] 07-10-2021 08:33-0500 Body height 162.6 cm Justin New DO Work Phone: [facility] Encounters Encounter Date Encounter Type Care Provider Facility Start: 10-28-2024 End: 10-28-2024 Office outpatient visit 15 minutes Sid Lau MD Work Phone: Hematology/Oncology Comment on above: Thrombocytopenia (Pr imary Dx) Start: 10-28-2024 End: 10-28-2024 ambulatory SID LAU Facility:[facility] Start: 10-01-2024 End: 10-04-2024 Telephone encounter Sid Lau MD Work Phone: Hematology/Oncology Comment on above: OTC Zinc supplement recommendation Start: 09-29-2024 End: 09-29-2024 Office outpatient new 45 minutes Sid Lau MD Work Phone: Hematology/Oncology Comment on above: Thrombocytopenia (Pr imary Dx) Start: 09-29-2024 End: 09-29-2024 ambulatory ALICE CLOUDA Facility:[facility] Start: 09-28-2024 End: 09-28-2024 Chart abstracting [...] Office outpatient visit 15 minutes Dayton Mayo HYDROELECTRIC PLANT TECHNICIAN-WELDER 2ND SHIFT Work Phone: [facility] Comment on above: Benign essential hyp ertension (Primary Dx); Nonischemic cardiomyopathy (Multi); BMI 20.0-20.9, adult; 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 visit, subsequent (Primary Dx); Rheumatoid arthritis with [...] 10-10-2023 Departed Referred ESPERANZA Cardona Work Phone: [facility] [place] Work Phone: Start: 10-10-2023 End: 10-10-[address] [facility] Work Phone: Start: 10-10-2023 End: 10-10-2023 Patient encounter procedure [facility] Work Phone: Start: 03-03-2023 Patient encounter procedure Millicent Mayer NP Work Phone: [facility] Start: 04-12-2022 Rx Renewal Rugen M Gabriella Work Phone: [facility] 250 DO Work Phone: Start: 02-28-2022 Rx Renewal Rugen M [place] Work Phone: [facility] [facility] DO Work Phone: Start: 11-26-2021 Office outpatient vi sit 15 minutes Rugen M [place] Work Phone: [facility] 250 DO Work Phone: Start: 07-09-2021 End: 07-13-2021 Evaluation and management of inpatient [facility] Start: 07-09-2021 End: 07-13-2021 Evaluation and management of inpatient [facility] DO Work Phone: [facility] Comment on above: Closed fracture of n mundo of right femur, initial encounter ([facility]) (Primary Dx); Postoperative pain Start: 05-29-2021 AUDIT Rugen M [place] Work Phone: [facility] 250 DO Work Phone: Start: 05-12-2020 End: [...] panel - Serum or Plasma Dayton Mayo HYDROELECTRIC PLANT TECHNICIAN-WELDER 2ND SHIFT Work Phone: Start: 07-13-2021 BASIC METABOLIC PANEL [...] extraction History of cataract extraction Millicent Mayer REPAIRING CALIBRATOR Work Phone: Cataract surgery Zafaren M Ald a Work Phone: History of cataract extraction History of cataract extraction, unspecified laterality Millicent Mayer REPAIRING CALIBRATOR Work Phone: Hysterectomy Zafaren M [place] Work Phone: Operative procedure on hip Rugen M [place] Work Phone: Repair of aneurysm o f abdominal aorta Rugen M Gabriella Work Phone: Plan of Treatment Date Care Activity Detail Author Start: 04-07-2029 Lipid panel Lipid Panel [facility] Start: 10-29-2027 Diabetes Screening Diabetes Screening [facility] Start: 09-30-2027 Diabetes Screening Diabetes Screening [facility] Start: 09-23-2025 Diabetes Screening Diabetes Screening [facility] Start: 06-06-2025 End: 06-06-2025 Patient encounter procedure 06/06/2025 1:00 PM EST Office Visit [address] [id number] Dayton Mayo, HYDROELECTRIC PLANT TECHNICIAN-WELDER 2ND SHIFT [address] [place] [address] James Start: 04-29-2025 End: 07-29-2025 CBC W Auto Differential panel - Blood COMPLETE BLOOD COUNT AND DIFFERENTIAL Lab Routine Thrombocytopenia Expected: 04/29/2025 (Approximate), Expires: 07/29/2025 [facility] Work Phone: Comment on above: Expected: 04/29/2025 (Approximate), Expi res: 07/29/2025 Start: 04-29-2025 End: 07-29-2025 Comprehensive metabolic 2000 panel - Serum or Plasma COMPREHENSIVE METABOLIC PANEL Lab Routine Thrombocytopenia Expected: 04/29/2025 (Approximate), Expires: 07/29/2025 [facility] Comment on above: Expected: 04/29/2025 (Approximate), Expi res: 07/29/2025 Start: 04-21-2025 End: 04-21-2025 Follow-up encounter 04/21/2025 1:30 PM EST Visit (SP) Office Hematology/Oncology [address] [place] [address] Sid Lau MD [address] [place] [address] 6 month follow up Hematology/Oncology Comment on above: 6 month follow up Start: 04-21-2025 End: 04-21-2025 Patient encounter procedure 04/21/2025 1:15 PM EST Office Visit [facility] [address] [place] [address] 6 month follow up [facility] Comment on above: 6 month follow up Start: 03-12-2025 Screening for osteoporosis Bone Density Scan [facility] Start: 10-28-2024 End: 10-28-2024 Follow-up encounter 10/28/2024 1:00 PM EDT Visit (SP) Office Hematology/Oncology [address] [place] [address] Sid Lau MD [address] [place] [address] 4 WEEK FOLLOW UP Hematology/Oncology Comment on above: 4 WEEK FOLLOW UP Start: 10-28-2024 End: 10-28-2024 Patient encounter procedure 10/28/2024 12:45 PM EDT Office Visit [facility] [address] [place] [address] [place] [address] 4 WEEK FOLLOW UP [facility] Comment on above: 4 WEEK FOLLOW UP Start: 09-29-2024 End: 12-29-2024 COPPER BLOOD [facility] Work Phone: Comment on above: Expected: 09/29/2024, Expires: Start: 09-29-2024 End: 12-29-2024 PRIMO/ANDREW CUTLER,SER [facility] Comment on above: Expected: 09/29/2024, Expires: Start: 09-29-2024 End: 12-29-2024 PROTEIN ELECTROPHORESIS SERUM W/INTERP [facility] Comment on above: Expected: 09/29/2024, Expires: Start: 09-29-2024 End: 12-29-2024 Zinc [Mass/volume] in Serum or Plasma [facility] Comment on above: Expected: 09/29/2024, Expires: Start: 09-29-2024 End: 09-29-2024 ambulatory 09/29/2024 11:00 AM EDT Visit (SP) Office Hematology/Oncology [address] [place] [address] Sid Lau MD [address] [place] [address] D69.6 Thrombocytopenia Hematology/Oncology Comment on above: D69.6 Thrombocytopenia Start: 09-14-2024 End: 09-14-2025 Creatinine [Mass/volume] in Serum or Plasma Creatinine, Serum Lab Routine Weight loss, abnormal Diarrhea, unspecified type Epigastric pain Expected: 09/14/2024 (Approximate), Expires: 09/14/2025 [facility] Comment on above: Expected: 09/14/2024 (Approximate), Expi res: 09/14/2025 Start: 09-14-2024 End: 09-14-2025 CT Abdomen and Pelvis WO and W contrast IV CT abdomen pelvis w and wo IV contrast Imaging Routine Weight loss, abnormal Diarrhea, unspecified type Epigastric pain Expected: 09/14/2024, Expires: 09/14/2025 [facility] Work Phone: Comment on above: Expected: 09/14/2024, Expires: Start: 05-05-2024 Advance Directive Discussion Advance Directive Discussion [facility] Start: 04-07-2024 End: 04-07-2025 25-hydroxyvitamin D3 [Mass/volume] in Serum or Plasma Vitamin D 25 hydroxy Lab Routine Medicare annual wellness visit, subsequent Vitamin D deficiency Expected: 04/07/2024 (Approximate), Expires: 04/07/2025 [facility] Comment on above: Expected: 04/07/2024 (Approximate), Expi [...] disease (CMS/HCC) Expected: 04/07/2024 (Approximate), Expires: 04/07/2025 [facility] Work Phone: Comment on above: Expected: 04/07/2024 (Approximate), Expi res: 04/07/2025 Start: 04-07-2024 End: 04-07-2025 Comprehensive metabolic 2000 panel - Serum or Plasma Comprehensive metabolic panel Lab Routine Medicare annual wellness visit, subsequent Essential hypertension (CMS/HCC) Chronic gastritis without bleeding, unspecified gastritis type Expected: 04/07/2024 (Approximate), Expires: 04/07/2025 [facility] Comment on above: Expected: 04/07/2024 (Approximate), Expi res: 04/07/2025 Start: 04-07-2024 End: 04-07-2025 Lipid 1996 panel - Serum or Plasma Lipid panel Lab Routine Screening for lipid disorders Expected: 04/07/2024 (Approximate), Expires: 04/07/2025 [facility] Healthcare Comment on above: Expected: 04/07/2024 [...] Office Visit NOM[facility]ene[facility] LOPEZ [address] [facility] [address] [place] [address] Millicent Mayer NP [address] [facility] [address] [place] [address] Arrived [facility] EDITH LOPEZ Comment on above: Arrived Start: 03-04-2024 Medicare Annual Wellness Visit Medicare Annual Wellness Visit (AWV) [facility] Start: 03-03-2024 Medicare Annual Wellness (AWV) Medicare Annual Wellness (AWV) [facility] Start: 01-04-2024 COVID-19 Vaccine ( season) COVID-19 Vaccine ( season) [facility] Start: 10-10-2023 Bacteria identified in Urine by Culture [facility] Start: 07-13-2022 Creatinine measurement Creatinine monitoring [facility] Start: 07-13-2022 Potassium monitoring Potassium monitoring [facility] Start: 06-14-2022 FUV, Provider: Bernardino Ramos, Status: Pen, Time: 1:10 PM FUV, Provider: Bernardino Ramos, Status: Pen, Time: 1:10 PM [place] [address] DO Work Phone: Start: 10-26-2021 FUV, Provider: Bernardino Ramos, Status: Pen, Time: 1:30 PM FUV, Provider: Bernardino Ramos, Status: Pen, Time: 1:30 PM -[facility] 250 DO Work Phone: Start: 12-08-2018 Shingles Vaccine (2 of 2) Shingles Vaccine (2 of 2) [facility] Start: 2016 RSV High Risk: (Elderly (60+) or Population) (1 - 1-dose 75+ series) RSV High Risk: (Elderly (60+) or Population) (1 - 1-dose 75+ series) [facility] Start: 2016 RSV Vaccine (1 - 1-dose 75+ series) RSV Vaccine (1 - 1-dose 75+ series) [facility] Start: 2006 Screening for osteoporosis Bone Density Screening [facility] Start: 11-02-2006 Medicare Annual Wellness Visit Medicare Annual Wellness Visit [facility] Start: 1996 Screening for osteoporosis DEXA (modify frequency per FRAX score) [facility] Start: 11-15-1963 DTaP/Tdap/Td Vaccines (1 - Tdap) DTaP/Tdap/Td Vaccines (1 - Tdap) [facility] Start: 1960 DTaP/Tdap/Td vaccine (1 - Tdap) DTaP/Tdap/Td vaccine (1 - Tdap) [facility] Start: 1960 Urine microalbumin profile DTaP,Tdap,Td Vaccine (1 - Tdap) [facility] Start: 11-15-1959 Anxiety Screening Anxiety Screening [facility] Start: 11-15-1959 Depression Screening Depression Screening [facility] Start: 11-15-1959 Diabetes mellitus screening Diabetes Screening [facility] Start: 1953 Depression Screen Depression Screen [facility] Start: 1952 Screening for malignant neoplasm of cervix Cervical Cancer Screening [facility] Start: 1946 Covid-19 Vaccine (#1) Covid-19 Vaccine (#1) [facility] Start: 1946 COVID-19 Vaccine (1) COVID-19 Vaccine (1) [facility] Start: 1941 Hepatitis C screening Hepatitis C screen [facility] Basic Metabolic Pane l w/ Reflex to MG Basic Metabolic Panel w/ Reflex to MG Lab Routine Daily until discontinued starting 07/10/2021, 4 completed [facility] Work Phone: Comment on above: Daily until discontinued starting 2021, 4 completed CBC W Auto Different ial panel - Blood CBC auto differential Lab Routine Daily until discontinued starting 07/10/2021, 4 completed [facility] Work Phone: Comment on above: Daily until discontinued starting 2021, 4 completed Oxygen therapy [Mini mum Data Set] Initiate Oxygen Therapy Protocol Respiratory Care Routine Daily until discontinued starting 07/09/2021 [facility] Phone: Comment on above: Daily until discontinued starting 2021 Oxygen therapy [Mini mum Data Set] Initiate Oxygen Therapy Protocol Respiratory Care Routine As Needed until discontinued starting 07/11/2021 [facility] Phone: Comment on above: As Needed until discontinued starting Spirometry panel Incentive elie metry Respiratory Care Routine Every 2hr while awake until discontinued starting 07/11/2021 [employer] [facility] Phone: Comment on above: Every 2hr while awake until discontinued starting 07/11/2021 Immunizations Immunization Date Immunization Notes Care Provider [facility] 02-13-2024 influenza, high dose seasonal, preservative-free Alice Quiroz MD Work Phone: [facility] 03-03-2023 Influenza, High-dose Seasonal, Quadrivalent, Preservative Free Millicent Mayer REPAIRING CALIBRATOR Work Phone: [facility] 11-07-2022 zoster vaccine recombinant Millicent Mayer REPAIRING CALIBRATOR Work Phone: [facility] 09-02-2022 zoster vaccine recombinant Millicent Mayer REPAIRING CALIBRATOR Work Phone: [facility] 02-18-2022 influenza, high dose seasonal, preservative-free [place] Mayo HYDROELECTRIC PLANT TECHNICIAN-WELDER 2ND SHIFT Work Phone: [facility] Work Phone: 02-18-2022 Influenza, High-dose Seasonal, Quadrivalent, Preservative Free Millicent Mayer REPAIRING CALIBRATOR Work Phone: [facility] 02-22-2021 Fluzone High-Dose Quadrivalent 0.7 ML Intramuscular Suspension Prefilled Syringe Rugen M Gabriella [facility] Work Phone: 02-22-2021 influenza, high dose seasonal, preservative-free [place] Mayo HYDROELECTRIC PLANT TECHNICIAN-WELDER 2ND SHIFT Work Phone: [facility] Work Phone: 08-11-2020 pneumococcal conjuga te vaccine, 13 valent Rugen M [place] Work Phone: [place] [address] DO Work Phone: 01-24-2020 influenza, injectabl e, quadrivalent, preservative free Rugen M [place] Work Phone: [facility] 01-04-2020 influenza, seasonal, injectable Rugen M Gabriella [facility] Work Phone: 03-05-2019 influenza, seasonal, injectable Rugen M [place] [facility] Work Phone: 02-01-2019 Seasonal trivalent influenza vaccine, adjuvanted, preservative free Rugen M [place] Work Phone: [facility] 250 DO Work Phone: 10-13-2018 pneumococcal conjuga te vaccine, 13 valent Rugen M Gabriella [facility]: [facility] Work Phone: 10-13-2018 zoster vaccine recombinant Rugen M [place] Work Phone: [facility] [employer] DO Work Phone: 02-07-2016 pneumococcal polysaccharide vaccine, 23 valent Alice Clouda Work Phone: [facility] Payers Date Payer Category Payer Self-pay 2017 Medicare supplementa l policy (as second payer) [employer] S[employer] [id number] 2017 Private Health Insurance [id number] 5 2006 Medicare [id number] 5 1959 Medicare [id number] 1959 Private Health Insurance [facility] [id number] 1941 Unknown [id number] .2.593 1941 Unknown [id number] [id number] .2.59 1941 Unknown [id number] 2.16.840.1.865300.3.579 .2.59 1941 Unknown [id number] [id number] .2.59 1941 Unknown [id number] 2.16.840.1.664618.3.579 .2.59 1941 Unknown [id number] 2.16.840.1.714920.3.579 .2.59 1941 Unknown [id number] 2.16.840.1.132603.3.579 .2.593 1941 Unknown [id number] 2.16.840.1.763397.3.579 .2.593 1941 Unknown [id number] 2.16.840.1.536552.3.579 .2.173 1941 Unknown [id number] 2.16.840.1.559192.3.579 .2.1244 1941 Unknown [id number] [id number] .2.1259 1941 Unknown [id number] 2.16.840.1.233672.3.579 .2.1259 1941 Unknown [id number] [id number] .2.1259 Unknown Unknown [id number] [id number] .2.531 Social History Date Type Detail Facility Start: 03-03-2023 End: 09-29-2024 Daily caffeine consumption Daily caffeine consumption -[facility] [employer] Work Phone: Comment on above: 1 can of pop, 1/2 cu p of coffee daily; quit 2016; Start: 07-09-2021 End: 09-28-2024 Tobacco smoking status NHIS Never smoked tobacco [facility] Start: 07-09-2021 End: 09-28-2024 Tobacco use and exposure Smokeless tobacco non-user [employer] [facility] [employer] Phone: Start: 07-12-2021 End: 10-28-2024 Alcohol intake Lifetime non-drinker (finding) [employer] Phone: Start: 07-10-2021 History SDOH Alcohol Frequency 1 [employer] Phone: Start: 1940 Sex Assigned At Not on file [facility] Phone: Start: 06-13-2024 End: 06-23-2024 Exposure to SARS-CoV-2 (event) Not sure [facility] Start: 1940 Sex Assigned At Female F [facility] Start: 03-03-2023 End: 09-29-2024 Tobacco use panel [facility] Start: 11-01-2022 Alcohol Comment Caffeine intak e: 1-2 cups per day [facility] Start: 06-23-2024 Tobacco smoking stat us NHIS Ex-smoker [facility] End: 05-05-2016 History of tobacco use Current smoker [facility] Work Phone: End: 05-05-2016 History of tobacco use Cigarette Smoker [facility] Work Phone: Start: 09-23-2024 Gender identity Identifies as female gender (finding) [facility] Start: 09-23-2024 Sexual orientation Heterosexual (ash best) [facility] National Score (1-10 0), lower number is lower risk 80 [facility] Medical Equipment Procedure Code Equipment Code Equipment Origin al Text Equipment Identifier Dates Nail Im L170mm [id number] 130deg Sht Prox Fem Grn Ti Vijaya Rhea - [id number] Start: 07-11-2021 Blade Im L95mm Dia10.35mm Prox Fem G Ti Vijaya Fen Kristina For - [id number] Start: 07-11-2021 Screw Bne L34mm Dia5mm Tib Lt Grn Ti St Vijaya Andrew Full Thrd - [id number] Start: 07-11-2021 Functional Status Date Assessment Result Facility 09-14-2024 Patient Health Quest ionnaire 2 item (PHQ-2) [Reported] [facility] Clinical Notes 07-13-2021 to 10-28-2024 Patient InstructionsSid Lau MD - 10/28/2024 1:00 PM EDTTelephone Encounter - Flash Wells RN - 10/04/2024 8:32 AM EDTPatient Kar Quiroz MD - 09/14/2024 3:38 PM EDT Note Date & Type Note Facility 10-28-2024 Instructions Sid Lau MD - 10/28/2024 1:09 PM EDT Blood work today F/u in 6 months documented in this encounter [facility] 10-28-2024 History of Present illness Narrative PATIENT NAME: Elza Blas [facility] NO.: [id number] ATTENDING PHYSICIAN: Sid Lau MD DATE OF SERVICE: 10/28/[address] Alice Quiroz MD [address] [facility] [address] [place] [address] thank you for referring Elza Blas for [...] Range Status 09/29/2024 12.3 % Final Abs [place] Date Value Ref Range Status 09/29/2024 0.99 [...] months. Dear Dr. Alice Quiroz MD [address] [facility] [address] [place] [address] thank you for allowing me to participate in Elza Blas care, if there are any questions or concerns please do not hesitate to contact me at the number below. I spent a total of 20 minutes on the date of the service which included preparing to see the patient, [id number] patient care, completing clinical documentation, obtaining and/or reviewing separately obtained history, performing a medically appropriate examination, counseling and educating the patient/family/caregiver, ordering medications, tests, or procedures, communicating with other HCPs (not separately reported), independently interpreting results (not separately reported), communicating results to the patient/family/caregiver, and care coordination (not separately reported). Sid Lau MD. Hematology/Medical Oncology [place] [phone] CC: documented in this encounter [facility] 10-28-2024 Note HNO ID: [id number] Author: SID LAU MD Service: ? Author Type: Physician Type: Progress Notes Filed: 10/28/2024 15:42 Note Text: PATIENT NAME: Elza Blas [facility] NO.: [id number] ATTENDING PHYSICIAN: Sid Lau MD DATE OF SERVICE: 10/28/[address] Alice Quiroz MD [address] [place] [address] thank you for referring Elza Blas for [...] 108 CO2 (mmol/L) (more content not included)... [facility] 10-04-2024 Telephone encounter Note Pt aware and agreeable to obtain and begin OTC Zinc, as recommended. She denies any questions, needs or concerns at this time. Follow up verified. Flash Wells RN [facility] 10-04-2024 Miscellaneous Notes Pt aware and agreeable to obtain and begin OTC Zinc, as recommended. She denies any questions, needs or concerns at this time. Follow up verified. Flash Wells RN Please tell her to take OTC zinc supplements for low zinc levels. Thank you documented in this encounter [facility] 10-01-2024 Telephone encounter Note Please tell her to take OTC zinc supplements for low zinc levels. Thank you [facility] Work Phone: 09-29-2024 Instructions Sid Lau MD - 09/29/2024 11:15 AM EDT Blood work today F/u in 4 weeks documented in this encounter [facility] 09-29-2024 History of Present illness Narrative PATIENT NAME: Elza Blas [facility] NO.: [id number] ATTENDING PHYSICIAN: Sid Lau MD DATE OF SERVICE: September 29, [address] Alice Quiroz MD [address] [place] [address] thank you for referring Elza Blas for [...] Range Status 09/29/2024 12.3 % Final Abs Cab[place] Date Value Ref Range Status 09/29/2024 0.99 [...] [address] Alice Quiroz MD [address] [place] [address] [address] [facility] [address] thank you for allowing me to participate in Elza Blas care, if there are any questions or concerns please do not hesitate to contact me at the number below. I spent a total of 45 minutes on the date of the service which included preparing to see the patient, [id number] patient care, completing clinical documentation, obtaining and/or reviewing separately obtained history, performing a medically appropriate examination, counseling and educating the patient/family/caregiver, ordering medications, tests, or procedures, communicating with other HCPs (not separately reported), independently interpreting results (not separately reported), communicating results to the patient/family/caregiver, and care coordination (not separately reported). Sid Lau MD. Hematology/Medical Oncology [place] [address] [phone] CC: documented in this encounter [facility] 09-29-2024 Note HNO ID: [id number] Author: SID LAU MD Service: ? Author Type: Physician Type: Progress Notes Filed: 09/29/2024 12:05 Note Text: PATIENT NAME: Elza Blas [facility] NO.: [id number] ATTENDING PHYSICIAN: Sid Lau MD DATE OF SERVICE: September 29, [address] Alice Quiroz MD [address] [place] [address] [address] [place] [address] thank you for referring Elza Blas for [...] 46.0 % Fi (more content not included)... [facility] 09-14-2024 History of Present illness Narrative Associated [...] weeks (around 10/12/2024). documented in this encounter [facility] 06-24-2024 Evaluation + Plan note Associated Problem(s): Status post repair of abdominal aortic aneurysm using bifurcation graft Report 2020 AAA repair in [place] with 2 month hospitalization. [facility] Work Phone: 06-24-2024 Miscellaneous Notes Associated Problem(s): Status post repair of abdominal aortic aneurysm using bifurcation graft Report 2020 AAA repair in [place] with 2 month hospitalization. Associated Problem(s): Nonischemic cardiomyopathy (Multi) October 2019 TTE Dilated EF 30-35% Mar 2020 TTE EF 35-40% November 2020 TTE EF 35-40% Presumed to be NICM (had open AAA repair 2019 while in [place] with 2 month hospitalization - reported pre-op ischemic evaluation) GDMT: Wilder & cozamicah added [address] Ramos Prefers to avoid any additional treatment (I believe entresto cost prohibitive) CRCL 38 FC II Stage C Associated Problem(s): Benign essential hypertension optimal in office documented in this encounter [facility] Work Phone: 06-24-2024 Evaluation + Plan note Associated Problem(s): Nonischemic cardiomyopathy (Multi) October 2019 TTE Dilated EF 30-35% Mar 2020 TTE EF 35-40% November 2020 TTE EF 35-40% Presumed to be NICM (had open AAA repair 2019 while in [place] with 2 month hospitalization - reported pre-op ischemic evaluation) GDMT: Wilder & cozaar added [address] Ramos Prefers to avoid any additional treatment (I believe entresto cost prohibitive) CRCL 38 FC II Stage C [facility] Work Phone: 06-24-2024 Evaluation + Plan note Associated Problem(s): Benign essential hypertension optimal in office [facility] Work Phone: 06-23-2024 History of Present [...] (had open AAA repair 2019 while in [place] with 2 month hospitalization - reported pre-op ischemic evaluation) GDMT: Coreg & cozaar added [address] Ramos Prefers to avoid any additional treatment (I believe entresto cost prohibitive) CRCL 38 FC II Stage C Status post repair of abdominal aortic aneurysm using bifurcation graft Report 2019 AAA repair in [place] with 2 month hospitalization. Plan: Through informed decision making process incorporating patients unique circumstances, the following treatment plan will be initiated: 1. Prescription drug management of cardiovascular medication for efficacy, adherence to treatment, side effect assessment and polypharmacy. Current treatment clinically warranted and to continue without modifications. 2. Return for follow-up; in the interim, contact the office if new symptoms arise. REPAIRING CALIBRATOR annual [place] Mayo MSN, HYDROELECTRIC PLANT TECHNICIAN-WELDER 2ND SHIFT, PMHNP-BC [facility] [place], [place] Please excuse any errors in grammar or translation related to this dictation. Voice recognition software was utilized to prepare this document. documented in this encounter [facility] Work Phone: 06-23-2024 Instructions IVY Whiting - [...] contact the office if new symptoms arise. REPAIRING CALIBRATOR annual documented in this encounter [facility] Work Phone: 04-07-2024 History of Present illness [...] kidney disease, or unspecified chronic kidney disease ([facility]/HCC) - CBC; Future Patient's blood pressure is [...] at this time. 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 No changes in treatment are suggested at this time. Vitamin D deficiency - Vitamin D 25 hydroxy; Future Await lab Thrombocytopenia ([facility]/HCC) Await lab H/O hysterectomy for benign disease [...] follow-ups on file. documented in this encounter [facility] 07-13-2021 History of Present illness Narrative Patient leaving floor at this time via wheelchair, belongings in hand. Lacing Presser spoke with Dr. Amaya via telephone at this time, per Dr. Amaya, put an aquacell dressing on the incisions. Aquacell dressing applied. Discharge instructions reviewed with patient and family at this time. Patient and family verbalize understanding, deny questions at this time. Will escort patient to private car shortly. Pt is accepted with [facility]. Discharge information and order faxed to [facility] and they will reach out to pt to schedule visit. Pt is discharged to home today with [facility], pt has a walker at home per pr and dtr, and no further needs identified. [facility] referral cancelled. [employer] 07/13/2021 SW met with pt this morning to discuss discharge planning again. Pt states that she is going home with services and the social work girl was arranging it. SW explained that HH would be arranged but needed choice of agency. [place] of choice list provided and pt chooses [facility] out of [place]. Referral made to [facility] for RN PT and OT services and await response if they can accept pt. Following. [employer] 07/13/2021 Shift assessment and vitals obtained at [...] Vitals and assessment complete at this time. Lacing Presser discussed patient's progress with transferring and ambulation. Patient continues to deny pain. Lacing Presser informed patient that she would be starting [...] being that I just had a surgery. Lacing Presser did educate patient on the benefits of early mobilization including reducing the risk of pneumonia, increasing blood flow and reducing the risk of blood clots, reducing muscle and joint stiffness, and regaining independence. Patient accepted teaching. Lacing Presser walked patient through the medications that would be administered tonight and encouraged patient to ask questions about the medications and therapies. Patient denies needs at this time. Will continue to monitor and assess. The discharge plan is now home with [facility] for therapy and Lovenox teaching. SWK to follow up tomorrow about which [facility] for her follow up care. [facility] Facility/Department: [facility] Daily Treatment Note NAME: Elza [...] help her into home with 2 steps. RELIABILITY TECHNICIAN expressed conerns to pt. and family at [...] from the original note were not included. [address] , [place], [place], [address] Attestation Patient: Elza Blas Date of Admission: 07/09/2021 10:32 AM Hospital Day # 3 Date of Evaluation: 07/12/2021 I personally evaluated and examined the patient [id number] in conjunction with the PA/REPAIRING CALIBRATOR and agree with the management and dispostition of the patient. Please see the PA/REPAIRING CALIBRATOR's note for full details. My harrison findings [...] with the plan as outlined in the REPAIRING CALIBRATOR's note Disposition: Discharge plan is pending Please note that this chart was generated using voice recognition [employer] dictation software. Although every effort was made to ensure the accuracy of this automated marketing pr intern, some errors in marketing pr intern may have occurred. Patience Neil MD 07/12/2021 [...] for pain control PT and OT Appreciate social sciences research scientist for discharge planning Hypertension ? Continue losartan ? Continue Coreg 12.5 mg twice daily ? Continue Aldactone Rheumatoid arthritis ? Continue Rheumatrex Thrombocytopenia Trend platelet count-stable Likely due to RA Reviewed with Dr. Bethea no concerns for surgery Will monitor bleeding postop Nutrition status: Well developed, well nourished with no malnutrition Water Taxi Operator consult initiated Hospital Prophylaxis: DVT: Lovenox Stress Ulcer: H2 Rima High risk medications: none Disposition: Discharge plan is Home versus SNF tomorrow Continue Lovenox on DC F/u with Dr. Ananda Amaya in 2 weeks Leanne King, HYDROELECTRIC PLANT TECHNICIAN - WELDER 2ND SHIFT , HYDROELECTRIC PLANT TECHNICIAN, REPAIRING CALIBRATOR-C Hospitalist Medicine 07/12/2021, 9:24 AM Patient alert [...] 3: Continue physical therapy 4: D/C Plan: shelter facility 5: Continue Pain Control 6: Rx left for Mcdonald & Lovenox for discharge 7: F/U with Dr. Ananda Amaya in 2 weeks. Vitals and assessment complete at this time. Lacing Presser explained to patient that she had pain medications available but would need to call out if she wanted them. Lacing Presser also educated patient on the antibiotic she would be getting at 2300. Patient denies questions about her therapy at this time. Lacing Presser explained to patient that she would likely [...] Will continue to monitor. Patient accepted at [facility] for rehab placement following this hospitalization. SHAQ [...] Will start PT and OT postop Appreciate social sciences research scientist for discharge planning OR today Hypertension ? Continue losartan ? Continue Coreg 12.5 mg twice daily ? Continue Aldactone Rheumatoid arthritis ? Continue Rheumatrex Thrombocytopenia Trend platelet count-stable Likely due to RA Reviewed with Dr. Bethea no concerns for surgery Will monitor bleeding postop Nutrition status: Well developed, well nourished with no malnutrition Water Taxi Operator consult initiated Hospital Prophylaxis: DVT: Lovenox start postop Stress Ulcer: H2 Rima High risk medications: none Disposition: Discharge plan is pending Leanne King APRN - WELDER 2ND SHIFT , HYDROELECTRIC PLANT TECHNICIAN, REPAIRING CALIBRATOR-C Hospitalist Medicine 07/11/2021, 11:33 AM Associated attestation - Patience Neil MD - 07/11/2021 1:03 PM EST Images from the original note were not included. [address], [place], [place], [address] Attestation Patient: Elza Blas Date of Admission: 07/09/2021 10:32 AM Hospital Day # 2 Date of Evaluation: 07/11/2021 I personally evaluated and examined the patient [id number] in conjunction with the PA/REPAIRING CALIBRATOR and agree with the management and dispostition of the patient. Please see the PA/REPAIRING CALIBRATOR's note for full details. My harrison findings [...] occurred while she had been admitted in [place] waiting for a Heart Surgery. She is [...] with the plan as outlined in the REPAIRING CALIBRATOR's note Disposition: Discharge plan is pending Please note that this chart was generated using voice recognition [employer] dictation software. Although every effort was made to ensure the accuracy of this automated marketing pr intern, some errors in marketing pr intern may have occurred. Patience Neil MD 07/11/2021 12:55 PM Met with Patient and her daughter, Irasema, this a.m. per their request to discuss surgery postponement and discharge planning. Daughter voices her frustration as Patient is tearful when events of yesterday were recounted to this credit underwriter. Empathy and emotional support provided to both [...] necessary. Daughter and Patient both agreeable to [facility] in [place] as credit underwriter had spoken with yesterday about. Spoke with development representative at [facility], Kaleigh, to verify receipt of referral made yesterday. Kaleigh requesting that credit underwriter refax referral information to a different FAX number that will come directly to her email for her to review. PT/OT notes to be FAXED following surgery. TAX SERVICES INTERN to continue to assist with discharge placement as appropriate. SHAQ Jhaveri 07/11/2021 [facility]. Patient's [...] the patient. This RN also updated Kerri, receiving team member. Kevin, OR receiving team member aware and will get in contact with [...] understanding and agreeable. Brought pt back to [facility] 330 by bed. Patient left with [...] see mar for medications. Also let the REPAIRING CALIBRATOR know that patient c/o muscle spasms in the hip/leg area. See mar also. VS and assessment completed. Patient repositioned in bed. Will continue to monitor. Referral made to [facility] as credit underwriter informed via voicemail message from Dr. Quiroz's [...] to go back to rehab facility in [place] but could not recall the name of the facility. states that this would be fine with him but also cannot recall the name of facility. States that it was a facility across from the hospital in [place]. Second choice of facility would be [facility] in [place]. Patient resides with her in [place]. She reports that she uses no DME [...] currently on file. is Patient decision maker. TAX SERVICES INTERN to assist with discharge placement as appropriate. [...] Will start PT and OT postop Appreciate social sciences research scientist for discharge planning OR today Hypertension ? Continue losartan ? Continue Coreg 12.5 mg twice daily ? Continue Aldactone Rheumatoid arthritis ? Continue Rheumatrex Thrombocytopenia Trend platelet count Likely due to RA Reviewed with Dr. Bethea no concerns for surgery Will monitor bleeding postop Nutrition status: Well developed, well nourished with no malnutrition Water Taxi Operator consult initiated Hospital Prophylaxis: DVT: Lovenox start postop Stress Ulcer: H2 Rima High risk medications: none Disposition: Discharge plan is pending Leanne King, ESPERANZA - WELDER 2ND SHIFT , HYDROELECTRIC PLANT TECHNICIAN, REPAIRING CALIBRATOR-[facility] 07/10/2021, 9:55 AM Associated attestation - Patience Neil MD - 07/10/2021 5:30 PM EST Images from the original note were not included. [address], [address] Attestation Patient: Elza Blas Date of Admission: 07/09/2021 10:32 AM Hospital Day # 1 Date of Evaluation: 07/10/2021 I personally evaluated and examined the patient [id number] in conjunction with the PA/REPAIRING CALIBRATOR and agree with the management and dispostition of the patient. Please see the PA/REPAIRING CALIBRATOR's note for full details. My harrison findings [...] with the plan as outlined in the REPAIRING CALIBRATOR's note Disposition: Discharge plan is pending Please note that this chart was generated using voice recognition [employer] dictation software. Although every effort was made to ensure the accuracy of this automated marketing pr intern, some errors in marketing pr intern may have occurred. Patience Neil MD 07/10/2021 5:29 PM [facility] OCCUPATIONAL [facility] No Visit Note [] ICU [x] Acute Patient: Elza Blas Room: [facility]4/0334- Elza Blas not seen on 07/10/2021 at [...] 1 - Mild Extremities (+ 1 RLE) Marriage And Family Teacher Strength: Not Performed Estimated Daily Nutrient Needs: Energy (kcal): 3047-0368 (30-33/kg); Weight Used for Energy Requirements: Current [...] Usual Body Weight: 125 lb (56.7 kg) [place] Body Weight: 120 lbs; % [place] Body Weight 103.5 % BMI: 21.3 BMI [...] Discharge Planning: Too soon to determine Contact: [id number] Rn attempted to call patients to update [...] from previous shift assessment. Vital signs completed. Lacing Presser was informed at shift report that surgery was at 12pm however per Dr. Bethea's note, tentative surgery is 4:30pm. Lacing Presser updated patient on this. Lacing Presser would like called and updated of time as he thought it was 12pm too. Per patient, patient doesn't wake up til 8-9am however. [facility]. Patient denies [...] like to get some sleep right now. Lacing Presser reminded patient how to use call light [...] along to Dr. Neil when he rounds. Lacing Presser made Dr. Neil aware of this at this time in person. Dr. Neil at bedside. Spoke with Dr. Bethea at this time on the telephone. He requested credit underwriter put in order for CT of right hip STAT at this time. Order placed. [facility] Inpatient/Observation/Outpatient Rehabilitation Date: 07/09/2021 Patient Name: Elza Blas [x] Inpatient Acute/Observation [] Outpatient : 1941 [x] Pt cancelled due to: [] No Reason Given [] Sick/ill [] Other: Pt awaiting surgery for right hip fracture; planned OR tomorrow morning and will eval post op. Will attempt evaluation at our earliest opportunity. Quita Santiago PT , DPT, CMPT Date: 07/09/2021 [facility] OCCUPATIONAL THERAPY No Visit Note [] ICU [x] Acute Patient: Elza Blas Room: [address] [place] [address] Elza Blas not seen on 07/09/2021 at 4:19 PM due to Pt is scheduled for surgery on 07/10. Pt currently on bedrest. OT to evaluate post surgery when appropriate.. Signature: LANDEN Guajardo, OTR/L documented in this encounter [facility] Work Phone: 07-13-2021 Hospital Discharge instructions [...] at most local grocery stores, pharmacies, and [employer]-stores. If you have any questions about your [...] Quiroz MD Discharging Nurse: Discharging Hospital Unit/Room#: [facility] OR POOL/NONE Discharging Unit Phone Number: Emergency Contact: Extended Emergency Contact Information Primary Emergency Contact: TIFFANY BLAS Mobile Relation: Spouse Preferred language: Samoan Utility Inspector needed? No Secondary Emergency Contact: Irasema Bear [...] MENTAL STATUS:} IV Access: { LAUREN IV ACCESS:828274987} Nursing Mobility/ADLs: Walking {CHP DME ADLs:913497661} Transfer {CHP DME ADLs:970248601} Bathing {CHP DME ADLs:454147188} Dressing {CHP DME ADLs:645646418} Toileting {CHP DME ADLs:741769302} Feeding {CHP DME ADLs:714431199} Merchant Tailor {P DME ADLs:520566004} Med Delivery { LAUREN MED Delivery:641295298} Wound Care Documentation and Therapy: Elimination: Continence: Bowel: {YES / NO:} Bladder: {YES / NO:} Urinary Catheter: {Urinary Catheter:307456454} Colostomy/Ileostomy/Ileal Conduit: {YES / NO:} Date of Last BM: Intake/Output Summary (Last 24 hours) at 07/11/2021 1441 Last data filed at 07/11/2021 1308 Gross per 24 hour Intake 1236.1 ml Output 1975 ml Net -738.9 ml I/O last 3 completed shifts: In: 1236.1 [P.O.:400; I.V.:836.1] Out: 2700 [Urine:2700] Safety Concerns: { LAUREN Safety Concerns:966736280} Impairments/Disabilities: { LAUREN Impairments/Disabilities:0758772 73} Nutrition Therapy: Current Nutrition Therapy: { LAUREN Diet List:104849870} Routes of Feeding: {[facility] DME Other Feedings:467539315} Liquids: {Solar Business Developer liquid thickness:33202} Daily Fluid Restriction: {[facility] DME Yes amt example:327706137} Last Modified Barium Swallow with Video (Video Swallowing Test): {Done Not Done Date:} Treatments at the Time of Hospital Discharge: Respiratory Treatments: Oxygen Therapy: {Therapy; copd oxygen:91567} Ventilator: {[facility] Vent List:064225081} Rehab Therapies: {THERAPEUTIC INTERVENTION:4221023339} Weight Bearing Status/Restrictions: {[facility] Weight Bearin} Other Medical Equipment (for information only, NOT a DME order): {EQUIPMENT:631146164} Other Treatments: Patient's personal belongings (please select all that are sent with patient): {[facility] DME Belongings:532896104} RN SIGNATURE: {Esignature:599132971} CASE MANAGEMENT/SOCIAL WORK SECTION Inpatient Status Date: 07/09/21 Readmission Risk Assessment Score: Readmission Risk Risk of Unplanned Readmission: 12 Discharging to Facility/ Agency Name: [facility] Address: [place] [address] Dialysis Facility (if applicable) Name: Address: Dialysis Schedule: Phone: Fax: Animal Eviscerator/Putty Patcher signature: PHYSICIAN SECTION Prognosis: Good Condition at Discharge: Stable Rehab Potential (if transferring to Rehab): Good Recommended Labs or Other Treatments After Discharge: Physician Certification: I certify the above information and transfer of Elza Blas is necessary for the continuing treatment of the diagnosis listed and that she requires Long-Term Facility for less 30 days. Update Admission [...] Amaya 2 weeks documented in this encounter [employer] Phone: Evaluation note Diagnosis Right hip pain- Primary Pain in joint, pelvic region and thigh Closed fracture of neck of right femur, initial encounter ([facility]) Postoperative pain Other acute postoperative pain Femoral neck stress fracture, initial encounter - Right Hypertension Unspecified essential hypertension Arthritis Arthropathy, unspecified, site unspecified Thrombocytopenia ([facility]) Thrombocytopenia, unspecified documented in this encounter [employer] Phone: evaluation note* Diagnosis Onset Date Resolution Status UTI (urinary tract infection) [facility] Work Phone: Evaluation note* Diagnosis Routine general [...] Loss of weight documented in this encounter [facility] HealthcareEvaluation note* Diagnosis Benign essential hypertension- Primary Essential hypertension, benign Nonischemic cardiomyopathy (Multi) Other primary cardiomyopathies BMI 20.0-20.9, adult Status post repair of abdominal aortic aneurysm using bifurcation graft documented in this encounter [facility] Work Phone: Evaluation note* Diagnosis Routine general [...] Abdominal pain, epigastric documented in this encounter [facility] HealthcareEvaluation note* Diagnosis Thrombocytopenia- Primary Thrombocytopenia, unspecified [facility] Thrombocytopenia- Primary Thrombocytopenia, unspecified documented in this encounter [facility] Summary Purpose Family History No Family History [...] of neck of right femur, initial encounter ([facility]) Leanne King, HYDROELECTRIC PLANT TECHNICIAN - WELDER 2ND SHIFT [address] [place] [place] [address] Referral ID Status Reason Start Date Expiration Date V isits Requested Visits Authorized [id number] Open Specialty Services Required 07/13/2021 01/09/2022 1 1 Chief Complaint and Reason for Visit Chief Complaint Poss uti Reason for Visit UTI (urinary tract i nfection) Additional Source Comments INFORMATION SOURCE (unrecogn ized section and content) DATE CREATED AUTHOR 05/19/2020 [facility] [place] [facility] DATE CREATED AUTHOR AUTHOR'S ORGANIZ ATION 11/30/2020 [facility] DATE CREATED AUTHOR AUTHOR'S ORGANIZ ATION 04/25/2021 [facility] dical Specialist DATE CREATED AUTHOR AUTHOR'S ORGANIZ ATION 07/20/2021 [facility] DATE CREATED AUTHOR AUTHOR'S ORGANIZ ATION 11/27/2021 [facility] DATE CREATED AUTHOR AUTHOR'S ORGANIZ ATION 10/24/2023 [facility] DATE CREATED AUTHOR AUTHOR'S ORGANIZ ATION 06/25/2024 [facility] DATE CREATED AUTHOR AUTHOR'S ORGANIZ ATION 09/16/2024 [facility] DATE CREATED AUTHOR AUTHOR'S ORGANIZ ATION 09/20/2024 [facility] dical Specialists EPIC DATE CREATED AUTHOR AUTHOR'S ORGANIZ ATION 10/29/2024 [facility] Reason for Visit (unrecogniz ed section and [...] Expiration Date V isits Requested Visits Authorized [id number] Authorized 06/13/2023 06/12/2024 1 1 Reason Comments stomach issues Reason Comments Consult Specialty Diagnoses / Procedures Referred By Contac t Referred To Contact Hematology Diagnoses Thrombocytopenia Anemia, unspecified type Procedures OFFICE/OUTPATIENT [facility] 60 MINUTES [id number] (SNOMED CT) - AMB REFERRAL TO HEMATOLOGY Alice Quiroz MD [address] [facility] [address] [place] [address] Phone: tel: fax: Pedro Pablo Bullock MD [address] [address] Phone: tel: fax: Referral ID Status Reason Start Date Expiration Date V isits Requested Visits Authorized [id number] Pending Review 09/16/2024 03/15/2025 1 1 Reason [...] (Given - Provider: Wilman Rocha APRN - SPOT BILLING CLERK) ceFAZolin (ANCEF) 2000 mg in dextrose 5 [...] facility policy for handling and disposal. 1735 ([facility] Unhold - Provider: Mary Dominguez) pantoprazole (PROTONIX) tablet 40 mg 40 mg, Oral, DAILY BEFORE BREAKFAST, First dose on Fri07/11/21 at 0700, Do not crush or break. 0811 (Not Given - Provider: Mary Dominguez - Reason: Pt NPO)1420 ([facility] Hold - Provider: Sarika Autohold - Reason: Unreviewed Transfer Orders)1735 ([facility] Unhold - Provider: Mary Dominguez) [...] 0714 (New Bag - Provider: Mary Dominguez)1420 ([facility] Hold - Provider: Sarika Autohold - Reason: Unreviewed Transfer Orders)1735 ([facility] Unhold - Provider: Mary Dominguez) [...] rate as the piggyback being infused. 1735 ([facility] Unhold - Provider: Mary Dominguez) [...] if oral route cannot be used. 1735 ([facility] Unhold - Provider: Mary Dominguez) acetaminophen (TYLENOL) suppository 650 mg 650 mg, Rectal, EVERY 4 HOURS PRN, Pain Mild (1-3), Starting on Fri07/10/21 at 1941, Maximum dose of acetaminophen is 4000 mg from all sources in 24 hours. 1420 ([facility] Hold - Provider: Sarika Autohold - Reason: Unreviewed Transfer Orders)1735 ([facility] Unhold - Provider: Mary Dominguez) acetaminophen (TYLENOL) tablet 650 mg(Linked Group 1) 650 mg, Oral, EVERY 6 HOURS PRN, Pain Mild (1-3), Fever, For temp greater than 100.4 F (38 C), Starting on Fri07/09/21 at 1354, Maximum dose of acetaminophen is 4000 mg from all sources in 24 hours. 173 ([facility] Unhold - Provider: Mary Dominguez) acetaminophen (TYLENOL) tablet 650 mg 650 mg, Oral, EVERY 4 HOURS PRN, Pain Mild (1-3), Starting on Fri07/10/21 at 1941, Maximum dose of acetaminophen is 4000 mg from all sources in 24 hours. 1420 ([facility] Hold - Provider: Sarika Autohold - Reason: Unreviewed Transfer Orders)173 ([facility] Unhold - Provider: Mary Dominguez) [...] ordered. 0709 (Given - Provider: Mary Dominguez)1420 ([facility] Hold - Provider: Sarika Autohold - Reason: Unreviewed Transfer Orders)1735 ([facility] Unhold - Provider: Mary Dominguez) [...] use, Starting on Fri07/09/21 at 1354 1735 ([facility] Unhold - Provider: Mary Dominguez) [...] Care Teams (unrecognized sec tion and content) Hvac Sales Engineer Relationship Specialty Start Date End Date Alice Quiroz MD [address] [facility] [address] [place] [address] PCP - General Family Medicine 07/09/21 Team [...] October 10, 2023 End: October 10, 2023 Hvac Sales Engineer Relationship Specialty Start Date End Date Alice Quiroz MD [address] [facility] [address] [place] [address] PCP - General Family Medicine 10/03/22 Hvac Sales Engineer Relationship Specialty Start Date End Date Alice Quiroz MD [address] [facility] [address] [place] [address] PCP - General Family Medicine 10/03/22 Hvac Sales Engineer Relationship Specialty Start Date End Date Alice Quiroz MD [address] [facility] [address] [place] [address] PCP - General 03/08/20 Hvac Sales Engineer Relationship Specialty Start Date End Date Alice Quiroz MD [address] [facility] [address] [place] [address] PCP - General Family Medicine 10/03/22 Alice Quiroz MD [address] [facility] [address] [place] [address] PCP - ACO Reach 06/11/24 Goals (unrecognized section and content) Goals may be documented in a n alternate sectionGoals may be documented in an alternate section Source Comments (unrecognize d section and content) In the event this informatio n is protected by the [facility] Confidentiality of Alcohol and Drug Abuse Patient Records regulations: The Federal rules restrict any use of the information to criminally investigate or prosecute any alcohol or drug abuse patient.[facility] the event this information is protected by the Federal Confidentiality of Alcohol and Drug Abuse Patient Records regulations: The Federal rules restrict any use of the information to criminally investigate or prosecute any alcohol or drug abuse patient.[facility] Hospital[facility] the event this information is protected by the Federal Confidentiality of Alcohol and Drug Abuse Patient Records regulations: The Federal rules restrict any use of the information to criminally investigate or prosecute any alcohol or drug abuse patient.[facility] Hospital[facility] the event this information is protected by the Federal Confidentiality of Alcohol and Drug Abuse Patient Records regulations: The Federal rules restrict any use of the information to criminally investigate or prosecute any alcohol or drug abuse patient.[facility] FOR RECORDS PERTAINING TO PATIENTS WHO ARE [...] BE BASED ON THE PRIMARY CLINICAL RECORDS. [facility]. provides no warranty or guarantee of the accuracy or completeness of information in this document.
[2024-12-10] VITALS (20 sets, daily range): BP systolic 97–152; BP diastolic 53–74; PULSE 75–112; TEMP 36.7–38.5; O2SAT 91–99
--- NOTE | 2024-12-10 00:18 | CA_ITS ---
Patient Name: DESTINY BLAS MR#: [id number] : 1940 Exam Date: 12/10/2024 Ordering Doctor: EVELINE CHAPPELL ECHOCARDIOGRAM REPORT PROCEDURE: CA ECHO DOPPLER COMPLETE INDICATIONS: CAD, hypertension, h/o TIA COMPARISON: None. DESCRIPTION: COMPLETE ECHOCARDIOGRAM Real-time transthoracic echocardiography with 2D, M-mode, spectral and color flow Doppler performed. QUALITY: Technical quality was good. LEFT VENTRICLE: Normal chamber size. Borderline left ventricular hypertrophy. Systolic function is normal. Estimated left ventricular ejection fraction is 55%. LV EF: Normal left ventricular ejection fraction, (55%). DIASTOLIC: Diastolic function is indeterminate. ATRIAL SEPTUM: Visually appears intact. LEFT ATRIUM: Normal chamber size. RIGHT ATRIUM: Normal chamber size. RIGHT VENTRICLE: Normal chamber size. Normal right ventricular systolic function. TRICUSPID VALVE: Normal mobility and thickness. No stenosis with mild regurgitation. Doppler studies reveal moderately (45-60) elevated right sided pressures. RVSP 60 mmHg MITRAL VALVE: Normal mobility and thickness. No evidence of mitral valve stenosis. There is no mitral annular calcification. Trivial mitral regurgitation. AORTIC VALVE: Normal trileaflet appearance. No visible sclerosis. Normal leaflet mobility. No evidence of aortic valve stenosis. Trivial aortic regurgitation. AORTIC ROOT: Normal diameter and appearance, measuring 3.4 cm. Ascending aorta is normal in size, measuring 3.1 cm. PULMONIC VALVE: Normal thickness and mobility. No stenosis. Trivial regurgitation. PERICARDIUM: Small pericardial effusion. IVC: IVC is dilated (2.5 cm), does not fully collapse. PLEURA: CONCLUSION: 1. Borderline left ventricular hypertrophy with normal systolic function. Estimated LVEF is 55%. 2. Normal right ventricular size and systolic function. 3. Mild tricuspid regurgitation. 4. Severely elevated right-sided pressures. RVSP 60 mmHg. 5. Small pericardial effusion. 6. The descending thoracic aorta appears mildly dilated. Further imaging can provide better characterization. Adult Echocardiography Procedure Report Left Ventricle LVEDD (3.7 - 5.6 cm): 4.47 cm LVESD (2.2 - 4.0 cm): 2.90 cm LVIVS thickness (0.6 - 1.2 cm): 1.11 cm LVPW thickness (0.5 - 1.0 cm): 0.96 cm e': 0.08 m/s E - e': 6.38 LVOT Max Gradient: 3.25 mm[Hg] LVOT Area (cm2): 0.90 m/s Peak Velocity (LVOT): 0.90 m/s Mean Velocity (LVOT): 0.52 m/s LVOT Diameter 2.39 cm Left Ventricular Ejection Fraction: 55 % Left Atrium LA Volume Index (2D A2C): 34.03 ml/m2 Left Atrium Systolic Dimension: 3.04 cm Mitral Valve MV E to A Ratio: 0.57 Mitral Valve A-Wave Peak Velocity: 0.86 m/s Mitral Valve E-Wave Peak Velocity: 0.49 m/s Right Ventricle Aorta AO Root Diam: 3.43 cm Ascending Ao Diam: 3.12 cm Aortic Valve AoV Area (Peak Chet): 3.30 cm2, 3.30 cm2 AoV Area (VTI): 3.60 cm2, 3.60 cm2 Peak Velocity(Antegrade Flow): 1.22 m/s Peak Gradient(Antegrade Flow): 5.98 mm[Hg] Mean Velocity(Antegrade Flow): 0.78 m/s Mean Gradient(Antegrade Flow): 2.81 mm[Hg] Velocity Time Integral: 22.08 cm Tricuspid Valve Peak Velocity (Regurgitant Flow): 2.43 m/s, 3.34 m/s Pulmonic Valve Peak Gradient: 2.31 mm[Hg], 2.14 mm[Hg] Right Atrium Right Atrium Systolic Pressure: 34.19 ml, 34.19 ml Dictated by: Anil Norman M.D. on 12/11/2024 at 20:02 Approved by: Anil Norman M.D. on 12/11/2024 at 20:14
[2024-12-10] MEDS: ACETAMINOPHEN 325 MG TABLET 650 MG PO ×2 (00:49→08:45)
--- NOTE | 2024-12-10 01:06 | XR_ITS ---
The [address] [address] Patient Name: DESTINY BLAS MRN: [id number] date: 1940 Sex: F Assigned Patient Location: [place] Current Patient Location: [place] Accession/Order Number: [id number] Exam Date: 12/10/2024 08:13 Report Date: 12/10/2024 08:21 At the request of: EVELINE CHAPPELL MD Procedure: XR pelvis min 3V AP PELVIS - 3 views CLINICAL DATA: Pelvic pain following fall COMPARISON: 09/23/2022 AP and both oblique views of the pelvis were obtained. Evaluation is slightly limited by osteopenia and the presence of bowel gas and stool. Patient has a right dynamic hip screw with intramedullary keya which is not fully included on the study. Fracture at the distal superior pubic ramus on right near the pubic symphysis is not excluded on one of the oblique views. No other obvious acute fracture is identified. No dislocation is seen at the hips. There is mild sclerosis at the SI joints. Subtle levoscoliotic curvature and degenerative changes are present at the spine. There is minor atherosclerotic disease. A tubular radiopaque foreign body projecting at the lower pelvis on the left was also seen on the comparison. XR/XR pelvis min 3V IMPRESSION: SLIGHTLY LIMITED STUDY DUE TO OSTEOPENIA WELL BOWEL GAS AND STOOL. EQUIVOCAL DISTAL RIGHT SUPERIOR PUBIC RAMUS FRACTURE. CLINICAL CORRELATION IS SUGGESTED WITH FOLLOW-UP IMAGING, WARRANTED. Impression dictated by: Magdalene Bravo M.D. 12/10/2024 8:21 AM Dictation Location: [facility] Electronically authenticated by: [id number] Y Date: 12/10/2024 08:21
[2024-12-10 05:46] LABS: Hematocrit 30.2 % (36.0-48.0); Hemoglobin 10.0 g/dL (12.0-16.0); Immature Granulocytes Abs Auto 0.03 10^3/uL (0.00-0.03); Immature Granulocytes Pct Auto 0.5 % (0.0-0.5); Lymphocytes Absolute Auto 0.6 10^3/uL (1.2-3.8); Mean Corpuscular HGB Conc 33.1 g/dL (29.9-35.2); Mean Corpuscular Hemoglobin 34.6 pg (26.7-34.0); Mean Corpuscular Volume 104.5 fL (81.0-99.0); Platelet Count 232 10^3/uL (150-450); Red Blood Count 2.89 10^6/uL (4.20-5.40); White Blood Count 6.3 10^3/uL (4.0-11.0)
[2024-12-10 06:11] LABS: Alanine Aminotransferase 21 U/L (14-59); Albumin Globulin Ratio 0.8; Albumin Level 2.6 g/dL (3.4-5.0); Alkaline Phosphatase 87 U/L (46-116); Anion Gap 11.5; Aspartate Amino Transferase 22 U/L (15-37); Blood Urea Nitrogen 17.0 mg/dL (7.0-18.0); Calcium 9.4 mg/dL (8.5-10.1); Carbon Dioxide 28.7 mmol/L (21.0-32.0); Chloride 106 mmol/L (98-107); Estimated GFR (African America 57 (>=60 mL/min/1.73m^2); Estimated GFR (Non-African Ame 47 (>=60 mL/min/1.73m^2); Globulin 3.1 g/dL; Glucose 108 mg/dL (74-106); Magnesium 2.0 mg/dL (1.8-2.4); Potassium 4.2 mmol/L (3.5-5.1); Sodium 142 mmol/L (136-145); Total Protein 5.7 g/dL (6.4-8.2)
[2024-12-10 06:19] LABS: NT Pro B Type Natriuretic Pept 3617.0 pg/mL (<=1800.0)
--- NOTE | 2024-12-10 06:52 | PC.NURSE ---
Critical lab BNP of 4442, notified
--- NOTE | 2024-12-10 08:00 | ECG_ITS ---
[facility] Test Date: 2024-12-10 Pat Name: DESTINY BLAS Department: Room: [facility] Gender: Female Tiler: : 1940 Requested By: Order Number: [id number] Reading MD: JUAN GANDARA M.D. Measurements Intervals [place] Rate: 77 P: 63 OR: 187 QRS: 60 QRSD: 102 T: 74 QT: 380 QTc: 431 Interpretive Statements SINUS RHYTHM Normal ECG Compared to ECG 12/09/2024 21:32:40 Sinus tachycardia no longer present Right-axis deviation no longer present Electronically Signed On 12-11-2024 7:35:19 EDT by JUAN GANDARA M.D.
[2024-12-10] MEDS: FUROSEMIDE 20 MG/2 ML VIAL IVP (08:44)
[2024-12-10] MEDS: ONDANSETRON 4 MG RAPDIS TABLET PO (08:45)
[2024-12-10] MEDS: ENOXAPARIN SODIUM 30 MG/0.3 ML SYRINGE SUBQ (08:45)
--- NOTE | 2024-12-10 10:00 | CM.NOTE ---
Rounds made with Dr. Lazo, discussed diagnosis and x-ray findings with pt and family. PT and OT will evaluate pt for discharge planning.
[2024-12-10 10:58] LABS: A. calcoaceticus-baumannii Cpx NOT DETECTED (NOT DETECTE); Bacteroides fragilis NOT DETECTED (NOT DETECTE); Candida auris NOT DETECTED (NOT DETECTE); Candida glabrata NOT DETECTED (NOT DETECTE); Enterococcus faecalis NOT DETECTED (NOT DETECTE); Enterococcus faecium NOT DETECTED (NOT DETECTE); Klebsiella aerogenes NOT DETECTED (NOT DETECTE); Proteus spp. NOT DETECTED (NOT DETECTE); Salmonella spp. NOT DETECTED (NOT DETECTE); Serratia marcescens NOT DETECTED (NOT DETECTE); Staphylococcus epidermidis NOT DETECTED (NOT DETECTE); Staphylococcus lugdunensis NOT DETECTED (NOT DETECTE); Staphylococcus spp. NOT DETECTED (NOT DETECTE); Stenotrophomonas maltophilia NOT DETECTED (NOT DETECTE); Streptococcus pyogenes NOT DETECTED (NOT DETECTE); Streptococcus spp. NOT DETECTED (NOT DETECTE)
--- NOTE | 2024-12-10 12:33 | SWNOTE1 ---
SW spoke to case management and pt agreeable to home health. Pt voiced she thinks her daughter was setting this up, but to check with her . SW called . He thinks daughter set something up with pt's PCP. SW to check with PCP. CHAPIS called Dr. Gaming's office and they did send referral to [facility] yesterday. SW to touch base with [facility]. CHAPIS called and spoke to Poppy at [facility]. She confirmed they did get a referral yesterday. CHAPIS to send information from hospital stay and resumption of care order once pt is discharged. CHAPIS called back and updated him. CHAPIS also asked about a walker. He voiced that he does not need SW to get walker, he knows where he can get one. CHAPIS updated nurse.
--- NOTE | 2024-12-10 12:59 | PM.IMHP1 ---
Internal Medicine - H&P: HPI History of Present Illness Chief complaint: VOMITING, WEAKNESS, DIFFICULTY WALKING Narrative: Miss Gutierrez is an 84-year-old female with a past medical history TIAs, AAA, hypertension, and GERD who presents to hospital yesterday evening for chief complaint of just overall not feeling well the past couple of days. She has been getting weaker, she has been nauseous and vomiting. There was a fall at home a week 10 days ago. Workup in the emergency room was essentially benign other than evidence of a UTI, also endorses that there has been sediment in the bottom of her urine container at home whenever he empties it out. The patient has not noted any specific urinary symptoms but does endorse overall decline in function this past week. Upon admission, she became extremely dyspneic secondary to an exacerbation of her back pain. Pelvic x-ray was performed overnight and showed right superior ramus pubic fracture which may be old, and is difficult to ascertain due to her osteoporosis. Her BNP was also significantly elevated and she was initially requiring 2 L of oxygen upon arrival to the hospital floor. states she typically wakes up in the morning and does have some issues coughing and clearing her lungs, she has a very longstanding history of smoking however she quit smoking years ago, she has no chronic COPD. There has been no changes in her morning cough or breathing lately. Review of Systems ROS Status of ROS 10 or more systems reviewed and unremarkable except as noted in history and below [facility] Medical History (Updated 12/10/24 @ 13:04 by LUKASZ SALAS DO) Hx of transient ischemic attack (TIA) ?Z86.73 - Personal history of transient ischemic attack (TIA), and cerebral infarction without residual deficits (ICD-10) GERD (gastroesophageal reflux disease) ?K21.9 - Gastro-esophageal reflux disease without esophagitis (ICD-10) AAA (abdominal aortic aneurysm) ?I71.40 - Abdominal aortic aneurysm, without rupture, unspecified (ICD-10) HTN (hypertension) ?I10 - Essential (primary) hypertension (ICD-10) Surgical History (Updated 12/10/24 @ 00:18 by Dalia Barton RN) History of hip surgery ?Z98.890 - Other specified postprocedural states (ICD-10) Family History (Updated 12/10/24 @ 00:19 by Brutus Koth, RN) Father Family history of cancer Social History (Updated 12/10/24 @ 00:20 by Dalia Barton RN) Within the past year, how often did you have a drink containing alcohol: monthly or less Within the past year, how many standard drinks containing alcohol did you have on a typical day: 1 or 2 Total score: 0 Score interpretation: A score less than 3 is consistent with normal alcohol consumption. Smoking status: Former smoker Non-prescribed substance use: denies use Highest level of school completed/degree received: high school graduate Are you now , , , , never or living with a partner: In a typical week, how many times do you talk on the telephone with family, friends, or neighbors: 3 or more times per week How often do you get together with friends or relatives: 3 or more times per week Little interest or pleasure in doing things: not at all Feeling down, depressed, or hopeless: not at all Feel stressed/tense/nervous/anxious/difficulty sleeping: not at all Do you think of yourself as: straight/heterosexual Gender Identity: female Meds Home Medications and Allergies Home Medications ?Medication ?Instructions ?Recorded ?Confirmed ?Type carvedilol 12.5 mg tablet 12.5 mg PO BID 12/09/24 12/10/24 History losartan 50 mg tablet 50 mg PO BID 12/09/24 12/10/24 History Held on 12/10/24. Instructions: Resume when blood pressure is above 120 systolic methotrexate sodium 2.5 mg tablet 10 mg PO QWEEK 12/09/24 12/10/24 History omeprazole 20 mg capsule,delayed 20 mg PO .ACB 12/09/24 12/10/24 History release amoxicillin 500 mg-potassium 1 tab PO BID #8 tabs 12/10/24 Rx clavulanate 125 mg tablet (Augmentin) ondansetron 4 mg disintegrating 4 mg PO Q8H 3 days #9 tabs 12/10/24 Rx tablet Allergies Allergy/AdvReac Type Severity Reaction Status Date / Time No Known Drug Allergies Allergy Verified 12/09/24 21:33 Exam Narrative Exam Narrative: General: Awake and alert, no acute distress, frail appearing HEENT: Normocephalic, atraumatic, no scleral icterus noted, some temporal wasting noted Lungs: Poor air movement throughout Cardiac: Regular rate and rhythm, no murmurs appreciated GI: Soft, nontender, regular bowel sounds. Extremities: Active and passive range of motion intact throughout, no edema. There is pain to palpation in the left groin. Straight leg raise negative. Neuro: Cranial nerves II through XII intact, no focal deficits noted Skin: No rashes or lesions, no signs of jaundice Constitutional Vital Signs, click to edit/add: Last Vital Signs Temp 98.0 F 12/10/24 12:25 Pulse 92 H 12/10/24 12:25 Resp 18 12/10/24 12:25 BP 103/53 12/10/24 12:25 Pulse Ox 93 L 12/10/24 12:25 O2 Del Method Room Air 12/10/24 12: O2 Flow Rate 2 12/10/24 05:10 Internal Medicine - H&P: Reslt Labs Labs: Short CBC 12/09/24 12/10/24 Range/Units 21:25 05:33 WBC 6.6 6.3 (4.0-11.0) 10^3/uL Hgb 11.6 L 10.0 L (12.0-16.0) g/dL Hct 34.7 L 30.2 L (36.0-48.0) % Plt Count 285 232 (150-450) 10^3/uL BMP 12/09/24 12/10/24 21:25 05:33 Sodium 142 142 Potassium 4.4 4.2 Chloride 105 106 Carbon Dioxide 28.8 28.7 BUN 19.0 H 17.0 Creatinine 1.06 H 1.10 H Glucose 130 H 108 H Calcium 9.7 9.4 Liver Function 12/09/24 12/10/24 Range/Units 21:25 05:33 Total Bilirubin 1.2 H 0.9 (0.2-1.0) mg/dL Direct Bilirubin 0.3 H (0.0-0.2) mg/dL AST 22 22 (15-37) U/L ALT 21 21 (14-59) U/L Alkaline Phosphatase 106 87 (46-116) U/L Albumin 2.9 L 2.6 L (3.4-5.0) g/dL Urine 12/09/24 Range/Units 22:10 Urine Color Yellow (YELLOW) Urine Clarity Sl cloudy (CLEAR) Urine pH 6.5 (5.0-9.0) Ur Specific [place] 1.020 (1.005-1.025) Urine Protein Trace (NEG/TRACE) mg/dL Urine Glucose (UA) Negative (NEGATIVE) mg/dL Assessment and Plan Assessment and Plan (1) Pubic ramus fracture: Assessment and Plan: ? Unclear etiology, patient denies any falls onto her butt at home ? She had a fall 10 days ago however she fell forward onto her hands and caught herself, she did not endorse any trauma to her butt. ? Straight leg raise negative with her bilateral lower extremities ? Only has pain in her left groin with direct palpation or with ambulation. ? PT OT (2) Acute UTI: Assessment and Plan: Urinalysis consistent with urinary tract infection ? Ceftriaxone while admitted (3) Hypoxia: Assessment and Plan: ? Secondary to fluid overload, she is not have a history of CHF though she received 1 L IV fluids in the ER and she was subsequently requiring oxygen. She did receive a dose of Lasix and this resolved her hypoxemia quite quickly. ? Echocardiogram ordered and completed, she can follow-up with her PCP for the results. Plan Given her fall, overall weakness, decline in functional status, rami fracture, and hypoxemia likely are related to her urinary tract infection. She was mid the hospital as an inpatient status, she did improve her oxygenation with 1 dose of IV Lasix, she was evaluated PT OT who recommended home health. Patient was agreeable for this. She improved faster than expected and thus was subsequently discharged home the afternoon of December 08. ? DVT prophylaxis addressed ? Regular diet ? Full code
--- NOTE | 2024-12-10 13:00 | CM.NOTE ---
Case Management spoke with pt regarding HH services, pt is in agreement and states her daughter is working on contacting HH. Spoke with SS and she will reach out to pt's daughter to set up HH services.
--- NOTE | 2024-12-10 13:06 | P.DS_ITS ---
DS: Providers Provider Date of admission: 12/09/24 23:42 Primary care physician: ALICE QUIROZ Consults: 12/10/24 Consult to Dietitian Routine Reason for consultation: poor appetite Has provider been notified: No 12/10/24 10:31 Occupational Therapy Eval and Treat Routine Reason for consultation: pelvic fx Physical Therapy Eval and Treat Routine Reason for consultation: pelvic fx Discharging clinician: LUKASZ SALAS DS: Diagnosis Discharge Diagnosis (1) Pubic ramus fracture: (2) Acute UTI: (3) Hypoxia: DS: Summary Hospital Course Hospital Course: Miss Gutierrez is an 84-year-old female who was admitted the hospital the afternoon of December 09 with a chief complaint of weakness, nausea and vomiting and falls at home. She was diagnosed with urinary tract infection and started antibiotics. Basic workup in the ER was negative however upon arrival to the floor she was requiring supplemental oxygenation, pelvis x-ray was positive for a left-sided superior pubic rami fracture and osteoporosis. The patient was requiring 2 L nasal cannula, she received 1 dose of IV Lasix and her oxygenation went back to baseline. Her lungs were clear to auscultation on my exam however she has overall poor air movement. She was seen by PT and OT who recommended home health and ambulation with a walker. Her pubic rami rami fracture was nonoperative, she will be weightbearing as tolerated on the fracture. She was subsequently discharged home in the afternoon of December 10 with a prescription for Augmentin to finish her UTI treatment, a walker, and home health for PT OT. Time Spent with Patient Time attestation: Total time spent providing and/or coordinating discharge services: Exam Narrative Exam Narrative: General: Awake and alert, no acute distress, low muscle mass HEENT: Normocephalic, atraumatic, no scleral icterus noted, L temporal wasting noted Lungs: Poor air movement throughout Cardiac: Regular rate and rhythm, no murmurs appreciated GI: Soft, nontender, regular bowel sounds. Extremities: Active and passive range of motion intact throughout, no edema Neuro: Cranial nerves II through XII intact, no focal deficits noted Skin: No rashes or lesions, no signs of jaundice Constitutional Vital Signs, click to edit/add: Last Vital Signs Temp 98.0 F 12/10/24 12:25 Pulse 92 H 12/10/24 12:25 Resp 18 12/10/24 12:25 BP 103/53 12/10/24 12:25 Pulse Ox 93 L 12/10/24 12:25 O2 Del Method Room Air 12/10/24 12:25 O2 Flow Rate 2 12/10/24 05:10 DS: Data Data Completed and Pending Labs on day of discharge: Labs from last 24 hours 12/10/24 12/09/24 12/09/24 05:33 22:10 21:49 WBC 6.3 RBC 2.89 L Hgb 10.0 L Hct 30.2 L MCV 104.5 H MCH 34.6 H MCHC 33.1 RDW 19.3 H Plt Count 232 MPV 9.9 Neut % (Auto) 87.4 H Lymph % (Auto) 9.0 L [place] % (Auto) 2.6 Eos % (Auto) 0.2 L Baso % (Auto) 0.3 Neut # (Auto) 5.5 Lymph # (Auto) 0.6 L [place] # (Auto) 0.2 L Eos # (Auto) 0.0 Baso # (Auto) 0.0 Abs Immat Gran (auto) 0.03 Seg Neuts % (Manual) Lymphocytes % (Manual) Monocytes % (Manual) Eosinophils % (Manual) Basophils % (Manual) Imm/Tot Granulo (auto) 0.5 Neutrophils # (Manual) Lymphocytes # (Manual) Monocytes # (Manual) Eosinophils # (Manual) Basophils # (Manual) Sodium 142 Potassium 4.2 Chloride 106 Carbon Dioxide 28.7 Anion Gap 11.5 BUN 17.0 Creatinine 1.10 H Est GFR ( Amer) 57 L Est GFR (Non-Af Amer) 47 L BUN/Creatinine Ratio 15.5 Glucose 108 H Lactate Calcium 9.4 Magnesium 2.0 Total Bilirubin 0.9 Direct Bilirubin 0.3 H AST 22 ALT 21 Alkaline Phosphatase 87 Troponin I High Sens 11.4 NT-Pro-B Natriuret Pep 3617.0 H* 1301.0 Total Protein 5.7 L Albumin 2.6 L Globulin 3.1 Albumin/Globulin Ratio 0.8 Lipase Urine Color Yellow Urine Clarity Sl cloudy Urine pH 6.5 Ur Specific [place] 1.020 Urine Protein Trace Urine Glucose (UA) Negative Urine Ketones Negative Urine Occult Blood Moderate A Urine Nitrite Positive A Urine Bilirubin Negative Urine Urobilinogen 1.0 Ur Leukocyte Esterase Small A Urine RBC 2-5 A Urine WBC 10-20 A Ur Squamous Epith Cells Moderate A Urine Crystals None seen Urine Bacteria Large A Urine Casts None seen Urine Mucus Trace A Ur Culture Indicated? [place] [place] 21:25 WBC 6.6 RBC 3.37 L Hgb 11.6 L Hct 34.7 L MCV 103.0 H MCH 34.4 H MCHC 33.4 RDW 19.1 H Plt Count 285 MPV 10.0 Neut % (Auto) Lymph % (Auto) [place] % (Auto) Eos % (Auto) Baso % (Auto) Neut # (Auto) Lymph # (Auto) [place] # (Auto) Eos # (Auto) Baso # (Auto) Abs Immat Gran (auto) Seg Neuts % (Manual) 86.0 H Lymphocytes % (Manual) 8.0 L Monocytes % (Manual) 6.0 Eosinophils % (Manual) 0.0 L Basophils % (Manual) 0.0 L Imm/Tot Granulo (auto) Neutrophils # (Manual) 5.67 Lymphocytes # (Manual) 0.52 L Monocytes # (Manual) 0.39 Eosinophils # (Manual) 0.00 Basophils # (Manual) 0.00 Sodium 142 Potassium 4.4 Chloride 105 Carbon Dioxide 28.8 Anion Gap 12.6 BUN 19.0 H Creatinine 1.06 H Est GFR ( Amer) 60 Est GFR (Non-Af Amer) 50 L BUN/Creatinine Ratio 17.9 Glucose 130 H Lactate 1.2 Calcium 9.7 Magnesium 1.9 Total Bilirubin 1.2 H Direct Bilirubin AST 22 ALT 21 Alkaline Phosphatase 106 Troponin I High Sens 6.7 NT-Pro-B Natriuret Pep Total Protein 6.5 Albumin 2.9 L Globulin 3.6 Albumin/Globulin Ratio 0.8 Lipase 36.0 Urine Color Urine Clarity Urine pH Ur Specific [place] Urine Protein Urine Glucose (UA) Urine Ketones Urine Occult Blood Urine Nitrite Urine Bilirubin Urine Urobilinogen Ur Leukocyte Esterase Urine RBC Urine WBC Ur Squamous Epith Cells Urine Crystals Urine Bacteria Urine Casts Urine Mucus Ur Culture Indicated? Discharge Plan Discharge Disposition: Home Health Service Condition: Fair Discharge Medications: New ondansetron 4 mg tablet,disintegrating 4 mg PO Q8H 3 Days Qty: 9 0RF amoxicillin-pot clavulanate [Augmentin] 500-125 mg tablet 1 tab PO BID Qty: 8 0RF Continued carvedilol 12.5 mg tablet 12.5 mg PO BID methotrexate sodium 2.5 mg tablet 10 mg PO QWEEK omeprazole 20 mg capsule,delayed release(DR/EC) 20 mg PO .ACB Held losartan 50 mg tablet 50 mg PO BID Hold Instructions: Resume when blood pressure is above 120 systolic Print Language: Arabic Forms: Portal Instructions
[2024-12-10 13:21] LABS: CTX-M NOT DETECTED (NOT DETECTE); IMP NOT DETECTED (NOT DETECTE); KPC NOT DETECTED (NOT DETECTE); NDM NOT DETECTED (NOT DETECTE); OXA-48-like NOT DETECTED (NOT DETECTE); Source Blood; VIM NOT DETECTED (NOT DETECTE); mcr-1 NOT DETECTED (NOT DETECTE)
--- NOTE | 2024-12-10 13:26 | SWNOTE1 ---
CHAPIS faxed CRF, dc summary, dc med rec, ED note, H&P, dc summary, and PT/OT evals to [facility].
[2024-12-10 13:28] LABS: Enterobacterales DETECTED (NOT DETECTE); Klebsiella pneumoniae group DETECTED (NOT DETECTE)
--- NOTE | 2024-12-10 13:51 | SWNOTE1 ---
Physician updated case management and SW, no discharge today for pt. SW called [facility] and updated them as well. SW took packet to the floor in case of dc over the weekend.
--- NOTE | 2024-12-10 13:54 | P.PN_ITS ---
Progress Note: Subjective Subjective Interval history: Seen and evaluated this morning, she is currently lying in bed. She does endorse feeling a little better, overnight events were reviewed. She is back to baseline oxygenation on room air, reviewed with her the pelvic x-ray which was ordered and shows a superior pubic rami fracture. She was formally discharged in the hospital earlier today however her blood cultures returned positive for Klebsiella and Enterococcus, this is likely secondary to her UTI thus the decision was made to keep her in the hospital for more antibiotics and repeat blood cultures. The patient and her were agreeable for this plan. Exam Narrative Exam Narrative: General: Awake and alert, no acute distress, low muscle mass HEENT: Normocephalic, atraumatic, no scleral icterus noted, L temporal wasting noted Lungs: Poor air movement throughout Cardiac: Regular rate and rhythm, no murmurs appreciated GI: Soft, nontender, regular bowel sounds. Extremities: Active and passive range of motion intact throughout, no edema, straight leg raise negative bilateral. Pain with direct palpation over left groin. Neuro: Cranial nerves II through XII intact, no focal deficits noted Skin: No rashes or lesions, no signs of jaundice Constitutional Vital Signs, click to edit/add: Last Vital Signs Temp 98.0 F 12/10/24 12:25 Pulse 92 H 12/10/24 12:25 Resp 18 12/10/24 12:25 BP 103/53 12/10/24 12:25 Pulse Ox 93 L 12/10/24 12:25 O2 Del Method Room Air 12/10/24 12:25 O2 Flow Rate 2 12/10/24 05:10 Progress Note: Objective Labs Labs: Short CBC 12/09/24 12/10/24 Range/Units 21:25 05:33 WBC 6.6 6.3 (4.0-11.0) 10^3/uL Hgb 11.6 L 10.0 L (12.0-16.0) g/dL Hct 34.7 L 30.2 L (36.0-48.0) % Plt Count 285 232 (150-450) 10^3/uL BMP 12/09/24 12/10/24 21:25 05:33 Sodium 142 142 Potassium 4.4 4.2 Chloride 105 106 Carbon Dioxide 28.8 28.7 BUN 19.0 H 17.0 Creatinine 1.06 H 1.10 H Glucose 130 H 108 H Calcium 9.7 9.4 Liver Function 12/09/24 12/10/24 Range/Units 21:25 05:33 Total Bilirubin 1.2 H 0.9 (0.2-1.0) mg/dL Direct Bilirubin 0.3 H (0.0-0.2) mg/dL AST 22 22 (15-37) U/L ALT 21 21 (14-59) U/L Alkaline Phosphatase 106 87 (46-116) U/L Albumin 2.9 L 2.6 L (3.4-5.0) g/dL Urine 12/09/24 Range/Units 22:10 Urine Color Yellow (YELLOW) Urine Clarity Sl cloudy (CLEAR) Urine pH 6.5 (5.0-9.0) Ur Specific [place] 1.020 (1.005-1.025) Urine Protein Trace (NEG/TRACE) mg/dL Urine Glucose (UA) Negative (NEGATIVE) mg/dL Progress Note: A&P Assessment and Plan (1) Bacteremia: Assessment and Plan: ? Initial blood cultures drawn on the evening of admission, December 09 were positive for Klebsiella and Enterococcus ? Continue ceftriaxone however will increase dose to 2 g daily. She will get the first dose of 2 g tonight at 10:00 PM. She will receive 1 g right now as she only received 1 g last night on admission ? Continue telemetry ? Repeat blood cultures tomorrow morning ? This is likely secondary to urinary tract infection. (2) Pubic ramus fracture: Assessment and Plan: ? PT OT ? Weightbearing as tolerated ? Pain control (3) Acute UTI: Assessment and Plan: ? See above (4) Hypoxia: Assessment and Plan: Secondary to fluid congestion after a bolus from the emergency room, echocardiog lia ordered, read is pending. ? Stable and at her baseline after 1 dose of IV Lasix. Plan ? DVT prophylaxis addressed ? Regular diet ? Full code
--- NOTE | 2024-12-10 21:48 | DIETREC ---
Diet consult completed. Pt reports she is trying to eat better and is open to nutritional supplement. Recommend 237 mL Ensure Original BID.
[2024-12-10] MEDS: DOCUSATE SODIUM 100 MG CAPSULE PO (22:56)
[2024-12-11] VITALS (16 sets, daily range): BP systolic 106–139; BP diastolic 62–76; PULSE 74–106; TEMP 36.7–37.3; O2SAT 92–94
[2024-12-11 06:33] LABS: Hematocrit 30.2 % (36.0-48.0); Hemoglobin 9.9 g/dL (12.0-16.0); Immature Granulocytes Abs Auto 0.04 10^3/uL (0.00-0.03); Immature Granulocytes Pct Auto 0.8 % (0.0-0.5); Lymphocytes Absolute Auto 0.5 10^3/uL (1.2-3.8); Mean Corpuscular HGB Conc 32.8 g/dL (29.9-35.2); Mean Corpuscular Hemoglobin 33.8 pg (26.7-34.0); Mean Corpuscular Volume 103.1 fL (81.0-99.0); Platelet Count 177 10^3/uL (150-450); Red Blood Count 2.93 10^6/uL (4.20-5.40); White Blood Count 5.2 10^3/uL (4.0-11.0)
[2024-12-11 06:44] LABS: Anion Gap 9.9; Blood Urea Nitrogen 25.0 mg/dL (7.0-18.0); Calcium 9.4 mg/dL (8.5-10.1); Carbon Dioxide 29.7 mmol/L (21.0-32.0); Chloride 105 mmol/L (98-107); Estimated GFR (African America 59 (>=60 mL/min/1.73m^2); Estimated GFR (Non-African Ame 49 (>=60 mL/min/1.73m^2); Glucose 95 mg/dL (74-106); Magnesium 1.9 mg/dL (1.8-2.4); Potassium 3.6 mmol/L (3.5-5.1); Sodium 141 mmol/L (136-145)
[2024-12-11] MEDS: ENOXAPARIN SODIUM 30 MG/0.3 ML SYRINGE SUBQ (08:25)
--- NOTE | 2024-12-11 09:47 | REH.PTDLY ---
Physical Therapy Daily Note PT Daily Note/Assess Start: 12/11/24 09:40 Freq: Status: Active Protocol: Document 12/11/24 09:40 RENUSEBASTIAN (Rec: 12/11/24 09:47 KAYLENE [id number]) Physical Therapy Daily Note/Assessment Time In 09:14 Time Out 09:29 Subjective Nursing in room, pt needing to use restroom. Pt reports no pain at rest, only with weight bearing. Therapeutic Exercise 3 Minutes (minutes) Therapeutic Exercise 0 Units Therapeutic Exercise Pt performed seated AP, LAQ and marching 10x ea with no Treatment complaints of pain. Therapeutic Activity 10 Minutes (minutes) Therapeutic Activity 1 Units Therapeutic Activity Supine to sit transfer Min A. Sit to stand transfer CGA Comments . Gait training with RW with cues for step to gait pattern. Pt tends to perform step thru at times, but pt states it feels much better than previous date, little pain noted in weight bearing when walking to restroom 12 feet. Cues for pt to use grab bar on wall with toilet transfers. Pt is able to doff and don brief on her own and perform self care. Pt stood at sink for 4 mins to wash hands, brush teeth, and comb hair with no LOB noted. Gait training with RW 16 feet to recliner CGA. Pt declines ambulating further at this time due to wrists/hands hurting from pushing RW due to arthritis. Total Therapy 13 Minutes Total Physical 1 Therapy Units Daily Note Summary Pt reports improved pain in L hip/groin today with gait training, CGA for safety. Good standing balance noted at sink when performing self care. Wrists are more bothersome due to arthritis pt states.
[2024-12-11] MEDS: PANTOPRAZOLE SODIUM 40 MG TABLET.DR PO (09:49)
[2024-12-11] MEDS: CARVEDILOL 12.5 MG TABLET PO ×2 (09:49→21:35)
[2024-12-11] MEDS: DOCUSATE SODIUM 100 MG CAPSULE PO (13:15)
--- NOTE | 2024-12-11 13:27 | P.PN_ITS ---
Progress Note: Subjective Subjective Interval history: When I see the patient on rounds today a little bit before lunchtime she is out of bed and in a chair. Her is at the bedside on the couch. The says that the patient is doing so much better at this time. Her mentation has improved. He is progressing nicely towards the baseline. Her energy is better. Her ability to ambulate is better. The patient says that at home she was so out of it mentally that I had to carry her when it was time to come to the ER. She had been mentating very poorly for days. They actually describe getting an MRI done and seeing an oncologist at the [facility] who told them everything is fine. Subjectively: when I talk to the patient seems like she had minimal symptoms of the urinary tract infection. Her did notice some sludge and sediment when he was taking the bottle to the toilet at home. But she did have big symptoms of the encephalopathy of the bacteremia: The fatigue, the acute confusion, the severe malaise, the near comatose level of her neurologic functioning. The patient says that she has pain from the pubic ramus fracture when she ambulates. She can go from laying to sitting and she can sit in a chair with this that she could go from sitting to standing but the pain kicks in when she begins to ambulate. She denies other red flag warning signs at this time such as fevers or chills, diarrhea, abdominal pain, heartburn, sores in her mouth, or cough with any production of phlegm. No chest pain or dyspnea on exertion. Exam Narrative Exam Narrative: General: She is sitting upright in a chair. Getting ready to feed herself lunch. Neurologic: Awake and alert and almost perfectly oriented. Still has a mild amount of metabolic encephalopathy. Head: Normocephalic atraumatic. Mouth is normal. Tongue is midline. Makes good eye contact. Pulmonary: Clear to auscultation throughout. No wheezing. No rhonchi. No crackles. Cardiac: Regular rate and rhythm. No rubs or gallops to auscultation. No murmurs to auscultation. GI: Abdomen soft, no peritoneal signs. Normal bowel sounds to auscultation. Lower extremities: No edema in ankles. No cords in the calves bilaterally. Constitutional Vital Signs, click to edit/add: Last Vital Signs Temp 98.0 F 12/11/24 11:11 Pulse 84 12/11/24 12:00 Resp 16 12/11/24 11:11 BP 106/62 12/11/24 11:11 Pulse Ox 94 L 12/11/24 11:11 O2 Del Method Room Air 12/11/24 11:11 O2 Flow Rate 2 12/10/24 05:10 Progress Note: Objective Labs Labs: Short CBC 12/11/24 Range/Units 06:04 WBC 5.2 (4.0-11.0) 10^3/uL Hgb 9.9 L (12.0-16.0) g/dL Hct 30.2 L (36.0-48.0) % Plt Count 177 (150-450) 10^3/uL BMP 12/11/24 06:04 Sodium 141 Potassium 3.6 Chloride 105 Carbon Dioxide 29.7 BUN 25.0 H Creatinine 1.07 H Glucose 95 Calcium 9.4 Progress Note: A&P Assessment and Plan (1) Bacteremia due to Klebsiella pneumoniae: (2) Complicated UTI (urinary tract infection): (3) Acute metabolic encephalopathy: (4) Pubic ramus fracture: (5) Hypoxia: (6) Impaired mobility and ADLs: (7) Muscular weakness: Plan Assessment: Klebsiella pneumoniae bacteremia, due to: Complicated bacterial urinary tract infection, causing: Acute metabolic encephalopathy, with: Severe physical weakness causing impaired ability to mobilize herself and do activity at safely living safely, causing: Pubic ramus fracture. The hypoxia that was present on admission was due to IV fluids given the emergency room. She is doing well after Lasix early on during the hospital stay. Plan: Continue inpatient care in the hospital. Continue IV antibiotics at the bacteremia dose of 2 g of Rocephin every 24 hours. Continue physical therapy. Continue occupational therapy. Pain control for the pubic ramus fracture pain. She has macrocytosis on her complete blood count so checking anemia labs with tomorrow morning's labs. Follow-up blood cultures were obtained today to make sure that she is clearing the Klebsiella pneumoniae. DVT prophylaxis with Lovenox 40 mg subcutaneously daily. I recheck CBC and BMP and electrolytes in the morning with labs.
[2024-12-12] VITALS (19 sets, daily range): BP systolic 93–130; BP diastolic 58–74; PULSE 67–100; TEMP 36.4–37.1; O2SAT 92–97
[2024-12-12] MEDS: ACETAMINOPHEN 325 MG TABLET 650 MG PO (05:50)
[2024-12-12] MEDS: PANTOPRAZOLE SODIUM 40 MG TABLET.DR PO (05:51)
[2024-12-12 06:28] LABS: Reticulocyte Pct Auto 1.34 % (0.60-3.10)
[2024-12-12 06:41] LABS: Hematocrit 28.1 % (36.0-48.0); Hemoglobin 9.4 g/dL (12.0-16.0); Immature Granulocytes Abs Auto 0.03 10^3/uL (0.00-0.03); Immature Granulocytes Pct Auto 0.6 % (0.0-0.5); Lymphocytes Absolute Auto 0.7 10^3/uL (1.2-3.8); Mean Corpuscular HGB Conc 33.5 g/dL (29.9-35.2); Mean Corpuscular Hemoglobin 34.3 pg (26.7-34.0); Mean Corpuscular Volume 102.6 fL (81.0-99.0); Platelet Count 171 10^3/uL (150-450); Red Blood Count 2.74 10^6/uL (4.20-5.40); White Blood Count 5.1 10^3/uL (4.0-11.0)
[2024-12-12 06:43] LABS: Anion Gap 9.9; Blood Urea Nitrogen 25.0 mg/dL (7.0-18.0); Calcium 9.5 mg/dL (8.5-10.1); Carbon Dioxide 31.2 mmol/L (21.0-32.0); Chloride 105 mmol/L (98-107); Estimated GFR (African America >60 (>=60 mL/min/1.73m^2); Estimated GFR (Non-African Ame 58 (>=60 mL/min/1.73m^2); Glucose 98 mg/dL (74-106); Iron 25.0 ug/dL (50.0-170.0); Percent Iron Saturation 16.0 %; Potassium 4.1 mmol/L (3.5-5.1); Sodium 142 mmol/L (136-145); Total Iron Binding Capacity 156.0 ug/dL (250.0-450.0)
[2024-12-12] MEDS: MAGNESIUM HYDROXIDE 2,400 MG/10 ML ORAL.SUSP 2400 MG PO (06:47)
[2024-12-12 06:54] LABS: NT Pro B Type Natriuretic Pept 472.0 pg/mL (<=1800.0)
[2024-12-12 06:57] LABS: Ferritin 822.0 ng/mL (8.0-252.0); Folate 10.60 ng/mL (8.60-58.90)
[2024-12-12] MEDS: ENOXAPARIN SODIUM 30 MG/0.3 ML SYRINGE SUBQ (08:42)
[2024-12-12] MEDS: CARVEDILOL 12.5 MG TABLET PO ×2 (08:42→20:36)
[2024-12-12] MEDS: FUROSEMIDE 20 MG TABLET PO (10:02)
[2024-12-12] MEDS: POTASSIUM CHLORIDE 10 MEQ ER TABLET PO (10:02)
--- NOTE | 2024-12-12 13:34 | P.PN_ITS ---
Progress Note: Subjective Subjective Interval history: Seen on rounds at lunchtime the patient does not have her at the bedside. He was very helpful to understand her baseline level of functioning yesterday. The patient today complains of gassy and crampy abdominal pain. She has tried milk of magnesia and a rectal suppository but has not moved her bowels yet. When I ask her if she uses anything at home to keep her bowels regular she says that she does not but I need to. She says that she is passing urine well now. No fevers or chills. She says that she is feeling stronger. No episodes of confusion. So she feels like she is getting stronger every day. So far the second set of blood cultures obtained on 12/11/24 are not showing any growth, but it does take several days for these results to come back from [facility]. Exam Narrative Exam Narrative: General: Reclining in bed. Awake. Alert. Looks a little bit less encephalopathic and little stronger than she did yesterday. Pulmonary: Clear to auscultation throughout. No wheezing. No rhonchi. No crackles. Cardiac: Regular rate and rhythm to auscultation with no murmurs. GI: Bowel sounds a little bit hypoactive. No tenderness to palpation on the abdomen. Gentle OMT was applied to the abdomen to help increase bowel motility. Lower extremities: No edema in her ankles at all. Constitutional Vital Signs, click to edit/add: Last Vital Signs Temp 98.0 F 12/12/24 11:19 Pulse 78 12/12/24 12:00 Resp 18 12/12/24 11:19 BP 102/62 12/12/24 11:19 Pulse Ox 97 12/12/24 11:19 O2 Del Method Room Air 12/12/24 11:19 O2 Flow Rate 2 12/12/24 04:00 Progress Note: Objective Labs Labs: Short CBC 12/12/24 Range/Units 06:00 WBC 5.1 (4.0-11.0) 10^3/uL Hgb 9.4 L (12.0-16.0) g/dL Hct 28.1 L (36.0-48.0) % Plt Count 171 (150-450) 10^3/uL BMP 12/12/24 06:00 Sodium 142 Potassium 4.1 Chloride 105 Carbon Dioxide 31.2 BUN 25.0 H Creatinine 0.92 Glucose 98 Calcium 9.5 Progress Note: A&P Assessment and Plan (1) Bacteremia due to Klebsiella pneumoniae: (2) Complicated UTI (urinary tract infection): (3) Acute metabolic encephalopathy: (4) Pubic ramus fracture: (5) Hypoxia: (6) Impaired mobility and ADLs: (7) Muscular weakness: Plan Discussion: Echocardiogram results came back. These were ordered because she required oxygen after IV fluids in the emergency room. LVEF is normal at 55%. But she does have moderately elevated (45 to 60) right- sided pressures past the tricuspid valve with RVSP of 60, so she has pulmonary hypertension and a small pericardial effusion was seen. Assessment: Klebsiella pneumoniae bacteremia, due to: Complicated bacterial urinary tract infection, causing: Acute metabolic encephalopathy, with: Severe physical weakness causing impaired ability to mobilize herself and do activities of daily living safely, causing a mechanical fall, causing: Acute Pubic ramus fracture. The hypoxia that was present on admission was due to IV fluids given the emergency room. She is doing well after Lasix early on during the hospital stay. In-hospital finding of pulmonary hypertension with RVSP of 60. Macrocytosis. Iron deficiency. Plan: Continue inpatient care in the hospital. Continue IV antibiotics at the bacteremia dose of 2 g of Rocephin every 24 hours. Continue physical therapy. Continue occupational therapy. Pain control with oral pain medications, as needed, for the pubic ramus fracture pain. She has macrocytosis on her complete blood count. Iron is low at 25. TIBC is low to 156. Ferritin is high at 822. Folic acid is normal. Vitamin B12 is pending. Follow-up blood cultures were obtained on 12/11 to make sure that she is clearing the Klebsiella pneumoniae. DVT prophylaxis with Lovenox 40 mg subcutaneously daily. Given the pulmonary hypertension I have started Lasix 20 mg p.o. daily with potassium chloride 10 mill equivalents p.o. daily. Her blood pressures during hospital stay have been good so the losartan 50 mg twice daily that she took at home, which we have not given here, likely will not need to be used anymore. Close monitoring of her blood pressure given her long-term use of Coreg 12.5 mg twice daily.
[2024-12-12] MEDS: ENSURE ORIGINAL 237 ML BOTTLE PO (17:23)
[2024-12-13] VITALS (9 sets, daily range): BP systolic 104–125; BP diastolic 60–74; PULSE 75–90; TEMP 36.3–36.8; O2SAT 92–94
[2024-12-13] MEDS: PANTOPRAZOLE SODIUM 40 MG TABLET.DR PO (05:32)
[2024-12-13 06:33] LABS: Hematocrit 28.4 % (36.0-48.0); Hemoglobin 9.4 g/dL (12.0-16.0); Immature Granulocytes Abs Auto 0.06 10^3/uL (0.00-0.03); Immature Granulocytes Pct Auto 1.1 % (0.0-0.5); Lymphocytes Absolute Auto 1.1 10^3/uL (1.2-3.8); Mean Corpuscular HGB Conc 33.1 g/dL (29.9-35.2); Mean Corpuscular Hemoglobin 33.8 pg (26.7-34.0); Mean Corpuscular Volume 102.2 fL (81.0-99.0); Platelet Count 176 10^3/uL (150-450); Red Blood Count 2.78 10^6/uL (4.20-5.40); White Blood Count 5.6 10^3/uL (4.0-11.0)
[2024-12-13 06:54] LABS: Anion Gap 9.5; Blood Urea Nitrogen 22.0 mg/dL (7.0-18.0); Calcium 9.4 mg/dL (8.5-10.1); Carbon Dioxide 30.7 mmol/L (21.0-32.0); Chloride 104 mmol/L (98-107); Estimated GFR (African America 59 (>=60 mL/min/1.73m^2); Estimated GFR (Non-African Ame 49 (>=60 mL/min/1.73m^2); Glucose 94 mg/dL (74-106); Magnesium 2.0 mg/dL (1.8-2.4); Potassium 4.2 mmol/L (3.5-5.1); Sodium 140 mmol/L (136-145)
[2024-12-13] MEDS: POTASSIUM CHLORIDE 10 MEQ ER TABLET PO (08:31)
[2024-12-13] MEDS: ENOXAPARIN SODIUM 30 MG/0.3 ML SYRINGE SUBQ (08:32)
[2024-12-13] MEDS: FUROSEMIDE 20 MG TABLET PO (08:32)
[2024-12-13] MEDS: CARVEDILOL 12.5 MG TABLET PO (08:32)
[2024-12-13] MEDS: ENSURE ORIGINAL 237 ML BOTTLE PO (08:32)
--- NOTE | 2024-12-13 08:37 | CM.NOTE ---
Dr. Paul given pt's final culture urine result.
--- NOTE | 2024-12-13 09:30 | CM.NOTE ---
Rounds made with Dr. Paul, pt will discharge to home today with [facility]. Pt will discharge on oral antibiotics. Pt will f/u with PCP.
[2024-12-13 12:08] LABS: Vitamin B12 721 pg/mL (232-1245)
--- NOTE | 2024-12-13 12:16 | P.DS_ITS ---
DS: Providers Provider Date of admission: 12/09/24 23:42 Primary care physician: ALICE GAMING Consults: 12/10/24 Consult to Dietitian Routine Reason for consultation: poor appetite Has provider been notified: No 12/10/24 10:31 Occupational Therapy Eval and Treat Routine Reason for consultation: pelvic fx Physical Therapy Eval and Treat Routine Reason for consultation: pelvic fx DS: Diagnosis Discharge Diagnosis (1) Bacteremia due to Klebsiella pneumoniae: (2) Complicated UTI (urinary tract infection): (3) Acute metabolic encephalopathy: (4) Pubic ramus fracture: (5) Impaired mobility and ADLs: (6) Muscular weakness: Plan As listed above and others that are not listed DS: Summary Hospital Course Hospital Course: Miss Gutierrez is an 84-year-old female who was admitted the hospital the afternoon of December 09 with a chief complaint of weakness, nausea and vomiting and falls at home. She was diagnosed with urinary tract infection and started antibiotics. Basic workup in the ER was negative however upon arrival to the floor she was requiring supplemental oxygenation, pelvis x-ray was positive for a left-sided superior pubic rami fracture and osteoporosis. The patient was requiring 2 L nasal cannula, she received 1 dose of IV Lasix and her oxygenation went back to baseline. Her lungs were clear to auscultation on my exam however she has overall poor air movement. She was seen by PT and OT who recommended home health and ambulation with a walker. Her pubic rami rami fracture was nonoperative, she will be weightbearing as tolerated on the fracture. Blood culture came back positive for Klebsiella which is the same organism that grew in her urine. Her discharge was placed on hold and the patient was started on intravenous ceftriaxone 2 g daily. Repeat blood culture is pending. Patient is afebrile. White count is normal. Patient will be discharged home on 14 days of cefuroxime I will follow-up on final repeat blood culture report. Anemia, no evidence of acute blood loss. Patient will likely require to have anemia workup to be done in the outpatient setting to be handled by PCP in collaboration with other needed outpatient providers. This may include but not limited to EGD, colonoscopy, referral to see hematology and other needed age-appropriate cancer screening. Constipation Patient will be discharged home on softeners and stimulant Encephalopathy, resolved Patient has multiple complex medical issues as listed above and others that are not listed. All appear to be stable. I do not have any clear or strong clinical justification to extend inpatient hospitalization. Patient however will require close and frequent monitoring as well as additional work-up, investigation and therapeutic intervention that could take place from this point on post discharge. That is to prevent relapse, decompensation, rehospitalization and other medical implications. I instructed patient to ask her primary care doctor to obtain [facility] record entirely to address abnormalities seen on labs and imaging that I have and have not addressed during this hospitalization, follow-up on pending blood work, imaging and pathology is if available and to follow-up on needed medical care in the outpatient setting. Time Spent with Patient Time attestation: Total time spent providing and/or coordinating discharge services: Exam Constitutional Vital Signs, click to edit/add: Last Vital Signs Temp 97.8 F 12/13/24 11:57 Pulse 82 12/13/24 11:57 Resp 16 12/13/24 11:57 BP 104/60 12/13/24 11:57 Pulse Ox 94 L 12/13/24 11:57 O2 Del Method Room Air 12/13/24 11:57 O2 Flow Rate 2 12/12/24 04:00 DS: Data Data Completed and Pending Labs on day of discharge: Labs from last 24 hours 12/13/24 12/12/24 06:08 06:00 WBC 5.6 RBC 2.78 L Hgb 9.4 L Hct 28.4 L MCV 102.2 H MCH 33.8 MCHC 33.1 RDW 18.7 H Plt Count 176 MPV 10.6 Neut % (Auto) 71.9 Lymph % (Auto) 18.8 L [place] % (Auto) 6.4 Eos % (Auto) 1.4 Baso % (Auto) 0.4 Neut # (Auto) 4.0 Lymph # (Auto) 1.1 L [place] # (Auto) 0.4 Eos # (Auto) 0.1 Baso # (Auto) 0.0 Abs Immat Gran (auto) 0.06 H Imm/Tot Granulo (auto) 1.1 H Sodium 140 Potassium 4.2 Chloride 104 Carbon Dioxide 30.7 Anion Gap 9.5 BUN 22.0 H Creatinine 1.07 H Est GFR ( Amer) 59 L Est GFR (Non-Af Amer) 49 L BUN/Creatinine Ratio 20.6 Glucose 94 Calcium 9.4 Magnesium 2.0 Vitamin B12 721 Preliminary micro results at discharge 12/09/24 21:56 Aerobic Susc Result 2 - Preliminary Blood - Left Wrist Anaerobe Identification - Preliminary 12/09/24 21:49 Aerobic Susc Result 2 - Preliminary Blood - Left Antecubital Gram negative keya Anaerobe Identification - Preliminary 12/09/24 21:49 Aerobic Susc Result 2 - Preliminary Blood - Left Antecubital Discharge Plan Discharge Disposition: Home Health Service Condition: Fair Discharge Medications: New cefuroxime axetil 500 mg tablet 500 mg PO BID 14 Days Qty: 28 0RF Probiotic 3 billion cell capsule 3,000 mmu cells PO DAILY Qty: 30 0RF Rx Instructions: administer with a meal sennosides [senna] 8.6 mg tablet 8.6 mg PO BID Qty: 60 1RF docusate sodium [Colace] 100 mg capsule 100 mg PO DAILY Qty: 30 1RF Continued carvedilol 12.5 mg tablet 12.5 mg PO BID methotrexate sodium 2.5 mg tablet 10 mg PO QWEEK omeprazole 20 mg capsule,delayed release(DR/EC) 20 mg PO .ACB Held losartan 50 mg tablet 50 mg PO BID Hold Instructions: Resume when blood pressure is above 120 systolic Activity: ambulate only with your walker Diet: advance to your usual diet Print Language: Yoruba Patient Instructions: Amoxicillin (By mouth), Ondansetron (By mouth) (Zofran, Zofran ODT, Zuplenz), Urinary Tract Infection in Women (DC), Pelvic Fracture (DC), Hypoxia (ED), Urinary Tract Infection in Older Adults (DC) 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 Phone number is [phone]. They will call within 48 hours of discharge Forms: Portal Instructions Follow Up Appointments: 12/16 @ 1pm with Dr. Gaming [phone]
--- NOTE | 2024-12-13 12:41 | SWNOTE1 ---
[facility]AP[facility] faxed CRF, dc med rec, progress notes from weekend, dc summary, and PT note from Friday and today to [facility].
--- NOTE | 2024-12-13 13:14 | PM.EN ---
Event Note Event Note: I had a meeting with her . I gave him report on her condition, status and treatment plan. is very appreciative of the care that Elza had received here at [facility] I informed him that the final repeat blood culture is not yet available. Informed him that he may call him in a few days if the blood culture comes back positive for additional IV antibiotic or repeat blood culture at that time Also we discussed her groin pain. Although the x-ray shows questionable pubic rami fracture but her pain is on the left side. Mostly in the left groin. The patient has had this according to the for several weeks. Patient started in her back and subsequently localized in the left groin. It does not hurt much only when she walks on it for distance. No fall prior to the start of back pain. Pelvic x-ray does not show any pubic rami fracture or left hip fracture May have ruptured tendon or likely secondary to osteoarthritis involving the left hip Less likely occult fracture. Patient is able to stand up and ambulate without significant pain. I do recommend patient to have an MRI of the left groin to exclude any ruptured tendon or occult fracture or hematoma or others. Also the MRI will give me a better idea on the arthritic changes in the left hip. Patient stated that she is not willing to stay here for MRI or any other testing. stated that patient is psychologically distressed being in the hospital and I would like her to be discharged to home without further delay or initial testing. He promised to take her to see her primary care doctor Dr. Mayen and to proceed with additional needed investigation in the outpatient setting.
--- NOTE | 2024-12-14 14:26 | CM.DCFOLLOWU ---
1st attempt 12/14/24, no answer
--- NOTE | 2024-12-15 15:15 | CM.DCFOLLOWU ---
Person spoke with:patient's How are you feeling? well How is your pain? none Did you understand your discharge instructions?yes Do you have any questions about your discharge instructions?no Were you given any prescriptions at discharge?yes Were you able to get your prescriptions filled?yes Do you understand how to take your medications as ordered?yes Do you have any questions about your follow up appointment and do you plan to keep your follow up appointment? no questions, follow up is now Friday via telehealth with PCP Is there anything else that you would like to discuss? Pt's would like to know if final blood cultures are back. SW and Case management looked and they are preliminary. Questions/Comments/Concerns/Other:none
--- NOTE | 2024-12-17 10:01 | CM.NOTE ---
calling about 2nd set of blood cultures and results, updated no growth at this time. Discussed with Dr. Paul also regarding results, no change in medications at this time.
== END 2024-12-13 13:27 | disposition home health service (06) | DRG 689 ==
LOC: ER 23:29 → MS 23:45
PROVIDERS: Hospitalist; Admitting Provider Internal Medicine; Emergency Provider Student in an Organized Health Care Education/Training Program; PCP Family Medicine; Visit Provider Internal Medicine
DX: N39.0 Urinary tract infection, site not specified (principal); G93.41 Metabolic encephalopathy; R78.81 Bacteremia; I31.39 Other pericardial effusion (noninflammatory); S32.592A Other specified fracture of left pubis, initial encounter for closed fracture; D53.9 Nutritional anemia, unspecified; R09.02 Hypoxemia; I10 Essential (primary) hypertension; K21.9 Gastro-esophageal reflux disease without esophagitis; I71.40 Abdominal aortic aneurysm, without rupture, unspecified; Z79.631 Long term (current) use of antimetabolite agent; Z79.899 Other long term (current) drug therapy; E87.70 Fluid overload, unspecified; B96.1 Klebsiella pneumoniae [K. pneumoniae] as the cause of diseases classified elsewhere; B95.2 Enterococcus as the cause of diseases classified elsewhere; I27.20 Pulmonary hypertension, unspecified; Z74.09 Other reduced mobility; D75.89 Other specified diseases of blood and blood-forming organs; E61.1 Iron deficiency; R10.32 Left lower quadrant pain; Z87.891 Personal history of nicotine dependence; Z86.73 Personal history of transient ischemic attack (TIA), and cerebral infarction without residual deficits; Z87.440 Personal history of urinary (tract) infections; X58.XXXA Exposure to other specified factors, initial encounter; M81.0 Age-related osteoporosis without current pathological fracture
CPT/HCPCS: 36415; 71045; 72190; 80048; 80053; 80076; 81001; 82306; 82607; 82728; 82746; 83540; 83550; 83605; 83690; 83735; 83880; 84484; 85007; 85025; 85027; 85045; 87040; 87077; 87086; 87088; 87150; 87186; 93005; 93306; 96361; 96365; 96375; 97116; 97161; 97165; 97530; 99285; J0696; J1650; J1938; J2405; Q0162